=== PATIENT | male | born 1945 | race Caucasian/White ===

== ENCOUNTER 2023-07-24 09:43 | Outpatient (OUT) | payer MEDICARE, OTHER, SELFPAY ==
[2023-07-24 11:42] LABS: Anion Gap 14.1; BUN Creatinine Ratio 19.5; Calcium 10.3 mg/dL (8.5-10.1); Carbon Dioxide 26.9 mmol/L (21.0-32.0); Chloride 104 mmol/L (98-107); Estimated GFR (African America >60 (>=60); Estimated GFR (Non-African Ame >60 (>=60); Glucose 109 mg/dL (74-106); Sodium 141 mmol/L (136-145)
== END 2023-07-24 09:44 | disposition home or self-care (01) ==
LOC: LAB 09:49
PROVIDERS: PCP Internal Medicine; Visit Provider Internal Medicine Interventional Cardiology
DX: I27.20 Pulmonary hypertension, unspecified (principal)
CPT/HCPCS: 36415; 80048

== ENCOUNTER 2023-08-26 09:11 | Outpatient (OUT) | payer MEDICARE, OTHER, SELFPAY ==
--- OUTSIDE RECORDS SUMMARY | 2023-08-26 09:19 | XMS_ITS | CCD ---
Author Organization [facility] Care Team Providers Care Sailing Instructor Name Role Phone JOSE RAUL VALDES () Unavailable Un available KEISHAJOSE RAUL Miller () Unavailable Un available JOSE RAUL VALDES () Unavailable Un available JOSE RAUL VALDES () Unavailable Un available JOSE RAUL VALDES) Unavailable Un available KEISHAANGELA PANIAGUARMJose () Unavailable Un available KEISHA GANDHIVARMA Unavailable Unavail able KEISHA GANDHIVARMA Unavailable Unavail able Matt Wang Unavailable Matt Coreas DO Primary Care Provider DR MATT WANG Primary Care Unavailable JOSÉ Hurtado, ELZA Admitting Unavailable ELZA GUEVARA Attending Unavailable MURTAZA, DR PRIYANKA Reno Consulting Unavailable JOSÉ Hurtado, ELZA Consulting Unavailable FELIPE, DR RICHMOND Admitting Unavailable FELIPE, DR RICHMOND Attending Unavailable FELIPE, DR RICHMOND Primary Care Unavailable DR MATT WANG Consulting Unavailable MARICRUZ PIMENTEL Admitting Unavailable MARICRUZ PIMENTEL Attending Unavailable FELIPE, DR RICHMOND Primary Care Unavailable MARICRUZ PIMENTEL Consulting Unavailable Matt Wang Unavailable GAMAL KRUEGER Attending Unavailable Allergies Allergy Classification Reported Allergen(s) Allergy Type Date of Onset Reaction(s) Facility (1 source) Simvastatin Drug Allergy Unknown Stellar Other Medications Current Medications Medication Drug Class(es) Dates Sig (Normalized) Sig (Original) apixaban 5 mg oral tablet (3 sources) Factor Xa Inhibitor Start: 2021 take 1 tablet by mouth every twelve hours Eliquis 5 MG 1 tablet Orally Twice a day for 0 days Dec, Active Start: 2020 take 1 tablet by isa th twice daily ELIQUIS 5 mg tab(s) Take 5 mg by mouth twice daily. 0 2020 Active Comment on above: Take 5 mg by mouth t wice daily. fenofibrate 160 mg oral tablet (4 sources) Peroxisome Proliferator Receptor alpha Agonist Start: 2 take 1 tablet by mouth every twenty-four hours Fenofibrate 160 MG 1 tablet Orally Once a day for 90 days Feb, Active Comment on above: Take 160 mg by mouth once daily. furosemide 20 mg oral tablet (3 sources) Loop Diuretic Start: 2 take 1 tablet by mouth every twenty-four hours Furosemide 20 MG 1 tablet Orally Once a day for 0 days Dec, Active Start: 12-25-2020 furosemide (LA SIX) 20 mg tablet every 48 hours. 0 12/25/2020 Active Comment on above: every 48 hours. lisinopril 5 mg oral tablet (1 source) Angiotensin Converting Enzyme Inhibitor take 0.5 tablet by mouth every twenty-four hours Lisinopril 5 MG 0.5 tablet Orally Once a day for 30 day(s) Active losartan potassium 100 mg oral tablet (4 sources) Angiotensin 2 Receptor Lizzie Start: 8 take 1 tablet by mouth every twenty-four hours Losartan Potassium 100 MG 1 tablet Orally Once a day for 0 days Aug, Active Comment on above: Take 1 tablet by isa once daily. omeprazole 20 mg delayed release oral tablet (1 source) Proton Pump Inhibitor take 1 tablet by mouth every twenty-four hours PriLOSEC OTC 20 MG 1 tablet Orally Once a day for 30 day(s) Active paxlovid (300/100) 20 x 150 mg & 10 x 100mg tablet therapy pack (1 source) Start: 4 Paxlovid (300/100) 20 x 150 MG & 10 x 100MG as directed Orally bid for 5 days Mar, Active POLYETHYLENE GLYCOL 3350 (1 source) Osmotic Laxative MiraLax as dire cted Orally Active Completed/Discontinued Medications Medication Drug Class(es) Dates Sig (Normalized) Sig (Original) Acetaminophen / HYDROcodone (1 source) Opioid Agonist HYDROcodone-Acet am inophen Not-Taking/PRN Amitriptyline (1 source) Tricyclic Antidepressant Amitriptyline HCl Not-Taking/PRN amLODIPine 10 mg oral tablet (3 sources) Dihydropyridine Calcium Channel Lizzie Start: 2020 amLODIPine (NORVASC) 10 mg tablet Start: 11-30-2020 take 1 tablet by isa th once daily amLODIPine Besylate 5 MG amLODIPine Besylate 5MG, 1 (one) Tablet Tablet daily # 90, 11/30/2020, Ref. x3. Active Oral daily for 0 Nov, Active ascorbic acid 1000 mg oral tablet (2 sources) Vitamin C take 1 tablet by mouth once daily Ascorbic Acid (VITAMIN C) 1,000 mg tablet Take 1,000 mg by mouth once daily. 0 Active Comment on above: Take 1,000 mg by isa th once daily. chlordiazePOXIDE / clidinium (1 source) Anticholinergic, Benzodiazepine Start: 015 take 1 capsule by mouth twice daily before mealtime Librax 2.5-5 MG 1 capsule before meals Orally Twice a day for 30 day(s) May, Not-Taking/PRN Creon 13480 UNIT (1 source) Start: 014 take 2 tablets by mouth three times daily at mealtime Creon 89957 UNIT 2 TABS Orally TID WITH MEALS for 30 day(s) Nov, Not-Taking/PRN docusate sodium 50 mg / sennosides, detention 8.6 mg oral tablet (1 source) Start: 015 Senokot S 8.6-50 MG 2 p.o. Once a day for 30 day(s) July, Not-Taking/PRN Mexjh-3-MOA-EPA-Fish Oil (FISH OIL) 1,000 mg (120 mg-180 mg) cap (2 sources) take 1 capsule by mouth once daily Ysyig-0-RGP-EPA-Fis h Oil (FISH OIL) 1,000 mg (120 mg-180 mg) cap Take 2 g by mouth once daily. When stinks about it.. 0 Active Comment on above: Take 2 g by mouth on ce daily. When stinks about it.. Pancrelipase (1 source) Pancrelipase Not-Taking/PRN Suprep Bowel Prep - (1 source) Start: 017 Suprep Bowel Prep - 1 AT NOON AND 1 AT 8 PM DAY PRIOR TO COLONOSCOPY Orally Twice a day for 1 day(s) Jun, Not-Taking/PRN Problems Active Problems Problem Classification Problem Date Documented Da te Episodic/Chronic Disorders of lipid metabolism (4 sources) Hyperlipidemia, unspecified; Translations: [Mixed hyperlipidemia] Onset: 10-04-2021 Chronic Essential hypertension (6 sources) Essential (primary) hypertension; Translations: [Essential hypertension] Onset: 01-20-2022 Chronic Heart valve disorders (2 sources) Nonrheumatic tricuspid (valve) insufficiency; Translations: [Nonrheumatic tricuspid (valve) insufficiency] Onset: 07-22-2023 Chronic Hepatitis (1 source) Hepatitis Onset: 06-16-2017 Neoplasms of unspecified nature or uncertain behavior (2 sources) Post-splenectomy thrombocytosis; Translations: [Thrombocytosis after splenectomy] Episodic Other nervous system disorders (2 sources) Idiopathic progressive polyneuropathy; Translations: [Idiopathic progressive neuropathy] Onset: 03-06-2017 03-06-2017 Chronic Other nervous system disorders (1 source) Hereditary and idiopathic neuropathy, unspecified; Translations: [HEREDITARY IDIOPATH NEUROPATHY UNS] Onset: 01-20-2022 Chronic Pancreatic disorders (not diabetes) (2 sources) Chronic pancreatitis; Translations: [Other chronic pancreatitis] Onset: 04-18-2014 04-18-2014 Chronic Phlebitis; thrombophlebitis and thromboembolism (4 sources) Acute deep venous thrombosis of left femoral vein; Translations: [Acute embolism and thrombosis of left femoral vein] Onset: 01-03-2022 Episodic Pulmonary heart disease (2 sources) Pulmonary hypertension, unspecified; Translations: [Pulmonary hypertension, unspecified] Onset: 06-18-2022 Chronic Pulmonary heart disease (3 sources) Personal history of pulmonary embolism; Translations: [PERSONAL HISTORY PULMONARY EMBOLISM] Onset: 10-04-2021 Episodic Residual codes; unclassified (2 sources) Localized edema; Translations: [Localized edema] Onset: 07-22-2023 Episodic Unclassified (1 source) Spinal stenosis, lumbar region with neurogenic claudication; Translations: [Spinal stenosis, lumbar region with neurogenic claudication] Onset: 10-14-2017 Past or Other Problems Problem Classification Problem Date Documented Da te Episodic/Chronic Abdominal pain (3 sources) Unspecified abdominal pain; Translations: [UNSPECIFIED ABDOMINAL PAIN] Onset: 10-02-2021 Episodic E Codes: Fall (1 source) Fall on same level from slipping, tripping and stumbling without subsequent striking against object, initial encounter; Translations: [FALL SAME LVL SLIP NO STRK OBJ INIT] Onset: 10-04-2021 Episodic E Codes: Unspecified (1 source) Activity, gardening and landscaping; Translations: [ACTIVITY GARDENING AND LANDSCAPING] Onset: 10-04-2021 Episodic Other aftercare (1 source) custodial (current) use of anticoagulants; Translations: [HALF-WAY CURRNT USE ANTICOAGULANTS] Onset: 10-04-2021 Episodic Other aftercare (1 source) Other caster investment casting (current) drug therapy; Translations: [OTH HALF-WAY CURRENT DRUG THERAPY] Onset: 10-04-2021 Episodic Other fractures (1 source) Multiple fractures of ribs, right side, initial encounter for closed fracture; Translations: [MX FX RIBS RT SIDE INITIAL CLOS FX] Onset: 10-04-2021 Episodic Other screening for suspected conditions (not mental disorders or infectious disease) (1 source) Encounter for screening for malignant neoplasm of prostate; Translations: [ENC SCREEN MALIG NEOPLASM PROSTATE] Onset: 01-20-2022 Episodic Spondylosis; intervertebral disc disorders; other back problems (8 sources) Lumbosacral radiculopathy; Translations: [Radiculopathy, lumbosacral region] Onset: 03-06-2017 03-06-2017 Episodic Viral infection (1 source) COVID-19 Results Test Name Value Interpretation Reference Range Facility Office Visiton 07-22-2023 Follow-up visit [id number] Meera Stockton 1945 M Date Provider Department Center 07/22/2023 GAMAL DOYLE [facility] Family History Problem Relation Age of Onset Brain Aneurysm Mother Heart attack Brother Family Status - Relation Status Age at Mother Brother Level of Service:03066 NC OFFICE/OUTPATIENT ESTABLISHED MOD MDM 30 MIN Normal [facility] ECHOCARDIO M/2D COMPLETEon 0 06-25-2022 ECHOCARDIO M/2D COMPLETE Patient: MEERA STOCKTON. Exam Date: 06/25/2022 : 1945 Gender:M Ordering : MARICRUZ PIMENTEL [facility] Admission #: [id number] Family : Order #: [id number] CLICK HERE TO VIEW EXAM ECHOCARDIOGRAM REPORT PROCEDURE: CARDIO PULMONARY ECHOCARDIO M/2D COMP INDICATIONS: Dyspnea on exertion COMPARISON: None. DESCRIPTION: COMPLETE ECHOCARDIOGRAM Real-time transthoracic echocardiography with 2D, M-mode, spectral and color flow Doppler performed. QUALITY: Technical quality was good. LEFT VENTRICLE: Normal chamber size. Borderline left ventricular hypertrophy. Global left ventricular systolic function is normal. LV EF: Calculated left ventricular ejection fraction is 68%. DIASTOLIC: Normal diastolic function. ATRIAL SEPTUM: LEFT ATRIUM: Normal chamber size. RIGHT ATRIUM: Moderate dilatation. RIGHT VENTRICLE: Mild dilatation. Normal right ventricular systolic function. TRICUSPID VALVE: Normal mobility and thickness. No stenosis with moderate regurgitation. Mild pulmonary hypertension. RVSP 40 mmHg MITRAL VALVE: Normal mobility and thickness. No mitral valve prolapse. No evidence of mitral valve stenosis. There is no mitral annular calcification. Trivial mitral regurgitation. AORTIC VALVE: Normal trileaflet appearance. No visible sclerosis. Normal leaflet mobility. No evidence of aortic valve stenosis. Trivial aortic regurgitation. AORTIC ROOT: Normal diameter and appearance. PULMONIC VALVE: Normal thickness and mobility. No stenosis. No regurgitation. PERICARDIUM: No evidence of pericardial effusion. IVC: Collapses with inspirations. Normal size PLEURA: CONCLUSION: 1. Left ventricle is normal in size with normal systolic function. LVEF is 65 to 70%. 2. Right ventricle is mildly dilated with normal systolic function. 3. Normal diastolic function. 4. Moderately dilated right atrium. 5. Moderate tricuspid regurgitation. 6. Mildly elevated right-sided pressures. Adult Echocardiography Procedure Report Left Ventricle LVEDD (3.7 - 5.6 cm): 4.99 cm LVESD (2.2 - 4.0 cm): 3.18 cm LVIVS thickness (0.6 - 1.2 cm): 1.14 cm LVPW thickness (0.5 - 1.0 cm): 1.12 cm e': 0.13 m/s E - e': 4.35 LVOT Max Gradient: 4.39 mm[Hg] Peak Velocity (LVOT): 1.05 m/s Mean Velocity (LVOT): 0.69 m/s LVOT Diameter 2.28 cm Left Ventricular Ejection Fraction: 65-70 % Left Atrium LA Volume Index (2D A2C): 52.60 ml, 52.60 ml Left Atrium Systolic Dimension: 3.87 cm Mitral Valve MV E to A Ratio: 0.74 Mitral Valve A-Wave Peak Velocity: 0.74 m/s Mitral Valve E-Wave Peak Velocity: 0.55 m/s Right Ventricle RV Internal Diastolic Dimension: 4.19 cm Aorta AO Root Diam: 3.19 cm Ascending Ao Diam: 3.33 cm Aortic Valve AoV Area (Peak Cirilo): 3.46 cm2, 3.46 cm2 AoV Area (VTI): 3.29 cm2, 3.29 cm2 Peak Velocity(Antegrade Flow): 1.24 m/s Peak Gradient(Antegrade Flow): 6.16 mm[Hg] Mean Velocity(Antegrade Flow): 0.84 m/s Mean Gradient(Antegrade Flow): 3.32 mm[Hg] Velocity Time Integral: 30.93 cm Tricuspid Valve Peak Velocity (Regurgitant Flow): 2.98 m/s, 3.04 m/s, 2.96 m/s Peak Velocity: 0.51 m/s Pulmonic Valve Mean Gradient: 2.02 mm[Hg] Mean Velocity: 0.65 m/s Peak Velocity: 1.02 m/s, 0.98 m/s Peak Gradient: 3.83 mm[Hg], 4.20 mm[Hg] Right Atrium Right Atrium Systolic Pressure: 57.89 ml, 57.89 ml Dictated by: Gamal Krueger M.D. on 06/27/2022 at 19:25 Approved by: Gamal Krueger M.D. on 06/27/2022 at 19:32 Normal [facility] CBC AUTO DIFFon 01-16-2022 BASO # 0.1 103/ul Normal 0.0-0.1 [facility] Comment on above: Performed By: #### C BC #### [facility] [address] [place] [address] Dr. Shawn Shahid Basophils/100 WBC (Bld) 1.8 % Normal 0.2-2.0 [facility] Comment on above: Performed By: #### C BC #### [facility] [address] [address] [address] Shawn Shahid EO # 0.8 103/ul Critically high 0.0-0.7 [facility] Comment on above: Performed By: #### C BC #### [facility] [address] [place] [address] Dr. Shawn Shahid Eosinophils/100 WBC (Bld) 10.9 % Critically high 0.9-7.0 [facility] Comment on above: Performed By: #### C BC #### [facility] [address] [place] [address] Dr. Shawn Shahid Erythrocyte distribution width (RBC) [Ratio] 14.7 % Normal 11.0-15.0 [facility] Comment on above: Performed By: #### C BC #### [facility] [address] [place] [address] Dr. Shawn Shahid Hematocrit (Bld) [Volume fraction] 47.7 % Normal 42.0-54.0 [facility] Comment on above: Performed By: #### C BC #### [facility] [address] [place] [address] Dr. Shawn Shahid Hemoglobin (Bld) [Mass/Vol] 15.9 g/dL Normal 14.0-18.0 [facility] Comment on above: Performed By: #### C BC #### [facility] [address] [place] [address] Dr. Shawn Shahid IG # 0.02 10e3/ul Normal 0.00-0.03 [facility] Comment on above: Performed By: #### C BC #### [facility] [address] [place] [address] Dr. Shawn Shahid IG % 0.3 % Normal 0.0-0.5 [facility] Comment on above: Performed By: #### C BC #### [facility] [address] [place] [address] Dr. Shawn Shahid LYMPH # 2.7 103/ul Normal 1.2-3.8 [facility] Comment on above: Performed By: #### C BC #### [facility] [address] [place] [address] Dr. Shawn Shahid Lymphocytes/100 WBC (Bld) 37.7 % Normal 20.5-60.0 [facility] Comment on above: Performed By: #### C BC #### [facility] [address] [place] [address] Dr. Shawn Shahid MANUAL DIFF REQ NO Normal [facility] Comment on above: Performed By: #### C BC #### [facility] [address] [place] [address] Dr. Shawn Shahid MCH (RBC) [Entitic mass] 32.5 pg Normal 25.9-34.0 [facility] Comment on above: Performed By: #### C BC #### [facility] [address] [place] [address] Dr. Shawn Shahid MCHC (RBC) [Mass/Vol] 33.3 g/dL Normal 29.9-35.2 [facility] Comment on above: Performed By: #### C BC #### [facility] [address] [place] [address] Dr. Shawn Shahid MCV (RBC) [Entitic vol] 97.5 fL Critically high 80.0-94.0 [facility] Comment on above: Performed By: #### C BC #### [facility] [address] [place] [address] Dr. Shawn Shahid MONO # 1.0 103/ul Critically high 0.3-0.8 [facility] Comment on above: Performed By: #### C BC #### [facility] [address] [place] [address] Dr. Shawn Shahid Monocytes/100 WBC (Bld) 14.6 % Critically high 1.7-12.0 [facility] Comment on above: Performed By: #### C BC #### [facility] [address] [place] [address] Dr. Shawn Shahid NEUT # 2.4 103/ul Normal 1.4-6.5 [facility] Comment on above: Performed By: #### C BC #### [facility] [address] [place] [address] Dr. Shawn Shahid Neutrophils/100 WBC (Bld) 34.7 % Critically low 43.0-75.0 [facility] Comment on above: Performed By: #### C BC #### [facility] [address] [place] [address] Dr. Shawn Shahid Platelet mean volume (Bld) [Entitic vol] 9.3 fL Critically low 9.5-13.5 [facility] Comment on above: Performed By: #### C BC #### [facility] [address] [address] [address] Shawn Shahid PLT 538 103/ul Critically high 150-450 [facility] Comment on above: Performed By: #### C BC #### [facility] [address] [address] [address] Shawn Shahid RBC 4.89 106/ul Normal 4.70-6.10 [facility] Comment on above: Performed By: #### C BC #### [facility] [address] [address] [address] Shawn Shahid WBC 7.1 103/ul Normal 4.0-11.0 [facility] Comment on above: Performed By: #### C BC #### [facility] [address] [address] [address] Shawn Shahid LIPID PROFILEon 01-16-2022 CHOL-HDL RATIO NORM SEE BELOW Normal [facility] Comment on above: Result Comment: 3.3 - 4.4 LOW RISK 4.4 - 7.1 AVERAGE RISK 7.1 - 11.0 MODERATE RISK >11.0 HIGH RISK Performed By: #### L IPID, BMP #### [facility] [address] [place] [address] Dr. Shawn Shahid Cholesterol [Mass/Vol] 246 mg/dL Critically high <=200 [facility] Comment on above: Performed By: #### L IPID, BMP #### [facility] [address] [place] [address] Dr. Shawn Shahid Cholesterol in HDL [Mass/Vol] 69 mg/dL Critically high 40-60 [facility] Comment on above: Performed By: #### L IPID, BMP #### [facility] [address] [address] [address] Shawn Shahid Cholesterol in LDL [Mass/Vol] 152.0 mg/dL Normal [facility] Comment on above: Performed By: #### L IPID, BMP #### [facility] [address] [place] [address] Dr. Shawn Shahid Cholesterol.total/ Cholesterol in HDL [Mass ratio] 3.6 {ratio} Normal [facility] Comment on above: Performed By: #### L IPID, BMP #### [facility] [address] [address] [address] Shawn Shahid HDL NORMAL > or = 60 mg/dl - LO W CARDIOVASCULAR RISK <40 mg/dl - HIGH CARDIOVASCULAR RISK Normal [facility] Comment on above: Performed By: #### L IPID, BMP #### [facility] [address] [address] [address] Shawn Shahid LDL CALC NORMAL SEE BELOW Normal [facility] Comment on above: Result Comment: <100 mg/dl OPTIMAL 100 - 129 mg/dl NEAR OR ABOVE OPTIMAL 130 - 159 mg/dl BORDERLINE HIGH 160 - 189 mg/dl HIGH >190 mg/dl VERY HIGH Performed By: #### L IPID, BMP #### [facility] [address] [place] [address] Dr. Shawn Shahid Triglyceride [Mass/Vol] 125 mg/dL Normal <=150 [facility] Comment on above: Performed By: #### L IPID, BMP #### [facility] [address] [place] [address] Dr. Shawn Shahid VLDL CALC 25.0 mg/dL Normal [facility] Comment on above: Performed By: #### L IPID, BMP #### [facility] [address] [address] [address] Shawn Shahid PROF CHEM 8 (BAS METB)on Anion gap [Moles/Vol] 10.8 mmol/L Normal [facility] Comment on above: Performed By: #### L IPID, BMP #### [facility] [address] [place] [address] Dr. Shawn Shahid Calcium [Mass/Vol] 9.7 mg/dL Normal 8.5-10.1 [facility] Comment on above: Performed By: #### L IPID, BMP #### [facility] [address] [address] [address] Shawn Shahid Chloride [Moles/Vol] 101 mmol/L Normal 98-107 [facility] Comment on above: Performed By: #### L IPID, BMP #### [facility] [address] [address] [address] Shawn Shahid CO2 [Moles/Vol] 29.3 mmol/L Normal 21.0-32.0 [facility] Comment on above: Performed By: #### L IPID, BMP #### [facility] [address] [address] [address] Shawn Shahid Creatinine [Mass/Vol] 0.86 mg/dL Normal 0.70-1.30 [facility] Comment on above: Performed By: #### L IPID, BMP #### [facility] [address] [address] [address] Shawn Shahid EGFR-AF CITIZEN OF [place] >60 Normal >=60 [facility] Comment on above: Performed By: #### L IPID, BMP #### [facility] [address] [address] [address] Shawn Shahid EGFR-NON AF CITIZEN OF [place] >60 Normal >=60 [facility] Comment on above: Performed By: #### L IPID, BMP #### [facility] [address] [address] [address] Shawn Shahid Glucose [Mass/Vol] 105 mg/dL Normal 74-106 [facility] Comment on above: Performed By: #### L IPID, BMP #### [facility] [address] [address] [address] Shawn Shahid Potassium [Moles/Vol] 4.1 mmol/L Normal 3.5-5.1 [facility] Comment on above: Performed By: #### L IPID, BMP #### [facility] [address] [address] [address] Shawn Shahid Sodium [Moles/Vol] 137 mmol/L Normal 136-145 [facility] Comment on above: Performed By: #### L IPID, BMP #### [facility] [address] [place] [address] Dr. Shawn Shahid Urea nitrogen [Mass/Vol] 16.0 mg/dL Normal 7.0-18.0 [facility] Comment on above: Performed By: #### L IPID, BMP #### [facility] [address] [place] [address] Dr. Shawn Shahid Urea nitrogen/Creatinin e [Mass ratio] 18.6 mg/mg Normal [facility] Comment on above: Performed By: #### L IPID, BMP #### [facility] [address] [place] [address] Dr. Shawn Shahid CBC AUTO DIFFon 10-02-2021 BASO # 0.1 103/ul Normal 0.0-0.1 [facility] Comment on above: Performed By: #### C BC #### [facility] [address] [place] [address] Dr. Shawn Shahid Basophils/100 WBC (Bld) 0.7 % Normal 0.2-2.0 [facility] Comment on above: Performed By: #### C BC #### [facility] [address] [place] [address] Dr. Shawn Shahid EO # 0.2 103/ul Normal 0.0-0.7 [facility] Comment on above: Performed By: #### C BC #### [facility] [address] [place] [address] Dr. Shawn Shahid Eosinophils/100 WBC (Bld) 2.2 % Normal 0.9-7.0 [facility] Comment on above: Performed By: #### C BC #### [facility] [address] [place] [address] Dr. Shawn Shahid Erythrocyte distribution width (RBC) [Ratio] 15.0 % Normal 11.0-15.0 [facility] Comment on above: Performed By: #### C BC #### [facility] [address] [place] [address] Dr. Shawn Shahid Hematocrit (Bld) [Volume fraction] 44.5 % Normal 42.0-54.0 [facility] Comment on above: Performed By: #### C BC #### [facility] [address] [place] [address] Dr. Shawn Shahid Hemoglobin (Bld) [Mass/Vol] 15.1 g/dL Normal 14.0-18.0 [facility] Comment on above: Performed By: #### C BC #### [facility] [address] [place] [address] Dr. Shawn Shahid IG # 0.03 10e3/ul Normal 0.00-0.03 [facility] Comment on above: Performed By: #### C BC #### [facility] [address] [place] [address] Dr. Shawn Shahid IG % 0.3 % Normal 0.0-0.5 [facility] Comment on above: Performed By: #### C BC #### [facility] [address] [place] [address] Dr. Shawn Shahid LYMPH # 2.0 103/ul Normal 1.2-3.8 [facility] Comment on above: Performed By: #### C BC #### [facility] [address] [place] [address] Dr. Shawn Shahid Lymphocytes/100 WBC (Bld) 20.7 % Normal 20.5-60.0 [facility] Comment on above: Performed By: #### C BC #### [facility] [address] [place] [address] Dr. Shawn Shahid MANUAL DIFF REQ NO Normal [facility] Comment on above: Performed By: #### C BC #### [facility] [address] [place] [address] Dr. Shawn Shahid MCH (RBC) [Entitic mass] 32.7 pg Normal 25.9-34.0 [facility] Comment on above: Performed By: #### C BC #### [facility] [address] [place] [address] Dr. Shawn Shahid MCHC (RBC) [Mass/Vol] 33.9 g/dL Normal 29.9-35.2 [facility] Comment on above: Performed By: #### C BC #### [facility] [address] [address] [address] Shawn Shahid MCV (RBC) [Entitic vol] 96.3 fL Critically high 80.0-94.0 [facility] Comment on above: Performed By: #### C BC #### [facility] [address] [address] [address] Shawn Shahid MONO # 1.2 103/ul Critically high 0.3-0.8 [facility] Comment on above: Performed By: #### C BC #### [facility] [address] [address] [address] Shawn Shahid Monocytes/100 WBC (Bld) 12.6 % Critically high 1.7-12.0 [facility] Comment on above: Performed By: #### C BC #### [facility] [address] [place] [address] Dr. Shawn Shahid NEUT # 6.2 103/ul Normal 1.4-6.5 [facility] Comment on above: Performed By: #### C BC #### [facility] [address] [address] [address] Shawn Shahid Neutrophils/100 WBC (Bld) 63.5 % Normal 43.0-75.0 [facility] Comment on above: Performed By: #### C BC #### [facility] [address] [address] [address] Shawn Shahid Platelet mean volume (Bld) [Entitic vol] 9.3 fL Critically low 9.5-13.5 [facility] Comment on above: Performed By: #### C BC #### [facility] [address] [place] [address] Dr. Shawn Shahid PLT 460 103/ul Critically high 150-450 [facility] Comment on above: Performed By: #### C BC #### [facility] [address] [id number] [address] Shawn Shahid RBC 4.62 106/ul Critically low 4.70-6.10 [facility] Comment on above: Performed By: #### C BC #### [facility] [address] [address] [address] Shawn Shahid WBC 9.7 103/ul Normal 4.0-11.0 [facility] Comment on above: Performed By: #### C #### [facility] [address] [place], [place] [address] ABD/PELVIS WO CONon 10-02 CT ABD/PELVIS WO CON EXAMINATION: CT ABD/PELVIS WO CON HISTORY: Pain ; acute right rib and abdominal pain since falling yesterday COMPARISON: CT abdomen pelvis 11/06/2020 TECHNIQUE: Axial, Coronal, and Sagittal images were created without IV contrast. Dose reduction techniques were achieved by using automated exposure control and/or adjustment of mA and/or kV according to patient size and/or use of iterative reconstruction technique. FINDINGS: LUNG BASES: Trace amount of atelectasis within posterior right lung base. LIVER: No enlargement, atrophy, suspicious density, or significant focal lesion. BILIARY: No dilatation or calcification. PANCREAS: Prior resection of the body and tail of pancreas. No lesion, fluid collection, or abnormal duct dilatation. SPLEEN: Splenectomy. ADRENALS: No mass or enlargement. Chronic calcifications within right adrenal gland. KIDNEYS: Nonobstructing 1 mm and 4 mm stones within left kidney. Unremarkable right kidney and bilateral ureters. BOWEL/MESENTERY: No visible mass, obstruction, or bowel wall thickening. Normal appendix. AORTA/VASCULAR: No aneurysm or dissection. RETROPERITONEUM: No mass or adenopathy. LYMPH NODES: No adenopathy. URINARY BLADDER: No visible focal wall thickening, lesion, or calculus. PELVIC ORGANS: No visible mass. Pelvic organs appropriate for patient age. ABDOMINAL WALL: Small fat filled right inguinal hernia without strangulation. BONES: Acute, nondisplaced posterior right ninth and 10th rib fractures. Marked degenerative disc disease L4-L5, L5-S1 along with marked degenerative facet arthropathy. Posterior decompression L4 and L5. OTHER: Negative. IMPRESSION: 1. Nondisplaced acute fractures of the posterior right ninth and 10th ribs. 2. Mild atelectasis within right lung base. 3. Prior splenectomy and partial pancreatectomy. 4. Nonobstructing left nephrolithiasis. Electronically authenticated by: PRIYANKA HAUSER Date: 2021-10-02 13:13 Normal [facility] PROF CHEM 8 (BAS METB)on Anion gap [Moles/Vol] 13.3 mmol/L Normal [facility] Comment on above: Performed By: #### B MP #### [facility] [address] [address] [address] Shawn Shahid Calcium [Mass/Vol] 9.6 mg/dL Normal 8.5-10.1 [facility] Comment on above: Performed By: #### B MP #### [facility] [address] [address] [address] Shawn Shahid Chloride [Moles/Vol] 105 mmol/L Normal 98-107 [facility] Comment on above: Performed By: #### B MP #### [facility] [address] [address] [address] Shawn Shahid CO2 [Moles/Vol] 24.5 mmol/L Normal 21.0-32.0 [facility] Comment on above: Performed By: #### B MP #### [facility] [address] [address] [address] Shawn Shahid Creatinine [Mass/Vol] 0.83 mg/dL Normal 0.70-1.30 [facility] Comment on above: Performed By: #### B MP #### [facility] [address] [address] [address] Shawn Shahid EGFR-AF CITIZEN OF [place] >60 Normal >=60 [facility] Comment on above: Performed By: #### B MP #### [facility] [address] [address] [address] Shawn Shahid EGFR-NON AF CITIZEN OF [place] >60 Normal >=60 [facility] Comment on above: Performed By: #### B MP #### [facility] [address] [address] [address] Shawn Shahid Glucose [Mass/Vol] 113 mg/dL Critically high 74-106 [facility] Comment on above: Performed By: #### B MP #### [facility] [address] [address] [address] Shawn Shahid Potassium [Moles/Vol] 3.8 mmol/L Normal 3.5-5.1 [facility] Comment on above: Performed By: #### B MP #### [facility] [address] [place], [place] [address] Dr. Shawn Shahid Sodium [Moles/Vol] 139 mmol/L Normal 136-145 [facility] Comment on above: Performed By: #### B MP #### [facility] [address] [place], [place] [address] Dr. Shawn Shahid Urea nitrogen [Mass/Vol] 16.0 mg/dL Normal 7.0-18.0 [facility] Comment on above: Performed By: #### B MP #### [facility] [address] [place], [place] [address] Dr. Shawn Shahid Urea nitrogen/Creatinin e [Mass ratio] 19.3 mg/mg Normal [facility] Comment on above: Performed By: #### B MP #### [facility] [address] [place], [place] [address] Dr. Shawn Shahid XR RIBS RT PA Myra 2 XR RIBS RT PA CH EXAMINATION: XR RIBS RT PA CH HISTORY: Pain ; right rib and abdominal pain since falling yesterday COMPARISON: XR chest 11-03 FINDINGS: LUNGS: No significant pulmonary parenchymal abnormalities. PLEURA: No pneumothorax, effusion, or pleural thickening. MEDIASTINUM: No visible mass or adenopathy. CARDIAC: No cardiomegaly or cardiac silhouette abnormality. RIBS: Old, healed left second rib fracture. No right rib fracture or suspicious findings. OTHER: Negative. IMPRESSION: 1. Low lung volume examination. No acute cardiopulmonary process. 2. No appreciable right rib abnormality. Electronically authenticated by: PRIYANKA HAUSER Date: 2021-10-02 13:00 Normal [facility] CBC W Auto Differential pane l (Bld)on 07-18-2021 Basophils (Bld) [#/Vol] 0.14 10*3/uL High <0.11 [facility] Comment on above: Order Comment: Speci men Type: BLOOD SPECIMENOrdering Facility: [facility] Address: [address] [place] [id number] Performed By: #### 5 7021-8 ####[facility] [id number] [place] [address] Basophils/100 WBC (Bld) 1.9 % Normal [facility] Comment on above: Order Comment: Speci men Type: BLOOD SPECIMENOrdering Facility: [facility] Address: [address] [place] [address] Performed By: #### 5 7021-8 ####[facility] [id number] [place] [address] Differential cell count method Nom (Bld) Auto Normal [facility] Comment on above: Order Comment: Speci men Type: BLOOD SPECIMENOrdering Facility: [facility] Address: [address] [place] [address] Performed By: #### 5 7021-8 ####[facility] [id number] [place] [address] Eosinophils (Bld) [#/Vol] 0.80 10*3/uL High <0.46 [facility] Comment on above: Order Comment: Speci men Type: BLOOD SPECIMENOrdering Facility: [facility] Address: [address] [place] [address] Performed By: #### 5 7021-8 ####[facility] [id number] [place] [address] Eosinophils/100 WBC (Bld) 10.9 % Normal [facility] Comment on above: Order Comment: Speci men Type: BLOOD SPECIMENOrdering Facility: [facility] Address: [address] [place] [address] Performed By: #### 5 7021-8 ####[facility] [id number] [place] [address] Erythrocyte distribution width (RBC) [Ratio] 15.1 % High 11.5-15.0 [facility] Comment on above: Order Comment: Speci men Type: BLOOD SPECIMENOrdering Facility: [facility] Address: [address] [place] [address] Performed By: #### 5 7021-8 ####[facility] [id number] [place] [address] Hematocrit (Bld) [Volume fraction] 48.4 % Normal 39.0-51.0 [facility] Comment on above: Order Comment: Speci men Type: BLOOD SPECIMENOrdering Facility: [facility] Address: [address] [place] [address] Performed By: #### 5 7021-8 ####[facility] [id number] [place] [address] Hemoglobin (Bld) [Mass/Vol] 16.2 g/dL Normal 13.0-17.0 [facility] Comment on above: Order Comment: Speci men Type: BLOOD SPECIMENOrdering Facility: [facility] Address: [address] [place] [address] Performed By: #### 5 7021-8 ####[facility] [id number] [place] [address] IMMATURE GRAN % 0.4 % Normal [facility] Comment on above: Order Comment: Speci men Type: BLOOD SPECIMENOrdering Facility: [facility] Address: [address] [place] [address] Performed By: #### 5 7021-8 ####[facility] [id number] [place] [address] IMMATURE GRAN ABS 0.03 k/uL Normal <0.10 [facility] Comment on above: Order Comment: Speci men Type: BLOOD SPECIMENOrdering Facility: [facility] Address: [address] [place] [address] Performed By: #### 5 7021-8 ####[facility] [id number] [place] [address] Lymphocytes (Bld) [#/Vol] 2.70 10*3/uL Normal 1.00-4.00 [facility] Comment on above: Order Comment: Speci men Type: BLOOD SPECIMENOrdering Facility: [facility] Address: [address] [place] [address] Performed By: #### 5 7021-8 ####[facility] [id number] [place] [address] Lymphocytes/100 WBC (Bld) 36.6 % Normal [facility] Comment on above: Order Comment: Speci men Type: BLOOD SPECIMENOrdering Facility: [facility] Address: [address] [place] [address] Performed By: #### 5 7021-8 ####[facility] [id number] [place] [address] MCH (RBC) [Entitic mass] 32.3 pg Normal 26.0-34.0 [facility] Comment on above: Order Comment: Speci men Type: BLOOD SPECIMENOrdering Facility: [facility] Address: [address] [place] [address] Performed By: #### 5 7021-8 ####[facility] [id number] [place] [address] MCHC (RBC) [Mass/Vol] 33.5 g/dL Normal 30.5-36.0 [facility] Comment on above: Order Comment: Speci men Type: BLOOD SPECIMENOrdering Facility: [facility] Address: [address] [place], [place] [address] Performed By: #### 5 7021-8 ####[facility] [id number] [place] [address] MCV (RBC) [Entitic vol] 96.4 fL Normal 80.0-100.0 [facility] Comment on above: Order Comment: Speci men Type: BLOOD SPECIMENOrdering Facility: [facility] Address: [address] [place], [place] [address] Performed By: #### 5 7021-8 ####[facility] [id number] [place] [address] Monocytes (Bld) [#/Vol] 0.99 10*3/uL High <0.87 [facility] Comment on above: Order Comment: Speci men Type: BLOOD SPECIMENOrdering Facility: [facility] Address: [address] [place] [address] Performed By: #### 5 7021-8 ####[facility] [id number] [place] [address] Monocytes/100 WBC (Bld) 13.4 % Normal [facility] Comment on above: Order Comment: Speci men Type: BLOOD SPECIMENOrdering Facility: [facility] Address: [address] [place] [address] Performed By: #### 5 7021-8 ####[facility] [id number] [place] [address] Neutrophils (Bld) [#/Vol] 2.71 10*3/uL Normal 1.45-7.50 [facility] Comment on above: Order Comment: Speci men Type: BLOOD SPECIMENOrdering Facility: [facility] Address: [address] [place] [address] Performed By: #### 5 7021-8 ####[facility] [id number] [place] [address] Neutrophils/100 WBC (Bld) 36.8 % Normal [facility] Comment on above: Order Comment: Speci men Type: BLOOD SPECIMENOrdering Facility: [facility] Address: [address] [place], [place] [address] Performed By: #### 5 7021-8 ####[facility] [id number] [place] [address] Nucleated RBC (Bld) [#/Vol] 10*3/uL Normal <0.01 [facility] Comment on above: Order Comment: Speci men Type: BLOOD SPECIMENOrdering Facility: [facility] Address: [address] [place] [address] Performed By: #### 5 7021-8 ####[facility] [id number] [place] [address] Nucleated RBC/100 WBC (Bld) [Ratio] 0.0 /100 WBC Normal [facility] Comment on above: Order Comment: Speci men Type: BLOOD SPECIMENOrdering Facility: [facility] Address: [address] [place] [address] Performed By: #### 5 7021-8 ####[facility] [id number] [place] [address] Platelet mean volume (Bld) [Entitic vol] 9.1 fL Normal 9.0-12.7 [facility] Comment on above: Order Comment: Speci men Type: BLOOD SPECIMENOrdering Facility: [facility] Address: [address] [place], [place] [address] Performed By: #### 5 7021-8 ####[facility] [id number] [place] [address] Platelets (Bld) [#/Vol] 486 10*3/uL High 150-400 [facility] Comment on above: Order Comment: Speci men Type: BLOOD SPECIMENOrdering Facility: [facility] Address: [address] [place], [place] [address] Performed By: #### 5 7021-8 ####[facility] [id number] [place] [address] RBC (Bld) [#/Vol] 5.02 10*6/uL Normal 4.20-6.00 [facility] Comment on above: Order Comment: Speci men Type: BLOOD SPECIMENOrdering Facility: [facility] Address: [address] [place], [place] [address] Performed By: #### 5 7021-8 ####[facility] [id number] [place] [address] WBC (Bld) [#/Vol] 7.37 10*3/uL Normal 3.70-11.00 [facility] Comment on above: Order Comment: Speci men Type: BLOOD SPECIMENOrdering Facility: [facility] Address: [facility] [place] [address] Performed By: #### 5 7021-8 ####[facility]CLIA [id number] [place] [address] CNOVSPon 07-18-2021 CNOVSP Visit (SP) Office ([facility]) MEERA STOCKTON ([id number]) 1945 M Date Time Provider Department 07/18/21 10:45 AM ELIER RAYMUNDO During your visit today, we recorded the following information about you: Temperature Pulse Respiration Blood pressure 97.8 degrees 49/minute 16/minute 132/68 Weight Height 84.3 kg 1.765 m Elier Raymundo MD 07/18/2021 11:05 AM Signed HEMATOLOGY FOLLOW UP Elements in this clinic note that are critical to medical decision making have been carefully reviewed and included from my prior clinic note dated: January 17, 2021 July 18, 2021 PCP and other physicians involved in patient's care: Matt Wang (PCP) DIAGNOSIS: Post-splenectomy thrombocytosis HEMATOLOGICAL HISTORY: ? Thrombocytosis from 450-650,000 dating back to 2014 (prior records unavailable), normal WBCs with mild elevations in monocytes and eosinophils, normal hemoglobin; splenectomy in April 2014 ? May 29, 2020 CT chest with moderate bilateral lobar, segmental and subsegmental pulmonary emboli with evidence of right ventricular strain; DVT study with occlusive DVT in the left common femoral vein extending to the popliteal vein; right lower extremity veins are widely patent. No propagating event noted. No family history of VTE. ? January 08, 2021 D-dimer normal. Platelet count 750095. WBC normal with differential showing absolute monocytosis, absolute eosinophilia and absolute basophilia. Hemoglobin normal. No M protein on serum immunofixation. INTERVAL HISTORY: Meera comes back for follow-up. He continues to have issues with neuropathy but no new symptoms. ROS is negative except that mentioned in HPI PAST MEDICAL SURGICAL FAMILY AND SOCIAL HISTORY: He has a history of -Acute DVT, left femoral vein extending into the popliteal vein and multiple subsegmental PE with mild RV dilatation, May 2020 (tested negative for COVID-19 at that time), on apixaban, unprovoked -Hypertension -Peripheral neuropathy -Benign prostatic hyperplasia -Cervical and lumbar spondylosis -Chronic pancreatitis, secondary to chronic alcohol abuse, status post distal pancreatectomy and splenectomy Prior surgeries include herniorrhaphy, distal pancreatectomy and splenectomy (April 2014), lumbar laminectomies and foraminotomies. Family history not significant for hematological or oncologic issues. He has a significant history of excessive alcohol abuse use for 40 years before quitting in 2014. He has 3 children who are healthy. MEDICATIONS AND ALLERGIES: Reviewed PHYSICAL EXAM BP 132/68 Pulse (!) 49 Temp 36.6 ?C (97.8 ?F) (Temporal) Resp 16 Ht 176.5 cm (5' 9.49 ) Wt 84.3 kg (185 lb 12.8 oz) SpO2 98% BMI 27.05 kg/m? Head atraumatic, no pallor, icterus or lymphadenopathy, lungs clear to auscultation, heart sounds regular, abdomen soft without distension or organomegaly, neuro grossly non-focal, skin without rash, extremities without swelling LABORATORY, IMAGING AND PATHOLOGY CBC and CMP reviewed ASSESSMENT AND RECOMMENDATIONS 75 male with thrombocytosis and history of DVT/PE ? Thrombocytosis: The most likely reason for thrombocytosis in the patients's case is history of splenectomy. Mild elevation in myeloid lineages are expected as a result of splenectomy. Given the stability and chronicity of elevated counts, no further intervention is necessary at this point. Continue to monitor counts periodically. Should the patient have new anemia, neutropenia or a rising platelet count, additional work-up could be considered. Follow-up as needed ? 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 Risk factors for recurrent thrombotic event would include patient's history of splenectomy. Patient is at high risk for recurrence of VTE and has a low risk for bleeding events. Continue indefinite anticoagulation. ? 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 This has slowly progressed over the last 1 to 2 years resulting in falls. He has no sensorimotor deficit on exam except for decreased hearing in both ears and some tingling in his feet. B12, TSH, B1 and M protein evaluation are normal. MRI brain is normal. He was recommended neurosurgical evaluation but has deferred this for now. Elier Raymundo MD I spent a total of 20 minutes on the date of the service which included preparing to see the patient, [id number] patient care, completing clinical documentation, obtaining and/or reviewing separately obtained history, performing a medically appropriate examination, counseling and educating the patient/family/caregiver, ordering medications, tests, or procedures and independently interpreting results (not separately reported). CC: Matt Dowd (more content not included)... Normal [facility] [place] [facility] 2000 panelon 07-18-2021 Albumin [Mass/Vol] 4.9 g/dL Normal 3.9-4.9 [facility] Comment on above: Order Comment: Speci men Type: BLOOD SPECIMENOrdering Facility: [facility] Address: [address] [place] [address] Performed By: #### 2 4323-8 ####[facility] [id number] [place] [address] ALP [Catalytic activity/Vol] 32 U/L Low 38-113 [facility] Comment on above: Order Comment: Speci men Type: BLOOD SPECIMENOrdering Facility: [facility] Address: [facility] [place] [address] Performed By: #### 2 4323-8 ####[facility] [id number] [place] [address] ALT [Catalytic activity/Vol] 20 U/L Normal 10-54 [facility] Comment on above: Order Comment: Speci men Type: BLOOD SPECIMENOrdering Facility: [facility] Address: [address] [place] [address] Performed By: #### 2 4323-8 ####[facility] [id number] [place] [address] Anion gap [Moles/Vol] 13 mmol/L Normal 9-18 [facility] Comment on above: Order Comment: Speci men Type: BLOOD SPECIMENOrdering Facility: [facility] Address: [address] [place] [address] Performed By: #### 2 4323-8 ####[facility] [id number] [place] [address] AST [Catalytic activity/Vol] 24 U/L Normal 14-40 [facility] Comment on above: Order Comment: Speci men Type: BLOOD SPECIMENOrdering Facility: [facility] Address: [address] [place] [address] Performed By: #### 2 4323-8 ####[facility] [id number] [place] [address] Bilirubin [Mass/Vol] 0.7 mg/dL Normal 0.2-1.3 [facility] Comment on above: Order Comment: Speci men Type: BLOOD SPECIMENOrdering Facility: [facility] Address: [address] [place] [address] Performed By: #### 2 4323-8 ####[facility] [id number] [place] [address] Calcium [Mass/Vol] 10.5 mg/dL High 8.5-10.2 [facility] Comment on above: Order Comment: Speci men Type: BLOOD SPECIMENOrdering Facility: [facility] Address: [address] [place] [address] Performed By: #### 2 4323-8 ####[facility] [id number] [place] [address] Chloride [Moles/Vol] 101 mmol/L Normal 97-105 [facility] Comment on above: Order Comment: Speci men Type: BLOOD SPECIMENOrdering Facility: [facility] Address: [address] [place] [address] Performed By: #### 2 4323-8 ####[facility] [id number] [place] [address] CO2 [Moles/Vol] 26 mmol/L Normal 22-30 [facility] Comment on above: Order Comment: Speci men Type: BLOOD SPECIMENOrdering Facility: [facility] Address: [address] [place] [address] Performed By: #### 2 4323-8 ####[facility] [id number] [place] [address] Creatinine [Mass/Vol] 0.82 mg/dL Normal 0.73-1.22 [facility] Comment on above: Order Comment: Speci men Type: BLOOD SPECIMENOrdering Facility: [facility] Address: [address] [place] [address] Performed By: #### 2 4323-8 ####[facility] [id number] [place] [address] ESTIMATED GLOMERULAR FILTRATION RATE 92 mL/min/1.73m??? Normal >=60 [facility] Comment on above: Order Comment: Speci men Type: BLOOD SPECIMENOrdering Facility: [facility] Address: [address] [place] [address] Result Comment: Carlie mated Glomerular Filtration Rate (eGFR) is calculated using the 2020 CKD-EPI creatinine equation. This equation utilizes serum creatinine, sex, and age as parameters. The creatinine assay has traceable calibration to isotope dilution-mass spectrometry. Refer to KDIGO guidelines for clinical interpretation. In patients with unstable renal function, e.g. those with acute kidney injury, the eGFR may not accurately reflect actual GFR. Performed By: #### 2 4323-8 ####[facility] [id number] [place] [address] Glucose [Mass/Vol] 110 mg/dL High 74-99 [facility] Comment on above: Order Comment: Speci men Type: BLOOD SPECIMENOrdering Facility: [facility] Address: [address] [place] [address] Result Comment: The [place] Diabetes [employer] (ADA) provides guidance for cutoff values for fasting glucose and random glucose. The ADA defines fasting as no caloric intake for at least 8 hours. Fasting plasma glucose results between 100 to 125 mg/dL indicate increased risk for diabetes (prediabetes). Fasting plasma glucose results greater than or equal to 126 mg/dL meet the criteria for diagnosis of diabetes. In the absence of unequivocal hyperglycemia, results should be confirmed by repeat testing. In a patient with classic symptoms of hyperglycemia or hyperglycemic crisis, random plasma glucose results greater than or equal to 200 mg/dL meet the criteria for diagnosis of diabetes. Reference: Standards of Medical Care in Diabetes 2016, [place] [employer]. Diabetes Care. 2016.39(Suppl 1). Performed By: #### 2 4323-8 ####[facility] [id number] [place] [address] Potassium [Moles/Vol] 3.7 mmol/L Normal 3.7-5.1 [facility] Comment on above: Order Comment: Speci men Type: BLOOD SPECIMENOrdering Facility: [facility] Address: [address] [place] [address] Performed By: #### 2 4323-8 ####[facility] [id number] [place] [address] Protein [Mass/Vol] 8.2 g/dL High 6.3-8.0 [facility] Comment on above: Order Comment: Speci men Type: BLOOD SPECIMENOrdering Facility: [facility] Address: [address] [place] [address] Performed By: #### 2 4323-8 ####[facility] [id number] [place] [address] Sodium [Moles/Vol] 140 mmol/L Normal 136-144 [facility] Comment on above: Order Comment: Speci men Type: BLOOD SPECIMENOrdering Facility: [facility] Address: [address] [place] [address] Performed By: #### 2 4323-8 ####[facility] [id number] [place] [address] Urea nitrogen [Mass/Vol] 19 mg/dL Normal 9-24 [facility] Comment on above: Order Comment: Speci men Type: BLOOD SPECIMENOrdering Facility: [facility] Address: [address] [place] [address] Performed By: #### 2 4323-8 ####[facility] [id number] [place] [address] D dimer FEU PPP-mCncon 07-18 Fibrin D-dimer FEU (PPP) [Mass/Vol] <190 Normal <500 [facility] Comment on above: Order Comment: Speci men Type: BLOOD SPECIMENOrdering Facility: [facility] Address: [address] [place] [address] Result Comment: Dre en plasma received. Performed By: #### 4 8065-7 ####[facility] LABCLIA [id number] [facility] [id number] LABCLIA [id number] [place] [address] Fibrin D-dimer FEU (PPP) [Ma ss/Vol]on 07-18-2021 D DIMER AGE-RELATED CUTOFF 750 ng/mL FEU Normal [facility] Comment on above: Order Comment: Speci men Type: BLOOD SPECIMENOrdering Facility: [facility] Address: [address] [place] [address] Performed By: #### 4 8065-7 ####[facility] LABCLIA [id number] [facility] [id number] [address] [facility] LABCLIA [id number] [place] [address] A[place] 07-15-2021 UMAN Telephone (HEMASA) KYRAMEERA Florentino ([id number]) 1945 M Date Time Provider Department 07/15/21 ELIRE RAYMUNDO During your visit today, we recorded the following information about you: Allergies As of Date: 07/15/2021 (No Known Allergies) Date Reviewed: 02/01/2021 Reviewed by: Tushar Willingham LPN - Fully Assessed Reason for Visit: Lab Orders [1688] Primary Visit Diagnosis:Acute deep vein thrombosis (DVT) of femoral vein of left lower extremity (HCC) [I82.412] Other Visit Diagnosis:Thrombocytosis after splenectomy [D75.838, Z90.81] Order(s):CBC + DIFF [SQCBCDIF] Order #: [id number] FUTURE COMP METABOLIC PANEL [SQCMP] Order #: [id number] FUTURE Prescriptions as of 07/15/2021 - Ascorbic Acid (VITAMIN C) 1,000 mg tablet Take 1,000 mg by mouth once daily. - Mqoez-9-FYU-EPA-Fish Oil (FISH OIL) 1,000 mg (120 mg-180 mg) cap Take 2 g by mouth once daily. When stinks about it.. - amLODIPine (NORVASC) 10 mg tablet - furosemide (LASIX) 20 mg tablet every 48 hours. - ELIQUIS 5 mg tab(s) Take 5 mg by mouth twice daily. - losartan (COZAAR) 100 mg tablet Take 1 tablet by mouth once daily. - Fenofibrate (LOFIBRA) 160 mg tablet Take 160 mg by mouth once daily. 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 HISTORY: Cervical spondylosis with myelopathy. Aphasia. TECHNIQUE: MRI brain and cervical spine without contrast. MQ: [id number] RESULT: MRI CERVICAL SPINE: Acute abnormality: None. Mild scoliosis without vertebral body anomalies. Patchy marrow signal indicating osteopenia. Decreased disc height and signal, endplate changes, disc osteophyte, facet and uncovertebral joint degeneration indicating cervical spondylosis without central canal impingement or compression with degeneration being relatively stable when compared to prior examination with the worst at C5-6 and C6-7. Stable alignment, vertebral height, intervertebral disc height/signal, marrow signal, central canal, thecal sac and spinal cord signal/caliber. No fracture/dislocation. Normal tissues. C2 -- 3: Patent central canal. Patent bilateral neural foramina. C3 -- 4: Patent central canal. Patent bilateral neural foramina. C4 -- 5: Joint degeneration. Patent central canal. Patent bilateral neural foramina. C5 -- 6: Disc/joint degeneration with posterior disc osteophyte effacing ventral CSF without spinal cord impingement or compression with maintained dorsal CSF. This remains stable from prior study with left eccentric disease. Severe bilateral foramina narrowing. C6 -- 7: Stable disc/joint degeneration with mild left and severe right foramina narrowing. Patent canal. C7 -- T1: Patent central canal. Patent bilateral neural foramina. MRI BRAIN: Acute abnormality: None. No restricted diffusion concerning for acute ischemia. No abnormal susceptibility concerning for acute hemorrhage. Age expected unremarkable sulci, gyri, ventricles, CSF spaces and brain with senescent volume loss, microvascular ischemia, accentuation of CSF spaces and ventricular dilation. No acute infarct/hemorrhage, mass effect or collections. Normal bones and soft tissues. IMPRESSION: 1. Age-appropriate unremarkable MRI brain without acute disease. 2. Stable significant C5-6 and C6-7 level degeneration as detailed above. 3. Unremarkable remaining cervical canal and foramina. COUNTING REFERENCE: Superior cervical disc is taken as C2-3. Structural anomalies: None. Director News: [employer] Transcribe Date/Time: Feb 19 2021 2:44P Dictated by : LIBRADO GOMEZ MD This examination was interpreted and the report reviewed and electronically signed by: LIBRADO GOMEZ MD on Feb 19 2021 2:49PM EST [id number] Normal [facility] MRI CERVICAL SPINE WO IVCONo n 02-19-2021 MRI CERVICAL SPINE WO IVCON * * *Final Report* * * DATE OF EXAM: Feb 19 2021 2:38PM LNM 0297 - MRI CERVICAL SPINE WO IVCON / PROCEDURE REASON: Cervical spondylosis with myelopathy * * * * Physician Interpretation * * * * COMPARISON: MRI cervical spine from 07/03/[address] from 11/23/2013. HISTORY: Cervical spondylosis with myelopathy. Aphasia. TECHNIQUE: MRI brain and cervical spine without contrast. MQ: [id number] RESULT: MRI CERVICAL SPINE: Acute abnormality: None. Mild scoliosis without vertebral body anomalies. Patchy marrow signal indicating osteopenia. Decreased disc height and signal, endplate changes, disc osteophyte, facet and uncovertebral joint degeneration indicating cervical spondylosis without central canal impingement or compression with degeneration being relatively stable when compared to prior examination with the worst at C5-6 and C6-7. Stable alignment, vertebral height, intervertebral disc height/signal, marrow signal, central canal, thecal sac and spinal cord signal/caliber. No fracture/dislocation. Normal tissues. C2 -- 3: Patent central canal. Patent bilateral neural foramina. C3 -- 4: Patent central canal. Patent bilateral neural foramina. C4 -- 5: Joint degeneration. Patent central canal. Patent bilateral neural foramina. C5 -- 6: Disc/joint degeneration with posterior disc osteophyte effacing ventral CSF without spinal cord impingement or compression with maintained dorsal CSF. This remains stable from prior study with left eccentric disease. Severe bilateral foramina narrowing. C6 -- 7: Stable disc/joint degeneration with mild left and severe right foramina narrowing. Patent canal. C7 -- T1: Patent central canal. Patent bilateral neural foramina. MRI BRAIN: Acute abnormality: None. No restricted diffusion concerning for acute ischemia. No abnormal susceptibility concerning for acute hemorrhage. Age expected unremarkable sulci, gyri, ventricles, CSF spaces and brain with senescent volume loss, microvascular ischemia, accentuation of CSF spaces and ventricular dilation. No acute infarct/hemorrhage, mass effect or collections. Normal bones and soft tissues. IMPRESSION: 1. Age-appropriate unremarkable MRI brain without acute disease. 2. Stable significant C5-6 and C6-7 level degeneration as detailed above. 3. Unremarkable remaining cervical canal and foramina. COUNTING REFERENCE: Superior cervical disc is taken as C2-3. Structural anomalies: None. Director News: [employer] Transcribe Date/Time: Feb 19 2021 2:44P Dictated by : LIBRADO GOMEZ MD This examination was interpreted and the report reviewed and electronically signed by: LIBRADO GOMEZ MD on Feb 19 2021 2:49PM EST [id number] Normal [facility] CNOVon 02-01-2021 CNOV Office Visit (NEURAV ) MEERA STOCKTON ([id number]) 1945 M Date Time Provider Department 02/01/21 8:00 AM GAY ROJAS During your visit today, we recorded the following information about you: Pulse Blood pressure 52/minute 134/69 Gay Rojas MD 02/01/2021 9:06 AM Signed [facility] - February 01, 2021 Reason for visit: Mr. Stockton is referred by Elier Raymundo for my opinion regarding neuropathy. My final recommendation will be communicated back to the requesting physician by way of shared medical record or letter. HISTORY OF PRESENT ILLNESS: Patient is a 75 year old, right-handed, White, male with history of BPH, melanoma, cervical spondylosis, chronic pancreatitis, DVT (on Eliquis), hypertension, lumbar spinal stenosis s/p L3-5 decompression with foraminotomy?(Oct 2017), hyperlipidemia, idiopathic neuropathy, thrombocytosis. History gathered from patient and electronic medical records. He was followed by Dr. Alvarez from [id number], last seen on 06/02/17: IMPRESSION: 71 year old right handed male with a past medical history of hypertension, EtOH dependence, chronic pancreatitis likely secondary to alcohol use and a length dependent sensorimotor polyneuropathy possibly be due to his remote history of chronic alcohol use presents with lower back and hip pain that is further limiting his gait. Symptoms occur after ambulating and improve with rest and holding onto a shopping cart. MRI of the lumbar spine demonstrates severe L4-L5 canal stenosis. EMG is suggestive of bilateral L5-S1 radiculopathy. His neurological exam is essentially stable except for increased bilateral hip flexion weakness. Based on his exam changes and recent work up, there is concern for lumbar spinal stenosis with neurogenic claudication. Physical therapy has not improved his symptoms. At this point, the patient would need an evaluation by spine surgery for possible intervention. PLAN: 1. Consult to Neurosurgery/Orthopedics for surgical evaluation of spinal stenosis. Discussed in detail with the patient and he is interested in pursuing possible interventions. 2. Discussed fall prevention in detail. 3. No further work up required for polyneuropathy. Currently, it remains stable. 4. Follow up as needed He is accompanied by . Patient reports that he has feet symptoms at least 50 years ago, he describes this as an intermittent numbness/tinging in the feet but was not bothersome or limiting his activities. Thirty years ago, he noticed balance issues and feet weakness. At least 20 years ago, he had back pain, saw surgeon; did not recommend surgery. He saw neurology 15-20 years ago locally, diagnosed with neuropathy. He established with Dr. Alvarez in 2016 for balance issues, EMG(Dec 2016) showed no PN but revealed lumbar radiculopathy. MRI(Sep 2018) of the lumbar spine demonstrates severe L4-L5 canal stenosis. During his last visit in 2018, he was noted to have more hip flexor weakness which was felt to be be related to spinal stenosis hence referred to neurosurgery. He had L3-5 decompression with foraminotomy(Dr. Valdes)?in Oct 2017. Surgery helped with low back pain but has persistence of balance issues. He had PT then but has not been compliant. He saw PCP for annual exam, sent to hematology for thrombocytosis - reassured it was normal for someone without a spleen. He has chronic pancreatitis , had distal pancreatectomy, splenectomy(Apr 2014). But referred to neurology for balance, also has issues with speech. 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 No known exposure to heavy metals or toxins, no chemotherapeutic agents. Blood work (Nov 2016) showed HBA1C of 5.8, B12/MMA of 521/144, normal B1. PAST MEDICAL HISTORY Diagnosis Date - Benign prostatic hyperplasia - Cancer (HCC) over 20 years ago Melanoma - Cervical spondylosis - Chronic pancreatitis (HCC) - DVT (deep venous thrombosis) (HCC) - Hypertension - Lumbar spondylosis - Mixed hyperlipidemia - Peripheral neuropathy, idiopathic - Thrombocytosis PAST SURGICAL HISTORY Procedure Laterality Date - INGUINAL HERNIA REPAIR HX - PANCREATECTOMY,DISTAL+PRESER V DUOD 04/2014 lap converted to open distal pancreate (more content not included)... Normal [facility] Ceruloplasminon 02-01-2021 Ceruloplasmin 19 mg/dL Normal 15-30 [facility] Comment on above: Performed By: #### H ACRNA, ZINC, EVIT, MMA, CERULO, COPPER ####[place] [address] [address] [phone] Copperon 02-01-2021 Copper 78 ug/dL Normal 70-140 [facility] Comment on above: Result Comment: This test was developed and its performance characteristics determined by [facility] Ahmet [facility] [place] ([facility]). It has not been cleared or approved by the FDA. [facility] is regulated under CLIA as qualified to perform high complexity testing. This test is used for clinical purposes. It should not be regarded as investigational or for research. Performed By: #### H ACRNA, ZINC, EVIT, MMA, CERULO, COPPER ####[address] [phone] Hepatitis Acute RNAon 2020 HBsAg Negative Normal Negative [facility] Comment on above: Performed By: #### H ACRNA, ZINC, EVIT, MMA, CERULO, COPPER ####[address] [place] [phone] Hep B Core Ab, IgM Negative Normal Negative [facility] Comment on above: Performed By: #### H ACRNA, ZINC, EVIT, MMA, CERULO, COPPER ####[place] [address] [address] [phone] Hepatitis A Ab IgM Negative Normal Negative [facility] Comment on above: Performed By: #### H ACRNA, ZINC, EVIT, MMA, CERULO, COPPER ####[place] [address] [address] [place] [phone] Hepatitis C RNA Not detected Normal [facility] Comment on above: Result Comment: Refe rence Range: Negative for HCV RNA The Linear Range of this assay is 15 IU/mL to 100,000,000 IU/mL. Performed By: #### H ACRNA, ZINC, EVIT, MMA, CERULO, COPPER ####[address] [place] [phone] Methylmalonic Acidon 021 Methylmalonic Acid 142 nmol/L Normal 79-376 [facility] Comment on above: Result Comment: This test was developed and its performance characteristics determined by [facility] [place] ([facility]). It has not been cleared or approved by the FDA. [facility] is regulated under CLIA as qualified to perform high complexity testing. This test is used for clinical purposes. It should not be regarded as investigational or for research. Performed By: #### H ACRNA, ZINC, EVIT, MMA, CERULO, COPPER ####[place] [address] [address], [place] [phone] Vitamin B12on 02-01-2021 Cobalamin (Vitamin B12) [Mass/Vol] 459 pg/mL Normal 232-1245 [facility] Comment on above: Performed By: #### H ACRNA, ZINC, EVIT, MMA, CERULO, COPPER ####[place] [address] [address], [place] [phone] Vitamin Hilario 02-01-2021 Vitamin E-alpha 15.1 mg/L Normal 6.0-23.0 [facility] Comment on above: Performed By: #### H ACRNA, ZINC, EVIT, MMA, CERULO, COPPER ####[place] [address] [address], [place] [phone] Vitamin E-gamma 1.5 mg/L Normal 0.3-3.2 [facility] Comment on above: Result Comment: This test was developed and its performance characteristics determined by [facility] [place] ([facility]). It has not been cleared or approved by the FDA. [facility] is regulated under CLIA as qualified to perform high complexity testing. This test is used for clinical purposes. It should not be regarded as investigational or for research. Performed By: #### H ACRNA, ZINC, EVIT, MMA, CERULO, COPPER ####[place] [address] [address], [place] [phone] Zincon 02-01-2021 Zinc 76 ug/dL Normal 55-150 [facility] Comment on above: Result Comment: This test was developed and its performance characteristics determined by [facility] [place] ([facility]). It has not been cleared or approved by the FDA. [facility] is regulated under CLIA as qualified to perform high complexity testing. This test is used for clinical purposes. It should not be regarded as investigational or for research. Performed By: #### H ACRNA, ZINC, EVIT, MMA, CERULO, COPPER ####[facility] [address] [place], [place] [phone] CNOVSPon 01-17-2021 CNOVSP Visit (SP) Office ([facility]) MEERA STOCKTON ([id number]) 1945 M Date Time Provider Department 01/17/21 2:15 PM ELIER RAYMUNDO During your visit today, we recorded the following information about you: Temperature Pulse Respiration Blood pressure 97.9 degrees 53/minute 18/minute 144/69 Weight Height 82.8 kg 1.765 m Elier Raymundo MD 01/17/2021 2:28 PM Signed HEMATOLOGY FOLLOW UP Elements in this clinic note that are critical to medical decision making have been carefully reviewed and included from my prior clinic note dated: January 07, 2021 January 17, 2021 PCP and other physicians involved in patient's care: Matt Wang (PCP) REASON FOR CONSULTATION: Thrombocytosis HEMATOLOGICAL HISTORY: ? Thrombocytosis from 450-650,000 dating back to 2014 (prior records unavailable), normal WBCs with mild elevations in monocytes and eosinophils, normal hemoglobin; splenectomy in April 2014 ? May 29, 2020 CT chest with moderate bilateral lobar, segmental and subsegmental pulmonary emboli with evidence of right ventricular strain; DVT study with occlusive DVT in the left common femoral vein extending to the popliteal vein; right lower extremity veins are widely patent. No propagating event noted. No family history of VTE. ? January 08, 2021 D-dimer normal. Platelet count [id number]. WBC normal with differential showing absolute monocytosis, absolute eosinophilia and absolute basophilia. Hemoglobin normal. No M protein on serum immunofixation. INTERVAL HISTORY: Patient comes back for follow-up. He is here with his , Maggie. He reports no new symptoms. He is here to discuss test results. ROS is negative except that mentioned in HPI PAST MEDICAL SURGICAL FAMILY AND SOCIAL HISTORY: He has a history of -Acute DVT, left femoral vein extending into the popliteal vein and multiple subsegmental PE with mild RV dilatation, May 2020 (tested negative for COVID-19 at that time), on apixaban, unprovoked -Hypertension -Peripheral neuropathy of unclear etiology -Benign prostatic hyperplasia -Cervical and lumbar spondylosis -Chronic pancreatitis, secondary to chronic alcohol abuse, status post distal pancreatectomy and splenectomy Prior surgeries include herniorrhaphy, distal pancreatectomy and splenectomy (April 2014), lumbar laminectomies and foraminotomies. Family history not significant for hematological or oncologic issues. He has a significant history of excessive alcohol abuse use for 40 years before quitting in 2014. He has 3 children who are healthy. MEDICATIONS AND ALLERGIES: Reviewed PHYSICAL EXAM BP 144/69 Pulse (!) 53 Temp 36.6 ?C (97.9 ?F) (Temporal) Resp 18 Ht 176.5 cm (5' 9.5 ) Wt 82.8 kg (182 lb 9.6 oz) SpO2 98% BMI 26.58 kg/m? Head atraumatic, no pallor, icterus or lymphadenopathy, lungs clear to auscultation, heart sounds regular, abdomen soft without distension or organomegaly, neuro grossly non-focal, skin without rash, extremities without swelling LABORATORY, IMAGING AND PATHOLOGY 11-06-20 CBC with WBC 7.7 (ANC 3.2, ALC 2.4, AMC 1.1, ABC 0.1, AEC 0.8, hemoglobin 15.8, platelets 470 01-07-21 CBC with WBC 7.6 (ANC 2.5, ALC 2.7, AMC 1.2, AEC 0.8, ABC 0.1), hemoglobin 16.4 platelets 516, no M protein, D-dimer normal ASSESSMENT AND RECOMMENDATIONS 75 male with thrombocytosis and history of DVT/PE ? Thrombocytosis: The most likely reason for thrombocytosis in the patients's case is history of splenectomy. Mild elevation in myeloid lineages are expected as a result of splenectomy. Given the stability and chronicity of elevated counts, no further intervention is necessary at this point. Continue to monitor counts periodically. Should the patient have new anemia, neutropenia or a rising platelet count, additional work-up could be considered. Follow-up in 6 months with labs. ? 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 Risk factors for recurrent thrombotic event would include patient's history of splenectomy. Patient is at high risk for recurrence of VTE and has a low risk for bleeding events. The general recommendation is indefinite anticoagulation, but this is controversial, as not all patients seem to benefit or need indefinite anticoagulation. D-dimer at last visit was negative. I discussed with him the following 3 options ? continuing indefinite lifelong anticoagulation, half dose anticoagulation and a trial of holding anticoagulation. With the last option, thrombophilia work-up could be considered. Pros and cons of all options were discussed with him in detail. He will continue with apixaban 5 mg twice daily for now. Follow-up in 6 months. ? 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 This has sl (more content not included)... Normal [facility] Calcium, Ionizedon Calcium [Moles/Vol] 1.36 mmol/L High 1.08-1.30 [facility] Comment on above: Performed By: #### I CA ####[facility] [address] [place], [place] [phone] Calcium, Ionized 1.40 mmol/L High 1.08-1.30 [facility] Comment on above: Performed By: #### I CA ####[facility] [address] [place], [place] [phone] Comp Metabolic Panelon 01-17 Albumin [Mass/Vol] 4.6 g/dL Normal 3.9-4.9 [facility] ALP [Catalytic activity/Vol] 34 U/L Low 38-113 [facility] ALT [Catalytic activity/Vol] 16 U/L Normal 10-54 [facility] Anion gap [Moles/Vol] 10 mmol/L Normal 9-18 [facility] AST [Catalytic activity/Vol] 20 U/L Normal 14-40 [facility] Bilirubin [Mass/Vol] 0.7 mg/dL Normal 0.2-1.3 [facility] Calcium [Mass/Vol] 10.0 mg/dL Normal 8.5-10.2 [facility] Chloride [Moles/Vol] 109 mmol/L High 97-105 [facility] CO2 [Moles/Vol] 24 mmol/L Normal 22-30 [facility] Creatinine [Mass/Vol] 0.84 mg/dL Normal 0.73-1.22 [facility] eGFR- Amer. >60 Normal [facility] eGFR-All Other Races >60 Normal [facility] Comment on above: Result Comment: eGFR (Estimated GFR) Units of measure: mL/min/1.73 meters squared eGFR is derived from the reexpressed MDRD Study equation using the following parameters: serum creatinine, age, gender and race. The creatinine assay has been calibrated to be traceable to IDMS. An eGFR <60 mL/min/1.73m2 for >3 months is consistent with chronic kidney disease. Refer to KDOQI guidelines for clinical interpretation. In patients with unstable renal function, e.g. those with acute kidney injury, the eGFR may not accurately reflect actual GFR. Glucose [Mass/Vol] 82 mg/dL Normal 74-99 [facility] Comment on above: Result Comment: The [place] Diabetes [employer] (ADA) provides guidance for cutoff values for fasting glucose and random glucose. The ADA defines fasting as no caloric intake for at least 8 hours. Fasting plasma glucose results between 100 to 125 mg/dL indicate increased risk for diabetes (prediabetes). Fasting plasma glucose results greater than or equal to 126 mg/dL meet the criteria for diagnosis of diabetes. In the absence of unequivocal hyperglycemia, results should be confirmed by repeat testing. In a patient with classic symptoms of hyperglycemia or hyperglycemic crisis, random plasma glucose results greater than or equal to 200 mg/dL meet the criteria for diagnosis of diabetes. Reference: Standards of Medical Care in Diabetes 2016, [place] [employer] Association. Diabetes Care. 2016.39(Suppl 1). Potassium [Moles/Vol] 4.3 mmol/L Normal 3.7-5.1 [facility] Protein [Mass/Vol] 7.6 g/dL Normal 6.3-8.0 [facility] Sodium [Moles/Vol] 143 mmol/L Normal 136-144 [facility] Urea nitrogen [Mass/Vol] 16 mg/dL Normal 9-24 [facility] CNPNon 01-10-2021 CNPN Telephone ([facility]) MEERA STOCKTON ([id number]) 1945 M Date Time Provider Department 01/10/21 GARCÍA BLACK During your visit today, we recorded the following information about you: García Black RN 01/10/2021 9:21 AM Signed ----- Message from Elier Raymundo MD sent at 01/08/2021 1:00 PM EDT ----- Hi, can you please call the patient that his calcium was elevated. This is likely as a result of dehydration. He will need repeat testing in 1 week after adequate fluid intake to confirm that levels are normal. Thank you. García Black RN 01/10/2021 9:23 AM Signed Pt notified. He will increase fluids. PSS: Please add pt to lab schedule at 2 pm prior to his appointment with Dr Raymundo on 01/17. Pt is aware to be here at 2. Thanks YELITZA Stokes Sec 01/10/2021 9:26 AM Signed Added to schedule. Allergies As of Date: 01/10/2021 (No Known Allergies) Date Reviewed: 01/08/2021 Reviewed by: Mary Hernadez MA - Fully Assessed Reason for Visit: Care Coordination [9473] Cmt: lab results Prescriptions as of 01/10/2021 - ELIQUIS 5 mg tab(s) Take 5 mg by mouth twice daily. - gabapentin (NEURONTIN) 300 mg capsule Take 1 capsule by mouth three times daily for 90 days. - cyclobenzaprine (FLEXERIL) 10 mg tablet Take 1 tablet by mouth three times daily as needed for Muscle Spasm. - losartan (COZAAR) 100 mg tablet Take 1 tablet by mouth once daily. - amLODIPine (NORVASC) 5 mg tablet Take 1 tablet by mouth once daily. - POLYETHYLENE GLYCOL 3350 (MIRALAX ORAL) Take by mouth once daily. - Fenofibrate (LOFIBRA) 160 mg tablet Take 160 mg by mouth once daily. 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] 03/06/2017 Lumbosacral radiculopathy at L5 [M54.17] 03/06/2017 Lumbosacral radiculopathy at S1 [M54.17] 03/06/2017 Spinal stenosis, lumbar region, with neurogenic*07/28/2017 Lumbar canal stenosis [M48.061] 10/16/2017 Encounter Status:Closed by GARCÍA BLACK on 01/10/21 [facility] O[facility] (SP) Office ([facility]) MEERA STOCKTON ([id number]) 1945 M Date Time Provider Department 01/08/21 11:00 AM ELIER RAYMUNDO During your visit today, we recorded the following information about you: Temperature Pulse Respiration Blood pressure 97.8 degrees 52/minute 16/minute 145/77 Weight Height 81.9 kg 1.775 m Elier Raymundo MD 01/08/2021 12:57 PM Signed HEMATOLOGY INITIAL CONSULTATION January 07, 2021 REFERRAL REQUESTED BY: Matt Wang PCP and other physicians involved in patient's care: Matt Wang (PCP) REASON FOR CONSULTATION: Thrombocytosis HEMATOLOGICAL HISTORY: ? Thrombocytosis from 450-650,000 dating back to 2014 (prior records unavailable), normal WBCs with mild elevations in monocytes and eosinophils, normal hemoglobin; splenectomy in April 2014 ? 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 He has been referred to the clinic for evaluation of the elevated platelet count and to opine on whether further testing for VTE is warranted. Today, patient endorses that his main symptom affecting the quality of his life remains his longstanding peripheral neuropathy and balance issues. He has had these issues for the last 40 years. He has seen neurology and neurosurgery in the past. No clear etiology has been demonstrated. 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 He says that slow speech might be something that was evident in his father as well. He denies any strokes, chronic heart or lung conditions, family history of malignancy or blood related disorders, chronic kidney disease. Thrombocytosis dates back to 2014. Platelet counts have ranged in the 400-500s range and stable. CBC shows some evidence of monocytosis, eosinophilia and basophilia. Combined WBC and hemoglobin are normal. No evidence of GI bleeding. No chronic inflammatory disorder. Family history not significant for platelet issues. DVT/PE event was noted in May 2020 and apparently without any provocation. He does not recall if he had COVID-19 symptoms at that point. He does have difficulty ambulation from his neurological issues, but does not recall prolonged immobilization or a fall prior to this episode. No history of travel. No family history of blood clots. He has 3 children who are healthy. ROS is negative except that mentioned in HPI PAST MEDICAL SURGICAL FAMILY AND SOCIAL HISTORY: He has a history of -Acute DVT, left femoral vein extending into the popliteal vein and multiple subsegmental PE with mild RV dilatation, May 2020 (tested negative for COVID-19 at that time), on apixaban -Hypertension -Peripheral neuropathy of unclear etiology -Benign prostatic hyperplasia -Cervical and lumbar spondylosis -Chronic pancreatitis, secondary to chronic alcohol abuse, status post distal pancreatectomy and splenectomy Prior surgeries include herniorrhaphy, distal pancreatectomy and splenectomy (April 2014), lumbar laminectomies and foraminotomies. Family history not significant for hematological or oncologic issues. He has a significant history of excessive alcohol abuse use for 40 years before quitting in 2014. He has 3 children who are healthy. MEDICATIONS AND ALLERGIES: Reviewed PHYSICAL EXAM BP 145/77 Pulse (!) 52 Temp 36.6 ?C (97.8 ?F) (Temporal) Resp 16 Ht 177.5 cm (5' 9.88 ) Wt 81.9 kg (180 lb 9.6 oz) SpO2 97% BMI 26.00 kg/m? Head atraumatic, no pallor, icterus or lymphadenopathy, lungs clear to auscultation, heart sounds regular, abdomen soft without distension or organomegaly, neuro grossly non-focal, skin without rash, extremities without swelling LABORATORY, IMAGING AND PATHOLOGY 11-06-20 CBC with WBC 7.7 (ANC 3.2, ALC 2.4, AMC 1.1, ABC 0.1, AEC 0.8, hemoglobin 15.8, platelets 470 01-08-21 CBC with WBC 7.6 (ANC 2.5, ALC 2.7, AMC 1.2, AEC 0.8, ABC 0.1), hemoglobin 16.4 platelets 516 ASSESSMENT AND RECOMMENDATIONS 75 male with thrombocytosis and history of DVT/PE ? Thrombocytosis: The most likely reason for thrombocytosis in the patients's case is history of splenectomy. Mild elevation in myeloid lineages are expected as a result of splenectomy. Given the stability and chronicity of elevated counts, no further intervention is necessary at this point. Continue to monitor counts periodically. April (more content not included)... Normal [facility] KYRAMEERA Florentino ([id number]) 1945 M Date Time Provider Department 01/08/21 ELIER RAYMUNDO During your visit today, we recorded the following information about you: Irais Watson 01/08/2021 12:11 PM Signed Patient preferred to scheduled his Neurology appointment himself d/t the Put in bay boat schedule. Gave patient number for Neurological [facility]. Irais Watson Allergies As of Date: 01/08/2021 (No Known Allergies) Date Reviewed: 01/08/2021 Reviewed by: Mary Hernadez MA - Fully Assessed Reason for Visit: Referral Information [[id number]] Cmt: Neurology Prescriptions as of 01/08/2021 - ELIQUIS 5 mg tab(s) Take 5 mg by mouth twice daily. - gabapentin (NEURONTIN) 300 mg capsule Take 1 capsule by mouth three times daily for 90 days. - cyclobenzaprine (FLEXERIL) 10 mg tablet Take 1 tablet by mouth three times daily as needed for Muscle Spasm. - losartan (COZAAR) 100 mg tablet Take 1 tablet by mouth once daily. - amLODIPine (NORVASC) 5 mg tablet Take 1 tablet by mouth once daily. - POLYETHYLENE GLYCOL 3350 (MIRALAX ORAL) Take by mouth once daily. - Fenofibrate (LOFIBRA) 160 mg tablet Take 160 mg by mouth once daily. 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] 03/06/2017 Lumbosacral radiculopathy at L5 [M54.17] 03/06/2017 Lumbosacral radiculopathy at S1 [M54.17] 03/06/2017 Spinal stenosis, lumbar region, with neurogenic*07/28/2017 Lumbar canal stenosis [M48.061] 10/16/2017 Encounter Status:Closed by IRAIS WATSON on 01/08/21 Normal [facility] Metabolic Panelon 01-08 Albumin [Mass/Vol] 5.0 g/dL High 3.9-4.9 [facility] Comment on above: Performed By: #### David WILHELM SERMPJose ####[facility] [address], [place] [phone] ALP [Catalytic activity/Vol] 36 U/L Low 38-113 [facility] Comment on above: Performed By: #### D CHOCO SERMPA ####[facility] [address], [place] [phone] ALT [Catalytic activity/Vol] 23 U/L Normal 10-54 [facility] Comment on above: Performed By: #### D CHOCO SERMPA ####[facility] [address], [place] [phone] Anion gap [Moles/Vol] 13 mmol/L Normal 9-18 [facility] Comment on above: Performed By: #### D CHOCO SERMPA ####[facility] [place] [address] [place] [phone] AST [Catalytic activity/Vol] 27 U/L Normal 14-40 [facility] Comment on above: Performed By: #### D CHOCO SERMPA ####[facility] [address], [place] [phone] Bilirubin [Mass/Vol] 1.2 mg/dL Normal 0.2-1.3 [facility] Comment on above: Performed By: #### David WILHELM SERMPA ####[facility] [address], [place] [phone] Calcium [Mass/Vol] 11.1 mg/dL High 8.5-10.2 [facility] Comment on above: Performed By: #### D DMERowdy SERMPA ####[facility] [address], [place] [phone] Chloride [Moles/Vol] 104 mmol/L Normal 97-105 [facility] Comment on above: Performed By: #### D MIKEL WILHELM ####[facility] [address], [place] [phone] CO2 [Moles/Vol] 22 mmol/L Normal 22-30 [facility] Comment on above: Performed By: #### D CHOCO SERPETER ####[facility] [address], [place] [phone] Creatinine [Mass/Vol] 0.84 mg/dL Normal 0.73-1.22 [facility] Comment on above: Performed By: #### D MIKEL WILHELM ####[place] [address] [place], [place] [phone] eGFR- Amer. >60 Normal [facility] Comment on above: Performed By: #### MIKEL VELEZ ####[place] [address] [place], [place] [phone] eGFR-All Other Races >60 Normal [facility] Comment on above: Result Comment: eGFR (Estimated GFR) Units of measure: mL/min/1.73 meters squared eGFR is derived from the reexpressed MDRD Study equation using the following parameters: serum creatinine, age, gender and race. The creatinine assay has been calibrated to be traceable to IDMS. An eGFR <60 mL/min/1.73m2 for >3 months is consistent with chronic kidney disease. Refer to KDOQI guidelines for clinical interpretation. In patients with unstable renal function, e.g. those with acute kidney injury, the eGFR may not accurately reflect actual GFR. Performed By: #### D CHOCO SERPETER ####[place] [address] [place], [place] [phone] Glucose [Mass/Vol] 106 mg/dL High 74-99 [facility] Comment on above: Result Comment: The [place] Diabetes [employer] (ADA) provides guidance for cutoff values for fasting glucose and random glucose. The ADA defines fasting as no caloric intake for at least 8 hours. Fasting plasma glucose results between 100 to 125 mg/dL indicate increased risk for diabetes (prediabetes). Fasting plasma glucose results greater than or equal to 126 mg/dL meet the criteria for diagnosis of diabetes. In the absence of unequivocal hyperglycemia, results should be confirmed by repeat testing. In a patient with classic symptoms of hyperglycemia or hyperglycemic crisis, random plasma glucose results greater than or equal to 200 mg/dL meet the criteria for diagnosis of diabetes. Reference: Standards of Medical Care in Diabetes 2016, [place] [employer]. Diabetes Care. 2016.39(Suppl 1). Performed By: #### MIKEL VELEZ ####[facility] [address] [place] [address], [place] [phone] Potassium [Moles/Vol] 4.3 mmol/L Normal 3.7-5.1 [facility] Comment on above: Performed By: #### MIKEL VELEZ ####[place] [address] [address], [place] [phone] Protein [Mass/Vol] 8.2 g/dL High 6.3-8.0 [facility] Comment on above: Performed By: #### MIKEL VELEZ ####[facility], [place] [phone] Sodium [Moles/Vol] 139 mmol/L Normal 136-144 [facility] Comment on above: Performed By: #### MIKEL VELEZ ####[facility], [place] [phone] Urea nitrogen [Mass/Vol] 18 mg/dL Normal 9-24 [facility] Comment on above: Performed By: #### MIKEL VELEZ ####[place] [address], [place] [phone] D dimeron 01-08-2021 D dimer <190 Normal <500 [facility] Comment on above: Result Comment: 500 ng/mL FEU is the D Dimer cutoff to exclude DVT (deep vein thrombosis) and PE (pulmonary embolism) in patients with a low pre test probability. Supplemental Comment: In patients over 50 years with a low pre test probability for DVT and/or PE, an age adjusted D dimer cutoff can be calculated as [age x 10] ng/mL FEU. For example, a patient of 88 years would have an age adjusted D dimer cutoff of 880 ng/mL FEU. For patients with a suspected DVT, a D dimer level below 500 ng/mL FEU has a negative predictive value of >98.9%, a sensitivity of >96.9% and a specificity of >35.7%. For patients with a suspected PE, a D dimer level below 500 ng/mL FEU has a negative predictive value of >98.5%, and a sensitivity of >96.5% and a specificity of >38.8%. Reference: Margo M, et al. JOHN 2014 311:1117 and Asher Wheeler et al. [employer] Int Med 2016 165:253. Performed By: #### D CHOCO SERMPA ####[facility] [place], [place] [phone] Monclnl Protein, Seron 01-08 K/L Ratio, Serum 0.57 Normal 0.26-1.65 [facility] Comment on above: Performed By: #### David DMERowdy SERMPA ####[facility] [address] [place], [place] [phone] [place], Free, Serum 17.2 mg/L Normal 3.30-19.40 [facility] Comment on above: Result Comment: Test performed by an immunoturbidimetric assay on Optilite instrument from [facility]. Immunoglobulin free light chain assay results should be interpreted in conjunction with other tests and in correlation with clinical picture. Performed By: #### D DMER SERMPA ####[facility] [address] [place], [place] [phone] Lambda, Free, Serum 30.3 mg/L High 5.7-26.3 [facility] Comment on above: Result Comment: Test performed by an immunoturbidimetric assay on Optilite instrument from [facility]. Immunoglobulin free light chain assay results should be interpreted in conjunction with other tests and in correlation with clinical picture. Performed By: #### MIKEL VELEZ ####[place] [id number] [place] [phone] MPA Result No M protein is identified. Normal No M protein is identified. [facility] Comment on above: Performed By: #### MIKEL VELEZ ####[place] [id number] [place] [phone] Serum IgA 441 mg/dL High 70-400 [facility] Comment on above: Performed By: #### MIKEL VELEZ ####[place] [id number] [place] [phone] Serum IgG 1229 mg/dL Normal 700-1600 [facility] Comment on above: Performed By: #### MIKEL VELEZ ####[place] [phone] MPA Serum IgM 30 mg/dL Low 40-230 [facility] Comment on above: Performed By: #### MIKEL VELEZ ####[place] [id number] [place] [phone] Staff Review Reviewed by Paul Potts MD PhD ([id number]) Normal [facility] Comment on above: Performed By: #### MIKEL VELEZ ####[place] [id number] [place] [phone] Remote CBCDIF (for [facility] use only)on 01-08-2021 Abs Baso 0.13 k/uL High <0.11 [facility] Abs [place] 1.27 k/uL High <0.87 [facility] Abs Neut 2.52 k/uL Normal 1.45-7.50 [facility] Absolute nRBC <0.01 Normal <0.01 [facility] Basophils/100 WBC (Bld) 1.7 % Normal [facility] DTYPE Auto Diff Normal [facility] Eosinophils (Bld) [#/Vol] 0.88 10*3/uL High <0.46 [facility] Eosinophils/100 WBC (Bld) 11.6 % Normal [facility] Erythrocyte distribution width (RBC) [Ratio] 15.0 % Normal 11.5-15.0 [facility] Hematocrit (Bld) [Volume fraction] 49.2 % Normal 39.0-51.0 [facility] Hemoglobin (Bld) [Mass/Vol] 16.4 g/dL Normal 13.0-17.0 [facility] Lymphocytes (Bld) [#/Vol] 2.78 10*3/uL Normal 1.00-4.00 [facility] Lymphocytes/100 WBC (Bld) 36.6 % Normal [facility] MCH 32.0 pG Normal 26.0-34.0 [facility] MCHC (RBC) [Mass/Vol] 33.3 g/dL Normal 30.5-36.0 [facility] MCV (RBC) [Entitic vol] 96.1 fL Normal 80.0-100.0 [facility] Monocytes/100 WBC (Bld) 16.7 % Normal [facility] Neutrophils/100 WBC (Bld) 33.4 % Normal [facility] NRBCs 0.0 /100 WBC Normal 0 [facility] Platelet mean volume (Bld) [Entitic vol] 9.2 fL Normal 9.0-12.7 [facility] Platelets (Bld) [#/Vol] 516 10*3/uL High 150-400 [facility] RBC (Bld) [#/Vol] 5.12 10*6/uL Normal 4.20-6.00 [facility] WBC (Bld) [#/Vol] 7.60 10*3/uL Normal 3.70-11.00 [facility] Operative Reporton 9 Operative Report Date of Surgery: 05/2018 SURGEON: Freedom Garza D.O. PREOPERATIVE DIAGNOSIS: Nuclear sclerotic cataract, right eye POSTOPERATIVE DIAGNOSIS: Nuclear sclerotic cataract, right eye OPERATION: Cataract extraction with intraocular lens placement, right eye ANESTHESIA: Topical COMPLICATIONS: None ESTIMATED BLOOD LOSS: Zero PROCEDURE: The patient was brought to the Operating Room in the supine position. After proper identification, the right eye was prepped and draped in a sterile ophthalmic fashion. Two drops of Tetracaine were placed into the eye and a paracentesis was created at the two oclock position. Approximately 0.1 cc of unpreserved Xylocaine was injected into the anterior chamber and this was followed by Amvisc Plus. Using a 2.6 mm keratome blade, a clear corneal incision was created at the twelve oclock limbus. A cystotome was fashioned out of a 25 gauge needle and a curvilinear capsulorrhexis was begun and continued for 360 degrees with Utrata forceps. Balanced Salt Solution on a cannula was injected under the anterior capsule to hydrodissect as well as hydrodelineate the lens. After ensuring mobility with a second handpiece, phacoemulsification was performed in a conquer and divide type fashion. After all nuclear material had been removed from the eye, IA was introduced into the anterior chamber and all residual cortical material was cleaned up. Additional Amvisc Plus was injected into the posterior bag and a lens Model MX60 18.5 diopters was injected into the posterior bag as well. This was dialed into position with a secondhand piece and centered. After ensuring centration, IA was reintroduced into the anterior chamber and all residual Amvisc Plus was removed from the eye. Balanced Salt Solution on a cannula was injected into the stroma of the clear corneal incision as well as the paracentesis to hydrate the wounds. Additional Balanced Salt Solution was injected into the anterior chamber to pressurize the eye to approximately 20-22 mmHg by finger tension. Weck-hussein sponges were then utilized to check the wounds to be watertight. One drop of Iopidine, one drop of prednisolone acetate and one drop of Ocuflox were placed into the eye and a shield was placed over top. The patient was sent to the Postoperative Area in satisfactory condition to follow up the following day for postoperative care. Freedom Garza D.O. kajal Dictated: 11/16/2018 #[id number] Typed: 11/16/2018 #[id number] cc: Freedom Garza D.O. [facility] Comment on above: Result Comment: Elec tronically Signed By: Freedom Garza DO\.br\Date and Time Signed: 11/26/18 17:20 EDT Coding Summary.on 11-17-2018 Coding Summary. CODING DATE: 019 [facility] STATUS: Home (Routine DC) PAYOR: Medicare APC DESCRIPTION 5491 Level 1 Intraocular Procedures ADMIT DX: REASON FOR VISIT DX: H25.11 Age-related nuclear cataract, right eye FINAL DX: PRINCIPAL: H25.11 Age-related nuclear cataract, right eye SECONDARY: I10 Essential (primary) hypertension E78.00 Pure hypercholesterolemia, unspecified PYMT PROC APC STAT DESCRIPTION DOCTOR NAME DATE 18065 5491 J1 Extracapsular cataract Freedom Garza DO 11/16/2018 removal with insertion of intraocular lens prosthesis (1 stage procedure), manual or mechanical technique (eg, irrigation and aspiration or phacoemulsification) RT Right side (used to identify procedures performed on the right side of the body) NOTE: The code number assigned matches the documented diagnosis and / or procedure in the patient's chart. However, the narrative phrase printed from the coding software may appear abbreviated, or result in slightly different terminology. Coded By: Kristine Townsend Date Saved: 11/17/2018 11:32 am [facility] History and Physicalon 11-16 History and Physical HOSPITAL REGULATIONS: ALL Positive Important Negative Findings Shall Be Recorded DATE ADMITTED: 11/16/2018 HISTORY: The patient is a 72-year-old white male with complaints of declining vision out of his right eye. He states it has been a slow and subtle exchange architect the last two to three years. He is noting that he is no longer seeing detail and able to read the sport scores in the television in the upper left-hand corner. He also states having difficulty seeing road signs at a distance. Finally, he states having difficulty at nighttime with driving due to oncoming headlights creating glare. PAST OCULAR HISTORY, PAST MEDICAL HISTORY, PSYCHOSOCIAL HISTORY, MEDICATIONS, ALLERGIES TO MEDICATIONS, REVIEW OF SYSTEMS and PHYSICAL EXAMINATION unchanged from previously dictated. ASSESSMENT AND PLAN: Visually significant cataract, right eye. After risks, benefits, alternatives as well as expectations were delivered to the patient, he elected to go forward with cataract removal. He understands those risks to include but are not limited to infection, bleeding, loss of vision or loss of the eye itself. Secondly, he understands that postoperatively he is likely to require spectacle correction for his best visual acuity. Finally, a complete ophthalmic examination was performed and there was not determined to be any other source of vision decline other than that of the cataract. After understanding all risks as well as expectations, he elected to go forward with the procedure as listed above and will be doing so in the near future. Freedom Garza D.O. gls Dictated: 11/15/2018 #[id number] Typed 11/16/2018 #[id number] cc: Freedom Garza D.O. [facility] Comment on above: Result Comment: Elec tronically Signed By: Freedom Garza DO\.br\Date and Time Signed: 11/16/18 08:00 EDT Inpatient Patient Summaryon 11-16-2018 Inpatient Patient Summary [facility] Clinical Discharge Instructions PERSON INFORMATION Name: [facility] Admitting Physician: Freedom Garza DO Attending Physician: Freedom Garza DO PCP: MATT WANG DO Discharge Diagnosis: Cataract Comment: PATIENT EDUCATION INFORMATION Instructions: WOJCIECH- After Surgery Eye (Custom) Medication Leaflets: Follow up: With: Address: When: Freedom Garza [facility] [address] [place] [address], [place] [phone] Business (6) Within 1 to 2 days MEDICATION LIST Comment: [facility] Main OR Intraoperative Recor don 11-16-2018 Main OR Intraoperative Record IntraOp Document Type FT Summary Primary Physician: Freedom Garza DO Finalized Date/Time: 11/16/18 13:40:06 Pt. Name: MEERA STOCKTON D.O.B./Sex: 1945 Male Med Rec #: [id number] Physician: Freedom Garza DO Financial #: [id number] Pt. Type: A Room/Bed: Admit/Disch: 11/16/18 06:30:00 - 11/16/18 09:35:00 Institution: Case Times FT Entry 1 Patient Times In Room 11/16/18 08:47:00 Out Room 11/16/18 09:01:00 Procedure Times Start 11/16/18 08:49:00 Stop 11/16/18 09:00:00 Anesthesia Times Last Modified By: Gay Gold CST 11/16/18 09:01:54 General Comments: 11/16/18 Chart opened to review and send charges Nancy Gold CST Case Attendance FT Entry 1 Entry 2 Entry 3 Case Attendee Wojciech LEE, Freedom Dubon RN, CNOR, Nadine RN, Tonja Marquez Role Performed Surgeon - Primary Building Estimator - Primary Building Estimator - Primary Time In 11/16/18 08:47:00 11/16/18 08:47:00 11/16/18 08:47:00 Time Out 11/16/18 09:01:00 11/16/18 09:01:00 11/16/18 09:01:00 Procedure CATARACT EXTRACTION W/ CATARACT EXTRACTION W/ CATARACT EXTRACTION W/ INTRAOCULAR LENS(Right) INTRAOCULAR LENS(Right) INTRAOCULAR LENS(Right) Comments Last Modified By: Ling RN, CNOR, Ling RN, CNOR, Ling RN, CNOR, Alma 11/16/18 Alma 11/16/18 Alma 11/16/18 09:01:55 09:01:55 09:01:55 Entry 4 Entry 5 Entry 6 Case Attendee Dolores GARCIA/Diamante DÍAZ CST, Danielle Garcia RN, Danielle Cruz Role Performed Scrub - Other Scrub - Primary Building Estimator - Relief Time In 11/16/18 08:47:00 11/16/18 08:47:00 11/16/18 08:47:00 Time Out 11/16/18 09:01:00 11/16/18 09:01:00 11/16/18 09:01:00 Procedure CATARACT EXTRACTION W/ CATARACT EXTRACTION W/ CATARACT EXTRACTION W/ INTRAOCULAR LENS(Right) INTRAOCULAR LENS(Right) INTRAOCULAR LENS(Right) Comments Last Modified By: Ling RN, CNOR, Ling RN, CNOR, Ling RN, CNOR, Alma 11/16/18 Alma 11/16/18 Alma 11/16/18 09:01:55 09:01:55 09:01:55 Perioperative Protocols FT Pre-Care Text: Implements protective measures prior to operative or invasive procedure, confirms identity before the operative or invasive procedure, verifies operative procedure, surgical site, and laterality Entry 1 Procedure(s) CATARACT EXTRACTION W/ Patient Identity Birthday, ID Band INTRAOCULAR LENS(Right) Verified (select at Check, Patient least 2): Participation Consents / H and P HandP, Surgery/Procedure Operative Site Present Verified Consent Marking Verified Surgical Site Yes Laterality Verified Yes Verified Procedure Verified Yes Correct Patient Yes Position Verified Availability Equipment, Implant, Prep Dry n/a Verified (If Medication Applicable) PreOp Antibiotic No Time Out Freedom Garza DO, Given Participants Ling TORRE, Alma GUILLEN Ruffing CST, Jose Jackson RN, Danielle Cruz Time Out Complete 11/16/18 08:49:00 Outcomes Met? Yes Last Modified By: WILMER Dubon RN, Ruthann 11/16/18 08:49:45 Post-Care Text: The patient is free from signs and symptoms of injury caused by extraneous objects Allergy Information FT Pre-Care Text: Verifies allergies Entry 1 Allergies Reviewed? Yes Allergies Reviewed Self/Patient With Outcomes Met? Yes Last Modified By: WILMER Dubon RN, Ruthann 11/16/18 07:18:11 Post-Care Text: The patient received appropriate medication(s) safely administered during the perioperative period Surgical Procedures FT Entry 1 Procedure Description Procedure CATARACT EXTRACTION W/ Modifiers Right INTRAOCULAR LENS IMPLANTATION Surgeon Description CATARACT EXTRACTION RIGHT EYE WITH INTRAOCULAR LENS IMPLANTATION Primary Procedure Yes Primary Surgeon Freedom Garza DO Start 11/16/18 08:49:00 Stop 11/16/18 09:00:00 Anesthesia Type Local Surgical Service Ophthalmology Wound Class 1 - Clean Last Modified By: WILMER Dubon RN, Ruthann 11/16/18 09:00:26 General Case Data FT Pre-Care Text: Classifies surgical wound, implements aseptic technique, initiates traffic control Entry 1 Case Information OR OR 3 FT Case Level Level 2 Wound Class 1 - Clean Specialty Ophthalmology Preop Diagnosis CATARACT RIGHT EYE Postop Same As Preop Yes Postop Diagnosis CATARACT RIGHT EYE Outcomes Met? Yes Last Modified By: WILMER Dubon RN, Ruthann 11/16/18 07:18:24 Post-Care Text: The patient is free from signs and symptoms of infection Skin Assessment (Pre Procedure) FT Pre-Care Text: Implements protective measures to prevent skin/ tissue injury due to thermal or mechanical sources Evaluates for signs and symptoms of physical injury to skin and tissue Entry 1 Skin Integrity Unable to Visualize Skin Abnormality No Outcomes Met? Yes Last Modified By: WILMER Dubon RN, Ruthann 11/16/18 07:18:39 Post-Care Text: The patient is free from signs and symptoms of injury caused by extraneous objects Patient Positioning FT Pre-Care Text: Identifies physical alterations that require additional precautions for procedure-specific positioning, verifies presence of prosthetics or corrective devices, positions the patient, evaluates the patient for signs and symptoms of injury as a result of positioning Entry 1 Procedure CATARACT EXTRACTION W/ Additional folded towel under head INTRAOCULAR LENS(Right) Information Body Position Supine Feet Uncrossed? Yes Left Arm Position Resting at Side Right Arm Position Resting at Side Left Leg Position Extended Right Leg Position Extended Positioning Device Safety Strap Press Points Checked Yes By WILMER Dubon RN, Outcomes Met? Yes Nadine Marquez RN, Wojciech Levy DO, Jonathan Last Modified By: WILMER Dubon RN, Ruthann 11/16/18 07:18:57 Post-Care Text: The patient is free from signs and symptoms of injury related to positioning Patient Care Devices FT Pre-Care Text: Implements protective measures to prevent skin/ tissue injury due to thermal or mechanical sources Entry 1 Entry 2 Entry 3 Equipment Type MICROSCOPE EYE[F] PHACO UNIT[F] MONITOR CHARGE SURGERY [F] Equipment Number Equipment Setting Outcomes Met? Yes Yes Yes Last Modified By: WILMER Dubon RN, WILMER Dubon RN, WILMER Dubon RN, Alma 11/16/18 Alma 11/16/18 Alma 11/16/18 07:19:20 07:19:20 07:19:20 Post-Care Text: The patient is free from signs and symptoms of injury caused by extraneous objects Transport To OR FT Pre-Care Text: Transports according to individual needs. Evaluates for signs and symptoms of skin and tissue injury as a result of transfer or transport Entry 1 Via Cart By WILMER Dubon RN, Ruthann Safety Precautions Safety Strap, Side Outcomes Met? Yes Rails Up Last Modified By: WILMER Dubon RN, Ruthann 11/16/18 07:19:29 Post-Care Text: The patient is free from signs and symptoms of injury related to transfer/transport Skin Prep FT Pre-Care Text: Performs skin preparations Entry 1 Procedure CATARACT EXTRACTION W/ Prep Area operative site INTRAOCULAR LENS(Right) Prep Agents Saline Rinse, Betadine Scrub and Solution Hair Removal Methods Not Indicated By Freedom Garza DO Outcomes Met? Yes Last Modified By: WILMER Dubon RN, Ruthann 11/16/18 07:19:51 Post-Care Text: The patient is free from signs and symptoms of infection Departure From OR FT Pre-Care Text: Transports according to individual needs. Evaluates for signs and symptoms of skin and tissue injury as a result of transfer or transport. Entry 1 Via Cart Safety Precautions Safety Strap, Side Rails Up PostOp Destination Pre Surgery/ASU Transported By WILMER Dubon RN, Ruthann Patient Status Stable Skin. Condition Unable to Visualize Airway Maintenance Oxygen in Use? No Outcomes Met? Yes Last Modified By: WILMER Dubon RN, Ruthann 11/16/18 07:20:14 Post-Care Text: The patient is free from signs and symptoms of injury related to transfer/transport Dressing/Packing FT Pre-Care Text: Administers care to wound sites Entry 1 Type Dressing Site and Details eye shield used Outcomes Met? Yes Last Modified By: WILMER Dubon RN, Ruthann 11/16/18 07:20:31 Post-Care Text: The patient is free from signs and symptoms of infection Medication Administration FT Pre-Care Text: Verifies allergies, administers prescribed medications and solutions, administers prescribed antibiotic therapy and immunizing agents as ordered, evaluates response to medications Administers prescribed medications and solutions Entry 1 Expiration Date Yes Outcomes Met? Yes Verified Last Modified By: WILMER Dubon RN, Ruthann 11/16/18 07:20:42 Post-Care Text: The patient received appropriate medication(s) safely administered during the perioperative period For Ortiz-Leslie please see scanned medication reconcilliation form for medications used at the field during the procedure. Implant Log FT Pre-Care Text: Records devices implanted during the operative or invasive procedure Entry 1 Procedure CATARACT EXTRACTION W/ Implant/Explant Implant INTRAOCULAR LENS(Right) Implant Identification FT Description BEATA [id number] 12.50MM Lot Number [id number] [[id number]][F] Remarketing Rep FT-[employer] Catalog ?# [id number] [F] Size 18.5 Expiration Date 09/12/21 Usage Data FT Implant Site Ear R Quantity 1 Implanted By Freedom Garza DO Biological Implants Outcomes Met? Yes Last Modified By: WILMER Dubon RN, Ruthann 11/16/18 08:54:20 Post-Care Text: The patient is free from signs and symptoms of injury caused by extraneous objects Case Comments Finalized By: Gay Gold CST Document Signatures Signed By: WILMER Dubon RN, Ruthann 11/16/18 09:02 Gay Gold CST 11/16/18 13:40 Normal [facility] Main OR PACU II [facility] Main OR PACU II Record PACU Phase II Document Type FT Summary Primary Physician: Freedom Garza DO Finalized Date/Time: 11/16/18 09:43:04 Pt. Name: MEERA STOCKTON/Sex: 1945 Male Med Rec #: [id number] Physician: Freedom Garza DO Financial #: [id number] Pt. Type: A Room/Bed: [facility] Admit/Disch: 11/16/18 06:30:00 - 11/16/18 09:35:00 Institution: Case Times PACU II FT Pre-Care Text: Identifies barriers to communication and implements measures to provide psychological support and determines knowledge level Develops individualized plan of care, and ensures continuity of care Maintains patient's dignity and privacy, and maintains patient confidentiality Identifies and reports philosophical, cultural, and spiritual beliefs and values Identifies individual values and wishes concerning care administers prescribed antibiotic therapy and immunizing agents as ordered, Evaluates postoperative tissue perfusion Implements thermoregulation measures, and monitors body temperature Evaluates postoperative respiratory status Evaluates postoperative cardiac status Evaluates postoperative neurological status Assesses pain control, collaborated in initiating patient-controlled analgesia and implements alternative methods of pain control Verifies allergies, administers prescribed medications and solutions, evaluates response to medications Entry 1 In PACU II 11/16/18 09:05:00 Discharge from PACU 11/16/18 09:35:00 II Outcomes Met? Yes Last Modified By: Jairo Phelps RN 11/16/18 09:43:03 Post-Care Text: The patient demonstrates knowledge of the expected response to the operative or invasive procedure The patient's care is consistent with the individualized perioperative plan of care The patient's right to privacy is maintained The patient's value system, lifestyle, ethnicity, and culture are considered, respected, and incorporated into the perioperative plan of care The patient participates in decisions affecting his or her perioperative plan of care. The patient is free from signs and symptoms of infection The patient has wound/tissue perfusion consistent with or improved from baseline levels established preoperatively The patient is at or returning to normothermia at the conclusion of the immediate postoperative period The patient's respiratory function is consistent with or improved from baseline levels established preoperatively The patient's cardiovascular status is consistent with or improved from baseline levels established preoperatively The patient's neurological status is consistent with or improved from baseline levels established preoperatively The patient demonstrates and/or reports adequate pain control throughout the perioperative period The patient received appropriate medication(s), safely administered during the perioperative period Finalized By: Jairo Phelps RN Document Signatures Signed By: Jairo Phelps RN 11/16/18 09:43 Normal [facility] Main OR Preoperative Recordo n 11-16-2018 Main OR Preoperative Record Holding Area Document Type FT Summary Primary Physician: Freedom Garza DO Finalized Date/Time: 11/16/18 06:58:04 Pt. Name: MEERA STOCKTON/Sex: 1945 Male Med Rec #: [id number] Physician: Freedom Garza DO Financial #: [id number] Pt. Type: A Room/Bed: 11/14 Admit/Disch: 11/16/18 06:30:45 - Institution: Case Times Holding FT Pre-Care Text: Verifies consent for planned procedure, identifies individual values and wishes concerning care, includes family members in perioperative teaching Secures patient's records' belongings, and valuables, maintains patient's dignity and privacy, and maintains patient confidentiality Entry 1 In Holding 11/16/18 06:35:00 Outcomes Met? Yes Last Modified By: Arianne Romero RN 11/16/18 06:56:04 Post-Care Text: The patient participates in decisions affecting his or her perioperative plan of care The patient's right to privacy is maintained Surgery Checklist FT Entry 1 Patient Birthday, ID Band Procedure Surgical Consent, With Identification: Check, Patient Verification: Patient Participation NPO after Midnight: No Date/Time: 11/15/18 19:00:00 Personal Items: Cataract Lens Implant Complaints of Pain: No Operative Site Yes Marked By: CRISTO TORRE Marking: Location: RIGHT EYE Does Patient Smoke No Patient states Yes Comment - Adult MAGGIE -SPOUSE postop adult Supervision supervision available Case Cancelled in No Holding Area see comments below for reason Last Modified By: Arianne Romero RN 11/16/18 06:57:56 Finalized By: Arianne Romero RN Document Signatures Signed By: Arianne Romero RN 11/16/18 06:58 Arianne Romero RN 11/16/18 06:58 Normal [facility] Patient Education - Texton 0 11-16-2018 Patient Education - Text [place], [place] Freedom Garza D.O. AFTER SURGERY [right eye] [left eye] RESTRICTIONS FOR SIX WEEKS: No rubbing of eye. Try not to sleep on stomach. Wear eye shield at bedtime for 2 WEEKS. Avoid circumstances which may result in trauma to the eye. You may shower and/or bathe. To wash hair allow water to run down back of the head if possible. For YOUR comfort, wear sunglasses in sunlight as needed. METHOD OF APPLYING EYE MEDICATION: Look up. Pull down lower lid. (NO PRESSURE ON EYE) Apply one drop of medication inside the pocket of lower lid. ON THE DAY OF SURGERY: Wear your shield until you get home and then it can be removed. Reapply the shield at bedtime or at any time you are sleeping. PAIN: use Tylenol 325 mg. every 4 hours as needed. The eye may feel as if there is an eyelash in it. This scratchiness is normal. Start your eye drops when you get home. (aranda)Besivance/ Ofloxacin ? apply to surgical eye, three more times today. (han)Diclofenac/ Ketorolac ? apply to surgical eye, four more times today. (pink/white)Prednisolone Acetate ? apply to surgical eye, six times today. -Wait 3-5 minutes between eye drops -Do one set of eye drops the next day in the morning before your appointment. [facility] Progress Note-Physicianon Progress Note-Physician Patient: MEERA STOCKTON Age: 72 years Sex: Male : 1945 Associated Diagnoses: None Author: Freedom Garza DO Postoperative Information Date/ Time: 11/16/18 09:01:00 Preoperative Diagnosis: Senile Cataract - OD . Postoperative Diagnosis: same . Procedure: Cataract Extraction with IOL placement - OD. Anesthesia Method: Local. Performed by: Freedom Garza DO. Specimens Removed: none . Estimated Blood Loss: 0 ml. Complications: None. [facility] Comment on above: Result Comment: Elec tronically Signed By: Freedom Garza DO\.br\Date and Time Signed: 11/16/18 09:01 EDT Operative Reporton 9 Operative Report Date of Surgery: SURGEON: Freedom Garza D.O. PREOPERATIVE DIAGNOSIS: Nuclear sclerotic cataract, left eye POSTOPERATIVE DIAGNOSIS: Nuclear sclerotic cataract, left eye OPERATION: Cataract extraction with intraocular lens placement, left eye ANESTHESIA: Topical COMPLICATIONS: None ESTIMATED BLOOD LOSS: Zero PROCEDURE: The patient was brought to the Operating Room in the supine position. After proper identification, the left eye was prepped and draped in a sterile ophthalmic fashion. Two drops of Tetracaine were placed into the eye and a paracentesis was created at the two oclock position. Approximately 0.1 cc of unpreserved Xylocaine was injected into the anterior chamber and this was followed by Amvisc Plus. Using a 2.6 mm keratome blade, a clear corneal incision was created at the twelve oclock limbus. A cystotome was fashioned out of a 25 gauge needle and a curvilinear capsulorrhexis was begun and continued for 360 degrees with Utrata forceps. Balanced Salt Solution on a cannula was injected under the anterior capsule to hydrodissect as well as hydrodelineate the lens. After ensuring mobility with a second handpiece, phacoemulsification was performed in a conquer and divide type fashion. After all nuclear material had been removed from the eye, IA was introduced into the anterior chamber and all residual cortical material was cleaned up. Additional Amvisc Plus was injected into the posterior bag and a lens Model MX60 19.5 diopters was injected into the posterior bag as well. This was dialed into position with a secondhand piece and centered. After ensuring centration, IA was reintroduced into the anterior chamber and all residual Amvisc Plus was removed from the eye. Balanced Salt Solution on a cannula was injected into the stroma of the clear corneal incision as well as the paracentesis to hydrate the wounds. Additional Balanced Salt Solution was injected into the anterior chamber to pressurize the eye to approximately 20-22 mmHg by finger tension. Weck-hussein sponges were then utilized to check the wounds to be watertight. One drop of Iopidine, one drop of prednisolone acetate and one drop of Ocuflox were placed into the eye and a shield was placed over top. The patient was sent to the Postoperative Area in satisfactory condition to follow up the following day for postoperative care. Freedom Garza D.O. lkr Dictated: 10/28/2018 #[id number] Typed: 10/28/2018 #[id number] cc: Freedom Garza D.O. [facility] Comment on above: Result Comment: Elec tronically Signed By: Freedom Garza DO\.br\Date and Time Signed: 11/01/18 12:11 EDT Coding Summary.on 10-29-2018 Coding Summary. CODING DATE: 019 FINAL [facility] STATUS: Home (Routine DC) PAYOR: Medicare APC DESCRIPTION 5491 Level 1 Intraocular Procedures ADMIT DX: REASON FOR VISIT DX: H25.13 Age-related nuclear cataract, bilateral FINAL DX: PRINCIPAL: H25.13 Age-related nuclear cataract, bilateral SECONDARY: I10 Essential (primary) hypertension E78.00 Pure hypercholesterolemia, unspecified PYMT PROC APC STAT DESCRIPTION DOCTOR NAME DATE 94819 [id number] J1 Extracapsular cataract Freedom Garza DO 10/28/2018 removal with insertion of intraocular lens prosthesis (1 stage procedure), manual or mechanical technique (eg, irrigation and aspiration or phacoemulsification) LT Left side (used to identify procedures performed on the left side of the body) NOTE: The code number assigned matches the documented diagnosis and / or procedure in the patient's chart. However, the narrative phrase printed from the coding software may appear abbreviated, or result in slightly different terminology. Coded By: Kristine Townsend Date Saved: 10/29/2018 02:15 pm [facility] Main OR Intraoperative Recor don 10-29-2018 Main OR Intraoperative Record IntraOp Document Type FT Summary Primary Physician: Freedom Garza DO Finalized Date/Time: 10/29/18 10:27:38 Pt. Name: KYRA MEERA [place]/Sex: 1945 Male Med Rec #: [id number] Physician: Freedom Garza DO Financial #: [id number] Pt. Type: A Room/Bed: [facility] Admit/Disch: 10/28/18 06:31:00 - 10/28/18 10:00:00 Institution: Case Times FT Entry 1 Patient Times In Room 10/28/18 08:46:00 Out Room 10/28/18 09:06:00 Procedure Times Start 10/28/18 08:52:00 Stop 10/28/18 09:05:00 Anesthesia Times Last Modified By: Jaelyn TORRE, JOSÉ ANTONIOOR, Padmini Collado 10/28/18 09:06:14 General Comments: 10/29/18 Chart open to review and send charges. Lata Christy RN Case Attendance FT Entry 1 Entry 2 Entry 3 Case Attendee Freedom Garza DO, RN, Danielle PATELN, Lisbeth TORRE Role Performed Surgeon - Primary Building Estimator - Primary Building Estimator - Primary Time In 10/28/18 08:46:00 10/28/18 08:46:00 10/28/18 08:46:00 Time Out 10/28/18 09:06:00 10/28/18 09:06:00 10/28/18 09:06:00 Procedure CATARACT EXTRACTION W/ CATARACT EXTRACTION W/ CATARACT EXTRACTION W/ INTRAOCULAR LENS(Left) INTRAOCULAR LENS(Left) INTRAOCULAR LENS(Left) Comments Last Modified By: Jose TORRE, Danielle Garcia RN, Danielle Garcia RN, Danielle Cruz 10/28/18 09:06:16 10/28/18 09:06:16 10/28/18 09:06:16 Entry 4 Entry 5 Case Attendee Medhat Marie CST PARADI TENDER/SA, Diamante Role Performed Scrub - Primary Scrub - Other Time In 10/28/18 08:46:00 10/28/18 08:46:00 Time Out 10/28/18 09:06:00 10/28/18 09:06:00 Procedure CATARACT EXTRACTION W/ CATARACT EXTRACTION W/ INTRAOCULAR LENS(Left) INTRAOCULAR LENS(Left) Comments Last Modified By: Danielle Garcia RN, RN, Amy J 10/28/18 09:06:16 10/28/18 09:06:16 Perioperative Protocols FT Pre-Care Text: Implements protective measures prior to operative or invasive procedure, confirms identity before the operative or invasive procedure, verifies operative procedure, surgical site, and laterality Entry 1 Procedure(s) CATARACT EXTRACTION W/ Patient Identity Birthday, ID Band INTRAOCULAR LENS(Left) Verified (select at Check, Patient least 2): Participation Consents / H and P HandP, Surgery/Procedure Operative Site Present Verified Consent Marking Verified Surgical Site Yes Laterality Verified Yes Verified Procedure Verified Yes Correct Patient Yes Position Verified Availability Equipment, Implant, Prep Dry n/a Verified (If Medication Applicable) PreOp Antibiotic No Time Out Freedom Garza DO, Given Participants Danielle Garcia RN, Weisenburger BSN, RN, Frank Bob CST, Amber, Sharp PARADI TENDER/SA, Diamante Time Out Complete 10/28/18 08:50:00 Outcomes Met? Yes Last Modified By: Danielle Garcia RN 10/28/18 09:00:13 Post-Care Text: The patient is free from signs and symptoms of injury caused by extraneous objects Allergy Information FT Pre-Care Text: Verifies allergies Entry 1 Allergies Reviewed? Yes Allergies Reviewed Self/Patient With Outcomes Met? Yes Last Modified By: Danielle Garcia RN 10/28/18 07:22:59 Post-Care Text: The patient received appropriate medication(s) safely administered during the perioperative period Surgical Procedures FT Entry 1 Procedure Description Procedure CATARACT EXTRACTION W/ Modifiers Left INTRAOCULAR LENS IMPLANTATION Surgeon Description CATARACT EXTRACTION WITH INTRAOCULAR LENS IMPLANTATION LEFT EYE Primary Procedure Yes Primary Surgeon Freedom Garza DO Start 10/28/18 08:52:00 Stop 10/28/18 09:05:00 Anesthesia Type Local Surgical Service Ophthalmology Wound Class 1 - Clean Last Modified By: Danielle Garcia RN 10/28/18 09:06:18 General Case Data FT Pre-Care Text: Classifies surgical wound, implements aseptic technique, initiates traffic control Entry 1 Case Information OR OR 3 FT Case Level Level 2 Wound Class 1 - Clean Specialty Ophthalmology Preop Diagnosis CATARACT LEFT EYE Postop Same As Preop Yes Postop Diagnosis CATARACT LEFT EYE Outcomes Met? Yes Last Modified By: Danielle Garcia RN 10/28/18 07:23:27 Post-Care Text: The patient is free from signs and symptoms of infection Skin Assessment (Pre Procedure) FT Pre-Care Text: Implements protective measures to prevent skin/ tissue injury due to thermal or mechanical sources Evaluates for signs and symptoms of physical injury to skin and tissue Entry 1 Skin Integrity Unable to Visualize Skin Abnormality No Outcomes Met? Yes Last Modified By: Danielle Garcia RN 10/28/18 08:59:40 Post-Care Text: The patient is free from signs and symptoms of injury caused by extraneous objects Patient Positioning FT Pre-Care Text: Identifies physical alterations that require additional precautions for procedure-specific positioning, verifies presence of prosthetics or corrective devices, positions the patient, evaluates the patient for signs and symptoms of injury as a result of positioning Entry 1 Procedure CATARACT EXTRACTION W/ Additional folded towel under head INTRAOCULAR LENS(Left) Information Body Position Supine Feet Uncrossed? Yes Left Arm Position Resting at Side Right Arm Position Resting at Side Left Leg Position Extended Right Leg Position Extended Press Points Checked Yes By Danielle Garcia RN Outcomes Met? Yes Last Modified By: Danielle Garcia RN 10/28/18 07:23:39 Post-Care Text: The patient is free from signs and symptoms of injury related to positioning Patient Care Devices FT Pre-Care Text: Implements protective measures to prevent skin/ tissue injury due to thermal or mechanical sources Entry 1 Entry 2 Entry 3 Equipment Type MICROSCOPE EYE[F] MONITOR CHARGE SURGERY PHACO UNIT[F] [F] Equipment Number Equipment Setting Outcomes Met? Yes Yes Yes Last Modified By: Danielle Garcia RN, RN, Danielle Christianson RN 10/28/18 07:24:03 10/28/18 07:24:03 10/28/18 07:24:03 Post-Care Text: The patient is free from signs and symptoms of injury caused by extraneous objects Transport To OR FT Pre-Care Text: Transports according to individual needs. Evaluates for signs and symptoms of skin and tissue injury as a result of transfer or transport Entry 1 Via Cart By Danielle Garcia RN Safety Precautions Side Rails Up Outcomes Met? Yes Last Modified By: Danielle Garcia RN 10/28/18 07:24:12 Post-Care Text: The patient is free from signs and symptoms of injury related to transfer/transport Counts Verification FT Pre-Care Text: Performs required counts Entry 1 Procedure(s) CATARACT EXTRACTION W/ Type Initial INTRAOCULAR LENS(Left) Items Instruments Status Correct By Medhat Marie CST Outcomes Met? Yes Last Modified By: Danielle Garcia RN 10/28/18 09:20:03 Post-Care Text: The patient is free from signs and symptoms of injury caused by extraneous objects Skin Prep FT Pre-Care Text: Performs skin preparations Entry 1 Procedure CATARACT EXTRACTION W/ Prep Area operative site LEFT EYE INTRAOCULAR LENS(Left) Prep Agents Saline Rinse, Betadine Scrub and Solution Hair Removal Methods Not Indicated By Alysa GRIFFIN, RN, Outcomes Met? Yes Lisbeth Last Modified By: Danielle Garcia RN 10/28/18 07:24:45 Post-Care Text: The patient is free from signs and symptoms of infection Departure From OR FT Pre-Care Text: Transports according to individual needs. Evaluates for signs and symptoms of skin and tissue injury as a result of transfer or transport. Entry 1 Via Cart Safety Precautions Side Rails Up PostOp Destination Pre Surgery/ASU Transported By Danielle Garcia RN Patient Status Stable Skin. Condition Unable to Visualize Airway Maintenance Oxygen in Use? No Outcomes Met? Yes Last Modified By: Danielle Garcia RN 10/28/18 08:59:29 Post-Care Text: The patient is free from signs and symptoms of injury related to transfer/transport General Comments: PATIENT TAKEN TO ASU VIA TRANSPORTER FOR DISCHARGE. YELITZA ENCARNACION Dressing/Packing FT Pre-Care Text: Administers care to wound sites Entry 1 Type Dressing Site and Details EYE SHIELD AND PAPER TAPE TO LEFT EYE Outcomes Met? Yes Last Modified By: Danielle Garcia RN 10/28/18 07:25:48 Post-Care Text: The patient is free from signs and symptoms of infection Medication Administration FT Pre-Care Text: Verifies allergies, administers prescribed medications and solutions, administers prescribed antibiotic therapy and immunizing agents as ordered, evaluates response to medications Administers prescribed medications and solutions Entry 1 Route of Admin Field Expiration Date Yes Verified Outcomes Met? Yes Last Modified By: Danielle Garcia RN 10/28/18 07:26:13 Post-Care Text: The patient received appropriate medication(s) safely administered during the perioperative period For [facility] please see scanned medication reconcilliation form for medications used at the field during the procedure. Implant Log FT Pre-Care Text: Records devices implanted during the operative or invasive procedure Entry 1 Procedure CATARACT EXTRACTION W/ Implant/Explant Implant INTRAOCULAR LENS(Left) Implant Identification FT Description BEATA [id number] 12.50MM Serial Number [id number] [[id number]][F] Lot Number [id number] Remarketing Rep FT[employer] Catalog ?# [id number] [F] Size 19.5 Expiration Date 08/13/21 Usage Data FT Implant Site Eye L Quantity 1 Implanted By Freedom Garza DO Biological Implants Outcomes Met? Yes Last Modified By: Danielle Garcia RN 10/28/18 08:59:10 Post-Care Text: The patient is free from signs and symptoms of injury caused by extraneous objects Case Comments Finalized By: WILMER Christy RN, Lou Ann Document Signatures Signed By: Danielle Garcia RN 10/28/18 09:06 Danielle Garcia RN 10/28/18 09:20 WILMER Christy RN, Lou Ann 10/29/18 10:27 [facility] History and Physicalon 10-28 History and Physical HOSPITAL REGULATIONS: ALL Positive Important Negative Findings Shall Be Recorded DATE ADMITTED: 10/28/2018 HISTORY: The patient is a 72-year-old white male with complaints of declining vision out of his left eye. He is bothered by his quality of vision for tasks such as reading or working on the crossword puzzles. He also has difficulty at nighttime while driving because of oncoming headlights creating glare. The onset of this has been gradual over the last three to five years but more noticeable over the last twelve months. PAST OCULAR HISTORY: Ocular hypertension. PAST MEDICAL HISTORY: 1. Back surgery. 2. Hypertension. 3. Hypercholesterolemia. 4. Splenectomy. 5. Partial pancreatectomy. PSYCHOSOCIAL HISTORY: Denies tobacco, alcohol or recreational drug abuse. SYSTEMIC MEDICATIONS: 1. Neurontin. 2. Losartan. 3. Amlodipine. 4. Fenofibrate. 5. Lisinopril. ALLERGIES: Denies. REVIEW OF SYSTEMS: No pertinent positives. PHYSICAL EXAMINATION: VITAL SIGNS: Blood pressure measured at 125/76 with a respiration rate of 12 and pulse of 51. GENERAL: He is awake, alert and oriented x3, well developed, well nourished. No acute distress. HEART: Regular rate and rhythm. LUNGS: Clear bilaterally. ABDOMEN: Soft, nontender, nondistended. EXTREMITIES: No pitting edema. EYES: Ophthalmic examination revealed a visual acuity of 20/20 -2 that glared to 20/100 in the right eye and 20/40 that glared to 20/200 in the left eye. Pupils, motility, muscle balance, confrontation to visual khanna are within normal limits bilaterally. Pressures are measured at 20 and 19 right and left eye respectively. Slit-lamp examination revealed blepharitis with a severe decrease in tear film bilaterally. Conjunctivae, cornea, anterior chamber and iris are within normal limits bilaterally. Lens status demonstrated 2-3+ nuclear sclerosis bilaterally. Fundus examination revealed a good view with good dilation bilaterally. Optic discs, macula, vessels, periphery and vitreous within normal limits bilaterally. ASSESSMENT AND PLAN: Visually significant cataract, left eye. After risks, benefits, alternatives as well as expectations were delivered to the patient, he elected to go forward with cataract removal. He understands those risks to include but are not limited to infection, bleeding, loss of vision or loss of the eye itself. Secondly, he understands that postoperatively he is likely to require spectacle correction for his best visual acuity. Finally, a complete ophthalmic examination was performed and there was not determined to be any other source of vision decline other than that of the cataract. After understanding all risks as well as expectations, he elected to go forward with the procedure as listed above and will be doing so in the near future. Freedom Garza D.O. s Dictated: 10/27/2018 #[id number] Typed 10/27/2018 #[id number] cc: Freedom Garza D.O. [facility] Comment on above: Result Comment: Elec tronically Signed By: Freedom Garza DO\.br\Date and Time Signed: 10/28/18 07:26 EDT Inpatient Patient Summaryon 10-28-2018 Inpatient Patient Summary [facility] Clinical Discharge Instructions PERSON INFORMATION Name: MEERA STOCKTON [facility] Admitting Physician: Freedom Garza DO Attending Physician: Freedom Garza DO PCP: MATT WANG DO Discharge Diagnosis: Cataract Comment: PATIENT EDUCATION INFORMATION Instructions: WOJCIECH- After Surgery Eye (Custom) Medication Leaflets: Follow up: With: Address: When: Freedom Garza [facility] [place] [address], [address], [address] [place] [address] Business (1) Within 1 to 2 days MEDICATION LIST Comment: [facility] Main OR PACU II [facility] Main OR PACU II Record PACU Phase II Document Type FT Summary Primary Physician: Freedom Garza DO Finalized Date/Time: 10/28/18 11:11:34 Pt. Name: MEERA STOCKTON /Sex: 1945 Male Med Rec #: [id number] Physician: Freedom Garza DO Financial #: [id number] Pt. Type: A Room/Bed: [facility] Admit/Disch: 10/28/18 06:31:20 - Institution: Case Times PACU II FT Pre-Care Text: Identifies barriers to communication and implements measures to provide psychological support and determines knowledge level Develops individualized plan of care, and ensures continuity of care Maintains patient's dignity and privacy, and maintains patient confidentiality Identifies and reports philosophical, cultural, and spiritual beliefs and values Identifies individual values and wishes concerning care administers prescribed antibiotic therapy and immunizing agents as ordered, Evaluates postoperative tissue perfusion Implements thermoregulation measures, and monitors body temperature Evaluates postoperative respiratory status Evaluates postoperative cardiac status Evaluates postoperative neurological status Assesses pain control, collaborated in initiating patient-controlled analgesia and implements alternative methods of pain control Verifies allergies, administers prescribed medications and solutions, evaluates response to medications Entry 1 In PACU II 10/28/18 09:10:00 Discharge from PACU 10/28/18 10:00:00 II Outcomes Met? Yes Last Modified By: Radha Curtis RN 10/28/18 11:11:31 Post-Care Text: The patient demonstrates knowledge of the expected response to the operative or invasive procedure The patient's care is consistent with the individualized perioperative plan of care The patient's right to privacy is maintained The patient's value system, lifestyle, ethnicity, and culture are considered, respected, and incorporated into the perioperative plan of care The patient participates in decisions affecting his or her perioperative plan of care. The patient is free from signs and symptoms of infection The patient has wound/tissue perfusion consistent with or improved from baseline levels established preoperatively The patient is at or returning to normothermia at the conclusion of the immediate postoperative period The patient's respiratory function is consistent with or improved from baseline levels established preoperatively The patient's cardiovascular status is consistent with or improved from baseline levels established preoperatively The patient's neurological status is consistent with or improved from baseline levels established preoperatively The patient demonstrates and/or reports adequate pain control throughout the perioperative period The patient received appropriate medication(s), safely administered during the perioperative period Finalized By: Radha Curtis RN Document Signatures Signed By: Radha Curtis RN 10/28/18 11:11 [facility] Main OR Preoperative Recordo n 10-28-2018 Main OR Preoperative Record Holding Area Document Type FT Summary Primary Physician: Freedom Garza DO Finalized Date/Time: 10/28/18 07:22:48 Pt. Name: MEERA STOCKTON/Sex: 1945 Male Med Rec #: [id number] Physician: Freedom Garza DO Financial #: [id number] Pt. Type: A Room/Bed: [facility]/ Admit/Disch: 10/28/18 06:31:20 - Institution: Case Times Holding FT Pre-Care Text: Verifies consent for planned procedure, identifies individual values and wishes concerning care, includes family members in perioperative teaching Secures patient's records' belongings, and valuables, maintains patient's dignity and privacy, and maintains patient confidentiality Entry 1 In Holding 10/28/18 06:40:00 Outcomes Met? Yes Last Modified By: Radha Curtis RN 10/28/18 06:52:45 Post-Care Text: The patient participates in decisions affecting his or her perioperative plan of care The patient's right to privacy is maintained Surgery Checklist FT Entry 1 Patient Birthday, ID Band Procedure Surgical Consent, With Identification: Check, Patient Verification: Patient Participation NPO after Midnight: n/a Results Reviewed N/A Comments: Personal Items: Glasses Personal Items Glasses- case at the Comment: bedside Limitations: N/A Complaints of Pain: No Pain Comment: 0/10 Operative Site Yes Marking: Marked By: Sabrina Curtis RN Location: Left eye Availability Equipment Verified: Does Patient Smoke No Patient states Yes Comment - Adult Maggie (spouse) postop adult Supervision supervision available Case Cancelled in No Holding Area see comments below for reason Last Modified By: Radha Curtis RN 10/28/18 07:00:23 Finalized By: Radha Curtis RN Document Signatures Signed By: Radha Curtis RN 10/28/18 07:22 [facility] Patient Education - Texton 0 10-28-2018 Patient Education - Text [place], [place] Freedom Garza D.O. AFTER SURGERY [right eye] [left eye] RESTRICTIONS FOR SIX WEEKS: No rubbing of eye. Try not to sleep on stomach. Wear eye shield at bedtime for 2 WEEKS. Avoid circumstances which may result in trauma to the eye. You may shower and/or bathe. To wash hair allow water to run down back of the head if possible. For YOUR comfort, wear sunglasses in sunlight as needed. METHOD OF APPLYING EYE MEDICATION: Look up. Pull down lower lid. (NO PRESSURE ON EYE) Apply one drop of medication inside the pocket of lower lid. ON THE DAY OF SURGERY: Wear your shield until you get home and then it can be removed. Reapply the shield at bedtime or at any time you are sleeping. PAIN: use Tylenol 325 mg. every 4 hours as needed. The eye may feel as if there is an eyelash in it. This scratchiness is normal. Start your eye drops when you get home. (aranda)Besivance/ Ofloxacin ? apply to surgical eye, three more times today. (han)Diclofenac/ Ketorolac ? apply to surgical eye, four more times today. (pink/white)Prednisolone Acetate ? apply to surgical eye, six times today. -Wait 3-5 minutes between eye drops -Do one set of eye drops the next day in the morning before your appointment. [facility] Progress Note-Physicianon Progress Note-Physician Patient: MEERA STOCKTON Age: 72 years Sex: Male : 1945 Associated Diagnoses: None Author: Freedom Garza DO Postoperative Information Date/ Time: 10/28/18 09:06:00 Preoperative Diagnosis: Senile Cataract - OS. Postoperative Diagnosis: same . Procedure: Cataract Extraction with IOL placement - OS. Anesthesia Method: Local. Performed by: Freedom Garza DO. Specimens Removed: none . Estimated Blood Loss: 0 ml. Complications: None. [facility] Comment on above: Result Comment: Elec tronically Signed By: Freedom Garza DO\.br\Date and Time Signed: 10/28/18 09:06 EDT ALLIED HEALTHon 09-26-2018 ALLIED HEALTH HNO ID: [id number] Author: Alex Monroe (Rt) Service: ? Author Type: Meat Pickler Type: Allied Health Filed: 09/26/2018 10:40 AM Note Text: Radiology Service Progress Note PATIENT NAME: Meera Stockton DATE OF SERVICE: September 26, 2018 TIME: 10:27 AM PATIENT IDENTITY VERIFICATION COMPLETED USING TWO (2) METHODS: Patient confirmed name verbally, ID Band and Date of . PATIENT GENDER DATA: Male PATIENT RELEVANT IMPLANT DATA REVIEWED: Yes RADIOLOGY DEPARTMENT: MR; Exam(s) Completed: Spine: Lumbar spine PERIPHERAL IV DATA: Not applicable SIGNED BY: RT Fer September 26, 2018 10:27 AM [facility] MRI LUMBAR SPINE WO IVCONon 09-26-2018 MRI LUMBAR SPINE WO IVCON * * *Final Report* * * DATE OF EXAM: Sep 26 2018 10:44AM [facility] 0303 - MRI LUMBAR SPINE WO IVCON / PROCEDURE REASON: Spinal stenosis of lumbar region with neurogenic claudication * * * * Physician Interpretation * * * * EXAMINATION: MRI LUMBAR SPINE WO IVCON CLINICAL HISTORY: Spinal stenosis TECHNIQUE: Routine lumbosacral spine MR protocol without gadolinium. MQ: [id number]_3 COMPARISON: 01/12/2017 RESULT: Counting reference: Lumbosacral junction. For the purposes of this report, L4-5 is considered the level of the iliac crest and assume there are 5 lumbar-type vertebrae. Anatomic variant: None. Alignment: Alignment is anatomic. Bone marrow signal/fracture: Laminectomy defect is noted involving the L4 and L5 levels. No evidence of prior fracture. Conus: The conus is within normal limits of signal intensity and morphology. There is clumping of nerve roots at the L4-5 level suggesting arachnoiditis. Hypointense signal is again noted along the margins of the distal thecal sac suggesting sequela of previous subarachnoid hemorrhage Paraspinal soft tissues: Paraspinal soft tissues are within normal limits. Lower thoracic spine: Visualized lower thoracic canal and foramina are patent. T12-L1: Canal and foramina are patent. L1-L2: Canal and foramina are patent. L2-L3: Disc bulge and facet hypertrophy is noted. Canal and foramina appear patent L3-L4: Disc bulging and facet hypertrophy is noted. There is moderate right and mild left-sided neural foraminal narrowing L4-L5: Laminectomy defect is noted.. Facet hypertrophy is noted. There is severe right-sided neural foraminal narrowing and moderate to severe left-sided neural foraminal narrowing L5-S1: Facet hypertrophy and disc bulging is noted. There is severe bilateral neural foraminal narrowing with contact of the traversing bilateral S1 nerve roots. Sacrum and iliac wings: The visualized sacrum and iliac wings are within normal limits. IMPRESSION: Lumbar spondylosis most pronounced at the L4-5 and L5-S1 levels. Clumping of nerve roots at the L4-5 level may represent arachnoiditis. There is evidence for remote subarachnoid hemorrhage with peripheral hypointense signal along the distal aspects of the thecal sac. Anatomic Thoracic/Lumbar Variant: None. L4-5 is considered the level of the iliac crest and assume there are 5 lumbar-type vertebrae. Director News: PSCB Transcribe Date/Time: Sep 26 2018 4:05P Dictated by : BERE VILLEDA MD This examination was interpreted and the report reviewed and electronically signed by: BERE VILLEDA MD on Sep 26 2018 4:15PM EST [id number] [facility] PROGRESSon 08-27-2018 PROGRESS HNO ID: [id number] Author: Alex Alvarez (Rt) Service: Radiology Author Type: Meat Pickler Type: Progress Notes Filed: 08/27/2018 9:51 AM Note Text: Radiology Service Progress Note PATIENT NAME: Meera Stockton DATE OF SERVICE: August 27, 2018 TIME: 9:47 AM PATIENT IDENTITY VERIFICATION COMPLETED USING TWO (2) METHODS: Patient confirmed name verbally, ID Band and Date of . PATIENT GENDER DATA: Male PATIENT RELEVANT IMPLANT DATA REVIEWED: Not Applicable RADIOLOGY DEPARTMENT: General X-ray: Exam(s) Completed: Pelvis X-Ray: Pelvis with Hip Left PERIPHERAL IV DATA: Not applicable SIGNED BY: RT Antonio August 27, 2018 9:47 AM [facility] XR HIP 2V AP/ LAT LTon 08-27 XR HIP 2V AP/ LAT LT * * *Final Report* * * DATE OF EXAM: Aug 27 2018 9:52AM [facility] [id number] - XR HIP 2V AP/ LAT LT / PROCEDURE REASON: S/P lumbar laminectomy * * * * Physician Interpretation * * * * EXAMINATION: XR HIP 2V AP/ LAT LT HISTORY: BUTTOCK PAIN AFTER FALL AND GOES DOWN LEG- HARD TIME WALKING S/P lumbar laminectomy . TECHNIQUE: XR HIP 2V AP/ LAT LT Laterality: LEFT Number of different views (projections): 2 M: XB_1 COMPARISON: None RESULT: Lower lumbar laminectomies is associated with mild levo curve. Moderate sclerosis about the lower lumbar facets would be consistent with underlying facet degenerative arthritis. Moderate pelvic tilt. Normal hip and sacroiliac joints. Dedicated views of the left hip show no significant periarticular abnormality for age. A small lateral acetabular roof osteophyte is present. Calcification overlying the pubic symphysis is likely located in the prostate gland. No other significant abnormality. IMPRESSION: Postsurgical and degenerative changes lower lumbar spine. Hip joint spaces are well preserved. Director News: PSCB Transcribe Date/Time: Aug 27 2018 10:35A Dictated by : RAMOS DESOUZA MD This examination was interpreted and the report reviewed and electronically signed by: RAMOS DESOUZA MD on Aug 27 2018 10:37AM EST [id number] [facility] ALLIED HEALTHon 07-03-2018 ALLIED HEALTH HNO ID: [id number] Author: Alex Alvarado (Tech) Service: Radiology Author Type: Meat Pickler Type: Allied Health Filed: 07/03/2018 3:21 PM Note Text: Radiology Service Progress Note PATIENT NAME: Meera Stockton DATE OF SERVICE: July 03, 2018 TIME: 3:10 PM PATIENT IDENTITY VERIFICATION COMPLETED USING TWO (2) METHODS: Patient confirmed name verbally and ID band matches.. PATIENT GENDER DATA: Male PATIENT RELEVANT IMPLANT DATA REVIEWED: Yes RADIOLOGY DEPARTMENT: MR; Exam(s) Completed: Spine: Cervical spine PERIPHERAL IV DATA: Not applicable SIGNED BY: Alex Alvarado/Ana M Oliveira July 03, 2018 3:10 PM [facility] MRI CERVICAL SPINE WO IVCONo n 07-03-2018 MRI CERVICAL SPINE WO IVCON * * *Final Report* * * DATE OF EXAM: Jul 03 2018 3:21PM [facility] 0297 - MRI CERVICAL SPINE WO IVCON / PROCEDURE REASON: M47.812 * * * * Physician Interpretation * * * * EXAMINATION: MRI CERVICAL SPINE WO IVCON CLINICAL HISTORY: Neck pain. TECHNIQUE: Routine cervical spine MR protocol without gadolinium. MQ: [id number]_3 COMPARISON: MRI cervical spine from 01/12/2017 RESULT: Counting reference: Craniocervical junction. Anatomic Variants: None. Alignment: Again noted is stable grade I anterolisthesis of C7 on T1. Moderate stable loss of disc height at C5-C6 and C6-C7 reflecting degeneration. Craniocervical junction: Craniocervical junction is normal. Cord: The visualized cord is within normal limits of signal intensity and morphology. Bone marrow signal/fracture: No evidence of pathologic marrow infiltration. No evidence of prior fracture. Cervical soft tissues: The paraspinal soft tissues are within normal limits. C2-C3: Canal and foramina are patent. C3-C4: Canal and foramina are patent. C4-C5: Tiny central protrusion causes minimal narrowing the spinal canal. Right neural foramen is patent. Mild left neural foraminal stenosis due to facet hypertrophy. C5-C6: Mild narrowing the spinal canal due to disc osteophyte complex which has mildly progressed since the prior examination. Moderate right and mild left neural foraminal stenosis due to a combination of uncovertebral joint and facet hypertrophy. C6-C7: Disc osteophyte complex causes mild narrowing the spinal canal which has mildly progressed since the prior exam. Mild left and severe right neural foraminal stenosis due to right-sided uncovertebral joint and facet hypertrophy. C7-T1: Pseudodisc bulge causes mild narrowing the spinal canal. Foramina remain patent IMPRESSION: Mild interval progression of disc osteophyte complex at C5-C6 and C6-C7 but no significant change in overall canal foraminal stenosis. There is stable severe right C6-C7 and moderate right C5-C6 neural foraminal stenoses. Spinal cord and brainstem remain normal in appearance. Anatomic Variant: None. Assume 7 cervical vertebrae with counting from the craniocervical junction. Director News: PSCB Transcribe Date/Time: Jul 03 2018 3:25P Dictated by : JOSE TILLMAN MD This examination was interpreted and the report reviewed and electronically signed by: JOSE TILLMAN MD on Jul 03 2018 3:28PM EST [id number] [facility] Physical Therapy Noteon 02-13 Physical Therapy Note [id number]#1.00[facility] Med[facility]on [facility]-14 Medication Management [id number]#1.00OT[facility] Provider [place] 12-01-2017 Protein mass conc [id number]#1.00OT[facility] Protein mass conc [id number]#[address] [place] [address] Coding Summaryon 11-26-2017 Coding Summary CODING DATE: 018 [facility] STATUS: PAYOR: Medicare ADMIT DX: REASON FOR VISIT DX: M48.062 Spinal stenosis, lumbar region with neurogenic claudication FINAL DX: PRINCIPAL: M48.062 Spinal stenosis, lumbar region with neurogenic claudication SECONDARY: PROCEDURES DOCTOR NAME DATE NOTE: The code number assigned matches the documented diagnosis and / or procedure in the patient's chart. However, the narrative phrase printed from the coding software may appear abbreviated, or result in slightly different terminology. Coded By: Tamika Anderson Date Saved: 11/26/2017 09:15 am [facility] Provider [place] 11-17-2017 Protein mass conc [id number]#1.00OTGTIFF [facility] CNDSon 10-17-2017 CNDS HNO ID: [id number] thor: Jose Raul Martin) SubramaniamService: NeurosurgeryAuthor Type: PhysicianType: Discharge SummariesFiled: 10/17/2017 12:51 PMNote Text:DISCHARGE SUMMARYPATIENT NAME: Meera Stockton ADMISSION DATE: 10/14/2017MRN: [id number] DISCHARGE DATE: 10/17/2017Attending Physician: Jose Raul Martin) Emmanuel*Reason for Hospitalization:L3-5 decompression with foraminotomyDiagnosis: L3-5 lumbar canal stenosis with neurogenic claudicationHospital Course as Described to the Patient: is a plesent 71 years old male admitted with history suggestiveof neurogenic claudication. Underwent L3-5 decompressive laminectomy withroot foraminotomy on 10/14/2017. Post op pain is well controlled. No acuteeventsAdditional Provider to Provider Information:NoneOperations During Hospitalization:L3-5 decompression with root foraminotomiesProcedures During Hospitalization:NoneLabs and Procedures Pending at Discharge:Test Results Not Yet Available from This Hospitalization: Please Review atYour Follow Up Appointment None No pending results.Consulting Teams During Hospitalization:Treatment Team:Attending Provider: Jose Raul Martin) SubjaylananiamNonePatient Condition @ Discharge:ImprovedDischarge Disposition:Home with home health careDischarge Physical Exam:VITAL SIGNS: BP 121/65 Pulse 60 Temp 37 ?C (98.6 ?F) (Oral) Resp16 Ht 175.3 cm (5' 9 ) Wt 80.7 kg (178 lb) SpO2 98% BMI 26.29kg/m?Conscious, alert, orientedMoving limbs equalNo motor weaknessIncision is clean and dryInformation Provided to Patient:Can increase activities as toleratingAvoid lifting weight more than 10 poundsCan shower and shampoo on 4th post op dayAvoid driving with narcoticsResume pre hospital diet and medicationsCall our office if he notices increasing pain, weakness, drainage from theincision, feverDischarge Medications: Current Discharge Medication ListSTART taking these medicationscyclobenzaprine (FLEXERIL) 10 mgTake 10 mg by mouth three times daily as needed for Muscle Spasm.Qty: 21 tablet Refills: 0oxyCODONE-acetaminophen (PERCOCET) 1 tabletTake 1 tablet by mouth every 6 hours as needed.Earliest Fill Date: 10/15/17Qty: 28 tablet Refills: 0Associated Diagnoses:Spinal stenosis, lumbar region, with neurogenicclaudicationCONTIN UE these medications which have CHANGEDlosartan (COZAAR) 100 mgTake 100 mg by mouth once daily.amLODIPine (NORVASC) 5 mgTake 5 mg by mouth once daily.CONTINUE these medications which have NOT CHANGEDFenofibrate (LOFIBRA) 160 mgTake 160 mg by mouth once daily.POLYETHYLENE GLYCOL 3350 (MIRALAX ORAL)Take by mouth once daily.STOP taking these medicationsmupirocin (BACTROBAN) 2 % ointmentComments:Reason for Stopping:Future Appointments:Already scheduled in spine surgery clinic at 3 weeksAppointments for Next 45 Days Date and Time Provider Department Dept Phone 11/06/2017 10:00 AM Jose Raul Martin) Keisha Mc Frvw [phone] OF CARE: Discharge Management: I personally spent greater than 30minutes involved in the discharge management of this patient.SIGNATURE: Jose Raul Valdes MD PATIENT NAME: Meera StocktonDATE: October 17, 2017 : 12:43 PM PAGER/CONTACT #: [phone] [facility] NURSING PROGon 10-17-2017 Protein mass conc HNO ID: [id number] thor: Karishma OcasioRn) FARAZ Artervice: NursingAuthor Type: Registered NurseType: Nursing Progress NoteFiled: 10/17/2017 10:42 AMNote Text: Nursing Progress NotePatient Name: Meera StocktonMRN: [id number] Location[id number] ____Daily Note:1040: Pt up and ambulating for second time this shift. Pt isslow to stand up, but once moving tolerates well. Medicated with 2percocet at 0810 and effective.This note was completed by: Karishma Art RN [facility] THERAPY NTon 10-17-2017 THERAPY NT HNO ID: [id number] thor: Nidhi (Ot) ElaminService: Occupational TherapyAuthor Type: Occupational TherapistType: Therapy (PT/OT/Speech/Resp)Filed: 10/17/2017 2:14 PMNote Text:Occupational Therapy TreatmentSERVICE DATE: 10/17/2017SERVICE TIME: 1130 to 1155ROOM: [id number] Discharge Disposition: HomeAnticipated Discharge Needs: Physical Assist at HomePhysical Assist at Home for: Cleaning;Laundry;Meals;Stair s;SelfCare;Shopping;Transpor tation;TransfersRecommended Discharge Equipment: Elastic Shoe Laces;Grab Bars-Shower;HandHeld Shower;Long Handled Shoe Horn;Long Handled Sponge;WheeledWalker;Deep Sea Diver ;Sock Aide;Shower ChairOT Recommendations to Nursing: To Bathroom for ADL?s /and or Toileting;OOBfor meals;Transfer to Chair;With assist of 2 peopleEquipment: Wheeled WalkerOT 6 Clicks Score: 19Precautions/Activity Restrictions: Spine;Lines/Tubes/Drains;Fal lRisk;Bed/Chair Alarm;Other: See Comments (Regular Diet)Precaution/Activity Restriction Comments: High Fall Risk, 6+ falls pastyearASSESSMENT: Patient presents with decreased independence in ADLs, decreased activitytolerance, decreased balance, decreased safety awareness, spinalprecautions , and decreased independence with functional transfers. The ptrequires skilled occupational therapy services for ADL retraining, balanceretraining and activities, education and intervention for increased safetyand independence w functional transfers, and education with energyconservation techniques in order to increase safety and independence inADLs.Patient Disposition at Start of Session: OOB in Chair;Call Jones in ReachPatient Disposition at End of Session: OOB in Chair;Call Jones in ReachTolerated Full SessionOccupational Therapy Problem List: Pain;Safety Deficits;Impaired SelfCare;Decreased Activity Tolerance;Decreased Strength;Functional MobilityImpairment;Balance ImpairedPatient /Caregiver Goals: Go HomeGoals for Plan of Care:Upper Body Bathing with: Modified IndependentUpper Body Dressing with: Modified IndependentLower Body Bathing with: Stand By AssistanceLower Body Dressing with: Minimal AssistanceToilet Hygiene with: Stand By AssistanceChair Transfer with: Stand By AssistanceToilet Transfer with: Stand By AssistanceTolerate (minutes of functional activity): 30Functional Activity with: Stand By AssistanceDemonstrate Competence With Education with: Modified IndependentProgress Toward Goals: Progressing as expectedRehab Potential: GoodPLAN:Treatment Frequency (times per week): 3Treatment Duration (number): 1 WeeksTreatment Interventions: Education;Self Care / Home Management;EnergyConservatio n TrainingPlan of Care developed with: Patient;FamilyTREATMENT INTERVENTIONS:Therapy Diagnosis: Reduced mobility-other;Decreased activities of dailyliving (ADL);Muscle Weakness (generalized)Interventions Provided: Self Prison Management (63328)Self Prison Management (61079) Treatment Minutes: 252 unitsSkilled Intervention(s): Provided instruction, cuing and facilitation forlower body dressing .Instructed pt on use of military analyst to ludwin/doff pants, underwear, shoes inorder to maintain spinal precautions and increase independence with ADL's.Pt able to thread legs through pant holes with use of military analyst at min a.Instructed pt on use of sock aide to ludwin socks in order to maintainspinal precautions and increase independence with ADL's. Pt required mincues to use sock aide. Overall mod a for LB dressing.Pt plans on having seat for the shower.This therapist suggested pillows for the car ride home for comfort.Plastic bag was given to patient to sit on in the car to help with ease oftransfer due to friction.Pt will have assistance from spouse for ADL'sTotal Timed Code Treatment Minutes: 25Total Treatment Time (minutes): 25FUNCTIONAL G CODE:OT 6 Clicks Score: 19 (10/17/17 1130)$ Self Care Current Status (G8987): CK (10/17/17 1130)$ Self Care Goal Status (G8988): CK (10/15/17 1830)Based on clinical assessment and the score on the 6 Clicks FunctionalAssessment Tool, the G code and corresponding severity modifiers aredocumented above.SUBJECTIVE:Current Hospital Course: Chart reviewed and no significant medical updatesrelevant to therapy were notedReason for Occupational Therapy Consult: Lumbar DecompressionRelevant Past Medical History: Refer to the notePatient Report: I think I'm a little better than yesterday.Home EnvironmentPatient Lives With: Significant Other;Other: See Comment (Spouse, twolevel home, stays on 1st level, [place] [employer] [place])Assistance Available: PRN;Other: See Comment (Spouse retired, one childclose by)Entry To Home: Stairs;Without RailNumber Of Stairs Into Home: 1Number Of Stairs To Bed/Bath: 0Tub/Shower Type: Walk-in ShowerLaundry: 1st levelEquipment Owned: Grab Bars-Shower;Cane;Wheeled WalkerPrior Functional Level: Within Functional Limits;History of Falls;Other:See Comment (Pt reported at least 6 falls past year)OBJECTIVE:Responsivenes s: Alert;AwakeFollows Commands: 3-step CommandsVision Deficits: Wears glasses;Other: See Comment (at all times)CURRENT FUNCTIONAL STATUS:Current Activities of Daily Living Assist LevelFeeding IndependentGrooming Modified Independent (set-up, seated)Bathing Upper Body Modified Independent (set-up, seated)Bathing Lower Body Moderate AssistanceDressing Upper Body Stand By AssistanceDressing Lower Body Moderate Assistance (educated on LBAE)Toileting Moderate AssistanceInstrumental Activities of Daily Living Assist LevelMeal/Beverage PrepLight CleaningLaundryMedication Management with StrategiesFunctional Mobility Assist LevelRolling Maximal AssistanceSupine to Sit Moderate AssistanceSit to SupineScooting SupervisionSit to Stand Minimal AssistanceStand to Sit Minimal AssistanceBed to Chair Minimal Assistance (Pt ambulated around the bed to chair)Wheeled WalkerToilet/CommodeFunction al Mobility Minimal Assistance Wheeled WalkerBalance: Static Sitting;Dynamic Sitting;Static Standing;Dynamic StandingStatic Sitting Balance: SupervisionDynamic Sitting Balance: SupervisionStatic Standing Balance: Contact Guard AssistanceDynamic Standing Balance: Minimal AssistanceActivity Tolerance: (Pt appears comfortable oi bedside chair)Please see discipline specific clinical documentation flowsheet forcomplete details for this therapy evaluation/treatment.SIGNSTEVAN RE: KATERIN Mike PATIENT NAME: Meera StocktonDATE: October 17, 2017 : 1:16 PMI reviewed and agree with the documentation corresponding to this therapyvisit.SIGNATURE: Nidhi Rush OTR/LDATE: October 17, 2017TIME: 2:14 PM [facility] CASE MANAGEMon 10-16-2017 CASE MANAGEM HNO ID: [id number] thor: Joanne OcasioRnFARAZ Escalanteervice: Care ManagementAuthor Type: Registered NurseType: Care Mgt Progress NoteFiled: 10/16/2017 4:04 PMNote Text:CARE MANAGEMENT PROGRESS NOTESERVICE DATE: 10/16/2017SERVICE TIME: 4:02 PM LOS: 0 daysObservation letter given to Pt and his on 10/16/2017copy of signed OBS letter was placed on the chart,and faxed to registration and to CM office.The original was given to the pt.SIGNATURE: Joanne Sepulveda RN,BSN PATIENT NAME: Meera McnealTE: October 16, 2017 : 4:02 PM PAGER/CONTACT #: [phone] [facility] CASE MANAGEM HNO ID: [id number] thor: FARAZ Goyal Rnervice: Care ManagementAuthor Type: Registered NurseType: Care Mgt Progress NoteFiled: 10/16/2017 3:50 PMNote Text:CARE MANAGEMENT PROGRESS NOTESERVICE DATE: 10/16/2017SERVICE TIME: 3:41 PM LOS: 0 daysFREEDOM OF CHOICE GIVEN:Preference: Patient declinesHC order is noted in Epic, This CM [facility] His is visiting.Pt declines Home Care, Pt states No, I do not want home care His is present, she agrees with her .A message was sent to notify Shamir CERVANTES.SIGNATURE: Joanne Sepulveda RN,BSN PATIENT NAME: Meera Curtis: October 16, 2017 : 3:41 PM PAGER/CONTACT #: [phone] [facility] NURSING PROGon 10-16-2017 Protein mass conc HNO ID: [id number] thor: FARAZ Smith Rnervice: (none)Author Type: Registered NurseType: Nursing Progress NoteFiled: 10/16/2017 12:05 PMNote Text: Nursing Progress NotePatient Name: Meera StocktonMRN: [id number] Location: [place] [address]/[id number] ____Daily Note: Mr. Stockton ambulated in allen with 1 assist and walker severaltimes today. He has difficulty rising from seated position, but gait issteady. Percocet takes the edge off the low back pain, but patientstates he is also having muscle spasms intermittently. BILLY Barksdale aware.PT/OT staff assessed and treated patient; recommend home with PT atdischarge.This note was completed by: Dm Owen RN [facility] PROGRESSon 10-16-2017 Protein mass conc HNO ID: [id number] thor: Jose Raul Martin) SubramaniamService: NeurosurgeryAuthor Type: PhysicianType: Progress NotesFiled: 10/16/2017 6:46 PMNote Text:PROGRESS NOTE NEUROSURGERYSERVICE DATE: 10/16/2017SERVICE TIME: 1:53 PMSubjectiveINTERVAL HPIPOD 2 L3-5? decompressionLower back pain improved with medicationComplains of muscle spasms in the lowerNo leg painFoley out, urinating normallyNo acute changesCurrent hospital medications:cyclobenzaprine 10 mg tab(s) (FLEXERIL) 10 mg ORAL TID PRNaluminum-magnesium hydroxide-simethicone 200-200-20 mg/5 mL 30 mL(MAALOX,MYLANTA,MAG-AL PLUS) 30 mL ORAL q 6 H PRNoxyCODONE-acetaminophen 5-325 mg 1-2 tablet (PERCOCET) 1-2 tablet ORAL q 6H PRNondansetron 4 mg tab(s) (ZOFRAN) 4 mg ORAL q 6 H PRNondansetron (PF) 4 mg injection (ZOFRAN) 4 mg INTRAVENOUS q 6 H PRNdocusate sodium 100 mg cap(s) (COLACE) 100 mg ORAL BIDbisacodyl 10 mg suppository (DULCOLAX) 10 mg RECTAL DAILY PRNFenofibrate 160 mg (LOFIBRA) [address] 20 mg tab(s) (PROTONIX) 20 mg ORAL DAILYamLODIPine 5 mg tab(s) (NORVASC) 5 mg ORAL DAILYlosartan 100 mg tab(s) (COZAAR) 100 mg ORAL DAILYObjectiveAlert, Oriented to Person, Place, TimeEOMIPERRLFace SymmetricTongue MidlineMAESNo DriftStrength is 5/5 in all extremitiesVITAL SIGNS 24 HOUR REVIEW:Patient Vitals for the past 24 hrs: BP Temp Temp src Pulse Resp [id number]/16/17 1127 120/79 36.6 ?C (97.9 ?F) Oral 60 18 95 %10/16/17 0348 121/59 37.2 ?C (98.9 ?F) Oral 71 18 94 %10/15/17 1947 125/59 37.2 ?C (98.9 ?F) Oral 70 18 95 %10/15/17 1600 125/65 37.1 ?C (98.7 ?F) Oral (!) 56 18 97 %LABS:CBC, Coags, BMP, Mg, PhosDATA:Diagnostic tests reviewed for today's visit:Most recent labs and imaging results.Assessment/PlanPrinc ipal Problem:POD 2 L3-5? decompressionLower back pain improved with medicationWill add muscle relaxer for spasmsFoley outPT/OTIncentive spirometryDischarge planningMedication and Non-Pharmacologic VTE Prophylaxis/Aavrvrevsprjla28 /01/18 2215 vte pharmacologic prophylaxis contraindicated (az,oh)10/14/172214 pneumatic compression stockings (az,oh)10/14/172214 activity - mobilize patient (az,tn)VTE Prophylaxis: VTE prophylaxis appropriateSIGNATURE: BILLY Julien- PATIENT NAME: Meera StocktonDATE: October 16, 2017 : 1:53 PM PAGER/CONTACT #:Staff addendum?Post op L3-5?decompressionOperative pain is better with medicationsDenies Leg weakness?Dressing clean and dryMoving limbs equal?Plan:Continue pain medicationsSCDPT /OTIncentive spirometry?Gandhivarma Keisha, MDStaff, Neurosurgery [facility] THERAPY NTon 10-16-2017 THERAPY NT HNO ID: [id number] thor: Siri Jackson: Physical TherapyAuthor Type: Physical Therapy AssistantType: Therapy (PT/OT/Speech/Resp)Filed: 10/16/2017 3:17 PMNote Text: -Attestation signed by Leslie Ruff at 10/16/2017 3:17 PMI reviewed and agree with the documentation corresponding to this therapyvisit.SIGNATURE: Leslie Ruff, PTDATE: October 16, 2017TIME: 3:17 PM Ph ysical Therapy TreatmentSERVICE DATE: 10/16/2017SERVICE TIME: 1415 to 1455ROOM: -[id number] L3-S1 Lumbar Canal Stenosis; S/P Lumbar Laminectomy/ DecompressionRecommended Discharge Disposition: Home PTAnticipated Discharge Needs: Physical Assist at HomePhysical Assist at Home for: Cleaning;Laundry;Meals;Stair s;SelfCare;Shopping;Transpor tation;TransfersRecommended Discharge Equipment: No equipment needs anticipated (pt macie HOLLIS)PT Recommendations to Nursing: In halls;To bathroom;Ambulate withdevice;OOB for Meals;With assist of 1 personDevice: Wheeled WalkerPT 6 Clicks Score: 21Precautions/Activity Restrictions: Spine;Lines/Tubes/Drains;Fal lRisk;Bed/Chair Alarm;Other: See Comments (Regular Diet)Precaution/Activity Restriction Comments: High Fall Risk, 6+ falls pastyearASSESSMENT :Pt seen by OT prior to treatment. Pt reports spasms limiting his mobility.Patient Disposition at Start of Session: Supine in Bed;Call Jones inReach;SCDsPatient Disposition at End of Session: Call Jones in Reach;Supine inBed;Family PresentTolerated Full SessionPhysical Therapy Problem List: Pain;Decreased Strength;Functional MobilityImpairment (spasms)Patient /Caregiver Goals: Go HomeGoals for Plan of Care:Able to perform HEP with: IndependentRolling with: SupervisionTransfer supine to/from sit with: Stand By AssistanceTransfer sit to/from stand with: Stand By AssistanceAmbulate with: Contact Guard AssistanceDistance: 300Device: Wheeled WalkerAmbulate up and down steps with: Contact Guard AssistanceNumber of steps: 2Device: RailProgress Toward Goals: Progressing as expectedRehab Potential: GoodPLAN:Treatment Frequency (times per week): 3 Current admissionTreatment Interventions: Education;Functional MobilityTraining;Strengtheni ng;Self Care / Home ManagementPlan of Care developed with: Patient;FamilyTREATMENT INTERVENTIONS:Therapy Diagnosis: Reduced mobility-other;Muscle Weakness(generalized);Genera l symptoms and signs-other;Difficultywalkin g-musculoskeletalInterventio ns Provided: Therapeutic Activity (30651);Gait Training (91272)Therapeutic Activity (05165) Treatment Minutes: 101 unitSkilled Intervention(s): Instructed patient in log roll techniqueInstructed patient in supine to sit pushing with upper extremities to situpInstructed patient in sit to supine using safe, effective techniqueInstruction in stand to sit technique with lower extremities touchingchair/bed and reaching back for surfaceInstruction in sit to and from stand technique with proper hand placementand body positioning at edge of bed/chairEducation with proper positioning with B LE elevated, use of cold pack andfrequent change in positionGait Training (78349) Treatment Minutes: 151 unitSkilled Intervention(s): Instruction in sit to stand technique with properhand placement and body positioning at edge of bed/chair, Instruction instand to sit technique with LE's touching chair/bed and reaching back forsurface, Instruction in sequencing, gait pattern, Instruction incorrection of gait deviations, Instruction in use of equipment, cues forsequence and pattern. Pt self corrects posture during ambulation forimproved upright posture. Cueing for increased CHELSEA, increased step length.Total Timed Code Treatment Minutes: 25Total Treatment Time (minutes): 25FUNCTIONAL G CODE:PT 6 Clicks Score: 21 (10/16/17 1415)$ Mobility: Walking and Moving Around Current Status (G8978): CK ()$ Mobility: Walking and Moving Around Goal Status (G8979): CJ ()Based on clinical assessment and the score on the 6 Clicks FunctionalAssessment Tool, the G code and corresponding severity modifiers aredocumented above.SUBJECTIVE:Current Hospital Course: Chart reviewed and no significant medical updatesrelevant to therapy were notedReason for Physical Therapy Consult : eval and treat s/p lumbar surgeryRelevant Past Medical History: melanoma,HTN,rotator cuff repair,lumbarcanal stenosisPatient Report: I think the pain meds wore off, the spasms are terrible Home EnvironmentPatient Lives With: Significant Other;Other: See Comment (Spouse, twolevel home, stays on 1st level, in [employer])Assistance Available: PRN;Other: See Comment (Spouse retired, one childclose by)Entry To Home: Stairs;Without RailNumber Of Stairs Into Home: 1Number Of Stairs To Bed/Bath: 0Tub/Shower Type: Walk-in ShowerLaundry: 1st levelEquipment Owned: [employer]-Shower;Cane;Wheeled WalkerPrior Functional Level: Within Functional Limits;History of Falls;Other:See Comment (Pt reported at least 6 falls past year)OBJECTIVE:CURRENT FUNCTIONAL STATUS:Current Functional Mobility Assist Level Additional InformationRolling SupervisionSupine to SitSit to Supine Minimal AssistanceScooting SupervisionSit to Stand Minimal AssistanceStand to Sit SupervisionBed to ChairToilet/CommodeGait Stand By Assistance Gait Device: Wheeled Walker Gait Distance (feet): 500 ftStairsCurb StepCar TransferGeneral Gait Deviations: Candelaria decreased;Step length decreased;Flexedtrunk posture;Narrow Base of Support (intermittent spasms )Balance: Static Standing;Dynamic StandingStatic Standing Balance: Stand By AssistanceDynamic Standing Balance: Contact Guard AssistancePlease see discipline specific clinical documentation flowsheet forcomplete details for this therapy evaluation/treatment.SIGNATU RE: Siri Keene PTA PATIENT NAME: Meera StocktonDATE: October 16, 2017 : 3:09 PM [facility] THERAPY NT HNO ID: [id number] thor: Serrano (Cota) TalpasService: Occupational TherapyAuthor Type: Occupational Therapy AssistantType: Therapy (PT/OT/Speech/Resp)Filed: 10/16/2017 1:59 PMNote Text: -Attestation signed by Jadyn Chase at 10/16/2017 2:48 PMI reviewed and agree with the documentation corresponding to this therapyvisit.SIGNATURE: Jadyn Chase, OTRLDATE: October 16, 2017TIME: 2:47 PM Oc cupational Therapy TreatmentSERVICE DATE: 10/16/2017SERVICE TIME: 1245 to 1340ROOM: [id number] Discharge Disposition: HomeAnticipated Discharge Needs: Physical Assist at HomePhysical Assist at Home for: Cleaning;Laundry;Meals;Stair s;SelfCare;Shopping;Transpor tation;TransfersRecommended Discharge Equipment: Elastic Shoe Laces;Grab Bars-Shower;HandHeld Shower;Long Handled Shoe Horn;Long Handled Sponge;WheeledWalker;Deep Sea Diver ;Sock Aide;Shower ChairOT Recommendations to Nursing: To Bathroom for ADL?s /and or Toileting;OOBfor meals;Transfer to Chair;With assist of 2 peopleEquipment: Wheeled WalkerOT 6 Clicks Score: 18Precautions/Activity Restrictions: Spine;Lines/Tubes/Drains;Fal lRisk;Bed/Chair Alarm;Other: See Comments (Regular Diet)Precaution/Activity Restriction Comments: High Fall Risk, 6+ falls pastyearASSESSMENT: Patient presents with decreased independence in ADLs, decreased activitytolerance, decreased balance, decreased safety awareness, spinalprecautions, and decreased independence with functional transfers. The ptrequires skilled occupational therapy services for ADL retraining, balanceretraining and activities, education and intervention for increased safetyand independence w functional transfers, and education with energyconservation techniques in order to increase safety and independence inADLs.Patient Disposition at Start of Session: Supine in BedPatient Disposition at End of Session: OOB in Chair;Call Jones in ReachTolerated Full SessionOccupational Therapy Problem List: Pain;Safety Deficits;Impaired SelfCare;Decreased Activity Tolerance;Decreased Strength;Functional MobilityImpairment;Balance ImpairedPatient /Caregiver Goals: Go HomeGoals for Plan of Care:Upper Body Bathing with: Modified IndependentUpper Body Dressing with: Modified IndependentLower Body Bathing with: Stand By AssistanceLower Body Dressing with: Minimal AssistanceToilet Hygiene with: Stand By AssistanceChair Transfer with: Stand By AssistanceToilet Transfer with: Stand By AssistanceTolerate (minutes of functional activity): 30Functional Activity with: Stand By AssistanceDemonstrate Competence With Education with: Modified IndependentProgress Toward Goals: Progressing as expectedRehab Potential: GoodPLAN:Treatment Frequency (times per week): 3Treatment Duration (number): 1 WeeksTreatment Interventions: Education;Self Care / Home Management;EnergyConservatio n TrainingPlan of Care developed with: Patient;FamilyTREATMENT INTERVENTIONS:Therapy Diagnosis: Reduced mobility-other;Decreased activities of dailyliving (ADL);Muscle Weakness (generalized)Interventions Provided: Therapeutic Activity (52380);Self Care HomeManagement (88940)Therapeutic Activity (17681) Treatment Minutes: 232 unitsSkilled Intervention(s): Instructed patient in log roll technique. Ptrequired max a to get to EOB. c/o of muscle spasms.Spouse present for tx and informed not to pull on pt arms. Spouseinstructed to assist by guiding pt through the flank and the shoulders.Instruction in sit to and from stand technique with proper hand placementand body positioning at edge of bed/chairInstruction on transporting items from room to room with bag on the ww.Spouse is considering purchasing a bed assist bar. Therapist suggests notto purchase to many items until they are proven as needed.Given information as to where to purchase AE.Self Prison Management (77426) Treatment Minutes: 322 unitsSkilled Intervention(s): Provided instruction, cuing and facilitation forlower body dressing .Instructed pt on use of military analyst to ludwin/doff pants, underwear, shoes inorder to maintain spinal precautions and increase independence with ADL's.Pt required max a to thread legs through pant holes. Pt experiencingmuscles spasms during this activity. Pt states they are awaiting approvalfor a muscle relaxant in order to alleviate the muscle spasms.Instructed pt on use of sock aide to ludwin socks in order to maintainspinal precautions and increase independence with ADL's. Pt able to usesock aide with min a. Pt would benefit from further review of LBAE.Spouse states that they have a seat for the shower.Total Timed Code Treatment Minutes: 55Total Treatment Time (minutes): 55FUNCTIONAL G CODE:OT 6 Clicks Score: 18 (10/16/17 1245)$ Self Care Current Status (G8987): CK (10/15/17 0730)$ Self Care Goal Status (G8988): CK (10/15/17 0730)Based on clinical assessment and the score on the 6 Clicks FunctionalAssessment Tool, the G code and corresponding severity modifiers aredocumented above.SUBJECTIVE:Current Hospital Course: Chart reviewed and no significant medical updatesrelevant to therapy were notedReason for Occupational Therapy Consult: Lumbar DecompressionRelevant Past Medical History: Refer to the notePatient Report: I will have plenty of help.Home EnvironmentPatient Lives With: Significant Other;Other: See Comment (Spouse, twolevel home, stays on 1st level, [place] [employer])Assistance Available: PRN;Other: See Comment (Spouse retired, one childclose by)Entry To Home: Stairs;Without RailNumber Of Stairs Into Home: 1Number Of Stairs To Bed/Bath: 0Tub/Shower Type: Walk-in ShowerLaundry: 1st levelEquipment Owned: Grab Bars-Shower;Cane;Wheeled WalkerPrior Functional Level: Within Functional Limits;History of Falls;Other:See Comment (Pt reported at least 6 falls past year)OBJECTIVE:Responsivenes s: Alert;AwakeFollows Commands: 3-step CommandsVision Deficits: Wears glasses;Other: See Comment (at all times)CURRENT FUNCTIONAL STATUS:Current Activities of Daily Living Assist LevelFeeding IndependentGrooming Modified Independent (set-up, seated)Bathing Upper Body Modified Independent (set-up, seated)Bathing Lower Body Moderate AssistanceDressing Upper Body Stand By AssistanceDressing Lower Body Maximal Assistance (education on LBAE)Toileting Moderate AssistanceInstrumental Activities of Daily Living Assist LevelMeal/Beverage PrepLight CleaningLaundryMedication Management with StrategiesFunctional Mobility Assist LevelRolling Maximal AssistanceSupine to Sit Moderate AssistanceSit to SupineScooting SupervisionSit to Stand Minimal AssistanceStand to Sit Minimal AssistanceBed to Chair Minimal Assistance (Pt ambulated around the bed to chair)Wheeled WalkerToilet/CommodeFunction al Mobility Minimal Assistance Wheeled WalkerBalance: Static Sitting;Dynamic Sitting;Static Standing;Dynamic StandingStatic Sitting Balance: SupervisionDynamic Sitting Balance: SupervisionStatic Standing Balance: Contact Guard AssistanceDynamic Standing Balance: Minimal AssistanceActivity Tolerance: (Pt appears comfortable oi bedside chair)Please see discipline specific clinical documentation flowsheet forcomplete details for this therapy evaluation/treatment.SIGNATU RE: Maggie KATERIN Camacho PATIENT NAME: Meera StocktonDATE: October 16, 2017 : 1:49 PM [facility] HNO ID: [id number]: Joanne (Rn) FARAZ Sepulvedaervice: Care ManagementAuthor Type: Registered NurseType: Care Mgt Initial AssessmentFiled: 10/15/2017 2:40 PMNote Text:CARE MANAGEMENT: ASSESSMENT AND DISCHARGE PLANSERVICE DATE: 10/15/2017SERVICE TIME: 2:15 PMPRIMARY CARE PHYSICIAN:Matt Wang, MDPhone: OIPOOAMAI STATUS: Extended RecoveryNeeds Prior to Discharge: To Be DeterminedMEDICAL:Patient/Re presentative Stated Goals:To have reduction in painTo have reduction in symptomsTo improve my functional statusThis has been discussed with my physicianThis has been discussed with my familyHealth Insurance: MEDICARE A AND BMedicareHealth Issues Impacting Discharge Plan: post opLast Admission Date: Previous admit date: 05/08/2014Is this Within the Past 30 days? NoAdvance Directive: yes pt states he has LWDPOAnot on chartHealth Literacy:1. How often do you need to have someone help you when you readinstructions, pamphlets, or other written material from your doctor orpharmacy? Never - 12. How confident are you filling out medical forms by yourself? Extremely- 1If Patient scores > 3 on either question, the following interventions wereput into place:Patient did not score > 3FUNCTIONAL AND COGNITIVE/BEHAVIORALPRIOR TO ADMISSION:Baseline Mental Status: Alert AND Oriented, Person, Place , Time andSituationFunctional Status: IndependentDoes Patient Currently Receive Any Community Services or Home Care? NoneEquipment Prior to Admission: WalkerHas the Patient Been in a Fci Facility in the Past 30 days? NoSOCIAL:Living Arrangement: HomeLives With: SpouseFinancial Resources: Retired DentistPrimary Contact: Extended Emergency Contact InformationPrimary Emergency Contact: Maggie StocktonAddress: [address] [place], [place] [address]Juop Wnhfmy Lvkdvjom: SpouseSupportive: YesOther Important Patient Contacts: NoneCaregiver Assessment:Caregiver is ready, willing and able to meet the patient's needs asrecommended by the inter-professional team? TBDPatient's transition needs and plan for meeting these needs: TBDDoes the patient have an acute stroke diagnosis, or has the patient had astroke during this admission? NoMedication Adherence:I am convinced of the importance of my prescription medication: Agreemostly - 0I worry that my prescription medication will do more harm than good to meDisagree mostly - 0I feel financially burdened by my wpn-fm-cugjqa expenses for myprescription medication: Disagree mostly -0Patient is categorized as low risk < 2Are you interested in bedside delivery of your medications? NoFood Concerns:In the Last Month, Have You had Trouble Getting Food? No trouble gettingfoodDuring the Last Month, Have You Worried Whether Your Food Would Run OutBefore You Had Enough Money to Buy More? NoIs the Patient Psychosocially Complex? NoASSESSMENT AND PLAN:Medical Needs: 2 or more chronic diseaseshistory of: hypertension, melanoma chronic pancreatitisPsychosocial Needs: NoneFREEDOM OF CHOICE EXPLAINED:N/APOTENTIAL TRANSITION PLANSTo Be DeterminedPt is 71yom, post opPOD 1 L3-5? decompressionThis CM met wit pt and his at the bedside for assessment.Pt c/o of numbness of bilateral Lower extremities.Pt is up in chair.Pt has a walker at home.PT OT recommending Home with PT. Pending progress.CM will monitor progress and arrange HHC if needed.SIGNATURE: Joanne Sepulveda RN,BSN PATIENT NAME: Meera StocktonDATE: October 15, 2017 : 2:15 PM PAGER/CONTACT #: [phone] [facility] NURSING PROGon 10-15-2017 Protein mass conc HNO ID: [id number] thor: Dm (Rn) Tian Owen: (none)Author Type: Registered NurseType: Nursing Progress NoteFiled: 10/15/2017 5:39 PMNote Text: Nursing Progress NotePatient Name: Meera StocktonMRN: [id number] Location: [address]/[id number] ____Mr. Stockton voided 100ml clear, medhat urine since kathleen catheter removedabout 1230.This note was completed by: Dm Owen RN [facility] Protein mass conc HNO ID: [id number] thor: Dm Falcon) Tian Owen: (none)Author Type: Registered NurseType: Nursing Progress NoteFiled: 10/15/2017 12:27 PMNote Text: Nursing Progress NotePatient Name: Meera StocktonMRN: [id number] Location: [facility]/[id number] ____Foley catheter clamped for about 1 hour. Patient with slight urge to void. Kathleen unclamped for 250 return of urine. Catheter removed (per nursedriven protocol) and patient assisted with ambulation.This note was completed by: Dm Owen RN [facility] Protein mass conc HNO ID: [id number] thor: Dm Falcon) Yonis Owenice: (none)Author Type: Registered NurseType: Nursing Progress NoteFiled: 10/15/2017 7:57 AMNote Text: Nursing Progress NotePatient Name: Meera StocktonMRN: [id number] Location: [address]/[id number] ____Daily Note: Mr. Stockton awake and alert resting in bed; spouse at bedside.Patient rates his low back pain 3/10 and tolerable When I'm not moving .States he has chronic n/t in both feet. Push-pulls 5/5 BLE. OT staff into assess and treat patient who was assisted to chair by 2 staff and useof walker without incident. IVF infusing at ordered rate. Chair alarm inplace and functioning, and call light within reach. Will continue tomonitor.This note was completed by: Dm Owen RN [facility] Protein mass conc HNO ID: [id number] thor: Raven Falcon) Tian Ovalles: (none)Author Type: Registered NurseType: Nursing Progress NoteFiled: 10/15/2017 4:56 AMNote Text: Nursing Progress NotePatient Name: Meera StocktonN: [id number] Location: [address]/[id number] ____Transfer Note:Patient transferred into room/unit 328 in stable condition. Actionstaken: No futher actions taken at this time. Will continue to monitor andcheck with patient.2230 medicated with percocet 1 tab for 5/10 pain.2330 reassessed, statedhe didn't want the second percocet. moving in bed , positioned [id number] unable to void with attempt. will check with pt again at [id number].Ancef given as [id number] voided 75ml of clear yellow urine, will obtain bladder ssye1803 kathleen placed after bladder scan >900. initial output is 600 clearyellow urine. medicated for 7/10 pain. tolerated procedure [id number] medicated with morphine for pain.0445pt still having pain. medicated with 2 percocet. explained to pt thatthe increase in pain is probably due to local wearing off.This note was completed by: Raven Ovalles RN [facility] PLAN OF CAREon 10-15-2017 PLAN OF CARE HNO ID: [id number] thor: Esperanza Anderson (Pharmacist)Service: PharmacyAuthor Type: PharmacistType: Plan of CareFiled: 10/15/2017 9:48 AMNote Text:DISCHARGE MEDICATION REVIEW BY PHARMACYPatient Name: Meera Stockton Account #: Data UnavailableMRN: [id number] Admission Date: 10/14/2017Date of Contact: October 15, 2017 Time of Contact: 9:48 AMMedication list was reviewed by a Pharmacist for drug interactions or drugrelated problems:YesBelow is a summary of pharmacist recommendations discussed with LIP:No Recommendations at this time from Discharge Medication List.Ike Zavala 2017 9:48 AMPager: [id number] 9:48 AMMedication ListSTART taking these medicationsoxyCODONE-acetami nophen 5-325 mg tabletCommonly known as: PERCOCETTake 1 tablet by mouth every 6 hours as needed for up to 7 days.CHANGE how you take these medicationsamLODIPine 5 mg tabletCommonly known as: NORVASCTake 1 tablet by mouth once daily.What changed:? how much to take? how to take this? when to take thislosartan 100 mg tabletCommonly known as: COZAARTake 1 tablet by mouth once daily.What changed:? how much to take? how to take this? when to take thisCONTINUE taking these medicationsFenofibrate 160 mg tabletCommonly known as: LOFIBRAMIRALAX ORALSTOP taking these medicationsmupirocin 2 % ointmentCommonly known as: BACTROBANWhere to Get Your MedicationsInformation about where to get these medications is not yet availableAsk your nurse or doctor about these medications? amLODIPine 5 mg tablet? losartan 100 mg tablet? oxyCODONE-acetaminophen 5-325 mg tablet [facility] PROGRESSon 10-15-2017 Protein mass conc HNO ID: [id number] thor: Jose Raul Martin) SubramaniamService: NeurosurgeryAuthor Type: PhysicianType: Progress NotesFiled: 10/15/2017 7:21 PMNote Text:PROGRESS NOTE NEUROSURGERYSERVICE DATE: 10/15/2017SERVICE TIME: 9:26 AMSubjectiveINTERVAL HPIPOD 1 L3-5 decmopressionLower back pain controlledDenies leg painFoley replaced due to retentionNo new onset symptomsCurrent hospital medications:ceFAZolin iv piggyback 2 g in D5W (iso-osmotic) 100 mL (ANCEF) 2 gINTRAVENOUS q 8 HoxyCODONE-acetaminophen 5-325 mg 1-2 tablet (PERCOCET) 1-2 tablet ORAL q 6H PRNondansetron 4 mg tab(s) (ZOFRAN) 4 mg ORAL q 6 H PRNondansetron (PF) 4 mg injection (ZOFRAN) 4 mg INTRAVENOUS q 6 H PRNdocusate sodium 100 mg cap(s) (COLACE) 100 mg ORAL BID[START ON 10/16/2017] bisacodyl 10 mg suppository (DULCOLAX) 10 mg RECTALDAILY PRNFenofibrate 160 mg (LOFIBRA) [address] 20 mg tab(s) (PROTONIX) 20 mg ORAL DAILYamLODIPine 5 mg tab(s) (NORVASC) 5 mg ORAL DAILYlosartan 100 mg tab(s) (COZAAR) 100 mg ORAL DAILYObjectiveAlert, Oriented to Person, Place, TimeEOMIPERRLFace SymmetricTongue MidlineMAESNo DriftStrength is 5/5 in all extremitiesVITAL SIGNS 24 HOUR REVIEW:Patient Vitals for the past 24 hrs: BP Temp Temp src Pulse Resp SpO2 Height Ckwqso38/02/18 0800 115/68 37.3 ?C (99.1 ?F) Oral 62 16 94 % - -10/15/17 0413 103/68 36.9 ?C (98.5 ?F) Oral (!) 55 16 95 % - -10/14/17 2204 109/53 36.6 ?C (97.8 ?F) Axillary 63 16 98 % - -10/14/17 2200 - - - - - - 175.3 cm (5' 9 ) 80.7 kg (178 lb)10/14/17 2145 133/74 - - 68 16 96 % - -10/14/17 2130 132/89 - - 61 16 97 % - -10/14/17 2115 152/94 - - 80 15 97 % - -10/14/17 2100 144/92 - - 60 16 97 % - -10/14/17 2045 145/73 36 ?C (96.8 ?F) - 67 16 96 % - -10/14/172029 140/76 - - 70 16 96 % - -10/14/172014 149/86 - - 75 14 97 % - -10/14/172005 165/96 36 ?C (96.8 ?F) Temporal Art 89 17 100 % - -10/14/17 1421 137/73 36.2 ?C (97.2 ?F) - (!) 52 16 98 % - -LABS:CBC, Coags, BMP, Mg, PhosDATA:Diagnostic tests reviewed for today's visit:Most recent labs and imaging results.Assessment/PlanPrinc ipal Problem:POD 1 L3-5 decompressionLower back pain controlledNo leg painWill stop IV pain medication and fluids, will control pain orallyPT/OTFoley in place - will do clamp for trialIncentive spirometryMedication and Non-Pharmacologic VTE Prophylaxis/Vtkpppjhjaszol87 /01/18 2215 vte pharmacologic prophylaxis contraindicated (az,oh)10/14/172214 pneumatic compression stockings (az,oh)10/14/172214 activity - mobilize patient (az,tn)VTE Prophylaxis: VTE prophylaxis appropriateSIGNATURE: BILLY Julien- PATIENT NAME: Meera StocktonDATE: October 15, 2017 : 9:26 AM PAGER/CONTACT #:Staff addendumPost op L3-5 decompressionOperative pain is betterDenies Leg weakness?Dressing clean and dryMoving limbs equal?Plan:Continue pain medicationsSCDPT /OTIncentive spirometry?CESAR Holguintaandriy, Neurosurgery [facility] Protein mass conc HNO ID: [id number] thor: Jose Raul Martin) TamelaaniamService: NeurosurgeryAuthor Type: PhysicianType: Progress NotesFiled: 10/14/2017 10:33 PMNote Text:Post op NotePost op L3-5 decompressionOperative pain is betterDenies Leg weaknessDressing clean and dryMoving limbs equalPlan:Continue pain medicationsIV fluidsSCDPT /OTIncentive spirometryGanSamir Blake, Neurosurgery [facility] THERAPY NTon 10-15-2017 THERAPY NT HNO ID: [id number] thor: Leslie OcasioPt) LashayeService: Physical TherapyAuthor Type: Physical TherapistType: Therapy (PT/OT/Speech/Resp)Filed: 10/15/2017 1:59 PMNote Text:Physical Therapy TreatmentSERVICE DATE: 10/15/2017SERVICE TIME: 1335 to 1350ROOM: [id number] Discharge Disposition: Home PTAnticipated Discharge Needs: Physical Assist at HomePhysical Assist at Home for: Cleaning;Laundry;Meals;Stair s;SelfCare;Shopping;Transpor tation;TransfersPT Recommendations to Nursing: Ambulate with device;To bathroom;Inhalls;With assist of 1 personDevice: Wheeled WalkerPT 6 Clicks Score: 19Precautions/Activity Restrictions: Spine;Lines/Tubes/Drains;Fal lRisk;Bed/Chair Alarm;Other: See Comments (Regular Diet)Precaution/Activity Restriction Comments: High Fall Risk, 6+ falls pastyearASSESSMENT :Patient Disposition at Start of Session: OOB in Chair;Chair Alarm;SCDsPatient Disposition at End of Session: OOB in Chair;ChairAlarm;SCDs;Family PresentTolerated Full SessionPhysical Therapy Problem List: Functional Mobility Impairment;DecreasedStrength ;Decreased Activity Tolerance;Safety Deficits;Impaired SelfCare;Education Deficit;PainPatient /Caregiver Goals: Go HomeGoals for Plan of Care:Able to perform HEP with: IndependentRolling with: SupervisionTransfer supine to/from sit with: Stand By AssistanceTransfer sit to/from stand with: Stand By AssistanceAmbulate with: Contact Guard AssistanceDistance: 300Device: Wheeled WalkerAmbulate up and down steps with: Contact Guard AssistanceNumber of steps: 2Device: RailProgress Toward Goals: Progressing as expectedRehab Potential: GoodPLAN:Treatment Frequency (times per week): 3 Current admissionTreatment Interventions: Education;Functional MobilityTraining;Strengtheni ng;Self Care / Home ManagementPlan of Care developed with: Patient;FamilyTREATMENT INTERVENTIONS:Therapy Diagnosis: Reduced mobility-other;Difficultywal liliana-musculoskeletal;General symptoms and signs-otherInterventions Provided: Gait Training (96740)Gait Training (12341) Treatment Minutes: 151 unitSkilled Intervention(s): Instruction in sit to stand technique with properhand placement and body positioning at edge of bed/chair, Instruction instand to sit technique with LE's touching chair/bed and reaching back forsurface, Instruction in sequencing, gait pattern, Instruction incorrection of gait deviations, Instruction in use of equipment, cues forsequence and pattern and safety; cues for posture, breathing, increasingstep width and foot clearanceTotal Timed Code Treatment Minutes: 15Total Treatment Time (minutes): 15FUNCTIONAL G CODE:PT 6 Clicks Score: 19 (10/15/17 1335)$ Mobility: Walking and Moving Around Current Status (G8978): CK ()$ Mobility: Walking and Moving Around Goal Status (G8979): CJ ()Based on clinical assessment and the score on the 6 Clicks FunctionalAssessment Tool, the G code and corresponding severity modifiers aredocumented above.SUBJECTIVE:Current Hospital Course: Chart reviewed and no significant medical updatesrelevant to therapy were notedReason for Physical Therapy Consult : eval and treat s/p lumbar surgeryRelevant Past Medical History: melanoma,HTN,rotator cuff repair,lumbarcanal stenosisPatient Report: It feels good standing. Home EnvironmentPatient Lives With: Significant Other;Other: See Comment (Spouse, twolevel home, stays on 1st level, [place])Assistance Available: PRN;Other: See Comment (Spouse retired, one childclose by)Entry To Home: Stairs;Without RailNumber Of Stairs Into Home: 1Number Of Stairs To Bed/Bath: 0Tub/Shower Type: Walk-in ShowerLaundry: 1st levelEquipment Owned: Grab Bars-Shower;Cane;Wheeled WalkerPrior Functional Level: Within Functional Limits;History of Falls;Other:See Comment (Pt reported at least 6 falls past year)OBJECTIVE:CURRENT FUNCTIONAL STATUS:Current Functional Mobility Assist Level Additional InformationRolling SupervisionSupine to SitSit to Supine (min assist for LE's into bed)Scooting SupervisionSit to Stand Minimal AssistanceStand to Sit Stand By AssistanceBed to ChairToilet/CommodeGait Contact Guard Assistance Gait Device: Wheeled Walker Gait Distance (feet): 200StairsCurb StepCar TransferGeneral Gait Deviations: Narrow Base of Support;Step length decreased(decreased foot clearance)Balance: Static Standing;Dynamic StandingStatic Standing Balance: Contact Guard AssistanceDynamic Standing Balance: Contact Guard AssistancePlease see discipline specific clinical documentation flowsheet forcomplete details for this therapy evaluation/treatment.SIGNATU RE: Leslie Ruff PT PATIENT NAME: Meera StocktonDATE: October 15, 2017 : 1:58 PM [facility] THERAPY NT HNO ID: [id number] thor: Leslie (PtDakotah MetzeService: Physical TherapyAuthor Type: Physical TherapistType: Therapy (PT/OT/Speech/Resp)Filed: 10/15/2017 10:15 AMNote Text:Physical Therapy EvaluationSERVICE DATE: 10/15/2017SERVICE TIME: 0915 to 0945ROOM: [id number] Discharge Disposition: Home PTAnticipated Discharge Needs: Physical Assist at HomePhysical Assist at Home for: Cleaning;Laundry;Meals;Stair s;SelfCare;Shopping;Transpor tation;TransfersPT Recommendations to Nursing: Ambulate with device;To bathroom;Inhalls;With assist of 1 personDevice: Wheeled WalkerPT 6 Clicks Score: 19Precautions/Activity Restrictions: Spine;Lines/Tubes/Drains;Fal lRisk;Bed/Chair Alarm;Other: See Comments (Regular Diet)Precaution/Activity Restriction Comments: High Fall Risk, 6+ falls pastyearASSESSMENT :71 yo patient admitted to the hospital for S/P L3-5 DecompressiveLaminectomy, Decompression Of L3-4, L4-5 and L5-S1 Lumbar Canal StenosisWith Bilateral Root Foraminotomies 10/14/17. Patient's impairments asrelated to Physical Therapy include decreased strength/endurance, impairedbalance, functional mobility and self care performance. Patient maybenefit from Home/Outpatient Physical Therapy in order to continue toprogress functional mobility and ADL skills. Patient has adequate supportand social structure for reasonably safe discharge home at current level.Patient Disposition at Start of Session: OOB in Chair;Chair AlarmPatient Disposition at End of Session: Supine in Bed;Family PresentTolerated Full SessionPhysical Therapy Problem List: Functional Mobility Impairment;DecreasedStrength ;Decreased Activity Tolerance;Safety Deficits;Impaired SelfCare;Education Deficit;PainPatient /Caregiver Goals: Go HomeGoals for Plan of Care:Able to perform HEP with: IndependentRolling with: SupervisionTransfer supine to/from sit with: Stand By AssistanceTransfer sit to/from stand with: Stand By AssistanceAmbulate with: Contact Guard AssistanceDistance: 300Device: Wheeled WalkerAmbulate up and down steps with: Contact Guard AssistanceNumber of steps: 2Device: RailRehab Potential: GoodPLAN:Treatment Frequency (times per week): 3 Current admissionTreatment Interventions: Education;Functional MobilityTraining;Strengtheni ng;Self Care / Home ManagementPlan of Care developed with: Patient;FamilyTREATMENT INTERVENTIONS:Therapy Diagnosis: Reduced mobility-other;Difficultywal liliana-musculoskeletal;General symptoms and signs-otherInterventions Provided: Evaluation;Gait Training (61957);TherapeuticActivity (08871)$ Evaluation-Low (65708) Billed Units: 1 unitTherapeutic Activity (63195) Treatment Minutes: 5Skilled Intervention(s): Instructed patient in log roll techniqueInstructed patient in sit to supine using safe, effective techniqueInstruction in sit to and from stand technique with proper hand placementand body positioning at edge of bed/chairEducation with spine precautions/lifting and mobility precautions; educ inbreathing technique with activityGait Training (32530) Treatment Minutes: 101 unitSkilled Intervention(s): Instruction in sit to stand technique with properhand placement and body positioning at edge of bed/chair, Instruction instand to sit technique with LE's touching chair/bed and reaching back forsurface, Instruction in sequencing, gait pattern, Instruction incorrection of gait deviations, Instruction in use of equipment, cues forsequence and pattern and posture; cues to increase CHELSEA/ step width andfoot clearanceTotal Timed Code Treatment Minutes: 15Total Treatment Time (minutes): 30FUNCTIONAL G CODE:PT 6 Clicks Score: 19 (10/15/17 0915)$ Mobility: Walking and Moving Around Current Status (G8978): CK ()$ Mobility: Walking and Moving Around Goal Status (G8979): CJ ()Based on clinical assessment and the score on the 6 Clicks FunctionalAssessment Tool, the G code and corresponding severity modifiers aredocumented above.Physician signature certifies treatment plan of care established above forthe period of 10/15/2017 through 10/29/2017.SUBJECTIVE:Current Hospital Course: Chart reviewed; S/P L3-5 DecompressiveLaminectomy, Decompression Of L3-4, L4-5 and L5-S1 Lumbar Canal StenosisWith Bilateral Root Foraminotomies 10/14/17Reason for Physical Therapy Consult : eval and treat s/p lumbar surgeryRelevant Past Medical History: melanoma,HTN,rotator cuff repair,lumbarcanal stenosisPatient Report: It feels good to walk Home EnvironmentPatient Lives With: Significant Other;Other: See Comment (Spouse, twolevel home, stays on 1st level, in [employer])Assistance Available: PRN;Other: See Comment (Spouse retired, one childclose by)Entry To Home: Stairs;Without RailNumber Of Stairs Into Home: 1Number Of Stairs To Bed/Bath: 0Tub/Shower Type: Walk-in ShowerLaundry: 1st levelEquipment Owned: Grab Bars-Shower;Cane;Wheeled WalkerPrior Functional Level: Within Functional Limits;History of Falls;Other:See Comment (Pt reported at least 6 falls past year)OBJECTIVE:CURRENT FUNCTIONAL STATUS:Current Functional Mobility Assist Level Additional InformationRolling SupervisionSupine to SitSit to Supine (min assist for LE's into bed)Scooting SupervisionSit to Stand Contact Guard AssistanceStand to Sit Stand By AssistanceBed to ChairToilet/CommodeGait Minimal Assistance Gait Device: Wheeled Walker Gait Distance (feet): 200StairsCurb StepCar TransferGeneral Gait Deviations: Narrow Base of Support;Step length decreased(decreased foot clearance)Balance: Static Standing;Dynamic StandingStatic Standing Balance: Contact Guard AssistanceDynamic Standing Balance: Minimal AssistancePlease see discipline specific clinical documentation flowsheet forcomplete details for this therapy evaluation/treatment.SIGNATU RE: Leslie Ruff PT PATIENT NAME: Meera StocktonDATE: October 15, 2017 : 9:59 AM [facility] THERAPY NT HNO ID: [id number] thor: Nadira (Ot) GarnekService: Occupational TherapyAuthor Type: Occupational TherapistType: Therapy (PT/OT/Speech/Resp)Filed: 10/15/2017 9:42 AMNote Text:Occupational Therapy EvaluationSERVICE DATE: 10/15/2017SERVICE TIME: 0730 to 0755ROOM: [id number] Lumbar Canal Stenosis With Neurogenic Claudication, S/P L3-5Decompressive Laminectomy, Decompression Of L3-4, L4-5 and L5-S1 LumbarCanal Stenosis With Bilateral Root Foraminotomies 10/14/17Recommended Discharge Disposition: HomeAnticipated Discharge Needs: Physical Assist at Home;EquipmentPhysical Assist at Home for:Cleaning;Laundry;Meals;S hopping;Transportation;Ambul ationRecommended Discharge Equipment: Elastic Shoe Laces;Grab Bars-Shower;HandHeld Shower;Long Handled Shoe Horn;Long Handled Sponge;WheeledWalker;Deep Sea Diver ;Sock Aide;Shower ChairOT Recommendations to Nursing: To Bathroom for ADL?s /and or Toileting;OOBfor meals;Transfer to Chair;With assist of 2 peopleEquipment: Wheeled WalkerOT 6 Clicks Score: 18Precautions/Activity Restrictions: Spine;Lines/Tubes/Drains;Fal lRisk;Bed/Chair Alarm;Other: See Comments (Regular Diet)Precaution/Activity Restriction Comments: High Fall Risk, 6+ falls pastyearASSESSMENT: Pt is a 71 year old female admit with L3-S1 Lumbar CanalStenosis With Neurogenic Claudication, S/P L3-5 DecompressiveLaminectomy, Decompression Of L3-4, L4-5 and L5-S1 Lumbar Canal StenosisWith Bilateral Root Foraminotomies 10/14/17. Past Medical History Relevantto Therapy Includes: Chronic Pancreatitis, HTN. For Complete Past MedicalHistory [facility]. Pt presents with decreased ability tocomplete ADL's, and IADL's independently requiring assist at this time. Ptalso presents with decreased activity tolerance, functional mobility,strength, and safety. Pt requires skilled OT services to addressprogression of ADL's, IADL's, functional mobility, strength, increaseactivity tolerance, and safety. Pt has adequate support and socialstructure for reasonably safe discharge home at current level. Pt isretired, and [facility] [place] [facility] [place] [place], and has one child thatresides close by ([place]). Pt has three children for additional support. Ptreported falling every other month , at least six falls in past year, anddid participate in PT for balance issues. Pt's spouse the PT did notwork , and increased the number of falls because they tried to change hisway of walking . Pt is a high fall risk, so recommended tub seat toincrease safety during shower activities.Patient Disposition at Start of Session: Supine in Bed;Call Jones inReach;Bed Alarm;SCDs;Family PresentPatient Disposition at End of Session: OOB in Chair;Call Jones inReach;Chair Alarm;SCDs;Family PresentTolerated Full SessionOccupational Therapy Problem List: Pain;Safety Deficits;Impaired SelfCare;Decreased Activity Tolerance;Decreased Strength;Functional MobilityImpairment;Balance ImpairedPatient /Caregiver Goals: Go HomeGoals for Plan of Care:Upper Body Bathing with: Modified IndependentUpper Body Dressing with: Modified IndependentLower Body Bathing with: Stand By AssistanceLower Body Dressing with: Minimal AssistanceToilet Hygiene with: Stand By AssistanceChair Transfer with: Stand By AssistanceToilet Transfer with: Stand By AssistanceTolerate (minutes of functional activity): 30Functional Activity with: Stand By AssistanceDemonstrate Competence With Education with: Modified IndependentProgress Toward Goals: Progressing as expectedRehab Potential: GoodPLAN:Treatment Frequency (times per week): 3Treatment Duration (number): 1 WeeksTreatment Interventions: Education;Self Care / Home Management;EnergyConservatio n Training;Strengthening;Funct ional Mobility Training;BalanceTrainingPlan of Care developed with: Patient;FamilyTREATMENT INTERVENTIONS:Therapy Diagnosis: Reduced mobility-other;Decreased activities of dailyliving (ADL);Muscle Weakness (generalized);Unsteadiness onfeet;Abnormalities of gait and mobility-otherInterventions Provided: Evaluation;Therapeutic Activity (95310)$ Evaluation-Low (60817) Billed Units: 1 unitTherapeutic Activity (25233) Treatment Minutes: 101 unitSkilled Intervention(s): Instructed patient in log roll techniqueInstructed patient in supine to sit pushing with upper extremities to situpInstruction in sit to stand technique with proper hand placement and bodypositioning at edge of bed/chairInstruction in stand to sit technique with lower extremities touchingchair/bed and reaching back for surfaceEducation with Pt educated with role/benefit of OT services, dischargeoptions, fall precautions, walker safety, recommended DME/AE, and providedprinted material. Pt completed safe functional transfer from bed to chairwith WW for support. Pt educated with spine precautions, andinstructed/demonstrated log roll technique with mod assist provided forside lying to sit at EOB. Pt educated with recommended DME/AE, andprovided printed material. Pt reported falling every other month , atleast six falls in past year, and did participate in PT for balanceissues. Pt's spouse the PT did not work , and increased the number offalls because they tried to change his way of walking . Pt is a high fallrisk, so recommended tub seat to increase safety during shower activities.PT advised regarding Pt's gait, and this therapists concern for drop foot.Pt reportred he catches the foot on the ground, and falls.Total Timed Code Treatment Minutes: 10Total Treatment Time (minutes): 25FUNCTIONAL G CODE:OT 6 Clicks Score: 18 (10/15/17729)$ Self Care Current Status (G8987): CK (10/15/17729)$ Self Care Goal Status (G8988): CK (10/15/17729)Based on clinical assessment and the score on the 6 Clicks FunctionalAssessment Tool, the G code and corresponding severity modifiers aredocumented above.Physician signature certifies treatment plan of care established above forthe period of 10/15/2017 through 10/29/2017.SUBJECTIVE:Current Hospital Course: L3-S1 Lumbar Canal Stenosis With NeurogenicClaudication, S/P L3-5 Decompressive Laminectomy, Decompression Of L3-4,L4-5 and L5-S1 Lumbar Canal Stenosis With Bilateral Root Foraminotomies10/14/17Reason for Occupational Therapy Consult: Lumbar DecompressionRelevant Past Medical History: Refer to the notePatient Report: I am in some pain Home EnvironmentPatient Lives With: Significant Other;Other: See Comment (Spouse, twolevel home, stays [place]st level, [place])Assistance Available: PRN;Other: See Comment (Spouse retired, one childclose by)Entry To Home: Stairs;Without RailNumber Of Stairs Into Home: 1Number Of Stairs To Bed/Bath: 0Tub/Shower Type: Walk-in ShowerLaundry: 1st levelEquipment Owned: Grab Bars-Shower;Cane;Wheeled WalkerPrior Functional Level: Within Functional Limits;History of Falls;Other:See Comment (Pt reported at least 6 falls past year)OBJECTIVE:Responsivenes s: Alert;AwakeFollows Commands: 3-step CommandsVision Deficits: Wears glasses;Other: See Comment (at all times)CURRENT FUNCTIONAL STATUS:Current Activities of Daily Living Assist LevelFeeding IndependentGrooming Modified Independent (set-up, seated)Bathing Upper Body Modified Independent (set-up, seated)Bathing Lower Body Moderate AssistanceDressing Upper Body Stand By AssistanceDressing Lower Body Moderate AssistanceToileting Moderate AssistanceInstrumental Activities of Daily Living Assist LevelMeal/Beverage PrepLight CleaningLaundryMedication Management with StrategiesFunctional Mobility Assist LevelRolling Minimal AssistanceSupine to Sit Moderate AssistanceSit to SupineScooting SupervisionSit to Stand Minimal Assistance (Assist X 2)Stand to Sit Minimal Assistance (Assist X 2)Bed to Chair Minimal Assistance (Assist X 2) (Pt ambulated around the bedto chair)Wheeled WalkerToilet/CommodeFunction al Mobility Minimal Assistance (Assist x 2, slowed gait) WheeledWalkerBalance: Static Sitting;Dynamic Sitting;Static Standing;Dynamic StandingStatic Sitting Balance: SupervisionDynamic Sitting Balance: Minimal AssistanceStatic Standing Balance: Minimal Assistance (Assist X 2)Dynamic Standing Balance: Minimal Assistance (Assist X 2)Activity Tolerance: (Pt appears comfortable oi bedside chair)Please see discipline specific clinical documentation flowsheet forcomplete details for this therapy evaluation/treatment.SIGNATU RE: Nadira Olivier OTR/L PATIENT NAME: Meera McnealTE: October 15, 2017 : 9:35 AM [facility] ANES Benjamin 10-14-2017 ANES POST HNO ID: [id number] thor: Clement Lawsonervice: AnesthesiologyAuthor Type: AnesthesiologistType: Anesthesia PostOpFiled: 10/14/2017 8:25 PMNote Text:POST ANESTHESIA EVALUATION NOTESERVICE DATE: 10/14/2017SERVICE TIME: 8:25 PMDOB: 1945Vitals: 421 10/15/18195BP: 137/73 165/96 149/86Pulse: (!) 52 89 75Resp: 16 17 14Temp: 36.2 ?C (97.2 ?F) 36 ?C (96.8 ?F)TempSrc: Temporal ArterySpO2: 98% 100% 97%Validated Vital Signs: YesNo apparent anesthetic complications. The patient is appropriatelyhydrated with stable respiratory and cardiovascular status. Patient hassafe and adequate airway control. The patient has appropriate pain reliefand no significant post operative nausea or vomiting. The patient hasachieved baseline mental status.Further assessment by Anesthesia Service: NoneOther Remarks:SIGNATURE: Clement Maldonado MD PATIENT NAME: Meera McnealTE: October 14, 2017 : 8:25 PM PAGER/CONTACT #: [phone] [facility] ANES PREOPon 10-14-2017 ANES PREOP HNO ID: [id number] thor: Stephen Nixon) SinaiinanService: AnesthesiologyAuthor Type: Nurse AnesthetistType: Anesthesia PreOpFiled: 10/14/2017 4:03 PMNote Text: -Attestation signed by Clement Maldonado at 10/14/2017 4:08 PMI have discussed the patient with the scallop cutter machine and agree with the evaluationand plan.Clement Maldonado, [facility] 2017 REGIONAL ANESTHESIOLOGY DAY OF SURGERY NOTEPATIENT NAME: Meera StocktonMRN: [id number]: 1945Procedure(s) (LRB):DECOMPRESSION LAMINECTOMY LUMBAR POSTERIOR LEVEL 1 (N/A)DECOMPRESSION LAMINECTOMY 1ST ADD'L LUMBAR SEGMENT (N/A)DECOMPRESSION LAMINECTOMY 2ND ADD'L LUMBAR SEGMENT (N/A)Surgeon(s):Jose Raul Martin) SubramaniamEstimated body mass index is 25.4 kg/m? as calculated from the following: Height as of 09/24/17: 177.8 cm (5' 10 ). Weight as of 09/24/17: 80.3 kg (177 lb).ASA Class: 2Adequate NPO status: YesAllergies:ALLERGIESNo Known AllergiesAirway Assessment: MP 2; Neck ROM: Limited Extension; Airway Evaluation:Short Thyromental DistanceDentition: Teeth intactSymptoms of Sleep Apnea: Probable but not formally diagnosedMost recent lab results:Hemoglobin 15.6 09/24/2017Hematocrit 47.4 09/24/2017Potassium 4.6 7/12/2018Platelet Count 521 09/24/2017PT Sec 10.8 09/24/2017APTT 24.7 09/24/2017PT INR 1.0 09/24/2017Creatinine, Blood 0.87 09/24/2017EKG:normal EKG, normal sinus rhythmVitals: 421BP: 137/73Pulse: (!) 52Resp: 16Temp: 36.2 ?C (97.2 ?F)SpO2: 98%Previous Anesthesia: No history of adverse event Family history ofanesthetic problems: NoneAdditional Physical Exam:Lungs: Lungs clear to auscultation. Good diaphragmatic excursion.Cardiac: Normal S1 and S2; no rubs, no murmurs and no gallopsAdditional pertinent findings: N/AOther Medical Problems/ Important Considerations:Denies chest pain and SOB with exertion.Does not exercise.Denies change in functional capacity.Denies GERD.Chronic Beta Lizzie medication administered within 24 hours: N/AAnesthetic risks, benefits, alternatives, personnel and consent discussed:YesRisk for perioperative visual loss discussed with patient.Patient agrees to proceed: YesBlood Products: Will accept Blood/Blood ProductsAnesthetic Plan: General ETT; Standard ASA Monitors and Large bore IV'Demetrio Management Plan: Parenteral or OralEPIC Chart ReviewACTIVE PROBLEM LISTChronic Pancreatitis (Hcc)Idiopathic Progressive PolyneuropathyLumbosacral Radiculopathy At E2Vglufshzryi Radiculopathy At C9Rjhwpj Stenosis, Lumbar Region, With Neurogenic ClaudicationPAST MEDICAL HISTORYDiagnosis Date- Cancer (HCC) over 20 years ago Melanoma- Chronic pancreatitis (HCC)- HypertensionPAST SURGICAL HISTORYProcedure Laterality Date- INGUINAL HERNIA REPAIR HX- PANCREATECTOMY,DISTAL+PRESER V DUOD 04/2014 lap converted to open distal pancreatectomy and splenectomy- ROTATOR CUFF REPAIR- SPLENECTOMY,GASTROESOPHAGEAL DEVASCULARIZA 04/2014 lap converted to open distal pancreatectomy and splenectomFAMILY HISTORYProblem Relation Age of Onset- Stroke MotherSocial History:Social HistorySubstance Use Topics- Smoking status: Former Smoker Packs/day: 1.00 Years: 40.00- Smokeless tobacco: Never Used Comment: quit 6 years ago- Alcohol use NoNo current facility-administered medications on file prior to encounter.Current Outpatient Prescriptions on File Prior to Encounter:amLODIPine (NORVASC) 5 mg tabletlosartan (COZAAR) 100 mg tabletFenofibrate (LOFIBRA) 160 mg tablet Take 160 mg by mouth once daily.POLYETHYLENE GLYCOL 3350 (MIRALAX ORAL) Take by mouth once daily.omeprazole (PRILOSEC) 20 mg capsule Take 20 mg by mouth once daily.Inpatient medications reviewed in [facility].I have interviewed and examined the patient. I have reviewed the medicalrecord and/or the pre-anesthesia evaluation, pertinent labs, and testresults.Significant changes in the patient's condition since the History andPhysical, not otherwise documented in primary service progress notes: NoThis contains updated information obtained within 48 hours ofSurgery/Procedure.CECELIA E: Stephen Colon APRN.MEDICAL APPARATUS MODEL MAKER PATIENT NAME: Meera StocktonDATE: October 14, 2017 : 4:01 PM PAGER/CONTACT #: [facility] BRIEF OP NOTon 10-14-2017 BRIEF OP NOT HNO ID: [id number] thor: Jose Raul Martin) SubramaniamService: NeurosurgeryAuthor Type: PhysicianType: Brief Op NoteFiled: 10/14/2017 7:46 PMNote Text:BRIEF OPERATIVE / PROCEDURE NOTELOG ID: [id number]/PROCEDURE DATE: 10/14/2017INCISION/PROCEDURE START TIME: 5:50 PMINCISION CLOSE/PROCEDURE END TIME: 07.45 PMSURGEON(S)/PROCEDURALIST(S ) AND CENTER MACHINE OPERATOR(S):Surgeon(s) and Role: * Jose Raul Martin) Keisha - PrimaryPhysician Injector Assembler: Shamir Gleason (Pa)URGERY/PROCEDURE(S):L3- 5 decompressive laminectomy, decompression of L3-4, L4-5 and L5-K0tlzhqx canal stenosis with bilateral root foraminotomiesOperative microscope used for decompression and foraminotomiesANESTHESIA: GeneralFINDINGS:Severe facet hypertrophy at L3-4, L4-5 and L5-S1 levelSevere canal stenosis at L4-5 level and moderate stenosis at L3-4 andL5-S1 levelESTIMATED BLOOD LOSS: 75 mlsSPECIMENS: NoneCOMPLICATIONS: NonePRE-OP/PRE-PROCEDURE DIAGNOSIS:L3-S1 lumbar canal stenosis with neurogenic claudicationPOST-OP/POST-PRO CEDURE DIAGNOSIS:L3-S1 lumbar canal stenosis with neurogenic claudicationSIGNATURE: Jose Raul Valdes MD PATIENT NAME: Meera StocktonDATE: October 14, 2017 : 7:44 PM PAGER/CONTACT #: [facility] NURSING PROGon 10-14-2017 Protein mass conc HNO ID: [id number] thor: Joanne (Rn) Eliud, RNService: NursingAuthor Type: Registered NurseType: Nursing Progress NoteFiled: 10/14/2017 6:54 PMNote Text: Nursing Progress NotePatient Name: Meera StocktonMRN: [id number] Location: [facility] OR POOL/[facility] OR POOL 5:55 PM Family updated via paging system.6:54 PM Family updated via paging system.This note was completed by: Joanne Kline RN [facility] OPERATIVE NOon 10-14-2017 OPERATIVE NO HNO ID: [id number] thor: Jose Raul Martin) SubramaniamService: NeurosurgeryAuthor Type: PhysicianType: Operative ReportFiled: 10/14/2017 7:55 PMNote Text:OPERATIVE/PROCEDURE REPORTLOG ID: [id number]/PROCEDURE DATE: 10/14/2017INCISION/PROCEDURE START TIME: 5:50 PMINCISION CLOSE/PROCEDURE END TIME: 07.45 PMSURGEON(S)/PROCEDURALIST(S ) AND CENTER MACHINE OPERATOR(S):Surgeon(s) and Role: * Jose Raul Martin) Keisha - PrimaryPhysician Injector Assembler: Shamir Pena (Pa)NESTHESIA: GeneralPRE-OP/PRE-PROCEDURE DIAGNOSIS:L3-S1 lumbar canal stenosis with neurogenic claudication?POST-OP/POST-NC OCEDURE DIAGNOSIS:L3-S1 lumbar canal stenosis with neurogenic claudicationSURGERY/PROCEDUR E(S):L3-5 decompressive laminectomy, decompression of L3-4, L4-5 and L5-Y1ktxsso canal stenosis with bilateral root foraminotomiesOperative microscope used for decompression and foraminotomies??FINDINGS:Sev ere facet hypertrophy at L3-4, L4-5 and L5-S1 levelSevere canal stenosis at L4-5 level and moderate stenosis at L3-4 andL5-S1 levelSURGERY/PROCEDURE DETAILS: was correctly identified and he was taken to the operating room.While he was in the transport gurney, he underwent smooth and adequategeneral anesthesia. All pressure points were padded adequately. Kathleen wasinserted. He was placed prone over the victor m table. Back was prepped anddraped in usual sterile manner. Pre operative X ray was done to localizeL3-S1 level and previous scar was marked. 1% Xylocaine with 1:200,000epinephrine was used for local anesthesia. Incision was made L3-S1 spinousprocess level and carried down to the subcutaneous tissue level. Faciaopened on the midline between L3-S1 spinous process. L4, L5 spinousprocess, Part of L3, S1 spinous process was exposed. L4, L5 laminabilaterally and part of L3, S1 lamina was exposed. Fects werehypertrophied at L3-4, L4-5 and L5-S1 levels. Facet capsule was wellpreserved during exposure. Self retaining deep retractors were placed.Intra operative x ray was done to confirm the L3-4, L5-S1 disk spacelevel. Levels were marked with permanent marker. MD Angy confirmedthe levels by reviewing the image remotely.??Partial L3, complete L4, L5 decompressive laminotomy was done withcombination of drill and Kerrison rongeur. Lower third of L3?lamina wasdrilled. Ligamentum flavum was very thick at L3-4, L4-5 and L5-S1 levels.Severe canal stenosis was noticed at L3-4, L4-5 and L5-S1 levels due tofacet hypertrophy and thick ligamentum flavum. After completing L3-5decompressive laminectomy, decompression of canal stenosis at L3-4, L4-5and L5-S1 levels were?done. Bilateral root foraminotomies were done forL3, L4 , L5 and S1 roots. After completion of decompression andforaminotomy, dura and root was free of compression. No CSF leak wasnoticed. Bone edge bleeding was controlled with bone wax. Hemostasis wasobtained with bipolar cautery.??Wound was irrigated with copious mount of irrigation. Wound was closed inlayers, #1 vicryl?for fascia, 2- vicryl for subcutaneous tissue and 4-0chromic for skin in a subcuticular fashion. Tincture benzoin and steristrip dressing was done. Patient was turned over the bed, awakened,extubated in the operating room. He was shifted to recovery room in astable conditionESTIMATED BLOOD LOSS: 75 mlsSPECIMENS: NoneIMPLANTABLE DEVICES: NoneDRAINS: NoneCOMPLICATIONS: NonePARTICIPATION IN SURGERY/PROCEDURE: I performed the procedure withassistance.No qualified resident/fellow was available.SIGNATURE: Jose Raul Valdes MD PATIENT NAME: Meera StocktonDATE: October 14, 2017 : 7:50 PM PAGER/CONTACT #: [facility] PT EDon 10-14-2017 PT ED HNO ID: [id number] thor: Alisson (Rn) FARAZ Dominguezervice: NursingAuthor Type: Registered NurseType: Patient EducationFiled: 10/14/2017 2:24 PMNote Text:PATIENT EDUCATION TOPIC:lumbar laminectomyPATIENT NAME: Meera StocktonMRN: [id number] LOCATION: [facility] OR POOL/[facility] OR POOLREADINESS TO LEARNCOGNITIVE ABILITY: Alert and orientedMOTIVATION TO LEARN: InterestedFAMILY SUPPORT: None - Unavailable/disinterestedINS TRUCTION PROVIDED TO: PatientPATIENT LEARNS BEST BY: Individual InstructionFACTORS AFFECTING LEARNING: NonePHYSICAL LIMITATIONS AFFECTING LEARNING: NoneLEARNING RESPONSEDIAGNOSIS: ADULT:PATIENT/FAMILY RESPONSE: Verbalizes understanding of: [id number] rrect action to take to follow pre-operative instructionsMETHOD OF INSTRUCTION: Individual instructionFOLLOW-UP PLAN: Complete - No need for follow-upINSTRUCTIONAL AIDS USED: NASUPPLEMENTAL MATERIAL PROVIDED TO PATIENT: NoneREFERRAL (RECOMMENDATION): NoneElectronically Signed By: Alisson Dominguez RN [facility] XR LUMBAR 1Von 10-14-2017 Protein mass conc * * *Final Report* * *DATE OF EXAM: Oct 14 2017 6:51PM [facility] 5283 - XR LUMBAR 1V / REASON: back pain- intra op lumbar laminectomy 3 * * * * Physician Interpretation * * * * HISTORY: back pain- intra op lumbar laminectomy 3LUMBAR SPINETECHNIQUE: Single crosstable lateral view of the lumbar spine was obtained in the operating room. Please refer to the intra-operative note.RESULT:For the purposes of this report, L5-S1 is considered the last lumbar type disc space and L4-5 is considered the level of the iliac crest.Metallic pointers at the posterior aspect of L3-4 and L5-S1.IMPRESSION:Metallic pointers at the posterior aspect of L3-4 and L5-S1.Director News: So Protect Me Transcribe Date/Time: Oct 14 2017 10:12PDictated by : KIRSTIN RIDDLE MDThikajal examination was interpreted and the report reviewed and electronically signed by: KIRSTIN RIDDLE MD on Oct 14 2017 11:09PM [id number] [facility] Protein mass conc * * *Final Report* * *DATE OF EXAM: Oct 14 2017 6:21PM [facility] 5283 - XR LUMBAR 1V / REASON: back pain- intra op lumbar laminectomy 2 * * * * Physician Interpretation * * * * HISTORY: back pain- intra op lumbar laminectomy 2LUMBAR SPINETECHNIQUE: Single crosstable lateral view of the lumbar spine was obtained in the operating room. Please refer to the intra-operative note.RESULT:For the purposes of this report, L5-S1 is considered the last lumbar type disc space and L4-5 is considered the level of the iliac crest.Metallic pointers at the posterior aspect of L3-4 and L5-S1.IMPRESSION:Metallic pointers at the posterior aspect of L3-4 and L5-S1.Director News: So Protect Me Transcribe Date/Time: Oct 14 2017 10:11PDictated by : KIRSTIN RIDDLE MDThikajal examination was interpreted and the report reviewed and electronically signed by: KIRSTIN RIDDLE MD on Oct 14 2017 11:09PM [id number] [facility] XR LUMBAR 1V * * *Final Report* * *DATE OF EXAM: Oct 14 2017 5:39PM [facility] 5283 - XR LUMBAR 1V / REASON: back pain- intra op lumbar laminectomy 1 * * * * Physician Interpretation * * * * XR LUMBAR 1VPROVIDED HISTORY: back pain- intra op lumbar laminectomy 1COMPARISON: 06/16/2017TECHNIQUE: Lateral view of the lumbar spine. Counting reference: Lumbosacral junction. For the purposes of this report, L5S1 is considered the last lumbar type disc space and L4-5 is considered the level of the iliac crest.RESULT: Needle seen posterior to lumbar spine localizing to the superior aspect of the L4-5 level. Moderate degenerative disc changes with vacuum phenomenon noted at L4-5 and L5-S1.IMPRESSION: Localization to L4-5 of the lumbar spineTranscriptionist: ISAMAR Transcribe Date/Time: Oct 14 2017 6:07PDictated by : CHARAN DEGROOT MDThis examination was interpreted and the report reviewed and electronically signed by: CHARAN DEGROOT MD on Oct 14 2017 6:12PM [id number] [facility]2017 Protein mass conc HNO ID: [id number] Author: Kathya (Rn) Larry RN Service: Neurosurgery Author Type: Registered Nurse Type: Nursing Progress Note Filed: 10/12/2017 1:36 PM Note Text: EKG scanned. Florian Juarez RN [facility] NURSING [facility] [place] 09-28-2017 Protein mass conc HNO ID: [id number] thor: Silvia (Rn) FARAZ Vásquezervice: (none)Author Type: Registered NurseType: Nursing Progress NoteFiled: 09/28/2017 1:34 PMNote Text:PACC Nurse Progress NoteHistory AND Physical:PACC Visit Date: 09/24Original HANDP Date: N/AED visit Date: N/AOutside HANDP Scanned Date: N/ALabs Within Last 6 Months:CBC: Date 09/24BMP/CMP: Date T: Date TT: Date 09/24UA: Date 09/24STAAMP: Date 09/24TYPE AND SCREEN: Date 09/24within acceptable limits/mupirocin ordered for + nasal cultureImaging Within Last 12 Months:Chest X-rayDate of test: 09/24Cardiac Testing:EKG in last 12 Months: Yes: Date: 09/24, Comment: not in [facility] Menstrual Period:LMP Date: N/APostmenopausal >1yr: N/A,S/P Hysterectomy: N/ABMI Percentile (PEDS):N/ARisk Assessment:N/AAnesthesia Review:N/ANarrative:Patient called and given instructions on mupirocin 2x day each nostrilstarting 5 days before surgery. Stated understandingPre-op Considerations:N/AChart Check:IN PROGRESS - [facility] Type and SCR (30D)on 018 ABO/RH(D) Positive [facility] Comment on above: Performed By: #### T SCR30 ####[facility] [place], [place] [phone] Antibody Screen Negative [facility] Comment on above: Performed By: #### T SCR30 ####[facility] [place], [place] [phone] HOSPon 07-28-2017 HOSP Patient:Meera Stockton MRN: Height:5' 10 (1.778 m)Weight:177 lb (80.287 kg)Outpatient Medications as of 10/14/17:mupirocin (BACTROBAN) 2 % ointmentamLODIPine (NORVASC) 5 mg tabletlosartan (COZAAR) 100 mg tabletPOLYETHYLENE GLYCOL 3350 (MIRALAX ORAL)omeprazole (PRILOSEC) 20 mg capsuleFenofibrate (LOFIBRA) 160 mg tabletAdmission/Clinic Administered Medications as of 10/14/17:acetaminophen 1,000 mg tab(s) (TYLENOL)promethazine 12.5 mg tab(s) (PHENERGAN)Problem List:Chronic pancreatitis (HCC) [K86.1]Idiopathic progressive polyneuropathy [G60.3]Lumbosacral radiculopathy at L5 [M54.17]Lumbosacral radiculopathy at S1 [M54.17]Spinal stenosis, lumbar region, with neurogenic claudication [M48.062]Allergies:No Known AllergiesDate Verified:10/14/17Lab ValuesLab Value Units Date High LowPOTA* 4.6 mmol/L 09/24/2017 5.1 3.7HEMA* 47.4 % 09/24/2017 51.0 39.0Progress Notes (PRE [facility]):Carmen Zhang, [employer] COACH.[employer] CLOCK [employer] WATCH HANDS 09/28/2017 12:51 PM SignedPatient is scheduled for decompression laminectomy with Dr. Valdes 10/14/17at [facility]. His nasal swab came back positive for staphylococcus. Mupirocin escripted to pharmacy with instructions. Could you please call the patient to [facility]. Know? Thank you.Silvia Vásquez, RN, RN 09/28/2017 1:35 PM SignedGave patient instructions regarding mupirocin, use 2x day starting 5 days priorsurgery. Stated understanding. Silvia Vásquez RNProgress Notes ([facility]):Jovita Hogan RRT 09/24/2017 11:00 AM Signed Radiology Service Progress NotePATIENT NAME: Meera StocktonMRN: [id number] OF SERVICE: September 24, 2017TIME: 11:00 AMPATIENT IDENTITY VERIFICATION COMPLETED USING TWO (2) METHODS: Patientconfirmed name verbally and Date of .PATIENT GENDER DATA: MalePATIENT RELEVANT IMPLANT DATA REVIEWED: Not ApplicableRADIOLOGY DEPARTMENT: General X-ray: Exam(s) Completed: Chest X-RayPERIPHERAL IV DATA: Not applicableSIGNED BY: Jovita Hogan RRTJuly 2017 11:00 AM [facility] MRI THORACIC SPINE WO IVCONo n 07-02-2017 MRI THORACIC SPINE WO IVCON * * *Final Report* * *DATE OF EXAM: Jul 02 2017 12:19PM [facility] 0325 - MRI THORACIC SPINE WO IVCON / REASON: STENOSIS * * * * Physician Interpretation * * * * EXAMINATION: MRI THORACIC SPINE WO IVCONHISTORY: STENOSISTECHNIQUE: Routine thoracic spine MR protocol.MQ: [id number]: MRI of the lumbar spine dated 01/12/2017.RESULT:Counting reference: Lumbosacral junction. For the purposes of this report, L4-5 is considered the level of the iliac crest. T12-L1 is the inferior most imaged on sagittal imaging for reference purposes.Thoracic soft tissues: The paraspinal soft tissues are unremarkable.Alignment: Alignment is anatomic.Cord: Few areas of extradural defects. No intrinsic cord signal abnormality.Bone marrow signal/fracture: No evidence of pathologic marrow infiltration. Vertebral bodies normal in height. Posterior elements are normal in morphology and alignment.Canal and foramina: Minimal flattening ventral cord at T7-T8 by a disc protrusion. No intrinsic cord signal body. Minimal flattening right ventral cord at T4-T5 by a small disc protrusion. Neural foramen are patent.IMPRESSION:MILD DEGENERATIVE CHANGES ABOVE. NO SEVERE CORD IMPINGEMENT OR SIGNAL ABNORMALITY.Director News : So Protect Me Transcribe Date/Time: Jul 02 2017 12:27PDictated by : Nani SAEED examination was interpreted and the report reviewed and electronically signed by: STEPHANIE PATTON MD on Jul 02 2017 12:29PM [id number] [facility] XR LUMBAR 4V AP/LAT/ FLEX/EX Ton 06-16-2017 Protein mass conc * * *Final Report* * *DATE OF EXAM: Jun 16 2017 12:40PM [facility] 5231 - XR LUMBAR 4V AP/LAT/ FLEX/EXT / REASON: SPINAL STENOSIS * * * * Physician Interpretation * * * * EXAMINATION: XR LUMBAR 4V AP/LAT/ FLEX/EXT Clinical history: SPINAL STENOSISComparison: None available at time of dictationRESULT:Vertebral body height maintained. Slight levoscoliosis. Multilevel facet sclerosis observed. Advanced disc space narrowing seen at L4-5 with moderate to advanced narrowing at L5-S1. More mild narrowing at L3-4IMPRESSION:MULTILEVEL DISCOGENIC AND FACET SCLEROSIS, GREATEST AT L4-5Transcriptionist: [facility] HOSPITALMarina Transcribe Date/Time: Jun 16 2017 4:19PDictated by : MAYUKH BABU, MDThis examination was interpreted and the report reviewed and electronically signed by: VIRGIL WHEELER MD on Jun 16 2017 4:19PM [id number] Normal [facility] Vital Signs Date Time Vital Sign Value Performing Clinician Parul chandler 07-18-2021 10:45-0400 Body height 176.5 cm Elier Raymundo MD Work Phone: [facility] 07-18-2021 10:45-0400 Body temperature 97.81 [degF] Elier Raymundo MD Work Phone: [facility] 07-18-2021 10:45-0400 Body weight 84.28 kg Elier Raymundo MD Work Phone: [facility] 07-18-2021 10:45-0400 Diastolic blood pressure 68 mm[Hg] Elier Raymundo MD Work Phone: [facility] 07-18-2021 10:45-0400 Heart rate 49 /min Elier Raymundo MD Work Phone: [facility] 07-18-2021 10:45-0400 Respiratory rate 16 /min Elier Raymundo MD Work Phone: [facility] 07-18-2021 10:45-0400 SaO2% (BldA) [Mass fraction] 98 % Elier Raymundo MD Work Phone: [facility] 07-18-2021 10:45-0400 Systolic blood pressure 132 mm[Hg] Elier Raymundo MD Work Phone: [facility] Encounters Encounter Date Encounter Type Care Provider Facility Start: 07-22-2023 End: 07-22-2023 ambulatory [facility] Start: 03-17-2023 End: 03-17-2023 ambulatory Matt Wang Other [facility] Other Start: 03-17-2023 Office outpatient visit 10 minutes Matt Wang [facility] Start: 06-25-2022 End: 06-26-2022 ambulatory MARICRUZ PIMENTEL Facility:[facility] Start: 01-20-2022 Encounter for genera l adult medical examination without abnormal findings DR MATT WANG [facility] Start: 01-16-2022 End: 01-17-[address] MATT WANG Facility:[facility] Start: 01-16-2022 End: 01-17-2022 Encounter for general adult medical examination without abnormal findings DR MATT WANG Facility:[facility] Start: 10-02-2021 End: 10-02-[address] MATT WANG Facility:[facility] Start: 07-18-2021 End: 07-18-2021 ambulatory Elier Raymundo MD Work Phone: Hematology/Oncology Comment on above: Acute deep vein thro mbosis (DVT) of femoral vein of left lower extremity (HCC) (Primary Dx); Thrombocytosis after splenectomy Start: 07-18-2021 End: 07-18-2021 Patient encounter procedure Elier Raymundo MD Work Phone: [facility] Start: 07-15-2021 Telephone encounter Elier Raymundo MD Work Phone: Hematology/Oncology Comment on above: Lab Orders Start: 02-17-2018 End: 02-17-2018 Patient encounter [facility] Facility:[facility] Start: 10-14-2017 End: 10-17-2017 Patient encounter JOSE RAUL MARTIN) [facility] Start: 07-02-2017 Patient encounter JOSE RAUL MARTIN) [facility] Start: 06-16-2017 Patient encounter JOSE RAUL MARTIN) [facility] Procedures Date Procedure Procedure Detail Performing Clinician Start: 01-16-[address] STEFAN WANG Comment on above: Performed By: #### P [facility] #### [facility] [address] [place] [address] Dr. Shawn Shahid Start: 07-18-2021 Adult depression screening assessment Elier Raymundo MD Work Phone: Start: 01-30-2021 Adult depression screening assessment Elier Raymundo MD Work Phone: Plan of Treatment Date Care Activity Detail Author Start: 07-18-2024 DIABETES SCREEN DIABETES SCREEN [facility] Start: 04-18-2024 Urine microalbumin profile DTAP,TDAP,TD (2 - Tdap) [facility] Start: 01-18-2024 DIABETES SCREEN DIABETES SCREEN [facility] Start: 07-18-2022 Adult depression screening assessment DEPRESSION SCREENING [facility] Start: 01-30-2022 Adult depression screening assessment DEPRESSION SCREENING [facility] Start: 07-15-2021 End: 09-14-2021 CBC W Auto Differential panel - Blood CBC + DIFF Lab Routine Acute deep vein thrombosis (DVT) of femoral vein of left lower extremity (HCC) Thrombocytosis after splenectomy Expected: 07/15/2021, Expires: 09/14/2021 [facility] Work Phone: Comment on above: Expected: 07/15/2021 , Expires: 09/14/2021 Start: 07-15-2021 End: 09-14-2021 Comprehensive metabolic 2000 panel - Serum or Plasma COMP METABOLIC PANEL Lab Routine Acute deep vein thrombosis (DVT) of femoral vein of left lower extremity (HCC) Thrombocytosis after splenectomy Expected: 07/15/2021, Expires: 09/14/2021 [facility] Work Phone: Comment on above: Expected: 07/15/2021 , Expires: 09/14/2021 Start: 03-16-2021 ADVANCE DIRECTIVE DISCUSSION ADVANCE DIRECTIVE DISCUSSION [facility] Start: 06-12-2020 COVID-19 VACCINE (2 - Moderna 3-dose series) COVID-19 VACCINE (2 - Moderna 3-dose series) [facility] Start: 06-13-2014 MENINGOCOCCAL CONJUG ATE (1 - Risk start 2-23 months series) MENINGOCOCCAL CONJUGATE (1 - Risk start 2-23 months series) [facility] Start: 05-15-2014 SHINGRIX VACCINE (2 of 3) SHINGRIX VACCINE (2 of 3) [facility] Start: 2010 PNEUMOVAX AGE 65 AND OVER WITH 5YR LOOKBACK (#1) PNEUMOVAX AGE 65 AND OVER WITH 5YR LOOKBACK (#1) [facility] Start: 1990 COLOGUARD (FIT-DNA) COLOGUARD (FIT-D NA) [facility] Start: 1990 Colonoscopy COLONOSCOPY [facility] Start: 1990 COLORECTAL CANCER SCREENING COLORECTAL CANCER SCREENING [facility] Start: [address] COLONOGRAPHY [facility] Start: 1990 FECAL OCCULT BLOOD FECAL OCCULT BLOO D [facility] Start: 1990 [facility] Start: 1980 LIPID SCREEN LIPID SCREEN [facility] Start: 01-01-1956 MENINGOCOCCAL B: Consider based on risk (1 of 4 - Increased Risk Bexsero 2-dose series) MENINGOCOCCAL B: Consider based on risk (1 of 4 - Increased Risk Bexsero 2-dose series) [facility] Immunizations Immunization Date Immunization Notes Care Provider Fa jonathonty 12-12-2020 influenza virus vacc ine, split virus (incl. purified surface antigen) Matt Wang Other [employer] [facility] [employer] Other 12-11-2020 influenza, high-dose , quadrivalent vaccine (FLUZONE HIGH DOSE QUADRIVALENT) Elier Raymundo MD Work Phone: [facility] 06-13-2020 zoster vaccine, live Enrike Wang Other [facility] Other 05-15-2020 COVID-19 vaccine, fu ll dose (MODERNA) Elier Raymundo MD Work Phone: [facility] 01-23-2020 influenza virus vacc ine, split virus (incl. purified surface antigen) Matt Wang Other [facility] Other 12-26-2019 pneumococcal conjuga te vaccine, 13 valent Matt Wang Other [facility] Other 11-26-2016 influenza virus vacc ine, split virus (incl. purified surface antigen) Matt Wang Other [facility] Other 06-29-2014 meningococcal oligosaccharide (groups A, C, Y and W-135) diphtheria toxoid conjugate vaccine (MCV4O) Matt Wang Other [facility] Other 06-29-2014 pneumococcal polysaccharide vaccine, 23 valent Matt Wang Other [facility] Other 04-18-2014 DTaP-Haemophilus influenzae type b conjugate vaccine Elier Raymundo MD Work Phone: [facility] Work Phone: 04-18-2014 meningococcal polysaccharide vaccine (MPSV4) Elier Raymundo MD Work Phone: [facility] Work Phone: 04-18-2014 pneumococcal conjuga te vaccine, 13 valent Elier Raymundo MD Work Phone: [facility] Work Phone: 03-20-2014 influenza virus vacc ine, unspecified formulation Elier Raymundo MD Work Phone: [facility] 03-20-2014 zoster vaccine, live Divya Raymundo MD Work Phone: [facility] 01-21-2013 pneumococcal polysaccharide vaccine, 23 valent Matt Wang Other [facility] Other 01-21-2013 tetanus and diphther ia toxoids, adsorbed, preservative free, for adult use (5 Lf of tetanus toxoid and 2 Lf of diphtheria toxoid) Matt Wang Other [facility] Other Payers Date Payer Category Payer Unknown MMO MMO MEDICARE SUPPLEMENT [id number] 2019-Present [phone] [address] [place] [address] Indemnity [id number] 2017 Medicare [id number] 2017 Self-pay ABC 2017 Unknown [id number] 2010 Medicare MEDICARE MEDICAR E A AND B [id number] 2010-Present [phone] [place] [address] Medicare [id number] 1959 Medicare [id number] 1959 Unknown [id number] 1945 Unknown [id number] 1945 Unknown [id number] 1945 Unknown [id number] 1945 Unknown [id number] Social History Date Type Detail Facility Start: [facility]-13-[facility] Start: 01-13-2014 Cigarettes smoked current (pack per day) - Reported 1 [facility] Start: 01-13-2014 Tobacco use and exposure Smokeless tobacco non-user [facility] Start: 01-17-2021 End: 07-18-2021 Alcohol intake Current non-drinker of alcohol (finding) [facility] Start: 12-08-2016 Tobacco Comment quit 6 years ago [facility] Start: 1945 Sex Assigned At Male C [facility] Start: 07-08-2021 End: 07-18-2021 Exposure to SARS-CoV-2 (event) Not sure [facility] Sex Assigned At Sex Assigned At Bir [facility] Other Clinical Notes 05-08-2014 to 07-22-2023 Note Date & Type Note Facility 07-22-2023 Note [facility] Subjective Meera Stockton is a 77 y.o. year old male patient being seen for 1 year follow up hx of PE/DVT, pulmonary hypertension, and MULLINS. He had an echo last June 2022 after last apt. Says his MULLINS is worsening. Patient denies chest pain, palpitations, and bleeding on Eliquis. 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 He is a 77-year-old man with prior history of bilateral pulmonary emboli, left common femoral and femoral vein DVT in May 2020. This was managed with anticoagulation therapy. At that time his BNP and troponin levels were unremarkable. His echocardiogram showed right ventricular dilatation and hypokinesis of the mid free wall. He was recommended long-term anticoagulation given unprovoked DVT and PE. His follow-up echocardiogram showed improvement in right ventricular systolic function. Additional medical history includes hypertension on treatment as well as hyperlipidemia on fenofibrate. In the past I had recommended follow-up with his primary care physician Dr. Wang regarding possible underlying cancer etiology. He was checked and nothing was found. He developed COVID in April 2022. He was last seen in our office on 06/18/2022. At that time he was noting worsening shortness of breath. His echocardiogram showed normal right ventricular systolic function with mild dilatation and moderate tricuspid regurgitation and mildly elevated right-sided pressures. Today he reports that he has been complaining of worsening shortness of breath on exertion, NYHA class due to 3 symptoms. He also has bilateral lower extremity swelling. He denies chest pain dizziness and lightheadedness. No syncope. He is taking medications as prescribed. Review of Systems Cardiovascular: Positive for dyspnea on exertion (worsening) and leg swelling. Respiratory: Positive for snoring. Neurological: Positive for light-headedness ( occasional ). All other systems reviewed and are negative. Objective Visit Vitals BP 120/72 (BP Location: Left arm, Patient Position: Sitting) Pulse (!) 49 Ht 1.778 m (5' 10 ) Wt 82.6 kg (182 lb) SpO2 97% BMI 26.11 kg/m??? Smoking Status Former BSA 2.02 m??? Physical Exam Constitutional: Appearance: He is well-developed. He is not ill-appearing. HENT: Head: Normocephalic and atraumatic. Nose: Nose normal. Eyes: General: No scleral icterus. Pupils: Pupils are equal, round, and reactive to light. Neck: Thyroid: No thyromegaly. Vascular: No JVD. Cardiovascular: Rate and Rhythm: Regular rhythm. Bradycardia present. Pulses: Radial pulses are 2+ on the right side and 2+ on the left side. Heart sounds: Murmur heard. Systolic (LLSB) murmur is present with a grade of 2/6. No friction rub. No gallop. Pulmonary: Effort: Pulmonary effort is normal. No respiratory distress. Breath sounds: Normal breath sounds. No wheezing or rales. Chest: Chest wall: No tenderness. Abdominal: General: Bowel sounds are normal. There is no distension. Palpations: Abdomen is soft. Tenderness: There is no abdominal tenderness. Musculoskeletal: General: No swelling. Cervical back: Neck supple. Right lower le+ Pitting Edema present. Left lower le+ Pitting Edema present. Comments: Uses a cane to assist with ambulation Skin: General: Skin is warm and dry. Neurological: General: No focal deficit present. Mental Status: He is alert and oriented to person, place, and time. Psychiatric: Mood and Affect: Mood normal. Behavior: Behavior is cooperative. Judgment: Judgment normal. Allergies No Known Allergies Medications Current Outpatient Medications: amLODIPine (Norvasc) 10 mg tablet, TAKE 1 TABLET BY MOUTH IN THE MORNING, Disp: 90 tablet, Rfl: 3 apixaban (Eliquis) 5 mg tablet, Take 1 tablet by mouth twice daily, Disp: 180 tablet, Rfl: 3 fenofibrate (Lofibra) 160 mg tablet, Take 1 tablet by mouth in the morning., Disp: , Rfl: losartan (Cozaar) 100 mg tablet, Take 1 tablet by mouth in the morning., Disp: , Rfl: furosemide (Lasix) 40 mg tablet, Take 1 tablet (40 mg) by mouth in the morning., Disp: 90 tablet, Rfl: 3 Recent Labs Blood testing 02/12/2022: Hemoglobin 15.9, platelets 538, potassium (more content not included)... [facility] 03-17-2023 Evaluation note Encounter Date Diagnosis Assessment Notes Mar, COVID-19 (ICD-10 - U07.1) Instructed to use Robitussin or Mucinex for cough, saline or Flonase NS for congestion, Tylenol for pain and fever. Self isolate at home. - Cannot work - avoid contact with others - avoid pets - wipe counters, door knobs if touched - if can't avoid leaving home, must wear mask to protect others - need to stay isolated for 10 days from onset of symptoms - to discontinue isolation must be 5 days AND must be without fever for 24 hours AND symptoms must be improving. Always wear a mask in public places for complete 10 days Mar, Primary hypertension (ICD-10 - I10) Must hold Amlodipine while taking Paxlovid [facility] Other 05-05-2022 NoteHNO ID: [id number] Author: Elier Raymundo MD Service: ? Author Type: Physician Type: Progress Notes Filed: 07/18/2021 11:05 AM Note Text: HEMATOLOGY FOLLOW UP Elements in this clinic note that are critical to medical decision making have been carefully reviewed and included from my prior clinic note dated: January 17, 2021 July 18, 2021 PCP and other physicians involved in patient's care: Matt Wang (PCP) DIAGNOSIS: Post-splenectomy thrombocytosis HEMATOLOGICAL HISTORY: ? Thrombocytosis from 450-650,000 dating back to 2014 (prior records unavailable), normal WBCs with mild elevations in monocytes and eosinophils, normal hemoglobin; splenectomy in April 2014 ? May 29, 2020 CT chest with moderate bilateral lobar, segmental and subsegmental pulmonary emboli with evidence of right ventricular strain; DVT study with occlusive DVT in the left common femoral vein extending to the popliteal vein; right lower extremity veins are widely patent. No propagating event noted. No family history of VTE. ? January 08, 2021 D-dimer normal. Platelet count [id number]. WBC normal with differential showing absolute monocytosis, absolute eosinophilia and absolute basophilia. Hemoglobin normal. No M protein on serum immunofixation. INTERVAL HISTORY: Meera comes back for follow-up. He continues to have issues with neuropathy but no new symptoms. ROS is negative except that mentioned in HPI PAST MEDICAL SURGICAL FAMILY AND SOCIAL HISTORY: He has a history of -Acute DVT, left femoral vein extending into the popliteal vein and multiple subsegmental PE with mild RV dilatation, May 2020 (tested negative for COVID-19 at that time), on apixaban, unprovoked -Hypertension -Peripheral neuropathy -Benign prostatic hyperplasia -Cervical and lumbar spondylosis -Chronic pancreatitis, secondary to chronic alcohol abuse, status post distal pancreatectomy and splenectomy Prior surgeries include herniorrhaphy, distal pancreatectomy and splenectomy (April 2014), lumbar laminectomies and foraminotomies. Family history not significant for hematological or oncologic issues. He has a significant history of excessive alcohol abuse use for 40 years before quitting in 2014. He has 3 children who are healthy. MEDICATIONS AND ALLERGIES: Reviewed PHYSICAL EXAM BP 132/68 Pulse (!) 49 Temp 36.6 ?C (97.8 ?F) (Temporal) Resp 16 Ht 176.5 cm (5' 9.49 ) Wt 84.3 kg (185 lb 12.8 oz) SpO2 98% BMI 27.05 kg/m? Head atraumatic, no pallor, icterus or lymphadenopathy, lungs clear to auscultation, heart sounds regular, abdomen soft without distension or organomegaly, neuro grossly non-focal, skin without rash, extremities without swelling LABORATORY, IMAGING AND PATHOLOGY CBC and CMP reviewed ASSESSMENT AND RECOMMENDATIONS 75 male with thrombocytosis and history of DVT/PE ? Thrombocytosis: The most likely reason for thrombocytosis in the patients's case is history of splenectomy. Mild elevation in myeloid lineages are expected as a result of splenectomy. Given the stability and chronicity of elevated counts, no further intervention is necessary at this point. Continue to monitor counts periodically. Should the patient have new anemia, neutropenia or a rising platelet count, additional work-up could be considered. Follow-up as needed ? 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 Risk factors for recurrent thrombotic event would include patient's history of splenectomy. Patient is at high risk for recurrence of VTE and has a low risk for bleeding events. Continue indefinite anticoagulation. ? 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 This has slowly progressed over the last 1 to 2 years resulting in falls. He has no sensorimotor deficit on exam except for decreased hearing in both ears and some tingling in his feet. B12, TSH, B1 and M protein evaluation are normal. MRI brain is normal. He was recommended neurosurgical evaluation but has deferred this for now. Elier Raymundo MD I spent a total of 20 minutes on the date of the service which included preparing to see the patient, [id number] patient care, completing clinical documentation, obtaining and/or reviewing separately obtained history, performing a medically appropriate examination, counseling and educating the patient/family/caregiver, ordering medications, tests, or procedures and independently interpreting results (not separately reported). [facility] History of Present illness Narrative* Elier Raymundo MD - 07/18/2021 10:49 AM EDT HEMATOLOGY FOLLOW UP Elements in this clinic note that are critical to medical decision making have been carefully reviewed and included from my prior clinic note dated: January 17, 2021 July 18, 2021 PCP and other physicians involved in patient's care: Matt Wang (PCP) DIAGNOSIS: Post-splenectomy thrombocytosis HEMATOLOGICAL HISTORY: Thrombocytosis from 450-650,000 dating back to 2014 (prior records unavailable), normal WBCs with mild elevations in monocytes and eosinophils, normal hemoglobin; splenectomy in April 2014 May 29, 2020 CT chest with moderate bilateral lobar, segmental and subsegmental pulmonary emboli with evidence of right ventricular strain; DVT study with occlusive DVT in the left common femoral vein extending to the popliteal vein; right lower extremity veins are widely patent. No propagating ev ent noted. No family history of VTE. January 08, 2021 D-dimer normal. Platelet count [id number]. WBC normal with differential showing absolute monocytosis, absolute eosinophilia and absolute basophilia. Hemoglobin normal. No M protein on serum immunofixation. INTERVAL HISTORY: Meera comes back for follow-up. He continues to have issues with neuropathy but nonew symptoms. ROS is negative except that mentioned in HPI PAST MEDICAL SURGICAL FAMILY AND SOCIAL HISTORY: He has a history of -Acute DVT, left femoral vein extending into the popliteal vein and multiple subsegmental PE with mild RV dilatation, May 2020 (tested negative for COVID- 19 at that time), on apixaban, unprovoked -Hypertension -Peripheral neuropathy -Benign prostatic hyperplasia -Cervical and lumbar spondylosis -Chronic pancreatitis, secondary to chronic alcohol abuse, status post distal pancreatectomy and splenectomy Prior surgeries include herniorrhaphy, distal pancreatectomy and splenectomy (April 2014), lumbar laminectomies and foraminotomies. Family history not significant for hematological or oncologic issues. He has a significant history of excessive alcohol abuse use for 40 years before quitting in 2014. He has 3 children who are healthy. MEDICATIONS AND ALLERGIES: Reviewed PHYSICAL EXAM BP 132/68 Pulse (!) 49 Temp 36.6 C (97.8 F) (Temporal) Resp 16 Ht 176.5 cm (5' 9.49 ) Wt 84.3 kg (185 lb 12.8 oz) SpO2 98% BMI 27.05 kg/m Head atraumatic, no pallor, icterus or lymphadenopathy, lungs clear to auscultation, heart sounds regular, abdomen soft without distension or organomegaly, neuro grossly non-focal, skin without rash, extremities without swelling LABORATORY, IMAGING AND PATHOLOGY CBC and CMP reviewed ASSESSMENT AND RECOMMENDATIONS 75 male with thrombocytosis and history of DVT/PE Thrombocytosis: The most likely reason for thrombocytosis in the patients's case is history of splenectomy. Mild elevation in myeloid lineages are expected as a result of splenectomy. Given the stability and chronicity of elevated counts, no further intervention is necessary at this point. Continueto monitor counts periodically. Should the patient have new anemia, neutropenia or a rising platelet count, additional work-up could be considered. Follow-up as needed DVT/PE, diagnosed May 2020, unprovoked: This was the first episode of an unprovoked event of proximal left lower extremity DVT/PE with right heart strain. Risk factors for recurrent thrombotic event would include patient's history of splenectomy. Patient is at high risk for recurrence of VTE and has a low risk for bleeding events. Continue indefinite anticoagulation. 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 This has slowlyprogressed over the last 1 to 2 years resulting in falls. He has no sensorimotor deficit on exam except for decreased hearing in both ears and some tingling in his feet. B12, TSH, B1 and M protein evaluation are normal. MRI brain is normal. He was recommended neurosurgical evaluation but has deferred this for now. Elier Raymundo MD I spent a total of 20 minutes on the date of the service which included preparing to see the patient, [id number] patient care, completing clinical documentation, obtaining and/or reviewing separately obtained history, performing a medically appropriate examination, counseling and educating the pat ient/family/caregiver, ordering medications, tests, or procedures and independently interpreting results (not separately reported). CC: Matt [facility] NoteHNO ID: [id number] Author: Gay Rojas MD Service: ? Author Type: Physician Type: Progress Notes Filed: 02/26/2021 8:57 AM Note Text: Neurology Follow-Up(virtual, switched to phone) - February 26, 2021 Meera Stockton is following up for neuropathy, MRI results. He was last seen on 02/01/21. Notes from previous visits are as follows: He was followed by Dr. Alvarez from [id number], last seen on 06/02/17: IMPRESSION:? 71?year old right handed ?male with a past medical history of hypertension, EtOH dependence, chronic pancreatitis likely secondary to alcohol use and a?length dependent sensorimotor polyneuropathy possibly be due to his remote history of chronic alcohol use?presents with lower back and hip pain that is further limiting his gait. Symptoms occur after ambulating and improve with rest and holding onto a shopping cart. MRI of the lumbar spine demonstrates severe L4-L5 canal stenosis. EMG is suggestive of?bilateral L5-S1 radiculopathy.? His neurological exam is essentially stable except for increased bilateral hip flexion weakness. Based on his exam changes and recent work up, there is concern for lumbar spinal stenosis with neurogenic claudication. Physical therapy has not improved his symptoms. At this point, the patient would need an evaluation by spine surgery for possible intervention. PLAN: 1. Consult to Neurosurgery/Orthopedics for surgical evaluation of spinal stenosis. Discussed in detail with the patient and he is interested in pursuing possible interventions. 2. Discussed fall prevention in detail. 3. No further work up required for polyneuropathy. Currently, it remains stable. 4. Follow up as needed 02/01/21: He is accompanied by . Patient reports that he has feet symptoms at least 50 years ago, he describes this as an intermittent numbness/tinging in the feet but was not bothersome or limiting his activities. Thirty years ago, he noticed balance issues and feet weakness. At least 20 years ago, he had back pain, saw surgeon; did not recommend surgery. He saw neurology 15-20 years ago locally, diagnosed with neuropathy. He established with Dr. Alvarez in 2017 for balance issues, EMG(Dec 2016) showed no PN but revealed lumbar radiculopathy. MRI(Sep 2018) of the lumbar spine demonstrates severe L4-L5 canal stenosis. During his last visit in 2018, he was noted to have more hip flexor weakness which was felt to be be related to spinal stenosis hence referred to neurosurgery. He had L3-5 decompression with foraminotomy(Dr. Valdes)?in Oct 2017. Surgery helped with low back pain but has persistence of balance issues. He had PT then but has not been compliant. ?He saw PCP for annual exam, sent to hematology for thrombocytosis - reassured it was normal for someone without a spleen. He has chronic pancreatitis , had distal pancreatectomy, splenectomy(Apr 2014). But referred to neurology for balance, also has issues with speech. 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 No known exposure to heavy metals or toxins, no chemotherapeutic agents. Blood work (Nov 2016) showed HBA1C of 5.8, B12/MMA of 521/144, normal B1. ? Interval history: Blood work showed borderline B12, on B12 supplementation. MRI c-spine(Feb 2021) showed severe stenosis at C5-6 and C6-7. Discussed about seeing neurosurgery but wants to think about it. Wants to hold on PT also. Current Outpatient Medications Medication Sig Dispense Refill - Ascorbic Acid (VITAMIN C) 1,000 mg tablet Take 1,000 mg by mouth once daily. - Khdtu-0-VRV-EPA-Fish Oil (FISH OIL) 1,000 mg (120 mg-180 mg) cap Take 2 g by mouth once daily. When stinks about it.. - amLODIPine (NORVASC) 10 mg tablet - furosemide (LASIX) 20 mg tablet every 48 hours. - ELIQUIS 5 mg tab(s) Take 5 mg by mouth twice daily. - losartan (COZAAR) 100 mg tablet Take 1 tablet by mouth once daily. - Fenofibrate (LOFIBRA) 160 mg tablet Take 160 mg by mouth once daily. No current facility-administered medications for this visit. Family and social history reviewed, unchanged. REVIEW OF SYSTEMS: per HPI General: no wt. loss/gain, change in appetite, fever, malaise HEENT: no headache, problems with vision, hearing Cardiac: no chest pain, palpitation Respiratory: no shortness of breath, cough, cold GI: no emeli (more content not included)...[facility]12[facility]21 NoteHNO ID: [id number] Author: RT Rico(R) Service: ? Author Type: Technologist Type: Progress Notes Filed: 02/19/2021 2:08 PM Note Text: Radiology Service Progress Note PATIENT NAME: Meera Stockton DATE OF SERVICE: February 19, 2021 TIME: 2:08 PM PATIENT IDENTITY VERIFICATION COMPLETED USING TWO (2) IDENTIFIERS: Name and Date of confirmed by patient verbally. FALL SCREENING: Has the patient had 2 falls in the last year or 1 fall with injury or currently using an Ambulatory Assistive Device (Walker, Cane, Wheelchair, Crutches, etc.)? No PATIENT GENDER DATA: Male PATIENT RELEVANT IMPLANT DATA REVIEWED: Yes RADIOLOGY DEPARTMENT: MR; Exam(s) Completed: Head: Routine Brain Spine: Cervical spine PERIPHERAL IV DATA: Not applicable SIGNED BY: RT Rico(R) February 19, 2021 2:08 [facility]11-19-2021 NoteHNO ID: [id number] Author: Gay Rojas MD Service: ? Author Type: Physician Type: Progress Notes Filed: 02/01/2021 9:06 AM Note Text: Neurology Clinic - February 01, 2021 Reason for visit: Mr. Stockton is referred by Elier Raymundo for my opinion regarding neuropathy. My final recommendation will be communicated back to the requesting physician by way of shared medical record or letter. HISTORY OF PRESENT ILLNESS: Patient is a 75 year old, right-handed, White, male with history of BPH, melanoma, cervical spondylosis, chronic pancreatitis, DVT (on Eliquis), hypertension, lumbar spinal stenosis s/p L3-5 decompression with foraminotomy?(Oct 2017), hyperlipidemia, idiopathic neuropathy, thrombocytosis. History gathered from patient and electronic medical records. He was followed by Dr. Alvarez from [id number], last seen on 06/02/17: IMPRESSION: 71 year old right handed male with a past medical history of hypertension, EtOH dependence, chronic pancreatitis likely secondary to alcohol use and a length dependent sensorimotor polyneuropathy possibly be due to his remote history of chronic alcohol use presents with lower back and hip pain that is further limiting his gait. Symptoms occur after ambulating and improve with rest and holding onto a shopping cart. MRI of the lumbar spine demonstrates severe L4-L5 canal stenosis. EMG is suggestive of bilateral L5-S1 radiculopathy. His neurological exam is essentially stable except for increased bilateral hip flexion weakness. Based on his exam changes and recent work up, there is concern for lumbar spinal stenosis with neurogenic claudication. Physical therapy has not improved his symptoms. At this point, the patient would need an evaluation by spine surgery for possible intervention. PLAN: 1. Consult to Neurosurgery/Orthopedics for surgical evaluation of spinal stenosis. Discussed in detail with the patient and he is interested in pursuing possible interventions. 2. Discussed fall prevention in detail. 3. No further work up required for polyneuropathy. Currently, it remains stable. 4. Follow up as needed He is accompanied by . Patient reports that he has feet symptoms at least 50 years ago, he describes this as an intermittent numbness/tinging in the feet but was not bothersome or limiting his activities. Thirty years ago, he noticed balance issues and feet weakness. At least 20 years ago, he had back pain, saw surgeon; did not recommend surgery. He saw neurology 15-20 years ago locally, diagnosed with neuropathy. He established with Dr. Alvarez in 2017 for balance issues, EMG(Dec 2016) showed no PN but revealed lumbar radiculopathy. MRI(Sep 2018) of the lumbar spine demonstrates severe L4-L5 canal stenosis. During his last visit in 2018, he was noted to have more hip flexor weakness which was felt to be be related to spinal stenosis hence referred to neurosurgery. He had L3-5 decompression with foraminotomy(Dr. Valdes)?in Oct 2017. Surgery helped with low back pain but has persistence of balance issues. He had PT then but has not been compliant. He saw PCP for annual exam, sent to hematology for thrombocytosis - reassured it was normal for someone without a spleen. He has chronic pancreatitis , had distal pancreatectomy, splenectomy(Apr 2014). But referred to neurology for balance, also has issues with speech. 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 No known exposure to heavy metals or toxins, no chemotherapeutic agents. Blood work (Nov 2016) showed HBA1C of 5.8, B12/MMA of 521/144, normal B1. PAST MEDICAL HISTORY Diagnosis Date - Benign prostatic hyperplasia - Cancer (HCC) over 20 years ago Melanoma - Cervical spondylosis - Chronic pancreatitis (HCC) - DVT (deep venous thrombosis) (HCC) - Hypertension - Lumbar spondylosis - Mixed hyperlipidemia - Peripheral neuropathy, idiopathic - Thrombocytosis PAST SURGICAL HISTORY Procedure Laterality Date - INGUINAL HERNIA REPAIR HX - PANCREATECTOMY,DISTAL+PRESERV DUOD 04/2014 lap converted to open distal pancreatectomy and splenectomy - ROTATOR CUFF REPAIR - SPLENECTOMY,GASTROESOPHAGEAL DEVASCULARIZA 04/2014 lap converted to open distal pancreatectomy and splenectom MEDICATIONS: Current Outpatient Medications Medication Si (more content not included)...[facility]11-04-2021 NoteHNO ID: [id number] Author: Elier Raymundo MD Service: ? Author Type: Physician Type: Progress Notes Filed: 01/17/2021 2:28 PM Note Text: HEMATOLOGY FOLLOW UP Elements in this clinic note that are critical to medical decision making have been carefully reviewed and included from my prior clinic note dated: January 07, 2021 January 17, 2021 PCP and other physicians involved in patient's care: Matt Wang (PCP) REASON FOR CONSULTATION: Thrombocytosis HEMATOLOGICAL HISTORY: ? Thrombocytosis from 450-650,000 dating back to 2014 (prior records unavailable), normal WBCs with mild elevations in monocytes and eosinophils, normal hemoglobin; splenectomy in April 2014 ? May 29, 2020 CT chest with moderate bilateral lobar, segmental and subsegmental pulmonary emboli with evidence of right ventricular strain; DVT study with occlusive DVT in the left common femoral vein extending to the popliteal vein; right lower extremity veins are widely patent. No propagating event noted. No family history of VTE. ? January 08, 2021 D-dimer normal. Platelet count 182321. WBC normal with differential showing absolute monocytosis, absolute eosinophilia and absolute basophilia. Hemoglobin normal. No M protein on serum immunofixation. INTERVAL HISTORY: Patient comes back for follow-up. He is here with his , Maggie. He reports no new symptoms. He is here to discuss test results. ROS is negative except that mentioned in HPI PAST MEDICAL SURGICAL FAMILY AND SOCIAL HISTORY: He has a history of -Acute DVT, left femoral vein extending into the popliteal vein and multiple subsegmental PE with mild RV dilatation, May 2020 (tested negative for COVID-19 at that time), on apixaban, unprovoked -Hypertension -Peripheral neuropathy of unclear etiology -Benign prostatic hyperplasia -Cervical and lumbar spondylosis -Chronic pancreatitis, secondary to chronic alcohol abuse, status post distal pancreatectomy and splenectomy Prior surgeries include herniorrhaphy, distal pancreatectomy and splenectomy (April 2014), lumbar laminectomies and foraminotomies. Family history not significant for hematological or oncologic issues. He has a significant history of excessive alcohol abuse use for 40 years before quitting in 2014. He has 3 children who are healthy. MEDICATIONS AND ALLERGIES: Reviewed PHYSICAL EXAM BP 144/69 Pulse (!) 53 Temp 36.6 ?C (97.9 ?F) (Temporal) Resp 18 Ht 176.5 cm (5' 9.5 ) Wt 82.8 kg (182 lb 9.6 oz) SpO2 98% BMI 26.58 kg/m? Head atraumatic, no pallor, icterus or lymphadenopathy, lungs clear to auscultation, heart sounds regular, abdomen soft without distension or organomegaly, neuro grossly non-focal, skin without rash, extremities without swelling LABORATORY, IMAGING AND PATHOLOGY 11-06-20 CBC with WBC 7.7 (ANC 3.2, ALC 2.4, AMC 1.1, ABC 0.1, AEC 0.8, hemoglobin 15.8, platelets 470 01-07-21 CBC with WBC 7.6 (ANC 2.5, ALC 2.7, AMC 1.2, AEC 0.8, ABC 0.1), hemoglobin 16.4 platelets 516, no M protein, D-dimer normal ASSESSMENT AND RECOMMENDATIONS 75 male with thrombocytosis and history of DVT/PE ? Thrombocytosis: The most likely reason for thrombocytosis in the patients's case is history of splenectomy. Mild elevation in myeloid lineages are expected as a result of splenectomy. Given the stability and chronicity of elevated counts, no further intervention is necessary at this point. Continue to monitor counts periodically. Should the patient have new anemia, neutropenia or a rising platelet count, additional work-up could be considered. Follow-up in 6 months with labs. ? 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 Risk factors for recurrent thrombotic event would include patient's history of splenectomy. Patient is at high risk for recurrence of VTE and has a low risk for bleeding events. The general recommendation is indefinite anticoagulation, but this is controversial, as not all patients seem to benefit or need indefinite anticoagulation. D-dimer at last visit was negative. I discussed with him the following 3 options ? continuing indefinite lifelong anticoagulation, half dose anticoagulation and a trial of holding anticoagulation. With the last option, thrombophilia work-up could be considered. Pros and cons of all options were discussed with him in detail. He will continue with apixaban 5 mg twice daily for now. Follow-up in 6 months. ? 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 This has slowly progressed over the last 1 to 2 years resulting in falls. He has no sensorimotor deficit on exam except for decreased hearing in both ears and some tingling in his feet. B12, TSH, B1 and M protein evaluation are normal. I do not see brain MRI in the system. Referral to neurology provided. Kyle (more content not included)...[facility]10-26-2021 Note HNO ID: [id number] Author: Elier Raymundo MD Service: ? Author Type: Physician Type: Progress Notes Filed: 01/08/2021 12:57 PM Note Text: HEMATOLOGY INITIAL CONSULTATION January 07, 2021 REFERRAL REQUESTED BY: Matt Wang PCP and other physicians involved in patient's care: Matt Wang (PCP) REASON FOR CONSULTATION: Thrombocytosis HEMATOLOGICAL HISTORY: ? Thrombocytosis from 450-650,000 dating back to 2014 (prior records unavailable), normal WBCs with mild elevations in monocytes and eosinophils, normal hemoglobin; splenectomy in April 2014 ? 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 He has been referred to the clinic for evaluation of the elevated platelet count and to opine on whether further testing for VTE is warranted. Today, patient endorses that his main symptom affecting the quality of his life remains his longstanding peripheral neuropathy and balance issues. He has had these issues for the last 40 years. He has seen neurology and neurosurgery in the past. No clear etiology has been demonstrated. 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 He says that slow speech might be something that was evident in his father as well. He denies any strokes, chronic heart or lung conditions, family history of malignancy or blood related disorders, chronic kidney disease. Thrombocytosis dates back to 2014. Platelet counts have ranged in the 400-500s range and stable. CBC shows some evidence of monocytosis, eosinophilia and basophilia. Combined WBC and hemoglobin are normal. No evidence of GI bleeding. No chronic inflammatory disorder. Family history not significant for platelet issues. DVT/PE event was noted in May 2020 and apparently without any provocation. He does not recall if he had COVID-19 symptoms at that point. He does have difficulty ambulation from his neurological issues, but does not recall prolonged immobilization or a fall prior to this episode. No history of travel. No family history of blood clots. He has 3 children who are healthy. ROS is negative except that mentioned in HPI PAST MEDICAL SURGICAL FAMILY AND SOCIAL HISTORY: He has a history of -Acute DVT, left femoral vein extending into the popliteal vein and multiple subsegmental PE with mild RV dilatation, May 2020 (tested negative for COVID-19 at that time), on apixaban -Hypertension -Peripheral neuropathy of unclear etiology -Benign prostatic hyperplasia -Cervical and lumbar spondylosis -Chronic pancreatitis, secondary to chronic alcohol abuse, status post distal pancreatectomy and splenectomy Prior surgeries include herniorrhaphy, distal pancreatectomy and splenectomy (April 2014), lumbar laminectomies and foraminotomies. Family history not significant for hematological or oncologic issues. He has a significant history of excessive alcohol abuse use for 40 years before quitting in 2014. He has 3 children who are healthy. MEDICATIONS AND ALLERGIES: Reviewed PHYSICAL EXAM BP 145/77 Pulse (!) 52 Temp 36.6 ?C (97.8 ?F) (Temporal) Resp 16 Ht 177.5 cm (5' 9.88 ) Wt 81.9 kg (180 lb 9.6 oz) SpO2 97% BMI 26.00 kg/m? Head atraumatic, no pallor, icterus or lymphadenopathy, lungs clear to auscultation, heart sounds regular, abdomen soft without distension or organomegaly, neuro grossly non-focal, skin without rash, extremities without swelling LABORATORY, IMAGING AND PATHOLOGY 11-06-20 CBC with WBC 7.7 (ANC 3.2, ALC 2.4, AMC 1.1, ABC 0.1, AEC 0.8, hemoglobin 15.8, platelets 470 01-08-21 CBC with WBC 7.6 (ANC 2.5, ALC 2.7, AMC 1.2, AEC 0.8, ABC 0.1), hemoglobin 16.4 platelets 516 ASSESSMENT AND RECOMMENDATIONS 75 male with thrombocytosis and history of DVT/PE ? Thrombocytosis: The most likely reason for thrombocytosis in the patients's case is history of splenectomy. Mild elevation in myeloid lineages are expected as a result of splenectomy. Given the stability and chronicity of elevated counts, no further intervention is necessary at this point. Continue to monitor counts periodically. Should the patient have new anemia, neutropenia or a rising platelet count, additional tests could be considered. ? 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 Patient is at high risk for recurrence (more content not included)...[facility]02-23-2015 History general Narrative - Reported* Type Description Date Medical History Hyperlipemia, mixed Medical History Essential hypertension Surgical History hernia repair Surgical History PANCREATOMY 05-08-14 Hospitalization History see surgical history Stellar Other Evaluation note* Diagnosis Acute deep vein thrombosis (DVT) of femoral vein of left lower extremity (HCC)- Primary Thrombocytosis [facility] Acute deep vein thrombosis (DVT) of femoral vein of left lower extremity (HCC)- Primary Thrombocytosis after splenectomy documented in this [facility] Summary Purpose Family History No Family History Records FoundNo Family History Records FoundNo Family History Records FoundNo Family History Records FoundNo Family History Records FoundNo Family History Records FoundNo Family History Records Found Advance Directives No Advanced Directives Records FoundDocuments on File Type Date 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 Advance Directive(s) 10/14/2017 12:47 PM Additional Source Comments (unrecognized sect ion and content) No Status Records FoundNo Status Records FoundNo Status Records FoundNo Status Records FoundNo Status Records FoundNo Status Records FoundNo Status Records Found INFORMATION SOURCE (unrecogn ized section and content) DATE CREATED AUTHOR 10/27/2017 [facility] DATE CREATED AUTHOR AUTHOR'S ORGANIZ ATION 02/25/2018 [facility] DATE CREATED AUTHOR AUTHOR'S ORGANIZ ATION 10/08/2018 [facility] DATE CREATED AUTHOR AUTHOR'S ORGANIZ ATION 11/26/2018 [facility] DATE CREATED AUTHOR AUTHOR'S ORGANIZ ATION 07/19/2021 [facility] DATE CREATED AUTHOR AUTHOR'S ORGANIZ ATION 06/28/2022 [facility] DATE CREATED AUTHOR AUTHOR'S ORGANIZ ATION 07/24/2023 [facility] Source Comments (unrecognize d section and content) In the event this informatio n is protected by the Federal Confidentiality of Alcohol and Drug Abuse Patient Records regulations: The Federal rules restrict any use of the information to criminally investigate or prosecute any alcohol or drug abuse patient.[facility] the event this information is protected by the Federal Confidentiality of Alcohol and Drug Abuse Patient Records regulations: The Federal rules restrict any use of the information to criminally investigate or prosecute any alcohol or drug abuse patient.[facility] Reason for Visit (unrecogniz ed section and content) Reason Comments Lab Orders Reason Comments Outpatient Dvt Tx Care Teams (unrecognized sec tion and content) 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 This clinical summary was aggregated from multiple sources. Caution should be exercised in using it in the provision of clinical care. This summary normalizes information from multiple sources, and as a consequence, information in this document may materially change the coding, format and clinical context of patient data. In addition, data may be omitted in some cases. CLINICAL DECISIONS SHOULD BE BASED ON THE PRIMARY CLINICAL RECORDS. [facility] [employer] [facility]. provides no warranty or guarantee of the accuracy or completeness of information in this document.
--- NOTE | 2023-08-26 10:28 | CA_ITS ---
Patient Name: MEERA RAE MR#: [id number] : 1945 Exam Date: 08/26/2023 Ordering Doctor: DR GAMAL KRUEGER M.D. ECHOCARDIOGRAM REPORT PROCEDURE: CA ECHO DOPPLER COMPLETE INDICATIONS: Valvular disease, Dyspnea COMPARISON: None. DESCRIPTION: COMPLETE ECHOCARDIOGRAM Real-time transthoracic echocardiography with 2D, M-mode, spectral and color flow Doppler performed. QUALITY: Technical quality was good. LEFT VENTRICLE: Normal chamber size. Thickened septal wall. Global left ventricular systolic function is normal. LV EF: Visual estimation of left ventricular ejection fraction is 55-60%. DIASTOLIC: Normal diastolic function. ATRIAL SEPTUM: LEFT ATRIUM: Normal chamber size. RIGHT ATRIUM: Mild dilatation. RIGHT VENTRICLE: Normal chamber size. Normal right ventricular systolic function. TRICUSPID VALVE: Normal mobility and thickness. No stenosis with mild to moderate regurgitation. Mild pulmonary hypertension. RVSP 37 mmHg MITRAL VALVE: Mildly thickened with normal mobility. No evidence of mitral valve stenosis. There is no mitral annular calcification. No mitral regurgitation. AORTIC VALVE: Normal trileaflet appearance. No visible sclerosis. Normal leaflet mobility. No evidence of aortic valve stenosis. No aortic regurgitation. AORTIC ROOT: Normal diameter and appearance. PULMONIC VALVE: Normal thickness and mobility. No stenosis. Trivial regurgitation. PERICARDIUM: No evidence of pericardial effusion. IVC: Collapses with inspirations. Normal size. PLEURA: CONCLUSION: 1. Left ventricle is normal in size and exhibits normal systolic function. LVEF is 55 to 60%. 2. Normal right ventricular size and systolic function. 3. Mild to moderate tricuspid regurgitation. 4. Normal diastolic function. 5. Mildly elevated right-sided pressures. Adult Echocardiography Procedure Report Left Ventricle LVEDD (3.7 - 5.6 cm): 5.26 cm LVESD (2.2 - 4.0 cm): 3.55 cm LVIVS thickness (0.6 - 1.2 cm): 1.33 cm LVPW thickness (0.5 - 1.0 cm): 0.84 cm e': 0.14 m/s E - e': 4.85 LVOT Max Gradient: 5.45 mm[Hg] LVOT Area (cm2): 1.17 m/s Peak Velocity (LVOT): 1.17 m/s Mean Velocity (LVOT): 0.75 m/s LVOT Diameter 2.09 cm Left Atrium Left Atrium Systolic Dimension: 3.40 cm Mitral Valve MV E to A Ratio: 1.30 Mitral Valve A-Wave Peak Velocity: 0.51 m/s Mitral Valve E-Wave Peak Velocity: 0.66 m/s Right Ventricle Aorta AO Root Diam: 3.44 cm Ascending Ao Diam: 3.20 cm Aortic Valve AoV Area (Peak Daniel): 3.23 cm2, 3.23 cm2 AoV Area (VTI): 3.43 cm2, 3.43 cm2 Peak Velocity(Antegrade Flow): 1.24 m/s Peak Gradient(Antegrade Flow): 6.20 mm[Hg] Mean Velocity(Antegrade Flow): 0.79 m/s Mean Gradient(Antegrade Flow): 2.84 mm[Hg] Velocity Time Integral: 30.78 cm Tricuspid Valve Peak Velocity (Regurgitant Flow): 2.85 m/s, 2.87 m/s, 2.92 m/s Pulmonic Valve Mean Gradient: 1.89 mm[Hg], 1.98 mm[Hg] Mean Velocity: 0.62 m/s, 0.66 m/s Peak Velocity: 0.95 m/s Peak Gradient: 3.81 mm[Hg], 3.48 mm[Hg] Right Atrium Dictated by: Gamal Krueger M.D. on 08/26/2023 at 18:33 Approved by: Gamal Krueger M.D. on 08/26/2023 at 18:37
[2023-08-26 11:21] LABS: Anion Gap 14.5; BUN Creatinine Ratio 21.7; Calcium 9.9 mg/dL (8.5-10.1); Carbon Dioxide 27.8 mmol/L (21.0-32.0); Chloride 104 mmol/L (98-107); Estimated GFR (African America >60 (>=60); Estimated GFR (Non-African Ame >60 (>=60); Glucose 119 mg/dL (74-106); Potassium 4.3 mmol/L (3.5-5.1); Sodium 142 mmol/L (136-145)
== END 2023-08-26 09:12 | disposition home or self-care (01) ==
PROVIDERS: PCP Internal Medicine; Visit Provider Internal Medicine Interventional Cardiology
DX: I36.1 Nonrheumatic tricuspid (valve) insufficiency (principal); Z86.711 Personal history of pulmonary embolism; I27.20 Pulmonary hypertension, unspecified; I11.0 Hypertensive heart disease with heart failure
CPT/HCPCS: 36415; 80048; 93306

== ENCOUNTER 2023-10-15 09:09 | Outpatient (OUT) | payer MEDICARE, OTHER, SELFPAY ==
--- OUTSIDE RECORDS SUMMARY | 2023-10-15 09:19 | XMS_ITS | CCD ---
Author Organization [facility] Care Team Providers Care Masseur/Masseuse Name Role Phone JOSE RAUL VALDES () Unavailable Un available KEISHA, GANDHIVARMA () Unavailable Un available KEISHA, GANDHIVARMA () Unavailable Un available KEISHA, GANDHIVARMJose () Unavailable Un available KEISHAJOSE RAUL PNAIAGUA () Unavailable Un available KEISHA, GANDHIVARMA () Unavailable Un available KEISHA, GANDHIVARMA Unavailable Unavail able KEISHA, GANDHIVARMA Unavailable Unavail able Matt Wang Unavailable Matt Coreas DO Primary Care Provider DR MATT WANG Primary Care Unavailable JOSÉ Hurtado, ELZA Admitting Unavailable JOSÉ Hurtado, ELZA Attending Unavailable MURTAZA, DR PRIYANKA [place] Consulting Unavailable JOSÉ Hurtado, ELZA Consulting Unavailable FELIPE, DR GUTIERREZ Admitting Unavailable FELIPE, DR GUTIERREZ Attending Unavailable FELIPE, DR GUTIERREZ Primary Care Unavailable FELIPE, DR GUTIERREZ Consulting Unavailable MARICRUZ PIMENTEL Admitting Unavailable MARICRUZ PIMENTEL Attending Unavailable FELIPE, DR GUTIERREZ Primary Care Unavailable MARICRUZ PIMENTEL Consulting Unavailable Matt Wang Unavailable GAMAL KRUEGER Attending Unavailable Allergies Allergy Classification Reported Allergen(s) Allergy Type Date of Onset Reaction(s) Facility (1 source) Simvastatin Drug Allergy Unknown General Cybernetics Other Medications Current Medications Medication Drug Class(es) Dates Sig (Normalized) Sig (Original) amLODIPine 5 mg oral tablet (4 sources) Dihydropyridine Calcium Channel Lizzie Start: 10-09-2023 take 5 mg by mouth once daily Amlodipine Active 5 MG PO Daily October 09, 2023 12:00am Start: 2020 amLODIPine (NO RVASC) 10 mg tablet Start: 11-30-2020 take 1 tablet by isa th once daily amLODIPine Besylate 5 MG amLODIPine Besylate 5MG, 1 (one) Tablet Tablet daily # 90, 11/30/2020, Ref. x3. Active Oral daily for 0 Nov, Active apixaban 5 mg oral tablet (4 sources) Factor Xa Inhibitor Start: 10-09-2023 take 5 mg by mouth twice daily Apixaban Active 5 MG PO Twice daily October 09, 2023 12:00am Start: 2021 take 1 tablet by isa th every twelve hours Eliquis 5 MG 1 tablet Orally Twice a day for 0 days Dec, Active Start: 2020 take 1 tablet by isa th twice daily ELIQUIS 5 mg tab(s) Take 5 mg by mouth twice daily. 0 2020 Active Comment on above: Take 5 mg by mouth t wice daily. fenofibrate 160 mg oral tablet (5 sources) Peroxisome Proliferator Receptor alpha Agonist Start: take 160 mg by mouth once daily Fenofibrate Active 160 MG PO Daily October 09, 2023 12:00am Start: 03-11-2022 take 1 tablet by isa th every twenty-four hours Fenofibrate 160 MG 1 tablet Orally Once a day for 90 days Feb, Active Comment on above: Take 160 mg by mouth once daily. furosemide 20 mg oral tablet (5 sources) Loop Diuretic Start: 10-09-2023 take 40 mg by mouth once daily Furosemide Active 40 MG PO Daily October 09, 2023 10:28am Start: 10-09-2023 End: 10-09-2023 take 20 mg by mouth once daily Furosemide Discontinued 20 MG PO Daily October 09, 2023 12:00am October 09, 2023 10:28am Start: 2021 take 1 tablet by isa th every twenty-four hours Furosemide 20 MG 1 tablet Orally Once a day for 0 days Dec, Active Start: 12-25-2020 furosemide (LA SIX) 20 mg tablet every 48 hours. 0 12/25/2020 Active Comment on above: every 48 hours. lisinopril 5 mg oral tablet (2 sources) Angiotensin Converting Enzyme Inhibitor Start: 10-09-2023 take 2.5 mg by mouth once daily Lisinopril Active 2.5 MG PO Daily October 09, 2023 12:00am take 0.5 tablet by m outh every twenty-four hours Lisinopril 5 MG 0.5 tablet Orally Once a day for 30 day(s) Active losartan potassium 100 mg oral tablet (7 sources) Angiotensin 2 Receptor Lizzie Start: 06-11-2023 End: 09-08-2023 take 1 tablet by mouth once daily Losartan Active 0 .ROUTE .COMPLEX 90 September 08, 2023 6:30pm Take 1 tablet by mouth once daily Start: 06-11-2023 End: 06-11-2023 take 100 mg by mouth once daily Losartan Discontinued 100 MG PO Daily June 11, 2023 12:00am June 11, 2023 12:14pm Start: 10-15-2017 take 1 tablet by isa th every twenty-four hours Losartan Potassium 100 MG 1 tablet Orally Once a day for 0 days Aug, Active Comment on above: Take 1 tablet by isa th once daily. omeprazole 20 mg delayed release oral tablet (1 source) Proton Pump Inhibitor take 1 tablet by mouth every twenty-four hours PriLOSEC OTC 20 MG 1 tablet Orally Once a day for 30 day(s) Active Omeprazole Magnesium (Prilosec Otc) 20 mg tablet,delayed release (DR/EC) (1 source) Start: 10-09-2023 take 1 tablet by mouth once daily Omeprazole Magnesium (Prilosec Otc) 20 mg tablet,delayed release (DR/EC) Active 1 TAB PO Daily October 09, 2023 12:00am FreeTextSi tablet Orally Once a day; Note: Source Status: Taking; Provider: Felipe Gutierrez ( ) paxlovid (300/100) 20 x 150 mg & 10 x 100mg tablet therapy pack (1 source) Start: 03-17-2023 Paxlovid (300/100) 20 x 150 MG & 10 x 100MG as directed Orally bid for 5 days Mar, Active POLYETHYLENE GLYCOL 3350 (1 source) Osmotic Laxative MiraLax as dire cted Orally Active Completed/Discontinued Medications Medication Drug Class(es) Dates Sig (Normalized) Sig (Original) Acetaminophen / HYDROcodone (1 source) Opioid Agonist HYDROcodone-Acet am inophen Not-Taking/PRN Amitriptyline (1 source) Tricyclic Antidepressant Amitriptyline HCl Not-Taking/PRN ascorbic acid 1000 mg oral tablet (2 sources) Vitamin C take 1 tablet by mouth once daily Ascorbic Acid (VITAMIN C) 1,000 mg tablet Take 1,000 mg by mouth once daily. 0 Active Comment on above: Take 1,000 mg by isa th once daily. chlordiazePOXIDE / clidinium (1 source) Anticholinergic, Benzodiazepine Start: 05-25-2014 take 1 capsule by mouth twice daily before mealtime Librax 2.5-5 MG 1 capsule before meals Orally Twice a day for 30 day(s) May, Not-Taking/PRN Creon 45426 UNIT (1 source) Start: 12-13-2013 take 2 tablets by mouth three times daily at mealtime Creon 99181 UNIT 2 TABS Orally TID WITH MEALS for 30 day(s) Nov, Not-Taking/PRN docusate sodium 50 mg / sennosides, assisted 8.6 mg oral tablet (1 source) Start: 07-20-2014 Senokot S 8.6-50 MG 2 p.o. Once a day for 30 day(s) July, Not-Taking/PRN Bzknk-0-AAB-EPA-Fish Oil (FISH OIL) 1,000 mg (120 mg-180 mg) cap (2 sources) take 1 capsule by mouth once daily Iwxmp-9-JEY-EPA-Fi sh Oil (FISH OIL) 1,000 mg (120 mg-180 mg) cap Take 2 g by mouth once daily. When stinks about it.. 0 Active Comment on above: Take 2 g by mouth on ce daily. When stinks about it.. Pancrelipase (1 source) Pancrelipase Not-Taking/PRN Suprep Bowel Prep - (1 source) Start: 06-26-2016 Suprep Bowel Prep - 1 AT NOON AND 1 AT 8 PM DAY PRIOR TO COLONOSCOPY Orally Twice a day for 1 day(s) Jun, Not-Taking/PRN Problems Active Problems Problem Classification Problem Date Documented Da te Episodic/Chronic Disorders of lipid metabolism (6 sources) Hyperlipidemia, unspecified; Translations: [Mixed hyperlipidemia] Onset: 10-04-2021 Chronic Essential hypertension (8 sources) Essential (primary) hypertension; Translations: [Essential hypertension] Onset: 01-20-2022 Chronic Heart valve disorders (2 sources) Nonrheumatic tricuspid (valve) insufficiency; Translations: [Nonrheumatic tricuspid (valve) insufficiency] Onset: 07-22-2023 Chronic Hepatitis (1 source) Hepatitis Onset: 06-16-2017 Hyperplasia of prostate (2 sources) Benign prostatic hyperplasia; Translations: [Benign prostatic hyperplasia with lower urinary tract symptoms] 10-07-2023 Chronic Neoplasms of unspecified nature or uncertain behavior (2 sources) Post-splenectomy thrombocytosis; Translations: [Thrombocytosis after splenectomy] Episodic Other nervous system disorders (2 sources) Idiopathic progressive polyneuropathy; Translations: [Idiopathic progressive neuropathy] Onset: 03-06-2017 03-06-2017 Chronic Other nervous system disorders (1 source) Hereditary and idiopathic neuropathy, unspecified; Translations: [HEREDITARY IDIOPATH NEUROPATHY UNS] Onset: 01-20-2022 Chronic Other nervous system disorders (1 source) Peripheral nerve disease ; Translations: [Polyneuropathy, unspecified] 10-07-2023 Chronic Other nervous system disorders (1 source) Polyneuropathy, unspecified; Translations: [Unspecified hereditary and idiopathic peripheral neuropathy] 10-09-2023 Chronic Other screening for suspected conditions (not mental disorders or infectious disease) (2 sources) Encounter for screening for malignant neoplasm of prostate; Translations: [Screening for malignant neoplasms of prostate] Onset: 01-20-2022 10-09-2023 Episodic Pancreatic disorders (not diabetes) (2 sources) Chronic pancreatitis; Translations: [Other chronic pancreatitis] Onset: 04-18-2014 04-18-2014 Chronic Phlebitis; thrombophlebitis and thromboembolism (4 sources) Acute deep venous thrombosis of left femoral vein; Translations: [Acute embolism and thrombosis of left femoral vein] Onset: 01-03-2022 Episodic Pulmonary heart disease (3 sources) Pulmonary hypertension, unspecified; Translations: [Pulmonary hypertension] Onset: 06-18-2022 Chronic Pulmonary heart disease (5 sources) Personal history of pulmonary embolism; Translations: [H/O: pulmonary embolus] Onset: 10-04-2021 Episodic Residual codes; unclassified (2 [...] Onset: 10-04-2021 Episodic Other aftercare (1 source) penitentiary (current) use of anticoagulants; Translations: [TRUST CLERK CURRNT USE ANTICOAGULANTS] Onset: 10-04-2021 Episodic Other aftercare (1 source) Other long chain quiller tender (current) drug therapy; Translations: [OTH TRUST CLERK CURRENT DRUG THERAPY] Onset: 10-04-2021 Episodic Other fractures (1 source) Multiple fractures of ribs, right side, initial encounter for closed fracture; Translations: [MX FX RIBS RT SIDE INITIAL CLOS FX] Onset: 10-04-2021 Episodic Spondylosis; intervertebral disc disorders; other back problems (8 sources) Lumbosacral radiculopathy; Translations: [Radiculopathy, lumbosacral region] Onset: 03-06-2017 03-06-2017 Episodic Viral infection (1 source) COVID-19 Results Test Name Value Interpretation Reference Range Facility Estimated glomerular filtrat ion rate (GFR) non- Americanon 08-26-2023 GFR/1.73 sq M.predicted among non-blacks MDRD (S/P/Bld) [Vol rate/Area] mL/min/{1.73_m2} >=60 [facility] Laboratory - Chemistry and C hemistry - challengeon 08-26-2023 Calcium [Mass/Vol] 9.9 mg/dL 8.5-10.1 [facility] Chloride [Moles/Vol] 104 mmol/L 98-107 [facility] CO2 [Moles/Vol] 27.8 mmol/L 21.0-32.0 [facility] Creatinine [Mass/Vol] 0.92 mg/dL 0.70-1.30 [facility] GFR/1.73 sq M.predicted MDRD (S/P/Bld) [Vol rate/Area] mL/min/{1.73_m2} >=60 [facility] Glucose [Mass/Vol] 119 mg/dL High 74-106 [facility] Potassium [Moles/Vol] 4.3 mmol/L 3.5-5.1 [facility] Sodium [Moles/Vol] 142 mmol/L 136-145 [facility] Urea nitrogen [Mass/Vol] 20.0 mg/dL High 7.0-18.0 [facility] Urea nitrogen/Creatinin e [Mass ratio] 21.7 mg/mg [facility] Serum or plasma anion gap de terminationon 08-26-2023 Anion gap [Moles/Vol] 14.5 mmol/L [facility] Estimated glomerular filtrat ion rate (GFR) non- Americanon 07-24-2023 GFR/1.73 sq M.predicted among non-blacks MDRD (S/P/Bld) [Vol rate/Area] mL/min/{1.73_m2} >=60 [facility] Laboratory - Chemistry and C hemistry - challengeon 07-24-2023 Calcium [Mass/Vol] 10.3 mg/dL High 8.5-10.1 [facility] Chloride [Moles/Vol] 104 mmol/L 98-107 [facility] CO2 [Moles/Vol] 26.9 mmol/L 21.0-32.0 [facility] Creatinine [Mass/Vol] 0.87 mg/dL 0.70-1.30 [facility] GFR/1.73 sq M.predicted MDRD (S/P/Bld) [Vol rate/Area] mL/min/{1.73_m2} >=60 [facility] Glucose [Mass/Vol] 109 mg/dL High 74-106 [facility] Potassium [Moles/Vol] 4.0 mmol/L 3.5-5.1 [facility] Sodium [Moles/Vol] 141 mmol/L 136-145 [facility] Urea nitrogen [Mass/Vol] 17.0 mg/dL 7.0-18.0 [facility] Urea nitrogen/Creatinin e [Mass ratio] 19.5 mg/mg [facility] Serum or plasma anion gap de terminationon 07-24-2023 Anion gap [Moles/Vol] 14.1 mmol/L [facility] Office Visiton 07-22-2023 Follow-up visit [id number] Meera Stockton 1945 M Date Provider Department Center 07/22/2023 [facility] [place] [facility] Family History Problem Relation Age of Onset Brain Aneurysm Mother Heart attack Brother Family Status - Relation Status Age at Mother Brother Level of Service:14980 RI OFFICE/OUTPATIENT ESTABLISHED MOD MDM 30 MIN Normal [facility] ECHOCARDIO M/2D COMPLETEon 0 06-25-2022 ECHOCARDIO M/2D COMPLETE Patient: MEERA STOCKTON. Exam Date: 06/25/2022 : 1945 Gender:M Ordering : MARICRUZ PIMENTEL [facility] Admission #: [id number] Family : Order #: [id number] CLICK HERE TO VIEW EXAM ECHOCARDIOGRAM REPORT [...] 3.33 cm Aortic Valve AoV Area (Peak Daniel): 3.46 cm2, 3.46 cm2 AoV Area (VTI): [...] M.D. on 06/27/2022 at 19:32 Normal [facility] CBC AUTO DIFFon 01-16-2022 BASO # 0.1 103/ul Normal 0.0-0.1 [facility] Comment on above: Performed By: #### C BC #### [facility] [address] [address] [address] Shawn Shahid Basophils/100 WBC (Bld) 1.8 % Normal 0.2-2.0 [facility] Comment on above: Performed By: #### C BC #### [facility] [address] [address] [address] Shawn Shahid EO # 0.8 103/ul Critically high 0.0-0.7 [facility] Comment on above: Performed By: #### C BC #### [facility] [address] [address] [address] Shawn Shahid Eosinophils/100 WBC (Bld) 10.9 % Critically high 0.9-7.0 [facility] Comment on above: Performed By: #### C BC #### [facility] [address] [address] [address] Shawn Shahid Erythrocyte distribution width (RBC) [Ratio] 14.7 % Normal 11.0-15.0 [facility] Comment on above: Performed By: #### C BC #### [facility] [address] [address] [address] Shawn Shahid Hematocrit (Bld) [Volume fraction] 47.7 % Normal 42.0-54.0 [facility] Comment on above: Performed By: #### C BC #### [facility] [address] [address] [address] Shawn Shahid Hemoglobin (Bld) [Mass/Vol] 15.9 g/dL Normal 14.0-18.0 [facility] Comment on above: Performed By: #### C BC #### [facility] [address] [place] [address] Dr. Shawn Shahid IG # 0.02 10e3/ul Normal 0.00-0.03 [facility] Comment on above: Performed By: #### C BC #### [facility] [address] [place] [address] Dr. Shawn Shahid IG % 0.3 % Normal 0.0-0.5 [facility] Comment on above: Performed By: #### C BC #### [facility] [address] [place] [address] Dr. Shawn Shahid LYMPH # 2.7 103/ul Normal 1.2-3.8 [facility] Comment on above: Performed By: #### C BC #### [facility] [address] [place] [address] Dr. Shawn Shahid Lymphocytes/100 WBC (Bld) 37.7 % Normal 20.5-60.0 [facility] Comment on above: Performed By: #### C BC #### [facility] [address] [place] [address] Dr. Shawn Shahid MANUAL DIFF REQ NO Normal [facility] Comment on above: Performed By: #### C BC #### [facility] [address] [place] [address] Dr. Shawn Shahid MCH (RBC) [Entitic mass] 32.5 pg Normal 25.9-34.0 [facility] Comment on above: Performed By: #### C BC #### [facility] [address] [place] [address] Dr. Shawn Shahid MCHC (RBC) [Mass/Vol] 33.3 g/dL Normal 29.9-35.2 [facility] Comment on above: Performed By: #### C BC #### [facility] [address] [place] [address] Dr. Shawn Shahid MCV (RBC) [Entitic vol] 97.5 fL Critically high 80.0-94.0 [facility] Comment on above: Performed By: #### C BC #### [facility] [address] [address] [address] Shawn Shahid MONO # 1.0 103/ul Critically high 0.3-0.8 [facility] Comment on above: Performed By: #### C BC #### [facility] [address] [address] [address] Shawn Shahid Monocytes/100 WBC (Bld) 14.6 % Critically high 1.7-12.0 [facility] Comment on above: Performed By: #### C BC #### [facility] [address] [place] [address] Dr. Shawn Shahid NEUT # 2.4 103/ul Normal 1.4-6.5 [facility] Comment on above: Performed By: #### C BC #### [facility] [address] [place] [address] Dr. Shawn Shahid Neutrophils/100 WBC (Bld) 34.7 % Critically low 43.0-75.0 [facility] Comment on above: Performed By: #### C BC #### [facility] [address] [place] [address] Dr. Shawn Shahid Platelet mean volume (Bld) [Entitic vol] 9.3 fL Critically low 9.5-13.5 [facility] Comment on above: Performed By: #### C BC #### [facility] [address] [place] [address] Dr. Shawn Shahid PLT 538 103/ul Critically high 150-450 [facility] Comment on above: Performed By: #### C BC #### [facility] [address] [place] [address] Dr. Shawn Shahid RBC 4.89 106/ul Normal 4.70-6.10 [facility] Comment on above: Performed By: #### C BC #### [facility] [address] [place] [address] Dr. Shawn Shahid WBC 7.1 103/ul Normal 4.0-11.0 [facility] Comment on above: Performed By: #### C BC #### [facility] [address] [place] [address] Dr. Shawn Shahid LIPID PROFILEon 01-16-2022 CHOL-HDL RATIO NORM SEE BELOW Normal [facility] Comment on above: Result Comment: 3.3 - 4.4 LOW RISK 4.4 - 7.1 AVERAGE RISK 7.1 - 11.0 MODERATE RISK >11.0 HIGH RISK Performed By: #### L IPID, BMP #### [facility] [address] [address] [address] Shawn Shahid Cholesterol [Mass/Vol] 246 mg/dL Critically high <=200 [facility] Comment on above: Performed By: #### L IPID, BMP #### [facility] [address] [address] [address] Shawn Shahid Cholesterol in HDL [Mass/Vol] 69 mg/dL Critically high 40-60 [facility] Comment on above: Performed By: #### L IPID, BMP #### [facility] [address] [place] [address] Dr. Shawn Shahid Cholesterol in LDL [Mass/Vol] 152.0 mg/dL Normal [facility] Comment on above: Performed By: #### L IPID, BMP #### [facility] [address] [place] [address] Dr. Shawn Shahid Cholesterol.total/ Cholesterol in HDL [Mass ratio] 3.6 {ratio} Normal [facility] Comment on above: Performed By: #### L IPID, BMP #### [facility] [address] [address] [address] Shawn Shahid HDL NORMAL > or = 60 mg/dl - LO W CARDIOVASCULAR RISK <40 mg/dl - HIGH CARDIOVASCULAR RISK Normal [facility] Comment on above: Performed By: #### L IPID, BMP #### [facility] [address] [place] [address] Dr. Shawn Shahid LDL CALC NORMAL SEE BELOW Normal [facility] Comment on above: Result Comment: <100 mg/dl OPTIMAL 100 - 129 mg/dl NEAR OR ABOVE OPTIMAL 130 - 159 mg/dl BORDERLINE HIGH 160 - 189 mg/dl HIGH >190 mg/dl VERY HIGH Performed By: #### L IPID, BMP #### [facility] [address] [address] [address] Shawn Shahid Triglyceride [Mass/Vol] 125 mg/dL Normal <=150 [facility] Comment on above: Performed By: #### L IPID, BMP #### [facility] [address] [address] [address] Shawn Shahid VLDL CALC 25.0 mg/dL Normal [facility] Comment on above: Performed By: #### L IPID, BMP #### [facility] [address] [place] [address] Dr. Shawn Shahid PROF CHEM 8 (BAS METB)on Anion gap [Moles/Vol] 10.8 mmol/L Normal [facility] Comment on above: Performed By: #### L IPID, BMP #### [facility] [address] [place] [address] Dr. Shawn Shahid Calcium [Mass/Vol] 9.7 mg/dL Normal 8.5-10.1 [facility] Comment on above: Performed By: #### L IPID, BMP #### [facility] [address] [place] [address] Dr. Shawn Shahid Chloride [Moles/Vol] 101 mmol/L Normal 98-107 [facility] Comment on above: Performed By: #### L IPID, BMP #### [facility] [address] [place] [address] Dr. Shawn Shahid CO2 [Moles/Vol] 29.3 mmol/L Normal 21.0-32.0 [facility] Comment on above: Performed By: #### L IPID, BMP #### [facility] [address] [place] [address] Dr. Shawn Shahid Creatinine [Mass/Vol] 0.86 mg/dL Normal 0.70-1.30 [facility] Comment on above: Performed By: #### L IPID, BMP #### [facility] [address] [place] [address] Dr. Shawn Shahid EGFR-AF CITIZEN OF [place] >60 Normal >=60 [facility] Comment on above: Performed By: #### L IPID, BMP #### [facility] [address] [place] [address] Dr. Shawn Shahid EGFR-NON AF CITIZEN OF [place] >60 Normal >=60 [facility] Comment on above: Performed By: #### L IPID, BMP #### [facility] [address] [address] [address] Shawn Shahid Glucose [Mass/Vol] 105 mg/dL Normal 74-106 [facility] Comment on above: Performed By: #### L IPID, BMP #### [facility] [address] [place] [address] Dr. Shawn Shahid Potassium [Moles/Vol] 4.1 mmol/L Normal 3.5-5.1 [facility] Comment on above: Performed By: #### L IPID, BMP #### [facility] [address] [place] [address] Dr. Shawn Shahid Sodium [Moles/Vol] 137 mmol/L Normal 136-145 [facility] Comment on above: Performed By: #### L IPID, BMP #### [facility] [address] [place] [address] Dr. Shawn Shahid Urea nitrogen [Mass/Vol] 16.0 mg/dL Normal 7.0-18.0 [facility] Comment on above: Performed By: #### L IPID, BMP #### [facility] [address] [place] [address] Dr. Shawn Shahid Urea nitrogen/Creatinin e [Mass ratio] 18.6 mg/mg Normal [facility] Comment on above: Performed By: #### L IPID, BMP #### [facility] [address] [place] [address] Dr. Shawn Shahid CBC AUTO DIFFon 10-02-2021 BASO # 0.1 103/ul Normal 0.0-0.1 [facility] Comment on above: Performed By: #### C BC #### [facility] [address] [place] [address] Dr. Shawn Shahid Basophils/100 WBC (Bld) 0.7 % Normal 0.2-2.0 [facility] Comment on above: Performed By: #### C BC #### [facility] [address] [place] [address] Dr. Shawn Shahid EO # 0.2 103/ul Normal 0.0-0.7 [facility] Comment on above: Performed By: #### C BC #### [facility] [address] [place] [address] Dr. Shawn Shahid Eosinophils/100 WBC (Bld) 2.2 % Normal 0.9-7.0 [facility] Comment on above: Performed By: #### C BC #### [facility] [address] [place] [address] Dr. Shawn Shahid Erythrocyte distribution width (RBC) [Ratio] 15.0 % Normal 11.0-15.0 [facility] Comment on above: Performed By: #### C BC #### [facility] [address] [place] [address] Dr. Shawn Shahid Hematocrit (Bld) [Volume fraction] 44.5 % Normal 42.0-54.0 [facility] Comment on above: Performed By: #### C BC #### [facility] [address] [place] [address] Dr. Shawn Shahid Hemoglobin (Bld) [Mass/Vol] 15.1 g/dL Normal 14.0-18.0 [facility] Comment on above: Performed By: #### C BC #### [facility] [address] [place] [address] Dr. Shawn Shahid IG # 0.03 10e3/ul Normal 0.00-0.03 [facility] Comment on above: Performed By: #### C BC #### [facility] [address] [place] [address] Dr. Shawn Shahid IG % 0.3 % Normal 0.0-0.5 [facility] Comment on above: Performed By: #### C BC #### [facility] [address] [place] [address] Dr. Shawn Shahid LYMPH # 2.0 103/ul Normal 1.2-3.8 [facility] Comment on above: Performed By: #### C BC #### [facility] [address] [place] [address] Dr. Shawn Shahid Lymphocytes/100 WBC (Bld) 20.7 % Normal 20.5-60.0 [facility] Comment on above: Performed By: #### C BC #### [facility] [address] [place] [address] Dr. Shawn Shahid MANUAL DIFF REQ NO Normal [facility] Comment on above: Performed By: #### C BC #### [facility] [address] [place] [address] Dr. Shawn Shahid MCH (RBC) [Entitic mass] 32.7 pg Normal 25.9-34.0 [facility] Comment on above: Performed By: #### C BC #### [facility] [address] [place] [address] Dr. Shawn Shahid MCHC (RBC) [Mass/Vol] 33.9 g/dL Normal 29.9-35.2 [facility] Comment on above: Performed By: #### C BC #### [facility] [address] [place] [address] Dr. Shawn Shahid MCV (RBC) [Entitic vol] 96.3 fL Critically high 80.0-94.0 [facility] Comment on above: Performed By: #### C BC #### [facility] [address] [place] [address] Dr. Shawn Shahid MONO # 1.2 103/ul Critically high 0.3-0.8 [facility] Comment on above: Performed By: #### C BC #### [facility] [address] [place] [address] Dr. Shawn Shahid Monocytes/100 WBC (Bld) 12.6 % Critically high 1.7-12.0 [facility] Comment on above: Performed By: #### C BC #### [facility] [address] [place] [address] Dr. Shawn Shahid NEUT # 6.2 103/ul Normal 1.4-6.5 [facility] Comment on above: Performed By: #### C BC #### [facility] [address] [place], [place] [address] Dr. Shawn Shahid Neutrophils/100 WBC (Bld) 63.5 % Normal 43.0-75.0 [facility] Comment on above: Performed By: #### C BC #### [facility] [address] [place], [place] [address] Dr. Shawn Shahid Platelet mean volume (Bld) [Entitic vol] 9.3 fL Critically low 9.5-13.5 [facility] Comment on above: Performed By: #### C BC #### [facility] [address] [place] [address] [address] Shawn Shahid PLT 460 103/ul Critically high 150-450 [facility] Comment on above: Performed By: #### C BC #### [facility] [address] [address] [address] Shawn Shahid RBC 4.62 106/ul Critically low 4.70-6.10 [facility] Comment on above: Performed By: #### C BC #### [facility] [address] [address] [address] Shawn Shahid WBC 9.7 103/ul Normal 4.0-11.0 [facility] Comment on above: Performed By: #### C BC #### [facility] [address] ABD/PELVIS WO CONon [...] PRIYANKA HAUSER Date: 2021-10-02 13:13 Normal [facility] PROF CHEM 8 (BAS METB)on Anion gap [Moles/Vol] 13.3 mmol/L Normal [facility] Comment on above: Performed By: #### B MP #### [facility] [address] [address] [address] Shawn Shahid Calcium [Mass/Vol] 9.6 mg/dL Normal 8.5-10.1 [facility] Comment on above: Performed By: #### B MP #### [facility] [address] [address] [address] Shawn Shahid Chloride [Moles/Vol] 105 mmol/L Normal 98-107 [facility] Comment on above: Performed By: #### B MP #### [facility] [address] [address] [address] Shawn Shahid CO2 [Moles/Vol] 24.5 mmol/L Normal 21.0-32.0 [facility] Comment on above: Performed By: #### B MP #### [facility] [address] [place] [address] Dr. Shawn Shahid Creatinine [Mass/Vol] 0.83 mg/dL Normal 0.70-1.30 [facility] Comment on above: Performed By: #### B MP #### [facility] [address] [place] [address] Dr. Shawn Shahid EGFR-AF CITIZEN OF [place] >60 Normal >=60 [facility] Comment on above: Performed By: #### B MP #### [facility] [address] [address] [address] Shawn Shahid EGFR-NON AF CITIZEN OF [place] >60 Normal >=60 [facility] Comment on above: Performed By: #### B MP #### [facility] [address] [place] [address] Dr. Shawn Shahid Glucose [Mass/Vol] 113 mg/dL Critically high 74-106 T [facility] Comment on above: Performed By: #### B MP #### [facility] [address] [place] [address] Dr. Shawn Shahid Potassium [Moles/Vol] 3.8 mmol/L Normal 3.5-5.1 [facility] Comment on above: Performed By: #### B MP #### [facility] [address] [place] [address] Dr. Shawn Shahid Sodium [Moles/Vol] 139 mmol/L Normal 136-145 [facility] Comment on above: Performed By: #### B MP #### [facility] [address] [place] [address] Dr. Shawn Shahid Urea nitrogen [Mass/Vol] 16.0 mg/dL Normal 7.0-18.0 [facility] Comment on above: Performed By: #### B MP #### [facility] [address] [place] [address] Dr. Shawn Shahid Urea nitrogen/Creatinin e [Mass ratio] 19.3 mg/mg Normal [facility] Comment on above: Performed By: #### B MP #### [facility] [address] [place] [address] Dr. Shawn Shahid XR RIBS RT PA [...] by: PRIYANKA HAUSER Date: 2021-10-02 13:00 Normal [facility] CBC W Auto Differential pane l (Bld)on 07-18-2021 Basophils (Bld) [#/Vol] 0.14 10*3/uL High <0.11 [facility] Comment on above: Order Comment: Speci men Type: BLOOD SPECIMENOrdering Facility: [facility] Address: [address] [place] [address] Performed By: #### 5 7021-8 ####[facility] LABCLIA [id number] [place] [address] Basophils/100 WBC (Bld) 1.9 % Normal [facility] Comment on above: Order Comment: Speci men Type: BLOOD SPECIMENOrdering Facility: [facility] Address: [address] [place] [address] Performed By: #### 5 7021-8 ####[facility] LABCLIA [id number] [place] [address] Differential cell count method Nom (Bld) Auto Normal [facility] Comment on above: Order Comment: Speci men Type: BLOOD SPECIMENOrdering Facility: [facility] Address: [address] [place] [address] Performed By: #### 5 7021-8 ####[facility] LABCLIA [id number] [place] [address] Eosinophils (Bld) [#/Vol] 0.80 10*3/uL High <0.46 [facility] Comment on above: Order Comment: Speci men Type: BLOOD SPECIMENOrdering Facility: [facility] Address: [address] [place] [address] Performed By: #### 5 7021-8 ####[facility] LABCLIA [id number] [place] [address] Eosinophils/100 WBC (Bld) 10.9 % Normal [facility] Comment on above: Order Comment: Speci men Type: BLOOD SPECIMENOrdering Facility: [facility] Address: [address] [place] [address] Performed By: #### 5 7021-8 ####[facility] LABCLIA [id number] [place] [address] Erythrocyte distribution width (RBC) [Ratio] 15.1 % High 11.5-15.0 [facility] Comment on above: Order Comment: Speci men Type: BLOOD SPECIMENOrdering Facility: [facility] Address: [address] [place] [address] Performed By: #### 5 7021-8 ####[facility] LABCLIA [id number] [place] [address] Hematocrit (Bld) [Volume fraction] 48.4 % Normal 39.0-51.0 [facility] Comment on above: Order Comment: Speci men Type: BLOOD SPECIMENOrdering Facility: [facility] Address: [address] [place] [address] Performed By: #### 5 7021-8 ####[facility] LABIA [id number] [place] [address] Hemoglobin (Bld) [Mass/Vol] 16.2 g/dL Normal 13.0-17.0 [facility] Comment on above: Order Comment: Speci men Type: BLOOD SPECIMENOrdering Facility: [facility] Address: [address] [place] [address] Performed By: #### 5 7021-8 ####[facility] LABCLIA [id number] [place] [address] IMMATURE GRAN % 0.4 % Normal [facility] Comment on above: Order Comment: Speci men Type: BLOOD SPECIMENOrdering Facility: [facility] Address: [address] [place] [address] Performed By: #### 5 7021-8 ####[facility] LABCLIA [id number] [place] [address] IMMATURE GRAN ABS 0.03 k/uL Normal <0.10 [facility] Comment on above: Order Comment: Speci men Type: BLOOD SPECIMENOrdering Facility: [facility] Address: [address] [place] [address] Performed By: #### 5 7021-8 ####[facility] LABCLIA [id number] [place] [address] Lymphocytes (Bld) [#/Vol] 2.70 10*3/uL Normal 1.00-4.00 [facility] Comment on above: Order Comment: Speci men Type: BLOOD SPECIMENOrdering Facility: [facility] Address: [address] [place] [address] Performed By: #### 5 7021-8 ####[facility] LABCLIA [id number] [place] [address] Lymphocytes/100 WBC (Bld) 36.6 % Normal [facility] Comment on above: Order Comment: Speci men Type: BLOOD SPECIMENOrdering Facility: [facility] Address: [address] [place] [address] Performed By: #### 5 7021-8 ####[facility] LABCLIA [id number] [place] [address] MCH (RBC) [Entitic mass] 32.3 pg Normal 26.0-34.0 [facility] Comment on above: Order Comment: Speci men Type: BLOOD SPECIMENOrdering Facility: [facility] Address: [address] [place] [address] Performed By: #### 5 7021-8 ####[facility] LABCLIA [id number] [place] [address] MCHC (RBC) [Mass/Vol] 33.5 g/dL Normal 30.5-36.0 [facility] Comment on above: Order Comment: Speci men Type: BLOOD SPECIMENOrdering Facility: [facility] Address: [address] [place] [address] Performed By: #### 5 7021-8 ####[facility] LABCLIA [id number] [place] [address] MCV (RBC) [Entitic vol] 96.4 fL Normal 80.0-100.0 [facility] Comment on above: Order Comment: Speci men Type: BLOOD SPECIMENOrdering Facility: [facility] Address: [address] [place] [address] Performed By: #### 5 7021-8 ####[facility] LABCLIA [id number] [place] [address] Monocytes (Bld) [#/Vol] 0.99 10*3/uL High <0.87 [facility] Comment on above: Order Comment: Speci men Type: BLOOD SPECIMENOrdering Facility: [facility] Address: [address] [place] [address] Performed By: #### 5 7021-8 ####[facility] LABCLIA [id number] [place] [address] Monocytes/100 WBC (Bld) 13.4 % Normal [facility] Comment on above: Order Comment: Speci men Type: BLOOD SPECIMENOrdering Facility: [facility] Address: [address] [place] [address] Performed By: #### 5 7021-8 ####[facility] LABCLIA [id number] [place] [address] Neutrophils (Bld) [#/Vol] 2.71 10*3/uL Normal 1.45-7.50 [facility] Comment on above: Order Comment: Speci men Type: BLOOD SPECIMENOrdering Facility: [facility] Address: [address] [place] [address] Performed By: #### 5 7021-8 ####[facility] LABCLIA [id number] [place] [address] Neutrophils/100 WBC (Bld) 36.8 % Normal [facility] Comment on above: Order Comment: Speci men Type: BLOOD SPECIMENOrdering Facility: [facility] Address: [address] [place] [address] Performed By: #### 5 7021-8 ####[facility] LABCLIA [id number] [place] [address] Nucleated RBC (Bld) [#/Vol] 10*3/uL Normal <0.01 [facility] Comment on above: Order Comment: Speci men Type: BLOOD SPECIMENOrdering Facility: [facility] Address: [address] [place] [address] Performed By: #### 5 7021-8 ####[facility] LABCLIA [id number] [place] [address] Nucleated RBC/100 WBC (Bld) [Ratio] 0.0 /100 WBC Normal [facility] Comment on above: Order Comment: Speci men Type: BLOOD SPECIMENOrdering Facility: [facility] Address: [address] [place] [address] Performed By: #### 5 7021-8 ####[facility] LABCLIA [id number] [place] [address] Platelet mean volume (Bld) [Entitic vol] 9.1 fL Normal 9.0-12.7 [facility] Comment on above: Order Comment: Speci men Type: BLOOD SPECIMENOrdering Facility: [facility] Address: [address] [place] [address] Performed By: #### 5 7021-8 ####[facility] LABIA [id number] [place] [address] Platelets (Bld) [#/Vol] 486 10*3/uL High 150-400 [facility] Comment on above: Order Comment: Speci men Type: BLOOD SPECIMENOrdering Facility: [facility] Address: [address] [place] [address] Performed By: #### 5 7021-8 ####[facility] LABIA [id number] [place] [address] RBC (Bld) [#/Vol] 5.02 10*6/uL Normal 4.20-6.00 [facility] Comment on above: Order Comment: Speci men Type: BLOOD SPECIMENOrdering Facility: [facility] Address: [address] [place] [address] Performed By: #### 5 7021-8 ####[id number] [place] [address] WBC (Bld) [#/Vol] 7.37 10*3/uL Normal 3.70-11.00 [facility] Comment on above: Order Comment: Speci men Type: BLOOD SPECIMENOrdering Facility: [facility] Address: [address] [place] [address] Performed By: #### 5 7021-8 ####[facility] LABIA [id number] [place] [address] CNOVSPon 07-18-2021 CNOVSP Visit (SP) Office ( YAIR) MEERA STOCKTON ([id number]) 1945 M Date Time Provider Department 07/18/21 [...] January 08, 2021 D-dimer normal. Platelet count 262647. WBC normal with differential showing absolute monocytosis, [...] use for 40 years before quitting in 2015. He has 3 children who are healthy. [...] for bleeding events. Continue indefinite anticoagulation. ? BILLET SHEARER issues: Patient has longstanding issues with peripheral [...] which included preparing to see the patient, [id number] patient care, completing clinical documentation, obtaining and/or reviewing separately obtained history, performing a medically appropriate examination, counseling and educating the patient/family/caregiver, ordering medications, tests, or procedures and independently interpreting results (not separately reported). CC: Matt Dowd (more content not included)... Normal [facility] Comprehensive metabolic 2000 panelon 07-18-2021 Albumin [Mass/Vol] 4.9 g/dL Normal 3.9-4.9 [facility] Comment on above: Order Comment: Speci men Type: BLOOD SPECIMENOrdering Facility: [facility] Address: [address] [place] [address] Performed By: #### 2 4323-8 ####[facility] LABCLIA [id number] [place] [address] ALP [Catalytic activity/Vol] 32 U/L Low 38-113 [facility] Comment on above: Order Comment: Speci men Type: BLOOD SPECIMENOrdering Facility: [facility] Address: [address] [place] [address] Performed By: #### 2 4323-8 ####[facility] LABCLIA [id number] [place] [address] ALT [Catalytic activity/Vol] 20 U/L Normal 10-54 [facility] Comment on above: Order Comment: Speci men Type: BLOOD SPECIMENOrdering Facility: [facility] Address: [address] [place] [address] Performed By: #### 2 4323-8 ####[facility] LABCLIA [id number] [place] [address] Anion gap [Moles/Vol] 13 mmol/L Normal 9-18 [facility] Comment on above: Order Comment: Speci men Type: BLOOD SPECIMENOrdering Facility: [facility] Address: [address] [place] [address] Performed By: #### 2 4323-8 ####[facility] LABCLIA [id number] [place] [address] AST [Catalytic activity/Vol] 24 U/L Normal 14-40 [facility] Comment on above: Order Comment: Speci men Type: BLOOD SPECIMENOrdering Facility: [facility] Address: [address] [place] [address] Performed By: #### 2 4323-8 ####[facility] LABCLIA [id number] [place] [address] Bilirubin [Mass/Vol] 0.7 mg/dL Normal 0.2-1.3 [facility] Comment on above: Order Comment: Speci men Type: BLOOD SPECIMENOrdering Facility: [facility] Address: [address] [place] [address] Performed By: #### 2 4323-8 ####[facility] LABCLIA [id number] [place] [address] Calcium [Mass/Vol] 10.5 mg/dL High 8.5-10.2 [facility] Comment on above: Order Comment: Speci men Type: BLOOD SPECIMENOrdering Facility: [facility] Address: [address] [place] [address] Performed By: #### 2 4323-8 ####[facility] LABCLIA [id number] [place] [address] Chloride [Moles/Vol] 101 mmol/L Normal 97-105 [facility] Comment on above: Order Comment: Speci men Type: BLOOD SPECIMENOrdering Facility: [facility] Address: [address] [place] [address] Performed By: #### 2 4323-8 ####[facility] LABCLIA [id number] [place] [address] CO2 [Moles/Vol] 26 mmol/L Normal 22-30 [facility] Comment on above: Order Comment: Speci men Type: BLOOD SPECIMENOrdering Facility: [facility] Address: [address] [place] [address] Performed By: #### 2 4323-8 ####[facility] LABCLIA [id number] [place] [address] Creatinine [Mass/Vol] 0.82 mg/dL Normal 0.73-1.22 [facility] Comment on above: Order Comment: Arsalan guillen Type: BLOOD SPECIMENOrdering Facility: [facility] Address: [address] [id number] Performed By: #### 2 4323-8 ####[facility] LABCLIA [id number] [place] [address] ESTIMATED GLOMERULAR FILTRATION RATE 92 mL/min/1.73m??? Normal >=60 [facility] Comment on above: Order Comment: Arsalan guillen Type: BLOOD SPECIMENOrdering Facility: [facility] Address: [address] [place] [address] Result Comment: Carlie mated Glomerular Filtration Rate [...] actual GFR. Performed By: #### 2 4323-8 ####[facility] LABCLIA [id number] [place] [address] Glucose [Mass/Vol] 110 mg/dL High 74-99 [facility] Comment on above: Order Comment: Arsalan guillen Type: BLOOD SPECIMENOrdering Facility: [facility] Address: [address] [place] [address] Result Comment: The [place] [employer] Association (ADA) provides guidance for cutoff [...] Standards of Medical Care in Diabetes 2016, [place] [employer]. Diabetes Care. 2016.39(Suppl 1). Performed By: #### 2 4323-8 ####[facility] LABCLIA [id number] [place] [address] Potassium [Moles/Vol] 3.7 mmol/L Normal 3.7-5.1 [facility] Comment on above: Order Comment: Speci men Type: BLOOD SPECIMENOrdering Facility: [facility] Address: [address] [place] [address] Performed By: #### 2 4323-8 ####[facility] LABCLIA [id number] [place] [address] Protein [Mass/Vol] 8.2 g/dL High 6.3-8.0 [facility] Comment on above: Order Comment: Speci men Type: BLOOD SPECIMENOrdering Facility: [facility] Address: [address] [place] [address] Performed By: #### 2 4323-8 ####[facility] LABIA [id number] [place] [address] Sodium [Moles/Vol] 140 mmol/L Normal 136-144 [facility] Comment on above: Order Comment: Speci men Type: BLOOD SPECIMENOrdering Facility: [facility] Address: [address] [place] [address] Performed By: #### 2 4323-8 ####[facility] LABCLIA [id number] [place] [address] Urea nitrogen [Mass/Vol] 19 mg/dL Normal 9-24 [facility] Comment on above: Order Comment: Speci men Type: BLOOD SPECIMENOrdering Facility: [facility] Address: [address] [place] [address] Performed By: #### 2 4323-8 ####[facility] LABCLIA [id number] [place] [address] [facility] Fibrin D-dimer FEU (PPP) [Mass/Vol] <190 Normal <500 [facility] Comment on above: Order Comment: Speci men Type: BLOOD SPECIMENOrdering Facility: [facility] Address: [address] [place] [address] Result Comment: Dre en plasma received. Performed By: #### 4 8065-7 ####[facility] LABCLIA [id number] [address] LABCLIA [id number] [place] [id number] Fibrin D-dimer FEU (PPP) [Ma ss/Vol]on 07-18-2021 D DIMER AGE-RELATED CUTOFF 750 ng/mL FEU Normal [facility] Comment on above: Order Comment: Speci men Type: BLOOD SPECIMENOrdering Facility: [facility] Address: [address] [place] [address] Performed By: #### 4 8065-7 ####[facility] LABCLIA [id number] [address] LABCLIA [id number] [place] [address] Avery 07-15-2021 CNPN Telephone (HEMASA) MEERA STOCKTON ([id number]) 1945 M Date Time Provider Department 07/15/21 ELIER RAYMUNDO During your visit today, we recorded the following information about you: Allergies As of Date: 07/15/2021 (No Known Allergies) Date Reviewed: 02/01/2021 Reviewed by: Tushar Willingham LPN - Fully Assessed Reason for Visit: Lab Orders [5138] Primary Visit Diagnosis:Acute deep vein thrombosis (DVT) of femoral vein of left lower extremity (HCC) [I82.412] 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 - Pfjlf-8-GOI-EPA-Fish Oil (FISH OIL) 1,000 mg (120 mg-180 [...] Status:Closed by DENNIS MARTIN on 07/15/21 Normal [facility] MRI BRAIN WO IVCONon 021 MRI BRAIN [...] is taken as C2-3. Structural anomalies: None. Surgeon'S Assistant: PSCB Transcribe Date/Time: Feb 19 2021 2:44P Dictated by : LIBRADO GOMEZ MD This examination was interpreted and the report reviewed and electronically signed by: LIBRADO GOMEZ MD on Feb 19 2021 2:49PM EST [id number] Normal [facility] MRI CERVICAL SPINE WO IVCONo n 02-19-2021 [...] is taken as C2-3. Structural anomalies: None. Surgeon'S Assistant: PSCB Transcribe Date/Time: Feb 19 2021 2:44P Dictated by : LIBRADO GOMEZ MD This examination was interpreted and the report reviewed and electronically signed by: LIBRADO GOMEZ MD on Feb 19 2021 2:49PM EST [id number] Normal [facility] CNOVon 02-01-2021 CNOV Office Visit (NEURAV ) MEERA STOCKTON ([id number]) 1945 M Date Time Provider Department 02/01/21 [...] He was followed by Dr. Alvarez from [id number], last seen on 06/02/17: IMPRESSION: 71 year [...] distal pancreate (more content not included)... Normal [facility] Ceruloplasminon 02-01-2021 Ceruloplasmin 19 mg/dL Normal 15-30 [facility] Comment on above: Performed By: #### H ACRNA, ZINC, EVIT, MMA, CERULO, COPPER ####[facility] [place], [place] [phone] Copperon 02-01-2021 Copper 78 ug/dL Normal 70-140 [facility] Comment on above: Result Comment: This test was developed and its performance characteristics determined by [facility]'s Ahmet Hernandez [facility] Pathology and Laboratory Medicine [place] ([facility]). It has not been cleared or approved by the FDA. [facility] is regulated under CLIA as qualified to perform high complexity testing. This test is used for clinical purposes. It should not be regarded as investigational or for research. Performed By: #### H ACRNA, ZINC, EVIT, MMA, CERULO, COPPER ####[facility] [place], [place] [phone] Hepatitis Acute RNAon 2020 HBsAg Negative Normal Negative [facility] Comment on above: Performed By: #### H ACRNA, ZINC, EVIT, MMA, CERULO, COPPER ####[place] [address], [place] [phone] Hep B Core Ab, IgM Negative Normal Negative [facility] Comment on above: Performed By: #### H ACRNA, ZINC, EVIT, MMA, CERULO, COPPER ####[address], [place] [phone] Hepatitis A Ab IgM Negative Normal Negative [facility] Comment on above: Performed By: #### H ACRNA, ZINC, EVIT, MMA, CERULO, COPPER ####[address] [phone] Hepatitis C RNA Not detected Normal [facility] Comment on above: Result Comment: Refe rence Range: Negative for HCV RNA The Linear Range of this assay is 15 IU/mL to 100,000,000 IU/mL. Performed By: #### H ACRNA, ZINC, EVIT, MMA, CERULO, COPPER ####[address] [phone] Methylmalonic Acidon Methylmalonic Acid 142 nmol/L Normal 79-376 [facility] Comment on above: Result Comment: This test was developed and its performance characteristics determined by [facility]'s Ahmte [facility] Pathology [facility] [place] ([facility]). It has not been cleared or approved by the FDA. [facility] is regulated under CLIA as qualified to perform high complexity testing. This test is used for clinical purposes. It should not be regarded as investigational or for research. Performed By: #### H ACRNA, ZINC, EVIT, MMA, CERULO, COPPER ####[address] [phone] Vitamin B12on 02-01-2021 Cobalamin (Vitamin B12) [Mass/Vol] 459 pg/mL Normal 232-1245 [facility] Comment on above: Performed By: #### H ACRNA, ZINC, EVIT, MMA, CERULO, COPPER ####[facility] [place], [place] [phone] Vitamin Hilario 02-01-2021 Vitamin E-alpha 15.1 mg/L Normal 6.0-23.0 [facility] Comment on above: Performed By: #### H ACRNA, ZINC, EVIT, MMA, CERULO, COPPER ####[facility] [place], [place] [phone] Vitamin E-gamma 1.5 mg/L Normal 0.3-3.2 [facility] Comment on above: Result Comment: This test was developed and its performance characteristics determined by [facility] and Laboratory [facility] [place] ([facility]). It has not been cleared or approved by the FDA. [facility] is regulated under CLIA as qualified to perform high complexity testing. This test is used for clinical purposes. It should not be regarded as investigational or for research. Performed By: #### H ACRNA, ZINC, EVIT, MMA, CERULO, COPPER ####[place] [address] [place], [place] [phone] Zincon 02-01-2021 Zinc 76 ug/dL Normal 55-150 [facility] Comment on above: Result Comment: This test was developed and its performance characteristics determined by [facility] and [facility] [place] ([facility]). It has not been cleared or approved by the FDA. [facility] is regulated under CLIA as qualified to perform high complexity testing. This test is used for clinical purposes. It should not be regarded as investigational or for research. Performed By: #### H ACRNA, ZINC, EVIT, MMA, CERULO, COPPER ####[facility] [place], [place] [phone] CNOVSPon 01-17-2021 CNOVSP Visit (SP) Office ([facility]) MEERA STOCKTON ([id number]) 1945 M Date Time Provider Department 01/17/21 [...] January 08, 2021 D-dimer normal. Platelet count 205248. WBC normal with differential showing absolute monocytosis, [...] for now. Follow-up in 6 months. ? BILLET SHEARER issues: Patient has longstanding issues with peripheral neuropathy and balance. This has sl (more content not included)... Normal [facility] Calcium, Ionizedon Calcium [Moles/Vol] 1.36 mmol/L High 1.08-1.30 [facility] Comment on above: Performed By: #### I CA ####[facility] [address] [place], [place] [phone] Calcium, Ionized 1.40 mmol/L High 1.08-1.30 [facility] Comment on above: Performed By: #### I CA ####[facility] [address] [place], [place] [phone] Comp Metabolic Panelon 01-17 Albumin [Mass/Vol] 4.6 g/dL Normal 3.9-4.9 [facility] ALP [Catalytic activity/Vol] 34 U/L Low 38-113 [facility] ALT [Catalytic activity/Vol] 16 U/L Normal 10-54 [facility] Anion gap [Moles/Vol] 10 mmol/L Normal 9-18 [facility] AST [Catalytic activity/Vol] 20 U/L Normal 14-40 [facility] Bilirubin [Mass/Vol] 0.7 mg/dL Normal 0.2-1.3 [facility] Calcium [Mass/Vol] 10.0 mg/dL Normal 8.5-10.2 [facility] Chloride [Moles/Vol] 109 mmol/L High 97-105 [facility] CO2 [Moles/Vol] 24 mmol/L Normal 22-30 [facility] Creatinine [Mass/Vol] 0.84 mg/dL Normal 0.73-1.22 [facility] eGFR- Amer. >60 Normal [facility] eGFR-All Other Races >60 Normal [facility] Comment on above: Result Comment: eGFR (Estimated [...] GFR. Glucose [Mass/Vol] 82 mg/dL Normal 74-99 [facility] Comment on above: Result Comment: The [place] Diabetes Association (ADA) provides guidance for cutoff [...] Standards of Medical Care in Diabetes 2016, [place] Diabetes Association. Diabetes Care. 2016.39(Suppl 1). Potassium [Moles/Vol] 4.3 mmol/L Normal 3.7-5.1 [facility] Protein [Mass/Vol] 7.6 g/dL Normal 6.3-8.0 [facility] Sodium [Moles/Vol] 143 mmol/L Normal 136-144 [facility] Urea nitrogen [Mass/Vol] 16 mg/dL Normal 9-24 [facility] Avery 01-10-2021 PHYLLIS Telephone (ADRIÁN) MEERA STOCKTON ([id number]) 1945 M Date Time Provider Department 01/10/21 [...] Fully Assessed Reason for Visit: Care Coordination [0546] Cmt: lab results Prescriptions as of 01/10/2021 [...] Encounter Status:Closed by GARCÍA BLACK on 01/10/21 [facility] CNOVSPon 01-08-2021 CNOVSP Visit (SP) Office ([facility]) MEERA STOCKTON ([id number]) 1945 M Date Time Provider Department 01/08/21 [...] No clear etiology has been demonstrated. His BILLET SHEARER symptoms include bilateral decreased hearing sensation, balance [...] periodically. April (more content not included)... Normal [facility] 01-08-2021 [facility] MEERA STOCKTON ([id number]) 1945 M Date Time Provider Department 01/08/21 ELIER RAYMUNDO [facility] During your visit today, we recorded the following information about you: Irais Watson 01/08/2021 12:11 PM Signed Patient preferred to scheduled his Neurology appointment himself d/t the Put in bay boat schedule. Gave patient number for Neurological [place]. Irais Watson Allergies As of Date: 01/08/2021 (No Known Allergies) Date Reviewed: 01/08/2021 Reviewed by: Mary Hernadez MA - Fully Assessed Reason for Visit: Referral Information [3271] Cmt: Neurology Prescriptions as of 01/08/2021 - [...] Status:Closed by IRAIS WATSON on 01/08/21 Normal [facility] Comp Metabolic Panelon 01-08 Albumin [Mass/Vol] 5.0 g/dL High 3.9-4.9 [facility] Comment on above: Performed By: #### D DMER SERMPA ####[facility] [address] [place], [place] [phone] ALP [Catalytic activity/Vol] 36 U/L Low 38-113 [facility] Comment on above: Performed By: #### D DMERowdy SERMPA ####[facility] [address] [place], [place] [phone] ALT [Catalytic activity/Vol] 23 U/L Normal 10-54 [facility] Comment on above: Performed By: #### D DMERowdy SERMPA ####[facility] [address] [place], [place] [phone] Anion gap [Moles/Vol] 13 mmol/L Normal 9-18 [facility] Comment on above: Performed By: #### David WILHELM SERMPJose ####[facility] Ave[address] [place] [phone] AST [Catalytic activity/Vol] 27 U/L Normal 14-40 [facility] Comment on above: Performed By: #### David WILHELM SERMPA ####[place] [address] [place] [phone] Bilirubin [Mass/Vol] 1.2 mg/dL Normal 0.2-1.3 [facility] Comment on above: Performed By: #### David WILHELM SERMPJose ####[place] [address] [place] [phone] Calcium [Mass/Vol] 11.1 mg/dL High 8.5-10.2 [facility] Comment on above: Performed By: #### David WILHELM SERMPJose ####[place] [address] [place] [phone] Chloride [Moles/Vol] 104 mmol/L Normal 97-105 [facility] Comment on above: Performed By: #### David WILHELM SERMPA ####[place] [address] [place] [phone] CO2 [Moles/Vol] 22 mmol/L Normal 22-30 [facility] Comment on above: Performed By: #### David WILHELM SERMPA ####[facility] [place] [phone] Creatinine [Mass/Vol] 0.84 mg/dL Normal 0.73-1.22 [facility] Comment on above: Performed By: #### David WILHELM SERMPA ####[facility] [place] [phone] eGFR- Amer. >60 Normal [facility] Comment on above: Performed By: #### David WILHELM SERMPA ####[facility] [place], [place] [phone] eGFR-All Other Races >60 Normal [facility] Comment on above: Result Comment: eGFR (Estimated [...] reflect actual GFR. Performed By: #### D MIKEL WILHELM ####[facility] [place], [place] [phone] Glucose [Mass/Vol] 106 mg/dL High 74-99 [facility] Comment on above: Result Comment: The [place] Diabetes Association (ADA) provides guidance for cutoff [...] Standards of Medical Care in Diabetes 2016, [place] Diabetes Association. Diabetes Care. 2016.39(Suppl 1). Performed By: #### D MIKEL WILHELM ####[facility] [address], [place] [phone] Potassium [Moles/Vol] 4.3 mmol/L Normal 3.7-5.1 [facility] Comment on above: Performed By: #### D CHOCO SERPETER ####[facility] [place], [place] [phone] Protein [Mass/Vol] 8.2 g/dL High 6.3-8.0 [facility] Comment on above: Performed By: #### D MIKEL WILHELM ####[facility] [place], [place] [phone] Sodium [Moles/Vol] 139 mmol/L Normal 136-144 [facility] Comment on above: Performed By: #### D MKIEL WILHELM ####[facility] [place], [place] [phone] Urea nitrogen [Mass/Vol] 18 mg/dL Normal 9-24 [facility] Comment on above: Performed By: #### MIKEL VELEZ ####[place] [address] [place], [place] [phone] D dimeron 01-08-2021 D dimer <190 Normal <500 [facility] Comment on above: Result Comment: 500 ng/mL [...] et al. JOHN 2014 311:1117 and Asher Schuler N et al. [facility] 2016 165:253. Performed By: #### D MIKEL WILHELM ####[place] [address] [place], [place] [phone] Monclnl Protein, Seron 01-08 K/L Ratio, Serum 0.57 Normal 0.26-1.65 [facility] Comment on above: Performed By: #### D MIKEL WILHELM ####[address] [phone] [place], Free, Serum 17.2 mg/L Normal 3.30-19.40 [facility] Comment on above: Result Comment: Test performed by an immunoturbidimetric assay on Optilite instrument from [facility]. Immunoglobulin free light chain assay results should be interpreted in conjunction with other tests and in correlation with clinical picture. Performed By: #### MIKEL VELEZ ####[address] [phone] Lambda, Free, Serum 30.3 mg/L High 5.7-26.3 [facility] Comment on above: Result Comment: Test performed by an immunoturbidimetric assay on Optilite instrument from [facility]. Immunoglobulin free light chain assay results should be interpreted in conjunction with other tests and in correlation with clinical picture. Performed By: #### MIKEL VELEZ ####[address] [phone] MPA Result No M protein is identified. Normal No M protein is identified. [facility] Comment on above: Performed By: #### David WILHELM SERPETER ####[facility] [place], [place] [phone] MPA Serum IgA 441 mg/dL High 70-400 [facility] Comment on above: Performed By: #### David WILHELM SERPETER ####[place] [address] [place], [place] [phone] MPA Serum IgG 1229 mg/dL Normal 700-1600 [facility] Comment on above: Performed By: #### David WILHELM SERPETER ####[address], [place] [phone] MPA Serum IgM 30 mg/dL Low 40-230 [facility] Comment on above: Performed By: #### D MIKEL WILHELM ####[facility] [address] [place], [place] [phone] Staff Review Reviewed by Paul Potts MD PhD ([id number]) Normal [facility] Comment on above: Performed By: #### D CHOCO SERLAURAA ####[facility] [address] [place], [place] [phone] Remote CBCDIF [facility])on 01-08-2021 Abs Baso 0.13 k/uL High <0.11 [facility] Abs [place] 1.27 k/uL High <0.87 [facility] Abs Neut 2.52 k/uL Normal 1.45-7.50 [facility] Absolute nRBC <0.01 Normal <0.01 [facility] Basophils/100 WBC (Bld) 1.7 % Normal [facility] DTYPE Auto Diff Normal [facility] Eosinophils (Bld) [#/Vol] 0.88 10*3/uL High <0.46 [facility] Eosinophils/100 WBC (Bld) 11.6 % Normal [facility] Erythrocyte distribution width (RBC) [Ratio] 15.0 % Normal 11.5-15.0 [facility] Hematocrit (Bld) [Volume fraction] 49.2 % Normal 39.0-51.0 [facility] Hemoglobin (Bld) [Mass/Vol] 16.4 g/dL Normal 13.0-17.0 [facility] Lymphocytes (Bld) [#/Vol] 2.78 10*3/uL Normal 1.00-4.00 [facility] Lymphocytes/100 WBC (Bld) 36.6 % Normal [facility] MCH 32.0 pG Normal 26.0-34.0 [facility] MCHC (RBC) [Mass/Vol] 33.3 g/dL Normal 30.5-36.0 [facility] MCV (RBC) [Entitic vol] 96.1 fL Normal 80.0-100.0 [facility] Monocytes/100 WBC (Bld) 16.7 % Normal [facility] Neutrophils/100 WBC (Bld) 33.4 % Normal [facility] NRBCs 0.0 /100 WBC Normal 0 [facility] Platelet mean volume (Bld) [Entitic vol] 9.2 fL Normal 9.0-12.7 [facility] Platelets (Bld) [#/Vol] 516 10*3/uL High 150-400 [facility] RBC (Bld) [#/Vol] 5.12 10*6/uL Normal 4.20-6.00 [facility] WBC (Bld) [#/Vol] 7.60 10*3/uL Normal 3.70-11.00 [facility] Operative Reporton 09-13-201 9 Operative Report Date of Surgery: 05/2018 [...] day for postoperative care. Freedom Garza D.O. gls Dictated: 11/16/2018 #[id number] Typed: 11/16/2018 #[id number] cc: Freedom Garza D.O. [facility] Comment on above: Result Comment: Elec tronically Signed By: Freedom Garza DO\.br\Date and Time Signed: 11/26/18 17:20 EDT Coding Summary.on 11-17-2018 Coding Summary. CODING DATE: 019 FINAL [facility] STATUS: Home (Routine DC) PAYOR: Medicare APC DESCRIPTION 5491 Level 1 Intraocular Procedures ADMIT DX: REASON FOR VISIT DX: H25.11 Age-related nuclear cataract, right eye FINAL DX: PRINCIPAL: H25.11 Age-related nuclear cataract, right eye SECONDARY: I10 Essential (primary) hypertension E78.00 Pure hypercholesterolemia, unspecified PYMT PROC APC STAT DESCRIPTION DOCTOR NAME DATE 82249 8236 J1 Extracapsular cataract Freedom Garza DO 11/16/2018 [...] Kristine Townsend Date Saved: 11/17/2018 11:32 am [facility] History and Physicalon 11-16 History and Physical HOSPITAL REGULATIONS: ALL Positive Important Negative Findings Shall Be Recorded DATE ADMITTED: 11/16/2018 HISTORY: The patient is a 72-year-old white male with complaints of declining vision out of his right eye. 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 He [...] future. Freedom Garza D.O. gls Dictated: 11/15/2018 #[id number] Typed 11/16/2018 #[id number] cc: Freedom Garza D.O. [facility] Comment on above: Result Comment: Elec tronically Signed By: Freedom aGrza DO\.br\Date and Time Signed: 11/16/18 08:00 EDT Inpatient Patient Summaryon 11-16-2018 Inpatient Patient Summary [facility] Clinical Discharge Instructions PERSON INFORMATION Name: MEERA STOCKTON PHYSICIANS Admitting Physician: Freedom Garza DO Attending Physician: Freedom Garza DO PCP: MATT WANG DO Discharge Diagnosis: Cataract Comment: PATIENT EDUCATION INFORMATION Instructions: WOJCIECH- After Surgery Eye (Custom) Medication Leaflets: Follow up: With: Address: When: Freedom Garza [facility] [address], [address] [place] [address] Business (1) Within 1 to 2 days MEDICATION LIST Comment: Normal [facility] Main OR Intraoperative Recor don 11-16-2018 Main OR Intraoperative Record IntraOp Document Type FT Summary Primary Physician: Freedom Garza DO Finalized Date/Time: 11/16/18 13:40:06 Pt. Name: MEEAR STOCKTON/Sex: 1945 Male Med Rec #: [id number] Physician: Freedom Garza DO Financial #: [id number] Pt. Type: A Room/Bed: 11/14 Admit/Disch: 11/16/18 06:30:00 - 11/16/18 09:35:00 Institution: [...] 2 Entry 3 Case Attendee Freedom Garza DO RN, CNOR, Nadine RN, Tonja Marquez Role Performed Surgeon - Primary Major Gifts Director - Primary Major Gifts Director - Primary Time In 11/16/18 08:47:00 11/16/18 08:47:00 11/16/18 08:47:00 Time Out 11/16/18 09:01:00 11/16/18 09:01:00 11/16/18 09:01:00 Procedure CATARACT EXTRACTION W/ CATARACT EXTRACTION W/ CATARACT EXTRACTION W/ INTRAOCULAR LENS(Right) INTRAOCULAR LENS(Right) INTRAOCULAR LENS(Right) Comments Last Modified By: Ling TORRE, CNOR, Ling RN, JOSÉ ANTONIOOR, Ling TORRE, CNOR, [place] 11/16/18 [place] 11/16/18 [place] 11/16/18 09:01:55 09:01:55 09:01:55 Entry 4 Entry 5 Entry 6 Case Attendee Dolores STEAM BOX TENDER/SA, Diamante Negrete CST, Danielle Garcia RN, Danielle Cruz Role Performed Scrub - Other Scrub - Primary Major Gifts Director - Relief Time In 11/16/18 08:47:00 11/16/18 08:47:00 11/16/18 08:47:00 Time Out 11/16/18 09:01:00 11/16/18 09:01:00 11/16/18 09:01:00 Procedure CATARACT EXTRACTION W/ CATARACT EXTRACTION W/ CATARACT EXTRACTION W/ INTRAOCULAR LENS(Right) INTRAOCULAR LENS(Right) INTRAOCULAR LENS(Right) Comments Last Modified By: Ling TORRE, JOSÉ ANTONIOOR, iLng TORRE, JOSÉ ANTONIOOR, Ling TORRE, CNOR, [place] 11/16/18 [place] 11/16/18 [place] 11/16/18 [...] PreOp Antibiotic No Time Out Freedom Garza DO Given Participants JOSÉ ANTONIO Dubon RNOR, Caden Marquez CST, Jose Jackson RN, Danielle Cruz Time [...] RN, WILMER Dubon RN, WILMER Dubon RN, Ruthann 11/16/18 [place] 11/16/18 [place] 11/16/18 07:19:20 07:19:20 [...] Solution Hair Removal Methods Not Indicated By Freedmo Garza DO Outcomes Met? Yes Last Modified [...] safely administered during the perioperative period For [facility] please see scanned medication reconcilliation form for medications used at the field during the procedure. Implant Log FT Pre-Care Text: Records devices implanted during the operative or invasive procedure Entry 1 Procedure CATARACT EXTRACTION W/ Implant/Explant Implant INTRAOCULAR LENS(Right) Implant Identification FT Description BEATA [id number] 12.50MM Lot Number [id number] [[id number]][F] [employer] FT-[employer] Catalog ?# [id number] [F] Size 18.5 Expiration Date 09/12/21 Usage [...] 11/16/18 09:02 Gay Gold CST 11/16/18 13:40 [facility] Main OR PACU II Recordon Main OR PACU II Record PACU Phase II Document Type FT Summary Primary Physician: Freedom Garza DO Finalized Date/Time: 11/16/18 09:43:04 Pt. Name: MEERA STOCKTON/Sex: 1945 Male Med Rec #: [id number] Physician: Freedom Garza DO Financial #: [id number] Pt. Type: A Room/Bed: Admit/Disch: 11/16/18 06:30:00 - 11/16/18 09:35:00 Institution: [facility] Times PACU II FT Pre-Care Text: Identifies [...] Jairo Phelps RN Document Signatures Signed By: aJiro Phelps RN 11/16/18 09:43 Normal [facility] Main OR Preoperative Recordo n 11-16-2018 Main OR Preoperative Record Holding Area Document Type FT Summary Primary Physician: CarmellaLashonda foster DOnathan Finalized Date/Time: 11/16/18 06:58:04 Pt. Name: MEERA STOCKTON Chadd Dee./Sex: 1945 Male Med Rec #: [id number] Physician: Freedom Garza DO Financial #: [id number] Pt. Type: A Room/Bed: Admit/Disch: 11/16/18 06:30:45 - Institution: Case Times [...] 06:58 Arianne Romero RN 11/16/18 06:58 Normal [facility] Patient Education - Texton 0 11-16-2018 Patient Education - Text [place], [place] Freedom Garza D.O. AFTER SURGERY [right [...] in the morning before your appointment. Normal [facility] Progress Note-Physicianon Progress Note-Physician Patient: MEERA STOCKTON [...] Blood Loss: 0 ml. Complications: None. Normal [facility] Comment on above: Result Comment: Elec tronically Signed By: Freedom Garza DO\.br\Date and Time Signed: 11/16/18 09:01 EDT Operative Reporton 9 Operative Report Date of Surgery: SURGEON: Freedom D. Zahler, D.O. PREOPERATIVE DIAGNOSIS: Nuclear sclerotic cataract, left [...] day for postoperative care. Freedom Garza D.O. jacquelin Dictated: 10/28/2018 #[id number] Typed: 10/28/2018 #[id number] cc: Freedom Garza D.O. [facility] Comment on above: Result Comment: Elec tronically Signed By: Freedom Garza DO\.br\Date and Time Signed: 11/01/18 12:11 EDT Coding Summary.on 10-29-2018 Coding Summary. CODING DATE: [address] [facility] DSC STATUS: Home (Routine DC) PAYOR: Medicare APC DESCRIPTION 5491 Level 1 Intraocular Procedures ADMIT DX: REASON FOR VISIT DX: H25.13 Age-related nuclear cataract, bilateral FINAL DX: PRINCIPAL: H25.13 Age-related nuclear cataract, bilateral SECONDARY: I10 Essential (primary) hypertension E78.00 Pure hypercholesterolemia, unspecified PYMT PROC APC STAT DESCRIPTION DOCTOR NAME DATE 33408 5491 J1 Extracapsular cataract Freedom Garza DO 10/28/2018 [...] Kristine Townsend Date Saved: 10/29/2018 02:15 pm [facility] Main OR Intraoperative Recor don 10-29-2018 Main OR Intraoperative Record IntraOp Document Type FT Summary Primary Physician: Freedom Garza DO Finalized Date/Time: 10/29/18 10:27:38 Pt. Name: MEERA STOCKTON/Sex: 1945 Male Med Rec #: [id number] Physician: Freedom Garza DO Financial #: [id number] Pt. Type: A Room/Bed: Admit/Disch: 10/28/18 06:31:00 - 10/28/18 10:00:00 Institution: Case Times FT Entry 1 Patient Times In Room 10/28/18 08:46:00 Out Room 10/28/18 09:06:00 Procedure Times Start 10/28/18 08:52:00 Stop 10/28/18 09:05:00 Anesthesia Times Last Modified By: Jaelyn RN, CNOR, Padmini Collado 10/28/18 09:06:14 General Comments: 10/29/18 Chart open to review and send charges. Lata Christy RN Case Attendance FT Entry 1 Entry 2 Entry 3 Case Attendee Freedom Garza DO RN, Danielle Watt BSN, RN, Lisbeth Role Performed Surgeon - Primary Major Gifts Director - Primary Major Gifts Director - Primary Time In 10/28/18 08:46:00 10/28/18 08:46:00 10/28/18 08:46:00 Time Out 10/28/18 09:06:00 10/28/18 09:06:00 10/28/18 09:06:00 Procedure CATARACT EXTRACTION W/ CATARACT EXTRACTION W/ CATARACT EXTRACTION W/ INTRAOCULAR LENS(Left) INTRAOCULAR LENS(Left) INTRAOCULAR LENS(Left) Comments Last Modified By: Jose TORRE, Danielle Garcia RN, Danielle Garcia RN, Danielle Cruz 10/28/18 09:06:16 10/28/18 09:06:16 10/28/18 09:06:16 Entry 4 Entry 5 Case Attendee Medhat Marie CST STEAM BOX TENDER/Diamante DÍAZ Role Performed Scrub - Primary Scrub - Other Time In 10/28/18 08:46:00 10/28/18 08:46:00 Time Out 10/28/18 09:06:00 10/28/18 09:06:00 Procedure CATARACT EXTRACTION W/ CATARACT EXTRACTION W/ INTRAOCULAR LENS(Left) INTRAOCULAR LENS(Left) Comments Last Modified By: Jose TORRE, Danielle Garcia RN, Danielle Cruz 10/28/18 09:06:16 10/28/18 09:06:16 Perioperative Protocols FT [...] Garcia RN, Weisenburger BSN, RN, Frank Bob STEAM BOX TENDER, Dolores Means STEAM BOX TENDER/, Diamante Time Out Complete 10/28/18 08:50:00 Outcomes [...] safely administered during the perioperative period For Ortiz-Marshall please see scanned medication reconcilliation form for medications used at the field during the procedure. Implant Log FT Pre-Care Text: Records devices implanted during the operative or invasive procedure Entry 1 Procedure CATARACT EXTRACTION W/ Implant/Explant Implant INTRAOCULAR LENS(Left) Implant Identification FT Description BEATA [id number] 12.50MM Serial Number [id number] 19.50 [[id number]][F] Lot Number [id number] [employer]OM[employer] Catalog ?# [id number] [F] Size 19.5 Expiration Date 08/13/21 Usage [...] Christy RN, Lou Ann 10/29/18 10:27 Normal [facility] History and Physicalon 10-28 History and Physical [...] near future. Freedom Garza D.O. gls Dictated: 10/27/2018 #[id number] Typed 10/27/2018 #[id number] cc: Freedom Garza D.O. [facility] Comment on above: Result Comment: Elec tronically Signed By: Freedom Garza DO\.br\Date and Time Signed: 10/28/18 07:26 EDT Inpatient Patient Summaryon 10-28-2018 Inpatient Patient Summary [facility] Clinical Discharge Instructions PERSON INFORMATION Name: MEERA STOCKTON PHYSICIANS Admitting Physician: Freedom Garza DO Attending Physician: Freedom Garza DO PCP: MATT WANG DO Discharge Diagnosis: Cataract Comment: PATIENT EDUCATION INFORMATION Instructions: WOJCIECH- After Surgery Eye (Custom) Medication Leaflets: Follow up: With: Address: When: Freedom Garza [facility] [facility], [facility] [address] [id number] Business (1) Within 1 to 2 days MEDICATION LIST Comment: [facility] Main OR PACU II Recordon Main OR PACU II Record PACU Phase II Document Type FT Summary Primary Physician: Freedom Garza DO Finalized Date/Time: 10/28/18 11:11:34 Pt. Name: MEERA STOCKTON/Sex: 1945 Male Med Rec #: [id number] Physician: Freedom Garza DO Financial #: [id number] Pt. Type: Jose Room/Bed: Admit/Disch: 10/28/18 06:31:20 - Institution: Case Times [...] By: Radha Curtis RN 10/28/18 11:11 Normal [facility] Main OR Preoperative Recordo n 10-28-2018 Main OR Preoperative Record Holding Area Document Type FT Summary Primary Physician: Freedom Garza DO Finalized Date/Time: 10/28/18 07:22:48 Pt. Name: MEERA STOCKTON Chadd [place]/Sex: 1945 Male Med Rec #: [id number] Physician: Freedom Garza DO Financial #: [id number] Pt. Type: A Room/Bed: [facility] Admit/Disch: 10/28/18 06:31:20 - Institution: Case Times [...] By: Radha Curtis RN 10/28/18 07:22 Normal [facility] Patient Education - Texton 0 10-28-2018 Patient Education - Text [place], [place] Freedom Garza D.O. AFTER SURGERY [right [...] in the morning before your appointment. Normal [facility] Progress Note-Physicianon Progress Note-Physician Patient: MEERA STOCKTON [...] Blood Loss: 0 ml. Complications: None. Normal [facility] Comment on above: Result Comment: Elec tronically Signed By: Freedom Garza DO\.br\Date and Time Signed: 10/28/18 09:06 EDT ALLIED HEALTHon 09-26-2018 [facility] HNO ID: [id number] Author: Alex Monroe (Rt) Service: ? Author Type: Self Pay Representative Type: Allied Health Filed: 09/26/2018 10:40 AM [...] RT Fer September 26, 2018 10:27 AM [facility] MRI LUMBAR SPINE WO IVCONon 09-26-2018 MRI LUMBAR SPINE WO IVCON * * *Final Report* * * DATE OF EXAM: Sep 26 2018 10:44AM [facility] 0303 - MRI LUMBAR SPINE WO IVCON [...] and assume there are 5 lumbar-type vertebrae. Surgeon'S Assistant: PSCB Transcribe Date/Time: Sep 26 2018 4:05P Dictated by : BERE VILLEDA MD This examination was interpreted and the report reviewed and electronically signed by: BERE VILLEDA MD on Sep 26 2018 4:15PM EST [id number] [facility] PROGRESSon 08-27-2018 PROGRESS HNO ID: [id number] Author: Medhat (Alex Bonilla Service: Radiology Author Type: Self Pay Representative Type: Progress Notes Filed: 08/27/2018 9:51 AM [...] RT Antonio August 27, 2018 9:47 AM [facility] XR HIP 2V AP/ LAT LTon 08-27 [...] spine. Hip joint spaces are well preserved. Surgeon'S Assistant: PSCB Transcribe Date/Time: Aug 27 2018 10:35A Dictated by : RAMOS DESOUZA MD This examination was interpreted and the report reviewed and electronically signed by: RAMOS DESOUZA MD on Aug 27 2018 10:37AM EST [id number] [facility] 07-03-2018 [facility] HNO ID: [id number] Author: Alex Alvarado (Tech) Service: Radiology Author Type: Self Pay Representative Type: Allied Health Filed: 07/03/2018 3:21 PM [...] M Oliveira July 03, 2018 3:10 PM [facility] MRI CERVICAL SPINE WO IVCONo n 07-03-2018 MRI CERVICAL SPINE WO IVCON * * *Final Report* * * DATE OF EXAM: Jul 03 2018 3:21PM [facility] 0297 - MRI CERVICAL SPINE WO IVCON [...] vertebrae with counting from the craniocervical junction. Surgeon'S Assistant: PSCB Transcribe Date/Time: Jul 03 2018 3:25P Dictated by : JOSE TILLMAN MD This examination was interpreted and the report reviewed and electronically signed by: JOSE TILLMAN MD on Jul 03 2018 3:28PM EST [id number] [facility] Physical Therapy Noteon 02-13 Physical Therapy Note [id number]#1.00OTGTIFF [facility] Medication Managementon 11-14 Medication Management [id number][facility] [place] [facility]-2017 Protein mass conc [id number]#[facility] mass conc [id number]#1.00[facility] Coding Summaryon 11-26-2017 Coding Summary CODING DATE: 018 [facility] STATUS: PAYOR: Medicare ADMIT DX: REASON [...] Tamika Anderson Date Saved: 11/26/2017 09:15 am [facility] Provider [place] 11-17-2017 Protein mass conc [id number]#[address] [place] [address] CNDSon 10-17-2017 CNDS HNO ID: [id number] thor: Jose Raul Martin) SubramaniamService: NeurosurgeryAuthor Type: PhysicianType: Discharge SummariesFiled: 10/17/2017 12:51 PMNote Text:DISCHARGE SUMMARYPATIENT NAME: Meera Stockton ADMISSION DATE: 10/14/2017MRN: [id number] DISCHARGE DATE: 10/17/2017Attending Physician: Jose Raul Martin) Subrama*Reason for Hospitalization:L3-5 decompression with foraminotomyDiagnosis: L3-5 lumbar [...] During Hospitalization:Treatment Team:Attending Provider: Jose Raul Martin) TinaPatient Condition @ Discharge:ImprovedDischarge Disposition:Home with home health [...] Provider Department Dept Phone 11/06/2017 10:00 AM Gandhivarma (Sheila Mc Frvw [phone] OF CARE: Discharge Management: I personally spent greater than 30minutes involved in the discharge management of this patient.SIGNATURE: Jose Raul Valdes MD PATIENT NAME: Meera StocktonDATE: October 17, 2017 : 12:43 PM PAGER/CONTACT #: [phone] [facility] NURSING PROGon 10-17-2017 Protein mass conc HNO ID: [id number] thor: Karishma (Rn) Kaelyn, RNService: NursingAuthor Type: Registered NurseType: Nursing Progress NoteFiled: 10/17/2017 10:42 AMNote Text: Nursing Progress NotePatient Name: Meera StocktonMRN: [id number] Location: [place] [address]/YO-NI0W-12 ____Daily Note:1040: Pt up and ambulating for second time this shift. Pt isslow to stand up, but once moving tolerates well. Medicated with 2percocet at 0810 and effective.This note was completed by: Karishma Art RN [facility] THERAPY NTon 10-17-2017 THERAPY NT HNO ID: [id number] thor: Nidhi (Ot) TheoaminService: Occupational TherapyAuthor Type: Occupational TherapistType: Therapy (PT/OT/Speech/Resp)Filed: 10/17/2017 2:14 PMNote Text:Occupational Therapy TreatmentSERVICE DATE: 10/17/2017SERVICE TIME: 1130 to 1155ROOM: [id number] Discharge Disposition: HomeAnticipated Discharge Needs: Physical Assist at HomePhysical Assist at Home for: Cleaning;Laundry;Meals;Stair s;SelfCare;Shopping;Transpor tation;TransfersRecommended Discharge Equipment: Elastic Shoe Laces;Grab Bars-Shower;HandHeld Shower;Long Handled Shoe Horn;Long Handled Sponge;WheeledWalker;Anvil Seating Press Operator ;Sock Aide;Shower ChairOT Recommendations to Nursing: To [...] of dailyliving (ADL);Muscle Weakness (generalized)Interventions Provided: Self Mcfp Management (03508)Self Mcfp Management (40504) Treatment Minutes: 252 unitsSkilled Intervention(s): Provided instruction, cuing and facilitation forlower body dressing .Instructed pt on use of medicine assistant to ludwin/doff pants, underwear, shoes inorder to maintain spinal precautions and increase independence with ADL's.Pt able to thread legs through pant holes with use of medicine assistant at min a.Instructed pt on use of [...] twolevel home, stays on 1st level, in [place])Assistance Available: PRN;Other: See Comment (Spouse retired, one [...] forcomplete details for this therapy evaluation/treatment.SIGNATU RE: KATERIN Mike PATIENT NAME: Meera McnealTE: October 17, 2017 : 1:16 PMI reviewed and agree with the documentation corresponding to this therapyvisit.SIGNATURE: NILESH Spears/LDATE: October 17, 2017TIME: 2:14 PM [facility] CASE MANAGEMon 10-16-2017 CASE MANAGEM HNO ID: [id number] thor: Joanne Falcon) Coco RNService: Care ManagementAuthor Type: Registered NurseType: Care Mgt [...] 16, 2017 : 4:02 PM PAGER/CONTACT #: [phone] [facility] CASE MANAGEM HNO ID: [id number] thor: Joanne Falcon) Coco RNService: Care ManagementAuthor Type: Registered NurseType: Care Mgt Progress NoteFiled: 10/16/2017 3:50 PMNote Text:CARE MANAGEMENT PROGRESS NOTESERVICE DATE: 10/16/2017SERVICE TIME: 3:41 PM LOS: 0 daysFREEDOM OF CHOICE GIVEN:Preference: Patient declinesHC order is noted in Epic, This CM met with the pt at the bedside [facility] , His is visiting.Pt declines Home Care, Pt states No, I do not want home care His is present, she agrees with her .A message was sent to notify Shamir CERVANTES.SIGNATURE: Joanne Sepulveda RN,BSN PATIENT NAME: Meera StocktonDATE: October 16, 2017 : 3:41 PM PAGER/CONTACT #: [phone] [facility] NURSING PROGon 10-16-2017 Protein mass conc HNO ID: [id number] thor: Dm Falcon) Lexie RNService: (none)Author Type: Registered NurseType: Nursing Progress NoteFiled: 10/16/2017 12:05 PMNote Text: Nursing Progress NotePatient Name: Meera StocktonMRN: [id number] Location: [place] [address]/HE-WI8O-81 ____Daily Note: Mr. Stockton ambulated in [place] with 1 assist and walker severaltimes today. He has difficulty rising from seated position, but gait issteady. Percocet takes the edge off the low back pain, but patientstates he is also having muscle spasms intermittently. BILLY [place] aware.PT/OT staff assessed and treated patient; [facility]This note was completed by: Dm Owen RN [facility] PROGRESSon 10-16-2017 Protein mass conc HNO ID: [id number] thor: Jose Raul Martin) SubramaniamService: NeurosurgeryAuthor Type: [...] hrs: BP Temp Temp src Pulse Resp JuX43010/16/17 1127 120/79 36.6 ?C (97.9 ?F) Oral [...] spasmsFoley outPT/OTIncentive spirometryDischarge planningMedication and Non-Pharmacologic VTE Prophylaxis/Elehezgplhhdtv03 /01/18 2215 vte pharmacologic prophylaxis contraindicated (vt,id)10/14/172214 pneumatic compression stockings (vt,id)10/14/172214 activity - mobilize patient (vt,id)VTE Prophylaxis: VTE prophylaxis appropriateSIGNATURE: BILLY Julien- PATIENT NAME: Meera StocktonDATE: October 16, 2017 : 1:53 PM PAGER/CONTACT #:Staff addendum?Post op L3-5?decompressionOperative pain is better with medicationsDenies Leg weakness?Dressing clean and dryMoving limbs equal?Plan:Continue pain medicationsSCDPT /OTIncentive spirometry?Samir Holguin, Neurosurgery [facility] THERAPY NTon 10-16-2017 THERAPY NT HNO ID: [id number] thor: Siri Schuster) Coreye: Physical TherapyAuthor Type: Physical Therapy AssistantType: Therapy (PT/OT/Speech/Resp)Filed: 10/16/2017 3:17 PMNote Text: -Attestation signed by Leslie Ruff at 10/16/2017 3:17 PMI reviewed and agree with the documentation corresponding to this therapyvisit.SIGNATURE: Leslie Ruff, PTDATE: October 16, 2017TIME: 3:17 PM Ph ysical Therapy TreatmentSERVICE DATE: 10/16/2017SERVICE TIME: 1415 to 1455ROOM: [address]-28 L3-S1 Lumbar Canal Stenosis; S/P Lumbar Laminectomy/ [...] inReach;SCDsPatient Disposition at End of Session: Call Ojnes in Reach;Supine inBed;Family PresentTolerated Full SessionPhysical Therapy [...] and signs-other;Difficultywalkin g-musculoskeletalInterventio ns Provided: Therapeutic Activity (88788);Gait Training (09859)Therapeutic Activity (62658) Treatment Minutes: 101 unitSkilled Intervention(s): Instructed patient [...] cold pack andfrequent change in positionGait Training (33810) Treatment Minutes: 151 unitSkilled Intervention(s): Instruction in [...] twolevel home, stays on 1st level, in [place])Assistance Available: PRN;Other: See Comment (Spouse retired, one childclose by)Entry To Home: Stairs;Without RailNumber Of Stairs Into Home: 1Number Of Stairs To Bed/Bath: 0Tub/Shower Type: Walk-in ShowerLaundry: 1st levelEquipment Owned: [employer]-Shower;Cane;Wheeled WalkerPrior Functional Level: Within Functional Limits;History of [...] October 16, 2017 : 3:09 PM [facility] THERAPY NT HNO ID: [id number] thor: Maggie Vuong (Cota)ervice: Occupational TherapyAuthor Type: Occupational Therapy AssistantType: Therapy (PT/OT/Speech/Resp)Filed: 10/16/2017 1:59 PMNote Text: -Attestation signed by Jadyn Chase at 10/16/2017 2:48 PMI reviewed and agree with the documentation corresponding to this therapyvisit.SIGNATURE: Jadyn MONTOYAricole OTRLDATE: October 16, 2017TIME: 2:47 PM Oc cupational Therapy TreatmentSERVICE DATE: 10/16/2017SERVICE TIME: 1245 to 1340ROOM: [id number] Discharge Disposition: HomeAnticipated Discharge Needs: Physical Assist at HomePhysical Assist at Home for: Cleaning;Laundry;Meals;Stair s;SelfCare;Shopping;Transpor tation;TransfersRecommended Discharge Equipment: Elastic Shoe Laces;Grab Bars-Shower;HandHeld Shower;Long Handled Shoe Horn;Long Handled Sponge;WheeledWalker;Anvil Seating Press Operator ;Sock Aide;Shower ChairOT Recommendations to Nursing: To [...] dailyliving (ADL);Muscle Weakness (generalized)Interventions Provided: Therapeutic Activity (18019);Self Care HomeManagement (38559)Therapeutic Activity (82692) Treatment Minutes: 232 unitsSkilled Intervention(s): Instructed patient [...] information as to where to purchase AE.Self Mcfp Management (02801) Treatment Minutes: 322 unitsSkilled Intervention(s): Provided instruction, cuing and facilitation forlower body dressing .Instructed pt on use of medicine assistant to ludwin/doff pants, underwear, shoes inorder to [...] Self Care Current Status (G8987): CK (10/15/17 07)$ Self Care Goal Status (G8988): CK (10/15/17729)Based [...] twolevel home, stays on 1st level, in [place])Assistance Available: PRN;Other: See Comment (Spouse retired, one [...] forcomplete details for this therapy evaluation/treatment.SIGNATU RE: KATERIN Mike PATIENT NAME: Meera StocktonDATE: October 16, 2017 : 1:49 PM [facility] CASE MGT INIT ASSESon 2017 CASE MGT INIT [facility] HNO ID: [id number]: Joanne (Rn) FARAZ Sepulvedaervice: Care ManagementAuthor Type: Registered NurseType: Care Mgt Initial AssessmentFiled: 10/15/2017 2:40 PMNote Text:CARE MANAGEMENT: ASSESSMENT AND DISCHARGE PLANSERVICE DATE: 10/15/2017SERVICE TIME: 2:15 PMPRIMARY CARE PHYSICIAN:Matt Wang, MDPhone: [id number] STATUS: Extended RecoveryNeeds Prior to Discharge: To [...] Admission: WalkerHas the Patient Been in a Penitentiary Facility in the Past 30 days? NoSOCIAL:Living Arrangement: HomeLives With: SpouseFinancial Resources: Retired DentistPrimary Contact: Extended Emergency Contact InformationPrimary Emergency Contact: Maggie StocktonAddress: [address] [place], [place] [address]Yhgl Aneaen Ckkccdxb: SpouseSupportive: YesOther Important Patient Contacts: NoneCaregiver Assessment:Caregiver [...] - 0I feel financially burdened by my wlw-rl-knaoaf expenses for myprescription medication: Disagree mostly -0Patient [...] 15, 2017 : 2:15 PM PAGER/CONTACT #: [phone] [facility] NURSING PROGon 10-15-2017 Protein mass conc HNO ID: [id number] thor: Dm OcasioRn) Tian Owen: (none)Author Type: Registered NurseType: Nursing Progress NoteFiled: 10/15/2017 5:39 PMNote Text: Nursing Progress NotePatient Name: Meera StocktonN: [id number] Location: FV-PK3C28/KP-KG3U-17 ____Mr. Stockton voided 100ml clear, medhat urine since kathleen catheter removedabout 1230.This note was completed by: Dm Owen RN [facility] Protein mass conc HNO ID: [id number] thor: Dm Falcon) Yonis Owenice: (none)Author Type: Registered NurseType: Nursing Progress NoteFiled: 10/15/2017 12:27 PMNote Text: Nursing Progress NotePatient Name: Meera StocktonN: [id number] Location: FV-PK3C28/SP-XU3S-81 ____Foley catheter clamped for about 1 hour. Patient with slight urge to void. Kathleen unclamped for 250 return of urine. Catheter removed (per nursedriven protocol) and patient assisted with ambulation.This note was completed by: Dm Owen RN [facility] Protein mass conc HNO ID: [id number] thor: Dm Falcon) Tian Owen: (none)Author Type: Registered NurseType: Nursing Progress NoteFiled: 10/15/2017 7:57 AMNote Text: Nursing Progress NotePatient Name: Meera StocktonN: [id number] Location: FV-PK3C28/ZP-QO1B-63 ____Daily Note: Mr. Stockton awake and alert [...] note was completed by: Dm Owen RN [facility] Protein mass conc HNO ID: [id number] thor: Raven (Rn) FARAZ Ovalleservice: (none)Author Type: Registered NurseType: Nursing Progress NoteFiled: 10/15/2017 4:56 AMNote Text: Nursing Progress NotePatient Name: Meera StocktonMRN: [id number] Location: [address]/MD-KP8Q-49 ____Transfer Note:Patient transferred into room/unit 328 in stable condition. Actionstaken: No futher actions taken at this time. Will continue to monitor andcheck with patient.2230 medicated with percocet 1 tab for 5/10 pain.2330 reassessed, statedhe didn't want the second percocet. moving in bed , positioned dgngjwgmhc3786 unable to void with attempt. will check with pt again at ejvit7143.Ancef given as zagtsda2912 voided 75ml of clear yellow urine, will obtain bladder fzpb5570 kathleen placed after bladder scan >900. initial output is 600 clearyellow urine. medicated for 7/10 pain. tolerated procedure zirj8243 medicated with morphine for pain.0445pt still having pain. medicated with 2 percocet. explained to pt thatthe increase in pain is probably due to local wearing off.This note was completed by: Raven Ovalles RN [facility] PLAN OF CAREon 10-15-2017 PLAN OF CARE HNO ID: [id number] thor: Esperanza Anderson (Pharmacist)Service: PharmacyAuthor Type: PharmacistType: Plan of CareFiled: 10/15/2017 9:48 AMNote Text:DISCHARGE MEDICATION REVIEW BY PHARMACYPatient Name: Meera Stockton Account #: Data UnavailableMRN: [id number] Admission Date: 10/14/2017Date of Contact: October 15, 2017 Time of Contact: 9:48 AMMedication list was reviewed by a Pharmacist for drug interactions or drugrelated problems:YesBelow is a summary of pharmacist recommendations discussed with LIP:No Recommendations at this time from Discharge Medication List.Malathi ZavalaAugusfrank 2017 9:48 AMPager: [id number] 9:48 AMMedication ListSTART taking these medicationsoxyCODONE-acetami nophen [...] 100 mg tablet? oxyCODONE-acetaminophen 5-325 mg tablet [facility] PROGRESSon 10-15-2017 Protein mass conc HNO ID: [id number] thor: Jose Raul Martin) SubramaniamService: NeurosurgeryAuthor Type: [...] Temp Temp src Pulse Resp SpO2 Height Eixbhf87/02/18 0800 115/68 37.3 ?C (99.1 ?F) Oral [...] - - 61 16 97 % - -10/14/172114 152/94 - - 80 15 97 % - -10/14/172099 144/92 - - 60 16 97 % - -10/14/172044 145/73 36 ?C (96.8 ?F) - 67 [...] clamp for trialIncentive spirometryMedication and Non-Pharmacologic VTE Prophylaxis/Cycutnoazutyvv16 /01/18 2215 vte pharmacologic prophylaxis contraindicated (vt,id)10/14/172214 pneumatic compression stockings (vt,id)10/14/172214 activity - mobilize patient ([place])VTE Prophylaxis: VTE prophylaxis appropriateSIGNATURE: BILLY Julien- PATIENT NAME: Meera StocktonDATE: October 15, 2017 : 9:26 AM PAGER/CONTACT #:Staff addendumPost op L3-5 decompressionOperative pain is betterDenies Leg weakness?Dressing clean and dryMoving limbs equal?Plan:Continue pain medicationsSCDPT /OTIncentive spirometry?Samir Holguin, Neurosurgery [facility] Protein mass conc HNO ID: [id number] thor: Jose Raul Martin) Abundioervice: NeurosurgeryAuthor Type: PhysicianType: Progress NotesFiled: 10/14/2017 10:33 PMNote Text:Post op NotePost op L3-5 decompressionOperative pain is betterDenies Leg weaknessDressing clean and dryMoving limbs equalPlan:Continue pain medicationsIV fluidsSCDPT /OTIncentive spirometryGandhivarma Samir Valdes, Neurosurgery [facility] THERAPY NTon 10-15-2017 THERAPY NT HNO ID: [id number] thor: Leslie (Pt) KilbaneService: Physical TherapyAuthor Type: Physical TherapistType: Therapy (PT/OT/Speech/Resp)Filed: 10/15/2017 1:59 PMNote Text:Physical Therapy TreatmentSERVICE DATE: 10/15/2017SERVICE TIME: 1335 to 1350ROOM: IL-QZ9X-45Hgusaieiuvw Discharge Disposition: Home PTAnticipated Discharge Needs: Physical [...] liliana-musculoskeletal;General symptoms and signs-otherInterventions Provided: Gait Training (32029)Gait Training (28954) Treatment Minutes: 151 unitSkilled Intervention(s): Instruction in [...] twolevel home, stays on 1st level, in [place])Assistance Available: PRN;Other: See Comment (Spouse retired, one [...] October 15, 2017 : 1:58 PM [facility] THERAPY NT HNO ID: [id number] thor: Leslie (Pt) Vandanarvice: Physical TherapyAuthor Type: Physical TherapistType: Therapy (PT/OT/Speech/Resp)Filed: 10/15/2017 10:15 AMNote Text:Physical Therapy EvaluationSERVICE DATE: 10/15/2017SERVICE TIME: 914 to 944ROOM: DA-PU3M-69Xsconaripkj Discharge Disposition: Home PTAnticipated Discharge Needs: Physical [...] liliana-musculoskeletal;General symptoms and signs-otherInterventions Provided: Evaluation;Gait Training (42741);TherapeuticActivity (40052)$ Evaluation-Low (58812) Billed Units: 1 unitTherapeutic Activity (49123) Treatment Minutes: 5Skilled Intervention(s): Instructed patient in log roll techniqueInstructed patient in sit to supine using safe, effective techniqueInstruction in sit to and from stand technique with proper hand placementand body positioning at edge of bed/chairEducation with spine precautions/lifting and mobility precautions; educ inbreathing technique with activityGait Training (84612) Treatment Minutes: 101 unitSkilled Intervention(s): Instruction in [...] and Moving Around Current Status (G8978): CK (637494)$ Mobility: Walking and Moving Around Goal Status (G8979): CJ (915)Based on clinical assessment and the score on [...] twolevel home, stays on 1st level, in [place])Assistance Available: PRN;Other: See Comment (Spouse retired, one [...] details for this therapy evaluation/treatment.SIGNATU RE: Leslie Ruff, PT PATIENT NAME: Meera StocktonDATE: October 15, 2017 : 9:59 AM [facility] THERAPY NT HNO ID: [id number] thor: Nadira (Ot) GarnekService: Occupational TherapyAuthor Type: Occupational TherapistType: Therapy (PT/OT/Speech/Resp)Filed: 10/15/2017 9:42 AMNote Text:Occupational Therapy EvaluationSERVICE DATE: 10/15/2017SERVICE TIME: 0730 to 0755ROOM: [id number] Lumbar Canal Stenosis With Neurogenic Claudication, S/P L3-5Decompressive Laminectomy, Decompression Of L3-4, L4-5 and L5-S1 LumbarCanal Stenosis With Bilateral Root Foraminotomies 10/14/17Recommended Discharge Disposition: HomeAnticipated Discharge Needs: Physical Assist at Home;EquipmentPhysical Assist at Home for:Cleaning;Laundry;Meals;S hopping;Transportation;Ambul ationRecommended Discharge Equipment: Elastic Shoe Laces;Grab Bars-Shower;HandHeld Shower;Long Handled Shoe Horn;Long Handled Sponge;WheeledWalker;Anvil Seating Press Operator ;Sock Aide;Shower ChairOT Recommendations to Nursing: To [...] For Complete Past MedicalHistory Please Refer to Epic. Pt presents with decreased ability tocomplete ADL's, [...] isretired, and resides with his [place], and has one child thatresides close by [...] of gait and mobility-otherInterventions Provided: Evaluation;Therapeutic Activity (77098)$ Evaluation-Low (89547) Billed Units: 1 unitTherapeutic Activity (21828) Treatment Minutes: 101 unitSkilled Intervention(s): Instructed patient [...] twolevel home, stays on 1st level, in [place])Assistance Available: PRN;Other: See Comment (Spouse retired, one [...] documentation flowsheet forcomplete details for this therapy evaluation/treatment.DEBORAH RE: NILESH Serrano/Lata PATIENT NAME: Meera StocktonDATE: October 15, 2017 : 9:35 AM [facility] ANES Benjamin 10-14-2017 ANES POST HNO ID: [id number] thor: Clement WorrelltoiuService: AnesthesiologyAuthor Type: AnesthesiologistType: Anesthesia PostOpFiled: 10/14/2017 8:25 PMNote Text:POST ANESTHESIA EVALUATION NOTESERVICE DATE: 10/14/2017SERVICE TIME: 8:25 PMDOB: 1945Vitals: 10/15/18195BP: 137/73 165/96 149/86Pulse: (!) 52 89 [...] Remarks:SIGNATURE: Clement Maldonado MD PATIENT NAME: Meera StocktonDATE: October 14, 2017 : 8:25 PM PAGER/CONTACT #: [phone] [facility] ANES PREOPon 10-14-2017 ANES PREOP HNO ID: [id number] thor: Stephen Nixon) ValencianService: AnesthesiologyAuthor Type: Nurse AnesthetistType: Anesthesia PreOpFiled: 10/14/2017 4:03 PMNote Text: -Attestation signed by Clement Maldonado at 10/14/2017 4:08 PMI have discussed the patient with the heel gouger and agree with the evaluationand plan.Clement Maldonado [facility] 2017 REGIONAL ANESTHESIOLOGY DAY OF SURGERY NOTEPATIENT NAME: Meera StocktonMRN: [id number]: 1945Procedure(s) (LRB):DECOMPRESSION LAMINECTOMY LUMBAR POSTERIOR LEVEL 1 [...] lab results:Hemoglobin 15.6 09/24/2017Hematocrit 47.4 09/24/2017Potassium 4.6 09/24/2017Platelet Count 521 09/24/2017PT Sec 10.8 09/24/2017APTT 24.7 [...] LISTChronic Pancreatitis (Hcc)Idiopathic Progressive PolyneuropathyLumbosacral Radiculopathy At Y3Lhmfuffincy Radiculopathy At O7Vrdmgs Stenosis, Lumbar Region, With Neurogenic ClaudicationPAST MEDICAL [...] by mouth once daily.Inpatient medications reviewed in [facility].I have interviewed and examined the patient. I have reviewed the medicalrecord and/or the pre-anesthesia evaluation, pertinent labs, and testresults.Significant changes in the patient's condition since the History andPhysical, not otherwise documented in primary service progress notes: NoThis contains updated information obtained within 48 hours ofSurgery/Procedure.SIGNKATHRIN E: Stephen Colon APRN.HYDRAULIC BLOCKER PATIENT NAME: Meera StocktonDATE: October 14, 2017 : 4:01 PM PAGER/CONTACT #: [phone] [facility] BRIEF OP NOTon 10-14-2017 BRIEF OP NOT HNO ID: [id number] thor: Jose Raul Martin) TamelaaniamService: NeurosurgeryAuthor Type: PhysicianType: Brief Op NoteFiled: 10/14/2017 7:46 PMNote Text:BRIEF OPERATIVE / PROCEDURE NOTELOG ID: [id number]/PROCEDURE DATE: 10/14/2017INCISION/PROCEDURE START TIME: 5:50 PMINCISION CLOSE/PROCEDURE END TIME: 07.45 PMSURGEON(S)/PROCEDURALIST(S ) AND BEAN ROASTER(S):Surgeon(s) and Role: * Jose Raul Martin) Keisha - PrimaryPhysician Medical Coding Manager: Shamir Mendez) Vera Melendrez) VictorinoURGERY/PROCEDURE(S):L3- 5 decompressive laminectomy, decompression of L3-4, L4-5 and L5-M3okfowd canal stenosis with bilateral root foraminotomiesOperative microscope [...] 14, 2017 : 7:44 PM PAGER/CONTACT #: [facility] NURSING PROGon 10-14-2017 Protein mass conc HNO ID: [id number] thor: Joanne (Rn) FARAZ Klineervice: NursingAuthor Type: Registered NurseType: Nursing Progress NoteFiled: 10/14/2017 6:54 PMNote Text: Nursing Progress NotePatient Name: Meera StocktonMRN: [id number] Location: FV OR POOL/FV OR POOL 5:55 PM Family updated via paging system.6:54 PM Family updated via paging system.This note was completed by: Joanne Kline RN [facility] OPERATIVE NOon 10-14-2017 OPERATIVE NO HNO ID: [id number] thor: Jose Raul Martin) SubramaniamService: NeurosurgeryAuthor Type: PhysicianType: Operative ReportFiled: 10/14/2017 7:55 PMNote Text:OPERATIVE/PROCEDURE REPORTLOG ID: [id number]/PROCEDURE DATE: 10/14/2017INCISION/PROCEDURE START TIME: 5:50 PMINCISION CLOSE/PROCEDURE END TIME: 07.45 PMSURGEON(S)/PROCEDURALIST(S ) AND BEAN ROASTER(S):Surgeon(s) and Role: * Jose Raul Martin) Keisha - PrimaryPhysician Medical Coding Manager: Shamir (Samantha) Vera Melendrez) KhanANESTHESIA: GeneralPRE-OP/PRE-PROCEDURE DIAGNOSIS:L3-S1 lumbar canal stenosis with neurogenic claudication?POST-OP/POST-RI OCEDURE DIAGNOSIS:L3-S1 lumbar canal stenosis with neurogenic claudicationSURGERY/PROCEDUR E(S):L3-5 decompressive laminectomy, decompression of L3-4, L4-5 and L5-Y7kkprpe canal stenosis with bilateral root foraminotomiesOperative microscope [...] 14, 2017 : 7:50 PM PAGER/CONTACT #: [facility] PT EDon 10-14-2017 PT ED HNO ID: [id number] thor: Alisson (Rn) Alberto, RNService: NursingAuthor Type: Registered NurseType: Patient EducationFiled: 10/14/2017 2:24 PMNote Text:PATIENT EDUCATION TOPIC:lumbar laminectomyPATIENT NAME: Meera StocktonMRN: [id number] LOCATION: OR POOL/FV OR POOLREADINESS TO LEARNCOGNITIVE ABILITY: Alert and orientedMOTIVATION TO LEARN: InterestedFAMILY SUPPORT: None - Unavailable/disinterestedINS TRUCTION PROVIDED TO: PatientPATIENT LEARNS BEST BY: Individual InstructionFACTORS AFFECTING LEARNING: NonePHYSICAL LIMITATIONS AFFECTING LEARNING: NoneLEARNING RESPONSEDIAGNOSIS: ADULT:PATIENT/FAMILY RESPONSE: Verbalizes understanding of: SYL-WSPCMJOESACOTXOCOTUOO-Wy rrect action to take to follow pre-operative instructionsMETHOD OF INSTRUCTION: Individual instructionFOLLOW-UP PLAN: Complete - No need for follow-upINSTRUCTIONAL AIDS USED: NASUPPLEMENTAL MATERIAL PROVIDED TO PATIENT: NoneREFERRAL (RECOMMENDATION): NoneElectronically Signed By: Alisson Dominguez, RN [facility] XR LUMBAR 1Von 10-14-2017 Protein mass conc * * *Final Report* * *DATE OF EXAM: Oct 14 2017 6:51PM FVO 5283 - XR LUMBAR 1V / [...] at the posterior aspect of L3-4 and L5-S1.Surgeon'S Assistant: ISAMAR Transcribe Date/Time: Oct 14 2017 10:12PDictated by : KIRSTIN RIDDLE MDThis examination was interpreted and the report reviewed and electronically signed by: KIRSTIN RIDDLE MD on Oct 14 2017 11:09PM [id number] [facility] Protein mass conc * * *Final Report* * *DATE OF EXAM: Oct 14 2017 6:21PM FVO 5283 - XR LUMBAR 1V / [...] at the posterior aspect of L3-4 and L5-S1.Surgeon'S Assistant: Luxoft Transcribe Date/Time: Oct 14 2017 10:11PDictated by : KIRSTIN RIDDLE MDThis examination was interpreted and the report reviewed and electronically signed by: KIRSTIN RIDDLE MD on Oct 14 2017 11:09PM [id number] [facility] XR LUMBAR 1V * * *Final [...] Localization to L4-5 of the lumbar spineTranscriptionist: PSCMonetsu Transcribe Date/Time: Oct 14 2017 6:07PDictated by : CHARAN DEGROOT MDThis examination was interpreted and the report reviewed and electronically signed by: CHARAN DEGROOT MD on Oct 14 2017 6:12PM [id number] [facility] NURSING [facility] 10-12-2017 Protein mass conc HNO ID: [id number] Author: Kathya (Rn) Larry, RN Service: Neurosurgery Author Type: Registered Nurse Type: Nursing Progress Note Filed: 10/12/2017 1:36 PM Note Text: EKG scanned. Florian Juarez RN [facility] NURSING [facility] 09-28-2017 Protein mass conc HNO ID: [id number] thor: Silvia (Rn) FARAZ Vásquezervice: (none)Author Type: [...] Months: Yes: Date: 09/24, Comment: not in epicLast Menstrual Period:LMP Date: N/APostmenopausal >1yr: N/A,S/P Hysterectomy: N/ABMI Percentile (PEDS):N/ARisk Assessment:N/AAnesthesia Review:N/ANarrative:Patient called and given instructions on mupirocin 2x day each nostrilstarting 5 days before surgery. Stated understandingPre-op Considerations:N/AChart Check:IN PROGRESS - [facility] not [facility] CenterKerm[facility] Wangly 2017 1:27 PM [facility] Type and SCR (30D)on 018 ABO/RH(D) Positive [facility] Comment on above: Performed By: #### T SCR30 ####[facility] [place], [place] [phone] Antibody Screen Negative Normal [facility] Comment on above: Performed By: #### T SCR30 ####[id number] [place], [place] [phone] HOSPon 07-28-2017 HOSP Patient:Meera Stockton MRN: Height:5' [...] 3.7HEMA* 47.4 % 09/24/2017 51.0 39.0Progress Notes ([facility]):Carmen Zhang, FARM CROPS TEACHER.PROTOTYPE TECHNICIAN 09/28/2017 12:51 PM SignedPatient is scheduled for decompression laminectomy with Dr. Valdes 10/14/17at . His nasal swab came back positive for staphylococcus. Mupirocin escripted to pharmacy with instructions. Could you please call the patient to [facility]. Know? Thank you.Silvia Vásquez, RN, RN 09/28/2017 1:35 PM SignedGave patient instructions regarding mupirocin, use 2x day starting 5 days priorsurgery. Stated understanding. Silvia Vásquez RNProgress Notes ([facility]):Jovita Hogan, TODD 09/24/2017 11:00 AM Signed Radiology Service Progress NotePATIENT NAME: Meera StocktonMRN: [id number] OF SERVICE: September 24, 2017TIME: 11:00 AMPATIENT IDENTITY VERIFICATION COMPLETED USING TWO (2) METHODS: Patientconfirmed name verbally and Date of .PATIENT GENDER DATA: MalePATIENT RELEVANT IMPLANT DATA REVIEWED: Not ApplicableRADIOLOGY DEPARTMENT: General X-ray: Exam(s) Completed: Chest X-RayPERIPHERAL IV DATA: Not applicableSIGNED BY: Jovita Hogan, RRTJuly 2017 11:00 AM [facility] MRI THORACIC SPINE WO IVCONo n 07-02-2017 MRI THORACIC SPINE WO IVCON * * *Final Report* * *DATE OF EXAM: Jul 02 2017 12:19PM [facility] 0325 - MRI THORACIC SPINE WO IVCON [...] ABOVE. NO SEVERE CORD IMPINGEMENT OR SIGNAL ABNORMALITY.Surgeon'S Assistant : ISAMAR Transcribe Date/Time: Jul 02 2017 12:27PDictated by : STEPHANIE PATTON MDThis examination was interpreted and the report reviewed and electronically signed by: STEPHANIE PATTON MD on Jul 02 2017 12:29PM [id number] [facility] XR LUMBAR 4V AP/LAT/ FLEX/EX Ton [...] DISCOGENIC AND FACET SCLEROSIS, GREATEST AT L4-5Transcriptionist: ISAMAR Transcribe Date/Time: Jun 16 2017 4:19PDictated by : VIRGIL WHEELER MDThis examination was interpreted and the report reviewed and electronically signed by: VIRGIL WHEELER MD on Jun 16 2017 4:19PM [id number] [facility] Vital Signs Date Time Vital Sign Value Performing Clinician Facility 10-09-2023 10: Body height 170.[address] [facility] 10-09-2023 10:0400 Body mass index (BMI) [Ratio] 27.4 kg/m2 [facility] 10-09-2023 10:040 Body weight 79.[address] [facility] 10-09-2023 10:040 Diastolic blood pressure 64 mm[Hg] [facility] 10-09-2023 10:310400 Heart rate 48 /min [facility] 10-09-2023 10:0400 Respiratory rate 12 /min [facility] 10-09-2023 10:310400 Systolic blood pressure 113 mm[Hg] [facility] 07-18-2021 10:45-0400 Body height 176.5 cm Elier Raymundo MD Work Phone: [facility] 07-18-2021 10:45-0400 Body temperature 97.81 [degF] Elier Raymundo MD Work Phone: [facility] 07-18-2021 10:45-0400 Body weight 84.28 kg Elier Raymundo MD Work Phone: [facility] 07-18-2021 10:45-0400 Diastolic blood pressure 68 mm[Hg] Elier Raymundo MD Work Phone: [facility] 07-18-2021 10:45-0400 Heart rate 49 /min Elier Raymundo MD Work Phone: [facility] 07-18-2021 10:45-0400 Respiratory rate 16 /min Elier Raymundo MD Work Phone: [facility] 07-18-2021 10:45-0400 SaO2% (BldA) [Mass fraction] 98 % Elier Raymundo MD Work Phone: [facility] 07-18-2021 10:45-0400 Systolic blood pressure 132 mm[Hg] Elier Raymundo MD Work Phone: [facility] Encounters Encounter Date Encounter Type Care Provider Facility Start: 10-09-2023 End: 10-09-2023 ambulatory [facility] Work Phone: Start: 10-09-2023 End: 10-09-2023 Patient encounter procedure [facility] Physician [facility] Work Phone: Start: 08-26-2023 Non-patient / Non-visit [facility] Physician [facility] Work Phone: Start: 07-24-2023 Non-patient / Non-visit [facility] Physician [facility] Work Phone: Start: 07-22-2023 End: 07-22-2023 ambulatory [facility] Start: 03-17-2023 End: 03-17-2023 ambulatory Matt Wang Other [facility] Other Start: 03-17-2023 Office outpatient visit 10 minutes Matt Wang Medical [facility] Start: 06-25-2022 End: 06-26-2022 ambulatory [facility]ICRU[facility] PIMENTEL Facility:[facility] Start: 01-20-2022 Encounter for genera l adult medical examination without abnormal findings DR MATT WANG [facility] Start: 01-16-2022 End: 01-17-[address] MATT [...] encounter procedure Elier Raymundo MD Work Phone: [place] Start: 07-15-2021 Telephone encounter Elier Raymundo MD Work Phone: Hematology/Oncology Comment on above: Lab Orders Start: 02-17-2018 End: 02-17-2018 Patient encounter procedure [facility] Facility:[facility] Start: 10-14-2017 End: 10-17-2017 Patient encounter JOSE RAUL MARTIN) [facility] Start: 07-02-2017 Patient encounter JOSE RAUL MARTIN) [facility] Start: 06-16-2017 Patient encounter JOSE RAUL MARTIN) [facility] Procedures Date Procedure Procedure Detail Performing Clinician Start: 01-16-[address] STEFAN WANG Comment on above: Performed By: #### P SASC #### [facility] [address] [address] [address] Shawn Shahid Start: 07-18-2021 Adult depression screening assessment Elier Raymundo MD Work Phone: Start: 01-30-2021 Adult depression screening assessment Elier Raymundo MD Work Phone: Plan of Treatment Date Care Activity Detail Author Start: 07-18-2024 DIABETES SCREEN DIABETES SCREEN [facility] Start: 04-18-2024 Urine microalbumin profile DTAP,TDAP,TD (2 - Tdap) [facility] Start: 01-18-2024 DIABETES SCREEN DIABETES SCREEN [facility] Start: 07-18-2022 Adult depression screening assessment DEPRESSION SCREENING [facility] Start: 01-30-2022 Adult depression screening assessment DEPRESSION SCREENING [facility] Start: 07-15-2021 End: 09-14-2021 CBC W Auto Differential panel - Blood CBC + DIFF Lab Routine Acute deep vein thrombosis (DVT) of femoral vein of left lower extremity (HCC) Thrombocytosis after splenectomy Expected: 07/15/2021, Expires: 09/14/2021 [facility] Work Phone: Comment on above: Expected: 07/15/2021 , Expires: 09/14/2021 Start: 07-15-2021 End: 09-14-2021 Comprehensive metabolic 2000 panel - Serum or Plasma COMP METABOLIC PANEL Lab Routine Acute deep vein thrombosis (DVT) of femoral vein of left lower extremity (HCC) Thrombocytosis after splenectomy Expected: 07/15/2021, Expires: 09/14/2021 [facility] Work Phone: Comment on above: Expected: 07/15/2021 , Expires: 09/14/2021 Start: 03-16-2021 ADVANCE DIRECTIVE DISCUSSION ADVANCE DIRECTIVE DISCUSSION [facility] Start: 06-12-2020 COVID-19 VACCINE (2 - Moderna 3-dose series) COVID-19 VACCINE (2 - Moderna 3-dose series) [facility] Start: 06-13-2014 MENINGOCOCCAL CONJUG ATE (1 - Risk start 2-23 months series) MENINGOCOCCAL CONJUGATE (1 - Risk start 2-23 months series) [facility] Start: 05-15-2014 SHINGRIX VACCINE (2 of 3) SHINGRIX VACCINE (2 of 3) [facility] Start: 2010 PNEUMOVAX AGE 65 AND OVER WITH 5YR LOOKBACK (#1) PNEUMOVAX AGE 65 AND OVER WITH 5YR LOOKBACK (#1) [facility] Start: 1990 COLOGUARD (FIT-DNA) COLOGUARD (FIT-D NA) [facility] Start: 1990 Colonoscopy COLONOSCOPY [facility] Start: 1990 COLORECTAL CANCER SCREENING COLORECTAL CANCER SCREENING [facility] Start: [address] COLONOGRAPHY [facility] Start: 1990 FECAL OCCULT BLOOD FECAL OCCULT BLOO D [facility] Start: 1990 SIGMOIDOSCOPY SIGMOIDOSCOPY [facility] Start: 1980 LIPID SCREEN LIPID SCREEN [facility] Start: 01-01-1956 MENINGOCOCCAL B: Consider based on risk (1 of 4 - Increased Risk Bexsero 2-dose series) MENINGOCOCCAL B: Consider based on risk (1 of 4 - Increased Risk Bexsero 2-dose series) [facility] Immunizations Immunization Date Immunization Notes Care Provider [facility] 12-12-2020 influenza virus vacc ine, split virus (incl. purified surface antigen) Matt Wang Other [employer] [facility] Other 12-12-2020 influenza virus vacc ine, unspecified formulation [facility] 12-11-2020 influenza, high-dose , quadrivalent vaccine (FLUZONE HIGH DOSE QUADRIVALENT) Elier Raymundo MD Work Phone: [facility] 06-13-2020 zoster vaccine, live Benjami benedict Wang Other [facility] 05-15-2020 COVID-19 vaccine, fu ll dose (MODERNA) Elier Raymundo MD Work Phone: [facility] 01-23-2020 influenza virus vacc ine, split virus (incl. purified surface antigen) Matt Wang Other [employer] Other 01-23-2020 influenza virus vacc ine, unspecified formulation [facility] 12-26-2019 pneumococcal conjuga te vaccine, 13 valent Matt Wang Other [facility] 11-26-2016 influenza virus vacc ine, split virus (incl. purified surface antigen) Matt Wang Other [facility] Other 11-26-2016 influenza virus vacc ine, unspecified formulation [facility] 06-29-2014 meningococcal oligosaccharide (groups A, C, Y and W-135) diphtheria toxoid conjugate vaccine (MCV4O) Matt Wang Other [facility] 06-29-2014 pneumococcal polysaccharide vaccine, 23 valent Matt Wnag Other [facility] 04-18-2014 DTaP-Haemophilus influenzae type b conjugate vaccine Elier Raymundo MD Work Phone: [facility] Work Phone: 04-18-2014 meningococcal polysaccharide vaccine (MPSV4) Elier Raymundo MD Work Phone: [facility] Work Phone: 04-18-2014 pneumococcal conjuga te vaccine, 13 valent Elier Raymundo MD Work Phone: [facility] Work Phone: 03-20-2014 influenza virus vacc ine, unspecified formulation Elier Raymundo MD Work Phone: [facility] 03-20-2014 zoster vaccine, live Divya Raymundo MD Work Phone: [facility] 01-21-2013 pneumococcal polysaccharide vaccine, 23 valent Matt Felipe Other [facility] 01-21-2013 tetanus and diphther ia toxoids, adsorbed, preservative free, for adult use (5 Lf of tetanus toxoid and 2 Lf of diphtheria toxoid) Matt Wang Other [facility] Payers Date Payer Category Payer Unknown MMO MMO MEDICARE SUPPLEMENT [id number] 2019-Present [phone] [address] [place] [address] Indemnity [id number] 2017 Medicare [id number] 2017 Self-pay ABC 2017 Unknown [id number] 2010 Medicare MEDICARE MEDICAR E A AND B [id number] 2010-Present [phone] [address] [address] [place] [address] Medicare [id number] 1959 Medicare [id number] 1959 Unknown [id number] 1945 Unknown [id number] 1945 Unknown [id number] 1945 Unknown [id number] 1945 Unknown [id number] Self-pay Self Pay [id number] Social History Date Type Detail Facility Start: 01-13-2014 End: 10-09-2023 Tobacco smoking status NHIS Ex-smoker [facility] Start: 01-13-2014 Cigarettes smoked current (pack per day) - Reported 1 [facility] Start: 01-13-2014 Tobacco use and exposure Smokeless tobacco non-user [facility] Start: 01-17-2021 End: 07-18-2021 Alcohol intake Current non-drinker of alcohol (finding) [facility] Start: 12-08-2016 Tobacco Comment quit 6 years ago [facility] Start: 1945 Sex Assigned At Male C [facility] Start: 07-08-2021 End: 07-18-2021 Exposure to SARS-CoV-2 (event) Not sure [facility] Sex Assigned At Sex Assigned At Bir [employer] Other Clinical Notes 05-08-2014 to 07-22-2023 Note Date & Type Note Facility 07-22-2023 Note [place] [facility] Subjective Meera Stockton is a [...] platelets 538, potassium (more content not included)... [facility] 03-17-2023 Evaluation note Encounter Date Diagnosis Assessment [...] I10) Must hold Amlodipine while taking Paxlovid [facility] [employer] Other 05-05-2022 NoteHNO ID: [id number] Author: Elier Raymundo MD Service: ? Author [...] January 08, 2021 D-dimer normal. Platelet count 365315. WBC normal with differential showing absolute monocytosis, [...] for bleeding events. Continue indefinite anticoagulation. ? 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 CC: [facility] History of Present illness Narrative* Elier Raymundo [...] January 08, 2021 D-dimer normal. Platelet count 252500. WBC normal with differential showing absolute monocytosis, [...] risk for bleeding events. Continue indefinite anticoagulation. BILLET SHEARER issues: Patient has longstanding issues with peripheral [...] which included preparing to see the patient, [id number] patient care, completing clinical documentation, obtaining and/or reviewing separately obtained history, performing a medically appropriate examination, counseling and educating the pat ient/family/caregiver, ordering medications, tests, or procedures and independently interpreting results (not separately reported). CC: Matt Wang [facility] NoteHNO ID: [id number] Author: Gay Rojas MD Service: ? Author Type: Physician Type: Progress Notes Filed: 02/26/2021 8:57 AM Note Text: Neurology Follow-Up(virtual, switched to phone) - February 26, 2021 Meera Stockton is following up for neuropathy, MRI results. He was last seen on 02/01/21. Notes from previous visits are as follows: He was followed by Dr. Alvarez from [id number], last seen on 06/02/17: IMPRESSION:? 71?year old [...] 1,000 mg by mouth once daily. - Kexyh-[id number]-EPA-Fish Oil (FISH OIL) 1,000 mg (120 mg-180 [...] cold GI: no emeli (more content not included)...[facility]12-07-2021 NoteHNO ID: [id number] Author: RT Rico(R) Service: ? Author Type: [...] BY: RT Rico(R) February 19, 2021 2:08 [facility]11-19-2021 NoteHNO ID: [id number] Author: Gay Rojas MD Service: ? Author [...] He was followed by Dr. Alvarez from [id number], last seen on 06/02/17: IMPRESSION: 71 year [...] Outpatient Medications Medication Si (more content not included)...[facility]11-04-2021 NoteHNO ID: [id number] Author: Elier Raymundo MD Service: ? Author [...] January 08, 2021 D-dimer normal. Platelet count 899256. WBC normal with differential showing absolute monocytosis, [...] for now. Follow-up in 6 months. ? BILLET SHEARER issues: Patient has longstanding issues with peripheral [...] to neurology provided. Kyle (more content not included)...[facility]10-26-2021 Note HNO ID: [id number] Author: Elier Raymundo MD Service: ? Author [...] No clear etiology has been demonstrated. His BILLET SHEARER symptoms include bilateral decreased hearing sensation, balance [...] high risk for recurrence (more content not included)...[facility]02-23-2015 History general Narrative - Reported* Type Description Date Medical History Hyperlipemia, mixed Medical History Essential hypertension Surgical History hernia repair Surgical History PANCREATOMY 05-08-14 Hospitalization History see surgical history [employer] Other Evaluation note* Diagnosis Acute deep vein thrombosis (DVT) of femoral vein of left lower extremity (HCC)- Primary Thrombocytosis after splenectomy [facility] Diagnosis Acute deep vein thrombosis (DVT) of femoral vein of left lower extremity (HCC)- Primary Thrombocytosis after splenectomy [facility] Diagnosis Onset Date Resolution Status Benign prostatic hyperplasia with lower urinary tract symptoms acute Hx of pulmonary embolus acut e Hypercholesterolemia acute Hypertension acute Peripheral neuropathy acute Medicare annual wellness visit, subsequent noneactive Screening PSA (prostate specific antigen) noneactive [facility] Work Phone: Summary Purpose Family History Relationship Condition Age at Onset Recorded Date/T juan father Unknown mother Unknown Advance Directives Documents on File Type Date Recorded 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 Advance Directive(s) 10/14/2017 12:47 PM Advance Directive Response Recorded Date/ Time Advance Directives No December 30, 2018 9:32am Chief Complaint and Reason for Visit Chief Complaint wellness Reason for Visit Benign prostatic hyp erplasia with lower urinary tract symptoms Hx of pulmonary embolus Hypercholesterolemia Hypertension Peripheral neuropathy Medicare annual wellness visit, subsequent Screening PSA (prostate specific antigen) Additional Source Comments (unrecognized sect ion and content) No Status Records FoundNo Status Records FoundNo Status Records FoundNo Status Records FoundNo Status Records FoundNo Status Records FoundNo Status Records Found INFORMATION SOURCE (unrecogn ized section and content) DATE CREATED AUTHOR 10/27/2017 [facility] DATE CREATED AUTHOR AUTHOR'S ORGANIZ ATION 02/25/2018 [facility] DATE CREATED AUTHOR AUTHOR'S ORGANIZ ATION 10/08/2018 [facility] DATE CREATED AUTHOR AUTHOR'S ORGANIZ ATION 11/26/2018 [facility] DATE CREATED AUTHOR AUTHOR'S ORGANIZ ATION 07/19/2021 [facility] DATE CREATED AUTHOR AUTHOR'S ORGANIZ ATION 06/28/2022 [facility] DATE CREATED AUTHOR AUTHOR'S ORGANIZ ATION 07/24/2023 [facility] Source Comments (unrecognize d section and content) In the event this informatio n is protected by the Federal Confidentiality of Alcohol and Drug Abuse Patient Records regulations: The Federal rules restrict any use of the information to criminally investigate or prosecute any alcohol or drug abuse patient.[facility] the event this information is protected by the Federal Confidentiality of Alcohol and Drug Abuse Patient Records regulations: The Federal rules restrict any use of the information to criminally investigate or prosecute any alcohol or drug abuse patient.[facility] Reason for Visit (unrecogniz ed section and content) Reason Comments Lab Orders Reason Comments Outpatient Dvt Tx Care Teams (unrecognized sec tion and content) [place] Relationship Specialty Start Date End Date Matt Wang DO PCP - General Internal Medicine 11/30/13 [employer] Relationship Specialty Start Date End Date Matt Wang DO PCP - General Internal Medicine 11/30/13 Team Status: Active Member Role Status Dates Matt Wang DO Primary Care Provider Active Team Status: Active Member Role Status Dates Matt Wang DO Primary Care Provider Active Start: July 24, 2023 Gamal Krueger MD Attending Provider Active Start: July 24, 2023 Team Status: Active Member Role Status Dates Matt Wang DO Primary Care Provider Active Start: August 26, 2023 Gamal Krueger MD Attending Provider Active Start: August 26, 2023 Team Status: Inactive Member Role Status Dates Matt Wang DO Primary Care Provide r, Attending Provider Active Start: October 09, 2023 End: October 09, 2023 Goals (unrecognized section and content) Goals may be documented in a n alternate section FOR RECORDS PERTAINING TO PATIENTS WHO ARE [...] BE BASED ON THE PRIMARY CLINICAL RECORDS. [facility]. provides no warranty or guarantee of the accuracy or completeness of information in this document.
[2023-10-15 09:47] LABS: Basophils Absolute Auto 0.1 10^3/uL (0.0-0.1); Eosinophils Absolute Auto 0.5 10^3/uL (0.0-0.7); Eosinophils Percent Auto 8.4 % (0.9-7.0); Hematocrit 47.7 % (42.0-54.0); Hemoglobin 16.3 g/dL (14.0-18.0); Immature Granulocytes Abs Auto 0.02 10^3/uL (0.00-0.03); Immature Granulocytes Pct Auto 0.3 % (0.0-0.5); Lymphocytes Absolute Auto 2.4 10^3/uL (1.2-3.8); Lymphocytes Percent Auto 37.8 % (20.5-60.0); Mean Corpuscular HGB Conc 34.2 g/dL (29.9-35.2); Mean Corpuscular Hemoglobin 33.4 pg (25.9-34.0); Mean Corpuscular Volume 97.7 fL (80.0-94.0); Mean Platelet Volume 9.4 fL (9.5-13.5); Monocytes Absolute Auto 1.2 10^3/uL (0.3-0.8); Monocytes Percent Auto 18.9 % (1.7-12.0); Neutrophils Absolute Auto 2.1 10^3/uL (1.4-6.5); Neutrophils Percent Auto 32.6 % (43.0-75.0); Platelet Count 444 10^3/uL (150-450); Red Blood Count 4.88 10^6/uL (4.70-6.10); Red Cell Distribution Width 14.9 % (11.0-15.0); White Blood Count 6.5 10^3/uL (4.0-11.0)
[2023-10-15 10:31] LABS: Chol HDL Ratio 3.3; Cholesterol 222 mg/dL (<=200); HDL Cholesterol 68 mg/dL (40-60); Triglycerides 99 mg/dL (<=150); VLDL CHOLESTEROL 19.8 mg/dL
[2023-10-15 10:42] LABS: Prostate Specific Antigen Scrn 2.03 ng/mL (<=4.00)
== END 2023-10-15 09:10 | disposition home or self-care (01) ==
LOC: LAB 09:11
PROVIDERS: PCP Internal Medicine; Visit Provider Internal Medicine
DX: E78.00 Pure hypercholesterolemia, unspecified (principal); I10 Essential (primary) hypertension; G62.9 Polyneuropathy, unspecified; Z12.5 Encounter for screening for malignant neoplasm of prostate
CPT/HCPCS: 36415; 80061; 85025; G0103

== ENCOUNTER 2024-10-18 12:05 | Outpatient (OUT) | payer MEDICARE, OTHER, SELFPAY ==
[2024-10-18 12:54] LABS: Hematocrit 48.5 % (42.0-54.0); Hemoglobin 16.3 g/dL (14.0-18.0); Immature Granulocytes Abs Auto 0.01 10^3/uL (0.00-0.03); Immature Granulocytes Pct Auto 0.1 % (0.0-0.5); Lymphocytes Absolute Auto 2.5 10^3/uL (1.2-3.8); Mean Corpuscular HGB Conc 33.6 g/dL (29.9-35.2); Mean Corpuscular Hemoglobin 32.8 pg (25.9-34.0); Mean Corpuscular Volume 97.6 fL (80.0-94.0); Platelet Count 421 10^3/uL (150-450); Red Blood Count 4.97 10^6/uL (4.70-6.10); White Blood Count 7.0 10^3/uL (4.0-11.0)
[2024-10-18 17:01] LABS: Alanine Aminotransferase 29 U/L (16-63); Albumin Globulin Ratio 1.2; Albumin Level 4.3 g/dL (3.4-5.0); Alkaline Phosphatase 29 U/L (46-116); Anion Gap 20.4; Aspartate Amino Transferase 23 U/L (15-37); Blood Urea Nitrogen 19.0 mg/dL (7.0-18.0); Calcium 10.1 mg/dL (8.5-10.1); Carbon Dioxide 22.1 mmol/L (21.0-32.0); Chloride 103 mmol/L (98-107); Cholesterol 235 mg/dL (<=200); Estimated GFR (African America >60 (>=60 mL/min/1.73m^2); Estimated GFR (Non-African Ame >60 (>=60 mL/min/1.73m^2); Globulin 3.6 g/dL; Glucose 95 mg/dL (74-106); HDL Cholesterol 65 mg/dL (40-60); Potassium 4.5 mmol/L (3.5-5.1); Sodium 141 mmol/L (136-145); Total Protein 7.9 g/dL (6.4-8.2); Triglycerides 117 mg/dL (<=150); VLDL CHOLESTEROL 23.4 mg/dL
== END 2024-10-18 12:06 | disposition home or self-care (01) ==
PROVIDERS: PCP Internal Medicine; Visit Provider Internal Medicine
DX: G60.3 Idiopathic progressive neuropathy (principal); E78.00 Pure hypercholesterolemia, unspecified; I10 Essential (primary) hypertension; Z12.5 Encounter for screening for malignant neoplasm of prostate
CPT/HCPCS: 36415; 80053; 80061; 85025; G0103